=== PATIENT | female | born 1985 | race Caucasian/White ===

== ENCOUNTER 2019-11-04 01:10 | Emergency (ER) | payer SELFPAY ==
--- NOTE | 2019-11-04 01:23 | ER Document Report ---
ED General - General Chief Complaint: Possible Overdose Stated Complaint: POSS OVERDOSE Time Seen by Provider: 11/04/19 01:22 Mode of Arrival: Medic Information source: Patient, Emergency Med Personnel TRAVEL OUTSIDE OF THE [place] IN LAST 30 DAYS: No - HPI Onset: Just prior to arrival Onset/Duration: Sudden Quality of pain: No pain Severity: Severe Pain Level: Denies Associated symptoms: Other - patient apparently turned blue and stopped breathing Exacerbated by: Other - drug use Relieved by: Denies Similar symptoms previously: No Recently seen / treated by doctor: No Notes: 34 year old female with a history of Substance Abuse brought to the ER due to concern of an accidental drug overdose. The patient says she had a Klonpin yesterday afternoon and a drink and then she shot up crushed Percocet. The patient does not remember much after that but she started to come to and EMS and police were over her. The patient was apparently not given Narcan but brought to the ER. The patient was awake and alert for EMS and she was awake and alert in the ER but tearful/emotional. The patient denies any complaints at this time other then being shook up and wanting to go home. The patient denies Suicidal Ideation. - Related Data Allergies/Adverse Reactions: Penicillins Allergy (Severe, Verified 11/23/13 17:25) tounge swelling Past Medical History - General Information source: Patient, Emergency Med Personnel - Social History Smoking Status: Current Every Day Smoker Frequency of alcohol use: Occasional Drug Abuse: Cocaine, Heroin, Marijuana, Prescription drugs Lives with: Friend Family History: Reviewed & Not Pertinent Patient has suicidal ideation: No Patient has homicidal ideation: No Neurological Medical History: Reports: Hx Migraine - Immunizations Hx Diphtheria, Pertussis, Tetanus Vaccination: No Review of Systems - Review of Systems Constitutional: Other - apparent accidental overdose at home after injecting crushed up percocet EENT: No symptoms reported Cardiovascular: No symptoms reported Respiratory: No symptoms reported Gastrointestinal: No symptoms reported Genitourinary: No symptoms reported Female Genitourinary: No symptoms reported Musculoskeletal: No symptoms reported Skin: No symptoms reported Hematologic/Lymphatic: No symptoms reported Neurological/Psychological: No symptoms reported -: Yes All other systems reviewed and negative Physical Exam - Vital signs Vitals: Resp Pulse Ox 18 99 11/04/19 01:16 11/04/19 01:16 - Notes Notes: GENERAL: Poorly groomed, tearful and somewhat anxious, well-nourished HEAD: Atraumatic, normocephalic. EYES: Pupils equal round and reactive to light, extraocular movements intact, sclera anicteric, conjunctiva are normal. ENT: External ears normal in appearance, nares patent, oropharynx clear without exudates. Moist mucous membranes. NECK: Normal range of motion, supple without lymphadenopathy or JVD. LUNGS: Breath sounds clear to auscultation bilaterally and equal. No wheezes rales or rhonchi. HEART: Regular rate and rhythm without murmurs, rubs or gallops. ABDOMEN: Soft, nontender, normoactive bowel sounds. No guarding, no rebound. No masses appreciated. EXTREMITIES: Normal range of motion, no pitting or edema. No clubbing or cyanosis. NEUROLOGICAL: Cranial nerves II through XII grossly intact. Normal speech, normal gait. PSYCH: Patient denies SI, Patient endorses accidentally overdose, Anxious SKIN: Warm, Dry, normal turgor, no rashes or lesions noted. Course - Re-evaluation Re-evalutation: 11/04/19 02:37 The patient was using drugs at home and it sounds like she accidentally overdosed. The patient was not given Narcan by EMS and she was awake and alert for EMS and awake and alert in the ER. The patient was apparently found unresponsive at home with poor respirations and a blue color. The patient refused to stay in the ER for a work up. She was alert and oriented and had capacity to sign out against medical advice which she did. The patient denies SI. - Vital Signs Vital signs: Temp Pulse Resp BP Pulse Ox 98.4 F 14 139/82 H 99 11/04/19 01:20 11/04/19 01:18 11/04/19 01:18 11/04/19 01:18 Discharge - Discharge Clinical Impression: Drug use Accidental overdose Qualifiers: Encounter type: initial encounter Qualified Code(s): T50.901A - Poisoning by unspecified drugs, medicaments and biological substances, accidental (unintentional), initial encounter Condition: Stable Disposition: AGAINST MEDICAL ADVICE Instructions: Instructions for Home Care Following a Drug Overdose ([facility]) Additional Instructions: Stop using drugs. You had an event today where you apparently stopped breathing. Follow up with outpatient [facility] for your help with your drug problem.
[2019-11-04 01:40] VITALS: BP 139/82
== END 2019-11-04 01:52 | disposition left against medical advice (07) ==
LOC: ER 01:10
DX: T50.901A Poisoning by unspecified drugs, medicaments and biological substances, accidental (unintentional), initial encounter (principal); X58.XXXA Exposure to other specified factors, initial encounter; Y92.009 Unspecified place in unspecified non-institutional (private) residence as the place of occurrence of the external cause; F17.200 Nicotine dependence, unspecified, uncomplicated; Z88.0 Allergy status to penicillin
CPT/HCPCS: 99284

== ENCOUNTER 2020-03-20 23:21 | Emergency (ER) | payer SELFPAY ==
[2020-03-20] MEDS ORDERED: IBUPROFEN 600 MG TABLET PO ONE (23:44)
[2020-03-20] MEDS ORDERED: DOPAMINE HCL/DEXTROSE 5%-WATER 800 MG/250 ML RTUINJ IV PRN (23:48)
[2020-03-20] MEDS ORDERED: CLINDAMYCIN 300 MG/D5W RTU 300 MG/50 ML RTUPB IV ONE (23:49)
[2020-03-21] MEDS ORDERED: RINGERS SOLUTION,LACTATED 2,000 ML IV ONE
--- NOTE | 2020-03-21 | ER Document Report ---
ED Medical Screen (RME) - General Chief Complaint: Fever Stated Complaint: FEVER,SHAKY,ABSCESS ON LEFT ARM Time Seen by Provider: 03/20/20 23:43 Notes: Patient is a 34-year-old female who presents the emergency department with a chief complaint of fever, chills, body aches, and an abscess to her left wrist. Patient states that she "sliced open the abscess." Patient states that since then, she has had a fever. Denies any contact with anybody who tested positive for COVID-19. Patient is a current heroin user. Exam: Temperature 103. Old abscess site and noted to left wrist with surrounding erythema noted. I have greeted and performed a rapid initial assessment of this patient. A comprehensive ED assessment and evaluation of the patient, analysis of test results and completion of medical decision making process will be conducted by an additional ED providers. TRAVEL OUTSIDE OF THE [place] IN LAST 30 DAYS: No - Related Data Allergies/Adverse Reactions: Penicillins Allergy (Severe, Verified 11/23/13 17:25) tounge swelling Past Medical History - Social History Drug Abuse: Heroin Neurological Medical History: Reports: Hx Migraine - Immunizations Hx Diphtheria, Pertussis, Tetanus Vaccination: No Physical Exam - Vital signs Vitals: Temp Pulse Resp BP Pulse Ox 103.0 F H 128 H 20 170/82 H 96 03/20/20 23:26 03/20/20 23:26 03/20/20 23:26 03/20/20 23:26 03/20/20 23:26 Course - Vital Signs Vital signs: Temp Pulse Resp BP Pulse Ox 103.0 F H 128 H 20 170/82 H 96 03/20/20 23:26 03/20/20 23:26 03/20/20 23:26 03/20/20 23:26 03/20/20 23:26
[2020-03-21 00:42] LABS: ABSOLUTE LYMPHOCYTES (AUTO) 0.3 10^3/uL (0.5-4.7); ABSOLUTE MONOCYTES (AUTO) 0.3 10^3/uL (0.1-1.4); ABSOLUTE NEUT (AUTO) 4.9 10^3/uL (1.7-8.2); BASOPHILS % (AUTO) 0.4 % (0-2); EOSINOPHILS % (AUTO) 0.3 % (0-6); HEMATOCRIT 31.8 % (36.0-47.0); LYMPHOCYTES % (AUTO) 5.6 % (13-45); MEAN CORPUSCULAR HEMOGLOBIN 31.4 pg (27.0-33.4); MEAN CORPUSCULAR HGB CONC 34.7 g/dL (32.0-36.0); MEAN CORPUSCULAR VOLUME 90 fl (80-97); MONOCYTES % (AUTO) 5.4 % (3-13); RED BLOOD COUNT 3.52 10^6/uL (3.72-5.28); RED CELL DISTRIBUTION WIDTH 12.6 % (11.5-14.0); SEGMENTED NEUTROPHILS % (AUTO) 88.3 % (42-78); TOTAL CELLS COUNTED % (AUTO) 100 %; WHITE BLOOD COUNT 5.6 10^3/uL (4.0-10.5)
[2020-03-21 00:54] LABS: ALKALINE PHOSPHATASE 69 U/L (38-126); ANION GAP 8 (5-19); ASPARTATE AMINO TRANSFERASE 62 U/L (14-36); BILIRUBIN,DIRECT 0.2 mg/dL (0.0-0.4); BILIRUBIN,TOTAL 0.4 mg/dL (0.2-1.3); BLOOD UREA NITROGEN 11 mg/dL (7-20); CARBON DIOXIDE 21 mmol/L (22-30); CHLORIDE 104 mmol/L (98-107); GLUCOSE 136 mg/dL (75-110); POTASSIUM 3.5 mmol/L (3.6-5.0); TOTAL PROTEIN 6.6 g/dL (6.3-8.2)
[2020-03-21 01:22] LABS: PLATELET COUNT 97 10^3/uL (150-450)
[2020-03-21] MEDS ORDERED: CLINDAMYCIN HCL 150 MG CAPSULE PO ONE (01:29)
--- NOTE | 2020-03-21 01:33 | ER Document Report ---
ED General - General Chief Complaint: Fever Stated Complaint: FEVER,SHAKY,ABSCESS ON LEFT ARM Time Seen by Provider: 03/20/20 23:43 Primary Care Provider: ALBINO DANIELS MD [HONORARY] - Follow up as needed TRAVEL OUTSIDE OF THE [place] IN LAST 30 DAYS: No - HPI Context: This is a 34-year-old female with a history of IV drug abuse who presents to the emergency department complaint of fever, body aches, chills. Patient states she had a temperature of 103.4 at home. Patient states she has also been having some lightheadedness and dizziness and has been seeing spots when she stands up. Patient does have a abscess present on her left wrist. Patient has refused placement of a peripheral IV and IV antibiotics. Patient denies alleviating factors and exacerbating factors. Patient states she has had the symptoms for around 24 hours. Associated symptoms: Other - See HPI Exacerbated by: Other Relieved by: Other - See HPI see HPI - Related Data Allergies/Adverse Reactions: Penicillins Allergy (Severe, Verified 11/23/13 17:25) tounge swelling Past Medical History - General Information source: Patient - Social History Smoking Status: Current Every Day Smoker Drug Abuse: Heroin Family History: Reviewed & Not Pertinent Neurological Medical History: Reports: Hx Migraine - Immunizations Hx Diphtheria, Pertussis, Tetanus Vaccination: No Review of Systems - Review of Systems Constitutional: Chills, Fever, Weakness EENT: No symptoms reported Cardiovascular: No symptoms reported Respiratory: No symptoms reported Gastrointestinal: No symptoms reported Genitourinary: No symptoms reported Female Genitourinary: No symptoms reported Musculoskeletal: No symptoms reported Skin: Other - Abscess Hematologic/Lymphatic: No symptoms reported Neurological/Psychological: No symptoms reported -: Yes All other systems reviewed and negative Physical Exam - Vital signs Vitals: Temp Pulse Resp BP Pulse Ox 103.0 F H 128 H 20 170/82 H 96 03/20/20 23:26 03/20/20 23:26 03/20/20 23:26 03/20/20 23:26 03/20/20 23:26 - Notes Notes: CONSTITUTIONAL Patient wants to leave AMA. She is agreeable to a basic physical exam. [Vital signs reviewed, Patient appears comfortable, Alert and oriented X 3, Normal stature.] HEAD [Atraumatic, Normocephalic.] EYES [Eyes are normal to inspection, No discharge from eyes, Extraocular muscles intact, Sclera are normal, Conjunctiva are normal.] NECK [Normal ROM, No jugular venous distention, No meningeal signs, no carotid bruit.] RESPIRATORY CHEST [Chest is nontender, Breath sounds normal, No respiratory distress.] CARDIOVASCULAR [RRR, No murmurs, Normal S1 S2, No rub, No gallop.] ABDOMEN [Abdomen is nontender, No pulsatile masses, No other masses, Bowel sounds normal, No distension, No peritoneal signs, No hernias.] BACK [There is no CVA Tenderness, There is no tenderness to palpation, Normal inspection.] UPPER EXTREMITY [Inspection normal, No cyanosis, No clubbing, No edema, 2+ radial pulses.] LOWER EXTREMITY [Inspection normal, No cyanosis, No clubbing, No edema, No calf tenderness, 2+ femoral pulses.] NEURO [No focal motor deficits, No focal sensory deficits, Speech normal.] LYMPHATIC [No adenopathy in neck.] PSYCHIATRIC [Normal affect. ] Course - Re-evaluation Re-evalutation: 03/21/20 01:39 Results of ED MSE discussed with patient. Patient advised that she should at least get some IV antibiotics. Patient is refusing this. Patient states she wants to leave. Patient has been informed that if she is leaving she will be doing so AGAINST MEDICAL ADVICE. Risk of leaving AMA including but not limited to permanent disability and/or discussed with patient. Patient expressed understanding of risks. Patient was amenable to receiving a oral dose of clindamycin and a prescription for more the same. Patient was encouraged to return to the emergency department anytime if she decides to seek further care or treatment. - Vital Signs Vital signs: Temp Pulse Resp BP Pulse Ox 103.0 F H 128 H 20 170/82 H 96 03/20/20 23:26 03/20/20 23:26 03/20/20 23:26 03/20/20 23:26 03/20/20 23:26 - Laboratory Result Diagrams: 03/21/20 00:26 03/21/20 00:26 Laboratory results interpreted by me: 03/21/20 03/21/20 00:26 00:26 RBC 3.52 L Hgb 11.0 L Hct 31.8 L Plt Count 97 L Lymph % (Auto) 5.6 L Absolute Lymphs (auto) 0.3 L Seg Neutrophils % 88.3 H Sodium 133.2 L Potassium 3.5 L Carbon Dioxide 21 L Glucose 136 H Calcium 8.0 L AST 62 H ALT 40 H Albumin 3.0 L Discharge - Discharge Clinical Impression: Abscess Fever Qualifiers: Fever type: unspecified Qualified Code(s): R50.9 - Fever, unspecified Disposition: AGAINST MEDICAL ADVICE Instructions: Abscess ([facility]) Additional Instructions: Return to the Emergency Department without delay if any worse. Return to the emergency department at any time if you decide to seek further treatment. HOME CARE INSTRUCTIONS & INFORMATION: Thank you for choosing us for your medical needs. We hope you're satisfied with the care you received. After you leave, you must properly care for your problem and, at the same time, observe its progress. Any condition can change. Some illnesses can change rapidly over hours or days. If your condition worsens, return to the Emergency Department or see your physician promptly. ABOUT YOUR X-RAYS AND EKG'S: If you had an EKG or X-rays taken, they have been read by the Emergency Physician. The X-rays and EKG's will also be read by a Radiologist or Dice Table Operator within 24 hours. If discrepancies are noted, you will be notified by telephone. Please be certain the ED has a correct telephone number & address where you can be reached. Also, realize that some fractures or abnormalities do not show up on initial X-rays. If your symptoms continue, see your physician. ABOUT YOUR LABORATORY TEST: If you had laboratory tests, the results have been reviewed by the Emergency Physician. Some test results (for example cultures) may not be available for several days. You will be contacted if any test result shows you need additional treatment. Please be certain the ED has a correct telephone number and address where you can be reached. ABOUT YOUR MEDICATIONS: You will receive instructions on how to take your medic ine on the prescription label you receive. Additional information may be provided by the Pharmacy. If you have questions afterwards, call the ED for clarification or further instructions. Some prescribed medications may cause drowsiness. Do not perform tasks such as driving a car or operating machinery without consulting your Pharmacist. If you feel you need a refill of pain medication, your condition will need re-evaluation. Please do not call for a refill of any medication. ABOUT YOUR SIGNATURE: Signature of this document acknowledges to followin. Understanding that you received emergency treatment and that you may be released before al medical problems are known or treated. Please be certain the ED has a correct phone number & address where you can be reached. 2. Acknowledgement that you will arrange for follow-up care as recommended. 3. Authorization for the Emergency Physician to provide information to your follow-up Physician in order to maximize your care. AT ANY TIME, IF YOUR SYMPTOMS CHANGE SIGNIFICANTLY OR WORSEN OR YOU DEVELOP NEW SYMPTOMS, RETURN TO THE EMERGENCY DEPARTMENT IMMEDIATELY FOR RE-EVALUATION. OUR GOAL IS TO PROVIDE EXCELLENT MEDICAL CARE! WE HOPE THAT WE HAVE MET YOUR EXPECTATIONS DURING YOUR EMERGENCY DEPARTMENT VISIT AND THAT YOU FEEL YOU HAVE RECEIVED EXCELLENT CARE! Prescriptions: Clindamycin HCl [Cleocin 150 mg Capsule] 450 mg PO TID 10 Days #90 capsule Referrals: ALBINO DANIELS MD [HONORARY] - Follow up as needed
[2020-03-21 01:42] VITALS: BP 129/67
== END 2020-03-21 01:46 | disposition left against medical advice (07) ==
LOC: ER 23:21
DX: L02.414 Cutaneous abscess of left upper limb (principal); R50.9 Fever, unspecified; M79.10 Myalgia, unspecified site; R42 Dizziness and giddiness; F19.10 Other psychoactive substance abuse, uncomplicated; Z88.0 Allergy status to penicillin; F17.200 Nicotine dependence, unspecified, uncomplicated
CPT/HCPCS: 36415; 80053; 83605; 85025; 87040; 87077; 87150; 87186; 99283

== ENCOUNTER 2020-04-12 03:51 | Inpatient (IN) | payer SELFPAY ==
[2020-04-12 05:38] LABS: INTERNATIONAL RATION (INR) 1.11; PROTHROMBIN TIME 14.5 SEC (11.4-15.4)
--- NOTE | 2020-04-12 05:39 | ER Document Report ---
ED Medical Screen (RME) - General Mode of Arrival: Medic Information source: Patient TRAVEL OUTSIDE OF THE [place] IN LAST 30 DAYS: No <MENG GOMES - Last Filed: 04/12/20 05:40> <SETHSTEVE Lon CHAU - Last Filed: 04/12/20 11:01> - General Chief Complaint: Breathing Difficulty Stated Complaint: DIFFICULTY BREATHING Time Seen by Provider: 04/12/20 05:03 Notes: Patient is a 34-year-old female presenting to the emergency department with breathing difficulty and shortness of breath. Patient is a IV heroin user and also has a history of hep C. EMS was called to patient's house for a "sick call". When EMS arrived they found the patient to be hypoxic with a pulse ox of 96%. Patient reports last time she did heroin was approximately 4:00 yesterday afternoon. She has pitting edema to her bilateral lower extremities that she says has been ongoing for the last few days. She denies ever having this happen in the past. She reports she has not felt well for the last 3 to 4 days. She denies any fevers, chills or any known exposure to COVID-19. At the time of my initial evaluation patient is on BiPAP, heart rate 105, pulse ox 99%, respiratory rate 21, blood pressure 97/64. She was initially tachycardic in tachypneic on arrival. I have greeted and performed a rapid initial assessment of this patient. A comprehensive ED assessment and evaluation of the patient, analysis of test results and completion of the medical decision making process will be conducted by additional ED providers. I have specifically instructed the patient or family members with the patient to immediately return to any nursing staff s hould anything change in the patient's condition or with their chief complaint. (MENG GOEMS) - Related Data Allergies/Adverse Reactions: Penicillins Allergy (Severe, Verified 11/23/13 17:25) tounge swelling Past Medical History Neurological Medical History: Reports: Hx Migraine - Immunizations Hx Diphtheria, Pertussis, Tetanus Vaccination: No <MENG GOMES - Last Filed: 04/12/20 05:40> Physical Exam - Vital signs Vitals: Resp 26 H 04/12/20 03:55 Course - Laboratory Result Diagrams: 04/12/20 04:15 04/12/20 04:15 <MENG GOMES - Last Filed: 04/12/20 05:40> - Laboratory Result Diagrams: 04/12/20 04:15 04/12/20 04:15 <STEVE ANN JR - Last Filed: 04/12/20 11:01> - Vital Signs Vital signs: Temp Pulse Resp BP Pulse Ox 97.8 F 27 H 114/62 96 04/12/20 04:00 04/12/20 10:00 04/12/20 10:01 04/12/20 10:00 - Laboratory Laboratory results interpreted by me: 04/12/20 04/12/20 04/12/20 04:15 04:15 04:15 WBC 10.7 H RBC 3.17 L Hgb 9.5 L Hct 27.7 L RDW 15.6 H Plt Count 41 L Lymph % (Auto) 5.9 L Absolute Neuts (auto) 8.5 H Seg Neutrophils % 79.9 H VBG pH VBG HCO3 Sodium 134.2 L Chloride 97 L Carbon Dioxide 19 L BUN 105 H Creatinine 9.19 H Est GFR ( Amer) 6 L Est GFR (MDRD) Non-Af 5 L Calcium 7.1 L Phosphorus Total Bilirubin 1.5 H Direct Bilirubin 1.3 H AST 190 H ALT 61 H Alkaline Phosphatase 178 H NT-Pro-B Natriuret Pep 8880 H Total Protein 5.8 L Albumin 2.3 L Urine Protein Urine Glucose (UA) Urine Ketones Urine Blood Urine Urobilinogen Leukocyte Esterase Rfl Urine Sodium 04/12/20 04/12/20 04/12/20 05:15 07:14 07:14 WBC RBC Hgb Hct RDW Plt Count Lymph % (Auto) Absolute Neuts (auto) Seg Neutrophils % VBG pH VBG HCO3 Sodium Chloride Carbon Dioxide BUN Creatinine Est GFR ( Amer) Est GFR (MDRD) Non-Af Calcium Phosphorus 6.3 H Total Bilirubin Direct Bilirubin AST ALT Alkaline Phosphatase NT-Pro-B Natriuret Pep Total Protein Albumin Urine Protein >=500 H Urine Glucose (UA) 50 H Urine Ketones TRACE H Urine Blood MODERATE H Urine Urobilinogen 2.0 H Leukocyte Esterase Rfl MODERATE H Urine Sodium 130 H 04/12/20 07:22 WBC RBC Hgb Hct RDW Plt Count Lymph % (Auto) Absolute Neuts (auto) Seg Neutrophils % VBG pH 7.23 L VBG HCO3 19.3 L Sodium Chloride Carbon Dioxide BUN Creatinine Est GFR ( Amer) Est GFR (MDRD) Non-Af Calcium Phosphorus Total Bilirubin Direct Bilirubin AST ALT Alkaline Phosphatase NT-Pro-B Natriuret Pep Total Protein Albumin Urine Protein Urine Glucose (UA) Urine Ketones Urine Blood Urine Urobilinogen Leukocyte Esterase Rfl Urine Sodium Critical Care Note <STEVE ANN JR - Last Filed: 04/12/20 11:01> - Critical Care Note Comments: I discussed this case with Dr. Burnette and she advises Dr. Carey to admit the patient and Dr. Parekh returned call at 1030 and advises [facility]. (STEVE ANN JR) Doctor's Discharge <MENG GOMES - Last Filed: 04/12/20 05:40> <STEVE ANN JR - Last Filed: 04/12/20 11:01> - Discharge Clinical Impression: Liver disease, IV drug abuse Pulmonary edema Qualifiers: Chronicity: acute Qualified Code(s): J81.0 - Acute pulmonary edema Edema Qualifiers: Edema type: generalized Qualified Code(s): R60.1 - Generalized edema Acute renal failure (ARF) Qualifiers: Acute renal failure type: unspecified Qualified Code(s): N17.9 - Acute kidney failure, unspecified Disposition: ADMITTED INPATIENT Additional Instructions: Transfer this patient to [facility]
[2020-04-12 05:44] LABS: ALBUMIN 2.3 g/dL (3.5-5.0); ALKALINE PHOSPHATASE 178 U/L (38-126); ANION GAP 18 (5-19); ASPARTATE AMINO TRANSFERASE 190 U/L (14-36); BILIRUBIN,DIRECT 1.3 mg/dL (0.0-0.4); BILIRUBIN,TOTAL 1.5 mg/dL (0.2-1.3); BLOOD UREA NITROGEN 105 mg/dL (7-20); CALCIUM 7.1 mg/dL (8.4-10.2); CARBON DIOXIDE 19 mmol/L (22-30); CHLORIDE 97 mmol/L (98-107); GLUCOSE 80 mg/dL (75-110); POTASSIUM 4.2 mmol/L (3.6-5.0); TOTAL PROTEIN 5.8 g/dL (6.3-8.2)
[2020-04-12] MEDS: LEVOFLOXACIN 750 MG/D5W RTU 750 MG/150 ML RTUPB IV SCH ×2 (05:46→10:16)
[2020-04-12 06:06] LABS: ABSOLUTE BASOPHILS # (AUTO) 0.1 10^3/uL (0.0-0.2); ABSOLUTE EOSINOPHILS # (AUTO) 0.6 10^3/uL (0.0-0.6); ABSOLUTE LYMPHOCYTES (AUTO) 0.6 10^3/uL (0.5-4.7); ABSOLUTE MONOCYTES (AUTO) 0.9 10^3/uL (0.1-1.4); ABSOLUTE NEUT (AUTO) 8.5 10^3/uL (1.7-8.2); BASOPHILS % (AUTO) 0.5 % (0-2); EOSINOPHILS % (AUTO) 5.2 % (0-6); HEMATOCRIT 27.7 % (36.0-47.0); HEMOGLOBIN 9.5 g/dL (12.0-15.5); LYMPHOCYTES % (AUTO) 5.9 % (13-45); MEAN CORPUSCULAR HEMOGLOBIN 30.1 pg (27.0-33.4); MEAN CORPUSCULAR HGB CONC 34.5 g/dL (32.0-36.0); MEAN CORPUSCULAR VOLUME 87 fl (80-97); MONOCYTES % (AUTO) 8.5 % (3-13); RED BLOOD COUNT 3.17 10^6/uL (3.72-5.28); RED CELL DISTRIBUTION WIDTH 15.6 % (11.5-14.0); SEGMENTED NEUTROPHILS % (AUTO) 79.9 % (42-78); TOTAL CELLS COUNTED % (AUTO) 100 %; WHITE BLOOD COUNT 10.7 10^3/uL (4.0-10.5)
[2020-04-12 06:22] LABS: PLATELET COUNT 41 10^3/uL (150-450)
[2020-04-12] MEDS ORDERED: BUMETANIDE INJ/PF 1 MG/4 ML SDV IV STA (06:23)
[2020-04-12] MEDS ORDERED: FAMOTIDINE INJ/PF 20 MG/2 ML SDV IV ONE (06:23)
[2020-04-12] MEDS ORDERED: DEXAMETHASONE SOD PHOS INJ 10 MG/1 ML VIAL IV ONE (06:24)
--- NOTE | 2020-04-12 06:55 | RADIOLOGY REPORT (SQ) ---
EXAM DESCRIPTION: XR CHEST 1 VIEW COMPLETED DATE/TME: 04/12/2020 05:17 CLINICAL HISTORY: 34 years Female, SHORTNESS OF BREATH COMPARISON: 12/21/11 NUMBER OF VIEWS/TECHNIQUE: 1/AP FINDINGS: Moderate, extensive mixed patchy airspace and interstitial opacities bilaterally. Adequate lung volume, prominent cardiac silhouette, and intact bony thorax. IMPRESSION: Moderate, extensive mixed patchy airspace and interstitial opacities bilaterally. Differential diagnosis includes pulmonary edema, multifocal pneumonia, and chronic interstitial lung disease. Imaging features can be seen with (COVID-19 or viral) pneumonia, though are nonspecific and can occur with a variety of infectious and noninfectious processes. [PneInd]
[2020-04-12 07:39] LABS: APPEARANCE,URINE TURBID; BILIRUBIN,URINE NEGATIVE (NEGATIVE); COLOR,URINE AMBER; GLUCOSE, URINE 50 mg/dL (NEGATIVE); KETONES,URINE TRACE mg/dL (NEGATIVE); PROTEIN,URINE >=500 mg/dL (NEGATIVE)
[2020-04-12 07:40] LABS: VENOUS BLOOD HCO3 19.3 mmol/L (20-32); VENOUS BLOOD PCO2 46.7 mmHg (35-63); VENOUS BLOOD PH 7.23 (7.30-7.42)
[2020-04-12 07:50] LABS: URINE BARBITURATES SCREEN NEGATIVE; URINE BENZODIAZEPINES SCREEN NEGATIVE; URINE COCAINE SCREEN NEGATIVE; URINE MARIJUANA (THC) SCREEN NEGATIVE; URINE METHADONE SCREEN NEGATIVE; URINE PHENCYCLIDINE SCREEN NEGATIVE
[2020-04-12] MEDS ORDERED: NORMAL SALINE 500 ML IV ONE (08:01)
[2020-04-12 08:43] LABS: PHOSPHORUS 6.3 mg/dL (2.5-4.5)
[2020-04-12 08:58] LABS: URINE CREATININE 130.5 mg/dL (16-327)
[2020-04-12] MEDS ORDERED: ONDANSETRON HCL INJ/PF 4 MG/2 ML SDV IV PRN (12:04)
[2020-04-12] MEDS ORDERED: NORMAL SALINE 1000 ML 1,000 ML IV PRN (12:04)
[2020-04-12] MEDS ORDERED: RINGERS SOLUTION,LACTATED 1,000 ML IV PRN ×2 (12:13→19:03)
[2020-04-12] MEDS ORDERED: FUROSEMIDE INJ/PF 20 MG/2 ML SDV IV ONE (12:17)
[2020-04-12] MEDS ORDERED: RINGERS SOLUTION,LACTATED 1,000 ML IV ONE (12:22)
[2020-04-12] MEDS ORDERED: ACETAMINOPHEN 325 MG TABLET PO PRN ×2 (12:25→12:36)
--- NOTE | 2020-04-12 13:01 | PDOC H&P ---
History of Present Illness Admission Date/PCP: 04/12/20 11:21 Patient complains of: Shortness of breath History of Present Illness: HANNY MADISON is a 34 year old female with history of IV heroin/methamphetamine use, hepatitis C, who presents to the hospital with complaints of shortness of breath and increased work of breathing over the past 5 days. Patient has also noted increased swelling in both lower extremities since that time. She denies fever or chills. She does have occasional cough nonproductive of more sputum. Also experiencing aches and pains in her lower extremities. She denies any diarrhea. She denies any history of kidney disease or heart failure. She also admits to very diminished water intake over the last few days. She has been using heroin very frequently over the past 2 to 3 days as well. On arrival of EMS, patient was noted to be significantly hypoxic with SPO2 69% and subsequently placed on a CPAP. She was switched to a BiPAP machine in the ER due to work of breathing. Past Medical History Neurological Medical History: Reports: Migraine Infectious Medical History: Reports: Hepatitis C Past Surgical History Past Surgical History: Reports: None Social History Smoking Status: Current Every Day Smoker Frequency of Alcohol Use: None Hx Recreational Drug Use: Yes Drugs: Heroin - Advance Directive Resuscitation Status: Full Code Family History Family History: Other - Denies family history of kidney failure. Does have immediate family history of blood clots. Parental Family History Reviewed: Yes Children Family History Reviewed: NA Sibling(s) Family History Reviewed.: Yes Medication/Allergy Home Medications: No Home Medications 04/12/20 Allergies/Adverse Reactions: Penicillins Allergy (Severe, Verified 11/23/13 17:25) tounge swelling Review of Systems Constitutional: PRESENT: fatigue. ABSENT: fever(s) Eyes: ABSENT: visual disturbances Nose, Mouth, and Throat: PRESENT: headache(s) Cardiovascular: PRESENT: dyspnea on exertion, edema. ABSENT: chest pain Respiratory: PRESENT: dyspnea Gastrointestinal: PRESENT: abdominal pain. ABSENT: diarrhea, nausea, vomiting Genitourinary: PRESENT: other - Decreased urinary production. ABSENT: dysuria Integumentary: ABSENT: diaphoresis Neurological: ABSENT: confusion Endocrine: ABSENT: polyuria Allergic/Immunologic: ABSENT: seasonal rhinorrhea Physical Exam Vital Signs: Temp Pulse Resp BP Pulse Ox 97.8 F 26 H 133/66 H 94 04/12/20 04:00 04/12/20 11:01 04/12/20 11:01 04/12/20 11:01 Intake & Output 04/11/20 04/12/20 04/13/20 06:59 06:59 06:59 Intake Total 800 Balance 800 Weight 99.79 kg General appearance: PRESENT: no acute distress, cooperative Respiratory exam: PRESENT: crackles, rhonchi, symmetrical, tachypnea, unlabored. ABSENT: accessory muscle use, stridor Cardiovascular exam: PRESENT: +S1, +S2, tachycardia. ABSENT: irregular rhythm GI/Abdominal exam: PRESENT: soft, tenderness. ABSENT: distended, firm, guarding, rebound, rigid Extremities exam: PRESENT: calf tenderness, pedal edema - nonpitting, tenderness Neurological exam: PRESENT: alert, awake, oriented to person, oriented to place, oriented to time, oriented to situation Psychiatric exam: PRESENT: agitated, anxious Focused psych exam: PRESENT: restlessness Results Laboratory Results: 04/12/20 04:15 04/12/20 04:15 04/12/20 04/12/20 04/12/20 04:15 04:15 04:15 WBC 10.7 H RBC 3.17 L Hgb 9.5 L Hct 27.7 L MCV 87 MCH 30.1 MCHC 34.5 RDW 15.6 H Plt Count 41 L Seg Neutrophils % 79.9 H VBG pH VBG pCO2 VBG HCO3 VBG Base Excess Sodium Potassium Chloride Carbon Dioxide Anion Gap BUN Creatinine Est GFR ( Amer) Glucose Lactic Acid 1.6 Calcium Phosphorus Magnesium Total Bilirubin AST Alkaline Phosphatase Total Protein Albumin Serum HCG, Qual NEGATIVE Urine Color Urine Appearance Urine pH Ur Specific [place] Urine Protein Urine Glucose (UA) Urine Ketones Urine Blood Urine RBC (Auto) 04/12/20 04/12/20 04/12/20 04:15 05:15 07:14 WBC RBC Hgb Hct MCV MCH MCHC RDW Plt Count Seg Neutrophils % VBG pH VBG pCO2 VBG HCO3 VBG Base Excess Sodium 134.2 L Potassium 4.2 Chloride 97 L Carbon Dioxide 19 L Anion Gap 18 BUN 105 H Creatinine 9.19 H Est GFR ( Amer) 6 L Glucose 80 Lactic Acid Calcium 7.1 L Phosphorus 6.3 H Magnesium 2.0 Total Bilirubin 1.5 H AST 190 H Alkaline Phosphatase 178 H Total Protein 5.8 L Albumin 2.3 L Serum HCG, Qual Urine Color MARY Urine Appearance TURBID Urine pH 6.0 Ur Specific [place] 1.020 Urine Protein >=500 H Urine Glucose (UA) 50 H Urine Ketones TRACE H Urine Blood MODERATE H Urine RBC (Auto) >182 04/12/20 04/12/20 07:22 07:22 WBC RBC Hgb Hct MCV MCH MCHC RDW Plt Count Seg Neutrophils % VBG pH 7.23 L VBG pCO2 46.7 VBG HCO3 19.3 L VBG Base Excess -8.0 Sodium Potassium Chloride Carbon Dioxide Anion Gap BUN Creatinine Est GFR ( Amer) Glucose Lactic Acid 1.7 Calcium Phosphorus Magnesium Total Bilirubin AST Alkaline Phosphatase Total Protein Albumin Serum HCG, Qual Urine Color Urine Appearance Urine pH Ur Specific [place] Urine Protein Urine Glucose (UA) Urine Ketones Urine Blood Urine RBC (Auto) 04/12/20 04:15 NT-Pro-B Natriuret Pep 8880 H Impressions: Chest X-Ray 04/12/20 05:17 IMPRESSION: Moderate, extensive mixed patchy airspace and interstitial opacities bilaterally. Differential diagnosis includes pulmonary edema, multifocal pneumonia, and chronic interstitial lung disease. Imaging features can be seen with (COVID-19 or viral) pneumonia, though are nonspecific and can occur with a variety of infectious and noninfectious processes. [PneInd] Assessment and Plan - Diagnosis (1) Acute renal failure (ARF) Qualifiers: Acute renal failure type: unspecified Qualified Code(s): N17.9 - Acute kidney failure, unspecified Is this a current diagnosis for this admission?: Yes Plan: Creatinine over 9. Was normal about a month ago. Nephrology was consulted. Discussed case with nephrology and is recommending some IV fluids and albumin to help with third spacing and mild gentle diuresis but thinks patient is intravascularly depleted. Patient already received a tiny dose of Bumex in the ER. I will give IV fluids and albumin for now and monitor urine output strictly Renal ultrasound ordered to rule out postrenal causes of ALISA. If urine output is not substantial in the next several hours, we will have to plan towards dialysis. Etiology at this time is uncertain. 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 Continue Levaquin. COVID-19 screen Treat renal failure. If oxygenation starts to drop further, will diurese more aggressively. Currently requiring BiPAP FiO2 40%. I will try to see if patient can be weaned to nasal cannula. (3) History of hepatitis C virus infection Is this a current diagnosis for this admission?: Yes Plan: Mild transaminitis noted to be secondary to chronic hep C infection. Will monitor. Will d/w patient to see if ever tested for RNA to see if chronic vs resolved (4) IV drug abuse Is this a current diagnosis for this admission?: Yes Plan: Uses methamphetamines and heroin. High chance of withdrawing. Ativan as needed for anxiety - Time Time Spent with patient: 35 or more minutes Anticipated Discharge Disposition: Home, Self Care Anticipated Discharge Timeframe: undetermined
[2020-04-12] MEDS ORDERED: ALBUMIN HUMAN 500 ML IV ONE (13:30)
[2020-04-12] MEDS: FAMOTIDINE 20 MG TABLET PO SCH (15:21)
[2020-04-12] MEDS: HEPARIN SOD (PORCINE) 5,000 UNIT/ML 1 ML VIAL SUBCUT SCH ×2 (15:22→22:00)
[2020-04-12] MEDS: LORAZEPAM INJ 2 MG/1 ML VIAL IV PRN (15:43)
[2020-04-12] MEDS ORDERED: SODIUM BICARBONATE 650 MG TABLET PO SCH (16:00)
[2020-04-12] MEDS ORDERED: VANCOMYCIN HCL INJ 1000 MG VIAL IV SCH (16:00)
--- NOTE | 2020-04-12 16:49 | RADIOLOGY REPORT (SQ) ---
EXAM DESCRIPTION: VENOUS BILATERAL LOWER IMAGES COMPLETED DATE/TIME: 04/12/2020 4:42 pm REASON FOR STUDY: LEG SWELLING AND PAIN COMPARISON: None. TECHNIQUE: Dynamic and static erazo scale and color images acquired of both lower extremity venous sy stems. Selected spectral images acquired with additional compression and augmentation maneuvers. Imag es stored on PACS. LIMITATIONS: None. FINDINGS: RIGHT LEG COMMON FEMORAL AND FEMORAL: Normal phasicity, compression and augmentation. No visualized echogenic m aterial on erazo scale. No defects on color images. POPLITEAL: Normal compression and augmentation. No visualized echogenic material on erazo scale. No de fects on color images. CALF VESSELS: Normal compression and augmentation. No visualized echogenic material on erazo scale. No defects on color image. GSV AND SSV: Normal compression. No visualized echogenic material on erazo scale. No defects on color images. ANY DEEP VENOUS INSUFFICIENCY: Not evaluated. ANY EVIDENCE OF POPLITEAL CYST: No. OTHER: No other significant finding. LEFT LEG COMMON FEMORAL AND FEMORAL: Normal phasicity, compression and augmentation. No visualized echogenic m aterial on erazo scale. No defects on color images. POPLITEAL: Normal compression and augmentation. No visualized echogenic material on erazo scale. No de fects on color images. CALF VESSELS: Normal compression and augmentation. No visualized echogenic material on erazo scale. No defects on color images. GSV AND SSV: Normal compression. No visualized echogenic material on erazo scale. No defects on color images. ANY DEEP VENOUS INSUFFICIENCY: Not evaluated. ANY EVIDENCE POPLITEAL CYST: No. OTHER: No other significant finding. IMPRESSION: NO EVIDENCE DVT OR SVT IN EITHER LEG. TECHNICAL DOCUMENTATION: JOB ID: [id number] [id number] 2010 [employer]- All Rights Reserved Reading location - IP/workstation name: [employer]
--- NOTE | 2020-04-12 16:57 | PDOC CONSULTATION ---
Consultation Consult Date: 04/12/20 Attending physician:: brianna Provider Consulted: Marlon FUENTES Consult reason:: renal failure History of Present Illness History of Present Illness: HANNY MADISON is a 34 year old female with a significant history of heroin drug use. She denies any other significant history. She present to the ER this morning for not feeling well and increased SOB for the past 3 to 4 days. She claims that she started to not feel well a few days ago. The SOB started to get worse and required her to call 911. On arrival she was found to be hypoxic. She was taken to the ER due to the hypoxia. According to her she has been using heroin almost everyday. She denies being around any positive for COVID. She denies chest pain, heart palpitations, fevers. She denies sharing needles for her heroin. In the ER she was labs and a chest x-ray were done. The chest x-ray should patchy infiltrates through out her lungs. Creatinine was severely elevated from baseline at 9.19, bun was 105, bicarb of 19, sodium of 134.2, calcium of 7.1 with an 8.4 corrected calcium, hemoglobin of 9.5, white count of 10.7, bnp of 4,550 and a significant amount of protein in the urine. She was given IV fluids, bumex and started on levofloxacin. She was also placed on bipap. At this time is she being admitted. Currently on contact precautions for PUI of COVID. Past Medical History Neurological Medical History: Reports: Migraine Social History Smoking Status: Current Every Day Smoker Family History Parental Family History Reviewed: Yes Children Family History Reviewed: Unknown Sibling(s) Family History Reviewed.: Unknown Medication/Allergy Home Medications: RX: No Home Medications 04/12/20 Allergies/Adverse Reactions: Penicillins Allergy (Severe, Verified 11/23/13 17:25) tounge swelling Review of Systems Constitutional: PRESENT: anorexia, chills, fatigue, weakness. ABSENT: fever(s), night sweats Eyes: ABSENT: visual disturbances Cardiovascular: PRESENT: dyspnea on exertion, edema, orthropnea. ABSENT: chest pain, palpitations Respiratory: PRESENT: cough, dyspnea Gastrointestinal: ABSENT: abdominal pain, constipation, diarrhea, nausea, vomiting Genitourinary: ABSENT: difficulty urinating, dysuria Musculoskeletal: ABSENT: back pain, deformity Neurological: PRESENT: weakness. ABSENT: confusion, tremor(s) Psychiatric: PRESENT: anxiety, depression Physical Exam Vital Signs: Temp Pulse Resp BP Pulse Ox 97.8 F 27 H 114/62 96 04/12/20 04:00 04/12/20 10:00 04/12/20 10:01 04/12/20 10:00 Intake & Output 04/11/20 04/12/20 04/13/20 06:59 06:59 06:59 Intake Total 650 Balance 650 Weight 99.79 kg General appearance: PRESENT: disheveled, mild distress - on bipap, obese Mouth exam: PRESENT: moist, neck supple Neck exam: ABSENT: JVD, tracheal deviation Respiratory exam: PRESENT: crackles, rales, rhonchi. ABSENT: accessory muscle use, clear to auscultation cristiane, wheezes Cardiovascular exam: PRESENT: +S1, +S2, tachycardia. ABSENT: systolic murmur GI/Abdominal exam: PRESENT: soft. ABSENT: ascites, distended, firm, tenderness Extremities exam: ABSENT: pedal edema, +1 edema, +2 edema Musculoskeletal exam: PRESENT: normal inspection Neurological exam: PRESENT: alert, awake, oriented to person, oriented to place, oriented to time, oriented to situation Psychiatric exam: PRESENT: anxious. ABSENT: appropriate affect, normal mood Skin exam: PRESENT: dry, intact, warm. ABSENT: cyanosis Results Laboratory Results: 04/12/20 04:15 04/12/20 04:15 04/12/20 04/12/20 04/12/20 04:15 04:15 04:15 WBC 10.7 H RBC 3.17 L Hgb 9.5 L Hct 27.7 L MCV 87 MCH 30.1 MCHC 34.5 RDW 15.6 H Plt Count 41 L Seg Neutrophils % 79.9 H VBG pH VBG pCO2 VBG HCO3 VBG Base Excess Sodium Potassium Chloride Carbon Dioxide Anion Gap BUN Creatinine Est GFR ( Amer) Glucose Lactic Acid 1.6 Calcium Phosphorus Magnesium Total Bilirubin AST Alkaline Phosphatase Total Protein Albumin Serum HCG, Qual NEGATIVE Urine Color Urine Appearance Urine pH Ur Specific [place] Urine Protein Urine Glucose (UA) Urine Ketones Urine Blood Urine RBC (Auto) 04/12/20 04/12/20 04/12/20 04:15 05:15 07:14 WBC RBC Hgb Hct MCV MCH MCHC RDW Plt Count Seg Neutrophils % VBG pH VBG pCO2 VBG HCO3 VBG Base Excess Sodium 134.2 L Potassium 4.2 Chloride 97 L Carbon Dioxide 19 L Anion Gap 18 BUN 105 H Creatinine 9.19 H Est GFR ( Amer) 6 L Glucose 80 Lactic Acid Calcium 7.1 L Phosphorus 6.3 H Magnesium 2.0 Total Bilirubin 1.5 H AST 190 H Alkaline Phosphatase 178 H Total Protein 5.8 L Albumin 2.3 L Serum HCG, Qual Urine Color MARY Urine Appearance TURBID Urine pH 6.0 Ur Specific [place] 1.020 Urine Protein >=500 H Urine Glucose (UA) 50 H Urine Ketones TRACE H Urine Blood MODERATE H Urine RBC (Auto) >182 04/12/20 04/12/20 07:22 07:22 WBC RBC Hgb Hct MCV MCH MCHC RDW Plt Count Seg Neutrophils % VBG pH 7.23 L VBG pCO2 46.7 VBG HCO3 19.3 L VBG Base Excess -8.0 Sodium Potassium Chloride Carbon Dioxide Anion Gap BUN Creatinine Est GFR ( Amer) Glucose Lactic Acid 1.7 Calcium Phosphorus Magnesium Total Bilirubin AST Alkaline Phosphatase Total Protein Albumin Serum HCG, Qual Urine Color Urine Appearance Urine pH Ur Specific [place] Urine Protein Urine Glucose (UA) Urine Ketones Urine Blood Urine RBC (Auto) 04/12/20 04:15 NT-Pro-B Natriuret Pep 8880 H Impressions: Chest X-Ray 04/12/20 05:17 IMPRESSION: Moderate, extensive mixed patchy airspace and interstitial opacities bilaterally. Differential diagnosis includes pulmonary edema, multifocal pneumonia, and chronic interstitial lung disease. Imaging features can be seen with (COVID-19 or viral) pneumonia, though are nonspecific and can occur with a variety of infectious and noninfectious processes. [PneInd] Assessment & Plan - Diagnosis (1) Acute renal failure (ARF) Qualifiers: Acute renal failure type: unspecified Qualified Code(s): N17.9 - Acute kidney failure, unspecified Plan: Nonoliguric, possible causes include dehydration despite the fluid on the lungs, possible COVID infection leading to worsening kidney function, ATN from her current infection, renal toxicity from an unknown substance laced in her heroin, or unexpected Nephrotic related condition. With lung involvement need to rule out vascular nephritis. Last know check for protein in her urine was 2013. Will look to start normal saline at 75 an hour. Will also look to get a renal ultrasound. Continue with best catheter. Will also look to follow up with more labs and may possibly need a kidney biopsy. (2) Pulmonary edema Qualifiers: Chronicity: acute Qualified Code(s): J81.0 - Acute pulmonary edema Plan: differential includes pulmonary edema, covid pneumonia, possible vascular related disease or CAP. Continue on levofloxacin. Will look to fluids, less likely pulmonary edema. Can try challenging with a bolus of furosemide and albumin (3) Liver disease Plan: Possibly from IV drug use, COVID, or not getting enough perfusion to the liver. Needs further work up, will order hep b, c and HIV (6) IV drug abuse Plan: Possible other drugs being laced in her heroin causing for further complications. (7) Anemia Plan: follow up with labs tomorrow morning (8) Sepsis Plan: Patient most likely needs to be evaluated for endocarditis with her current infection and history of IV drug use.
[2020-04-12] MEDS: ALBUTEROL SULFATE 0.083% NEB 2.5 MG/3 ML AMPUL NEB PRN (17:00)
--- NOTE | 2020-04-12 17:38 | EKG REPORT ---
SEVERITY:- BORDERLINE ECG - SINUS TACHYCARDIA BORDERLINE PROLONGED QT INTERVAL : Confirmed by: Melina Blackwell MD 12-Apr-2020 17:37:18
[2020-04-12] MEDS: SODIUM BICARBONATE 650 MG TABLET PO SCH (18:59)
[2020-04-12] MEDS ORDERED: CEFTRIAXONE 2 GM/D5W RTU 2 GM/50 ML RTUPB IV SCH (19:30)
--- NOTE | 2020-04-12 20:19 | RADIOLOGY REPORT (SQ) ---
EXAM DESCRIPTION: US PROCEDURE NOT MAPPED WAITING ON RADLEX COMPLETED DATE/TME: 04/12/2020 00:00 CLINICAL HISTORY: 34 years, Female, kidney/bladder US, r/o clot obstruction COMPARISON: None. TECHNIQUE: Axial 2-D grayscale images of the kidneys were acquired. Duplex/Doppler was utilized. LIMITATIONS: None. FINDINGS: Aortic velocity is 198.5 cm/s. Right kidney measures 14.1 x 6.5 x 7.1 cm in size. It appears diffusely echogenic. In addition, there is mild hydronephrosis. Peak systolic velocities are as follows: Renal artery origin: 129.3 cm/s; resistive index of 0.8 Mid renal artery: 168 cm/s; resistive index of 0.8 Renal artery at the hilum: 117.1 cm/s; resistive index of 0.5 Polar resistive indices: Upper pole: 0.77 Interpolar region: 0.52 Lower pole: 0.71 Normal directional flow is noted within the right renal vein. Right renal aortic ratio: 0.8 Left kidney measures 15.7 x 6.9 x 8.2 cm in size. It appears diffusely echogenic. No significant hydronephrosis. Peak systolic velocities are as follows: Renal artery origin: 176.1 cm/s; resistive index of 0.86 Mid renal artery: 105.0 cm/s; resistive index of 0.88 Renal artery at the hilum: 92.3 cm/s; resistive index of 0.84 Polar resistive indices: Upper pole: 0.77 Interpolar region: 0.78 Lower pole: 0.80 Normal directional flow is noted within the left renal vein. Left renal aortic ratio: 0.9 IMPRESSION: No definitive evidence of renal artery stenosis. Echogenic kidneys, suggestive of medical renal disease. Additionally, the elevated resistive indices can also be seen in association with medical renal disease. Mild right hydronephrosis. copyright 2010 [employer]- All Rights Reserved
[2020-04-12] MEDS ORDERED: VANCOMYCIN HCL 1,000 MG in DEXTROSE 5%-WATER 250 ML IV SCH (21:00)
[2020-04-12] MEDS ORDERED: FUROSEMIDE INJ/PF 40 MG/4 ML SDV IV ONE (21:14)
[2020-04-12] MEDS ORDERED: FAMOTIDINE 20 MG TABLET PO SCH (22:00)
[2020-04-12] MEDS: CEFTRIAXONE 2 GM/D5W RTU 2 GM/50 ML RTUPB IV SCH (22:10)
[2020-04-12] MEDS: MORPHINE SULFATE 10 MG/ML INJ IV PRN (23:33)
[2020-04-13] MEDS: MORPHINE SULFATE 10 MG/ML INJ IV PRN (03:45)
[2020-04-13] MEDS: HEPARIN SOD (PORCINE) 5,000 UNIT/ML 1 ML VIAL SUBCUT SCH ×3 (06:24→22:55)
[2020-04-13] MEDS: ALBUTEROL SULFATE 0.083% NEB 2.5 MG/3 ML AMPUL NEB PRN ×2 (09:08→22:19)
[2020-04-13 09:58] LABS: URINE CREATININE 79.1 mg/dL (16-327); URINE PROTEIN 149.2 mg/dL (<12)
[2020-04-13] MEDS ORDERED: CEFTRIAXONE 2 GM/D5W RTU 2 GM/50 ML RTUPB IV SCH (10:00)
[2020-04-13 10:18] LABS: ABSOLUTE RETICS # 0.011 10^6/uL (0.028-0.122); HEMATOCRIT 24.6 % (36.0-47.0); HEMOGLOBIN 8.3 g/dL (12.0-15.5); MEAN CORPUSCULAR HEMOGLOBIN 29.5 pg (27.0-33.4); MEAN CORPUSCULAR HGB CONC 33.9 g/dL (32.0-36.0); MEAN CORPUSCULAR VOLUME 87 fl (80-97); RED BLOOD COUNT 2.82 10^6/uL (3.72-5.28); RED CELL DISTRIBUTION WIDTH 15.9 % (11.5-14.0); WHITE BLOOD COUNT 16.5 10^3/uL (4.0-10.5)
[2020-04-13 10:23] LABS: INTERNATIONAL RATION (INR) 1.19; PROTHROMBIN TIME 15.3 SEC (11.4-15.4)
[2020-04-13 10:24] LABS: PARTIAL THROMBOPLASTIN TIME 30.1 SEC (23.5-35.8)
[2020-04-13 10:29] LABS: ALBUMIN 2.4 g/dL (3.5-5.0); ALKALINE PHOSPHATASE 140 U/L (38-126); ASPARTATE AMINO TRANSFERASE 167 U/L (14-36); BILIRUBIN,DIRECT 1.1 mg/dL (0.0-0.4); BILIRUBIN,TOTAL 1.1 mg/dL (0.2-1.3); GLUCOSE 121 mg/dL (75-110); IRON(TIBC) 87.1 ug/dL (37-170); PHOSPHORUS 7.4 mg/dL (2.5-4.5); POTASSIUM 4.7 mmol/L (3.6-5.0); TOTAL PROTEIN 5.8 g/dL (6.3-8.2)
[2020-04-13 10:34] LABS: CARBON DIOXIDE 17 mmol/L (22-30); CHLORIDE 97 mmol/L (98-107)
[2020-04-13 10:37] LABS: BLOOD UREA NITROGEN 127 mg/dL (7-20)
[2020-04-13 10:44] LABS: RETICULOCYTE COUNT (AUTO) 0.38 % (0.66-2.85)
[2020-04-13 10:48] LABS: PLATELET COUNT 52 10^3/uL (150-450)
[2020-04-13 11:28] LABS: CALCIUM 6.7 mg/dL (8.4-10.2)
[2020-04-13 11:53] LABS: ANION GAP 20 (5-19)
[2020-04-13] MEDS ORDERED: CALCIUM GLUCONATE 1000 MG/10 ML INJ IV ONE (12:15)
--- NOTE | 2020-04-13 12:35 | XCELERA REPORT ---
[address] [address] Transthoracic Echocardiogram Report Name: HANNY MADISON Age: 34 yrs Gender: Female : 1985 Patient Status: Inpatient Patient Location: [address] [place] [address] Study Date: 04/13/2020 10:51 AM Height: 66 in Weight: 236 lb BSA: 2.1 m2 Procedure: A complete two-dimensional transthoracic echocardiogram was performed (2D, M-mode, spectral and color flow Doppler). The study was technically difficult with many images being suboptimal in quality. Reason For Study: MSSA Bacteremia. check for vegetations Ordering Physician: BAYLEE BERNABE Performed By: Chase Baker Interpretation Summary The left ventricle is normal in size. The left ventricle is hyperdynamic. The Ejection Fraction estimate is >70%. Doppler measurements suggest normal left ventricular diastolic function. The left ventricular wall motion is normal. No gross evidence for vegetations on the mitral, pulmonic or aortic valves. The tricuspid valve was not well visualized however, in at least 2 views, a vegetaion appears to be present however technical issues with the study does not allow us to be conclusive therefore a IESHA is recommended if clinically indicated. Moderate TR, trace PI. Moderately elevated pulmonary pressures. No prior studies for comparison. MMode/2D Measurements & Calculations RVDd: 3.7 cm LVIDd: 4.7 cm FS: 46.4 % % IVS thick: 1.9 % IVSd: 0.77 cm LVIDs: 2.5 cm EDV(Teich): 103.2 ml IVSs: 0.78 cm LVPWd: 0.81 cm ESV(Teich): 22.9 ml EF(Teich): 77.8 % Ao root diam: 1.6 cm LVOT diam: 1.9 cm Ao root area: 2.0 [id number] area: 2.9 cm2 LA dimension: 3.9 cm Doppler Measurements & Calculations MV E max cassy: MV P1/2t max cassy: Ao V2 max: LV V1 max P.8 cm/sec 126.0 cm/sec 238.9 cm/sec 14.3 mmHg MV A max cassy: MV P1/2t: 48.6 msec Ao max PG: LV V1 max: 96.0 cm/sec MVA(P1/2t): 4.5 cm2 22.8 mmHg 189.2 cm/sec MV E/A: 1.3 MV dec slope: CORRIE(V,D): 2.3 cm2 759.4 cm/sec2 MV dec time: 0.13 sec PA V2 max: TR max cassy: MV P1/2t-pr_phl: 156.3 cm/sec 344.8 cm/sec 48.6 msec PA max P.8 mmHgTR max P.5 mmHg Left Ventricle The left ventricle is normal in size. The left ventricle is hyperdynamic. The Ejection Fraction estimate is >70%. Doppler measurements suggest normal left ventricular diastolic function. The left ventricular wall motion is normal. Right Ventricle The right ventricle is normal in size, thickness and function. The right ventricular systolic function is normal. Atria The right atrium is normal. The left atrial size is normal. The interatrial septum is difficult to see, but appears to be grossly normal. Mitral Valve The mitral valve is grossly normal. There is no evidence of mitral valve prolapse. There is no vegetation seen on the mitral valve. There is no mitral valve stenosis. There is no mitral regurgitation noted. Aortic Valve The aortic valve is trileaflet. The aortic valve is grossly normal. There is no aortic valvular vegetation. There is no aortic valve stenosis. No aortic regurgitation is present. Tricuspid Valve There is no tricuspid valve prolapse. A tricuspid valve vegetation cannot be excluded. There is no tricuspid stenosis. There is a moderate amount of tricuspid regurgitation. There is moderate pulmonary hypertension by echo. Best estimated right ventricular systolic pressure is elevated at 50-60mmHg. Pulmonic Valve The pulmonic valve is not well seen, but is grossly normal. There is no vegetation on the pulmonic valve. There is no pulmonic valvular stenosis. There is a trace or physiologic amount of pulmonic regurgitation. Great Vessels The aortic root is normal size. The inferior vena cava appeared normal and decreased > 50% with respiration (RAP 5-10 mmHg). Effusions There is no pericardial effusion. There is no pleural effusion. : BAYLEE BERNABE Antonio
[2020-04-13 13:00] LABS: ARTERIAL BLOOD BASE EXCESS -8.3 mmol/L; ARTERIAL BLOOD H2CO3 1.19 mmol/L (1.05-1.35); ARTERIAL BLOOD HCO3 17.9 mmol/L (20-24); ARTERIAL BLOOD PCO2 39.7 mmHg (35-45); ARTERIAL BLOOD PH 7.27 (7.35-7.45); ARTERIAL BLOOD PO2 173.3 mmHg (80-100); ARTERIAL BLOOD TOTAL CO2 19.2 mmol/L (21-25)
[2020-04-13] MEDS ORDERED: CALCIUM GLUCONATE 1 GM/NS 50 ML RTU IV ONE ×3 (13:00→20:30)
[2020-04-13 13:01] LABS: ARTERIAL BLOOD FIO2 ROOM AIR
[2020-04-13] MEDS ORDERED: LIDOCAINE 1% INJ-PF (10 MG/ML) 30 ML SDV ONE (13:33)
--- NOTE | 2020-04-13 13:58 | PDOC CONSULTATION ---
Consultation Consult Date: 04/13/20 Provider Consulted: QUINN NICOLAS History of Present Illness Admission Date/PCP: 04/12/20 11:21 History of Present Illness: HANNY MADISON is a 34 year old female, IVDA, admitted for endocardidid, sepsis, now on ARF, in need of emergent placement of HD catheter. Patient with severe t hombocytosis. Past Medical History Neurological Medical History: Reports: Migraine Psychiatric Medical History: Reports: Depression Infectious Medical History: Reports: Hepatitis C Past Surgical History Past Surgical History: Reports: None Social History Smoking Status: Current Every Day Smoker Frequency of Alcohol Use: None Hx Recreational Drug Use: Yes Drugs: Heroin - Advance Directive Resuscitation Status: Full Code Family History Family History: Reviewed & Not Pertinent, Other - Denies family history of kidney failure. Does have immediate family history of blood clots. Parental Family History Reviewed: No Children Family History Reviewed: No Sibling(s) Family History Reviewed.: No Medication/Allergy Home Medications: No Home Medications 04/12/20 Allergies/Adverse Reactions: Penicillins Allergy (Severe, Verified 11/23/13 17:25) tounge swelling Physical Exam Vital Signs: Temp Pulse Resp BP Pulse Ox 99.0 F 112 H 26 H 136/54 H 99 04/13/20 13:15 04/13/20 12:25 04/13/20 13:15 04/13/20 13:15 04/13/20 12:25 Intake & Output 04/12/20 04/13/20 04/14/20 06:59 06:59 06:59 Intake Total 2060 0 Output Total 125 50 Balance 1935 -50 Weight 99.79 kg 108.2 kg General appearance: PRESENT: mild distress, obese Head exam: PRESENT: atraumatic, normocephalic Eye exam: PRESENT: EOMI Mouth exam: PRESENT: neck supple Neck exam: PRESENT: full ROM Respiratory exam: PRESENT: clear to auscultation cristiane Cardiovascular exam: PRESENT: RRR GI/Abdominal exam: PRESENT: soft Extremities exam: PRESENT: full ROM Musculoskeletal exam: PRESENT: full ROM Neurological exam: PRESENT: other - Altered, disoriented to time, place and situation Skin exam: PRESENT: warm Results Laboratory Results: 04/13/20 09:49 04/13/20 09:49 04/13/20 04/13/20 04/13/20 09:49 09:49 09:49 WBC 16.5 H RBC 2.82 L Hgb 8.3 L Hct 24.6 L MCV 87 MCH 29.5 MCHC 33.9 RDW 15.9 H Plt Count 52 L Retic Count (auto) 0.38 L Carbonic Acid HCO3/H2CO3 Ratio ABG pH ABG pCO2 ABG pO2 ABG HCO3 ABG O2 Saturation ABG Base Excess FiO2 Sodium 134.0 L Potassium 4.7 Chloride 97 L Carbon Dioxide 17 L Anion Gap 20 H BUN 127 H Creatinine 8.70 H Est GFR ( Amer) 6 L Glucose 121 H Calcium 6.7 L* Phosphorus 7.4 H Magnesium 2.3 Iron 87.1 TIBC 189 L % Saturation 46 Ferritin 939.00 H Total Bilirubin 1.1 AST 167 H Alkaline Phosphatase 140 H Total Protein 5.8 L Albumin 2.4 L Vitamin B12 > 1000.0 H Folate 11.30 Blood Type A POSITIVE Antibody Screen NEGATIVE 04/13/20 12:03 WBC RBC Hgb Hct MCV MCH MCHC RDW Plt Count Retic Count (auto) Carbonic Acid 1.19 HCO3/H2CO3 Ratio 15:1 ABG pH 7.27 L ABG pCO2 39.7 ABG pO2 173.3 H ABG HCO3 17.9 L ABG O2 Saturation 99.0 H ABG Base Excess -8.3 FiO2 ROOM AIR Sodium Potassium Chloride Carbon Dioxide Anion Gap BUN Creatinine Est GFR ( Amer) Glucose Calcium Phosphorus Magnesium Iron TIBC % Saturation Ferritin Total Bilirubin AST Alkaline Phosphatase Total Protein Albumin Vitamin B12 Folate Blood Type Antibody Screen 04/12/20 04:15 Blood Blood Culture (PCR) - Final Staphylococcus Aureus 04/12/20 04:15 NT-Pro-B Natriuret Pep 8880 H Impressions: Renal Artery Duplex 04/12/20 00:00 IMPRESSION: No definitive evidence of renal artery stenosis. Echogenic kidneys, suggestive of medical renal disease. Additionally, the elevated resistive indices can also be seen in association with medical renal disease. Mild right hydronephrosis. copyright 2011 [employer]- All Rights Reserved Venous Doppler Study 04/12/20 00:00 IMPRESSION: NO EVIDENCE DVT OR SVT IN EITHER LEG. Chest X-Ray 04/12/20 05:17 IMPRESSION: Moderate, extensive mixed patchy airspace and interstitial opacities bilaterally. Differential diagnosis includes pulmonary edema, multifocal pneumonia, and chronic interstitial lung disease. Imaging features can be seen with (COVID-19 or viral) pneumonia, though are nonspecific and can occur with a variety of infectious and noninfectious processes. [PneInd] Assessment & Plan - Diagnosis (2) Acute renal failure (ARF) Qualifiers: Acute renal failure type: unspecified Qualified Code(s): N17.9 - Acute kidney failure, unspecified Is this a current diagnosis for this admission?: Yes - Plan Summary Plan Summary: Assessment: History of IV drug abuse Endocarditis with vegetations Septic status Acute renal failure with oliguria Need of IV access for hemodialysis Plan: Emergent placement of left groin femoral vein hemodialysis catheter. Procedure, risks, benefits, explained to the patient's father, he understands, he decides to have the daughter undergo the procedure.
[2020-04-13] MEDS ORDERED: EPOETIN ALFA-EPBX 10,000 UNIT in SYRINGE, DISPOSABLE, 1 EACH IV PRN (14:00)
--- NOTE | 2020-04-13 14:04 | Operative Report ---
Operative Report DATE OF SURGERY: 04/13/20 PREOPERATIVE DIAGNOSIS: Acute renal failure, need of hemodialysis catheter POSTOPERATIVE DIAGNOSIS: Same OPERATION: Meant of left common femoral vein hemodialysis catheter SURGEON: QUINN NICOLAS ANESTHESIA: Local - 10 mL 1% lidocaine without epinephrine TISSUE REMOVED OR ALTERED: Negative COMPLICATIONS: Negative ESTIMATED BLOOD LOSS: 5 mL's INTRAOPERATIVE FINDINGS: Single left femoral vein needlestick PROCEDURE: The procedure was done at bedside: The patient was placed in a supine position, the patient left groin and upper thigh were prepped and draped in the usual fashion. The left femoral vein was appreciated just medial to the femoral artery. The area was infiltrated with lidocaine, a 16-gauge needle was then used to cannulate the left external femoral vein without difficulty with good blood return; a guidewire was inserted through the needle into the vein without difficulty the needle was removed. The insertion point of the guidewire was enlarged with a #11 blade and a tissue dilator which was then removed. A triple-lumen hemodialysis catheter was inserted without difficulty over the guidewire into the left common femoral vein without difficulty up to 30 cm, the guidewire was removed. Each port was aspirated and flushed with normal saline without difficulty. The catheter was secured to the skin with 3-0 nylon sutures and sterile dressing applied. The patient tolerated the procedure and the catheter can be used for hemodialysis immediately.
--- NOTE | 2020-04-13 15:00 | PDOC PROGRESS REPORT ---
Subjective Progress Note for:: 04/13/20 Subjective:: Last night, despite receiving over 2.5 L of fluid, patient put out only about 100 cc of urine. I rechallenged her with 80 mg of IV Lasix but she put out only about 40 cc following that. She continues to remain anuric and significantly encephalopathic. Reason For Visit: ACUTE RENAL FAILURE Physical Exam Vital Signs: Temp Pulse Resp BP Pulse Ox 99.0 F 114 H 28 H 129/77 H 99 04/13/20 13:30 04/13/20 13:30 04/13/20 13:30 04/13/20 13:30 04/13/20 12:25 Intake & Output 04/12/20 04/13/20 04/14/20 06:59 06:59 06:59 Intake Total 0 263 Output Total 125 50 Balance 1934 213 Weight 99.79 kg 108.2 kg General appearance: PRESENT: no acute distress, cooperative Eye exam: PRESENT: periorbital swelling Neck exam: ABSENT: JVD Respiratory exam: PRESENT: rhonchi, symmetrical, tachypnea, unlabored. ABSENT: wheezes Cardiovascular exam: PRESENT: +S1, +S2, tachycardia. ABSENT: irregular rhythm GI/Abdominal exam: PRESENT: soft. ABSENT: firm, guarding, hernia, rebound, rigid, tenderness Extremities exam: PRESENT: pedal edema, other - mild mottling of fingers Neurological exam: PRESENT: altered, awake, ataxia - Patient is able to wake up to verbal stimulus and able to entertain conversation for short period of time and drifts right back into sleep. Very somnolent and borderline lethargic most times. Notable jerking/asterixis in her hands. Results Laboratory Results: 04/13/20 09:49 04/13/20 09:49 04/13/20 04/13/20 04/13/20 09:49 09:49 09:49 WBC 16.5 H RBC 2.82 L Hgb 8.3 L Hct 24.6 L MCV 87 MCH 29.5 MCHC 33.9 RDW 15.9 H Plt Count 52 L Retic Count (auto) 0.38 L Carbonic Acid HCO3/H2CO3 Ratio ABG pH ABG pCO2 ABG pO2 ABG HCO3 ABG O2 Saturation ABG Base Excess FiO2 Sodium 134.0 L Potassium 4.7 Chloride 97 L Carbon Dioxide 17 L Anion Gap 20 H BUN 127 H Creatinine 8.70 H Est GFR ( Amer) 6 L Glucose 121 H Calcium 6.7 L* Phosphorus 7.4 H Magnesium 2.3 Iron 87.1 TIBC 189 L % Saturation 46 Ferritin 939.00 H Total Bilirubin 1.1 AST 167 H Alkaline Phosphatase 140 H Total Protein 5.8 L Albumin 2.4 L Vitamin B12 > 1000.0 H Folate 11.30 Blood Type A POSITIVE Antibody Screen NEGATIVE 04/13/20 12:03 WBC RBC Hgb Hct MCV MCH MCHC RDW Plt Count Retic Count (auto) Carbonic Acid 1.19 HCO3/H2CO3 Ratio 15:1 ABG pH 7.27 L ABG pCO2 39.7 ABG pO2 173.3 H ABG HCO3 17.9 L ABG O2 Saturation 99.0 H ABG Base Excess -8.3 FiO2 ROOM AIR Sodium Potassium Chloride Carbon Dioxide Anion Gap BUN Creatinine Est GFR ( Amer) Glucose Calcium Phosphorus Magnesium Iron TIBC % Saturation Ferritin Total Bilirubin AST Alkaline Phosphatase Total Protein Albumin Vitamin B12 Folate Blood Type Antibody Screen 04/12/20 04:15 Blood Blood Culture (PCR) - Final Staphylococcus Aureus 04/12/20 04:15 NT-Pro-B Natriuret Pep 8880 H Impressions: Renal Artery Duplex 04/12/20 00:00 IMPRESSION: No definitive evidence of renal artery stenosis. Echogenic kidneys, suggestive of medical renal disease. Additionally, the elevated resistive indices can also be seen in association with medical renal disease. Mild right hydronephrosis. copyright 2010 [employer]- All Rights Reserved Venous Doppler Study 04/12/20 00:00 IMPRESSION: NO EVIDENCE DVT OR SVT IN EITHER LEG. Chest X-Ray 04/12/20 05:17 IMPRESSION: Moderate, extensive mixed patchy airspace and interstitial opacities bilaterally. Differential diagnosis includes pulmonary edema, multifocal pneumonia, and chronic interstitial lung disease. Imaging features can be seen with (COVID-19 or viral) pneumonia, though are nonspecific and can occur with a variety of infectious and noninfectious processes. [PneInd] Assessment and Plan - Diagnosis (1) Acute renal failure (ARF) Qualifiers: Acute renal failure type: with acute tubular necrosis Qualified Code(s): N17.0 - Acute kidney failure with tubular necrosis Is this a current diagnosis for this admission?: Yes Plan: Patient remains with anuric ALISA which did not respond to 2.5 L of fluid yesterday and did not respond to IV Lasix 80 mg challenge. Has only put out about 150 cc in past 24 hours. Renal ultrasound with duplex shows echogenic kidneys, mild hydronephrosis but without any renal arterial occlusion Dialysis catheter placed today and patient will be dialyzed in the ICU Setting the uremic and having uremic encephalopathy as well as fluid overloaded Replete calcium Noted to have hyperphosphatemia will likely require phosphate binders Nephrology is following and is helping guide management (2) Infective endocarditis Qualifiers: Infective endocarditis organism: bacterial Chronicity: acute Qualified Code(s): I33.0 - Acute and subacute infective endocarditis Is this a current diagnosis for this admission?: Yes Plan: Staph aureus bacteremia. TTE had technical difficulties but does show something that seems to be a vegetation on her tricuspid with moderate tricuspid regurgitation and moderate pulmonary hypertension noted with a RVSP 50 to 60 mmHg and hyperdynamic LV. Patient has a very complicated endocarditis right-sided secondary to IVDU Continue vancomycin until staph aureus susceptibility results and can switch to cefazolin Infectious disease consulted Patient will need IESHA once more hemodynamically stable Currently patient is very sick and her situation is very dynamic. I discussed c ase with her family. (3) Acute respiratory failure with hypoxia Is this a current diagnosis for this admission?: Yes Plan: Chest x-ray showing multifocal interstitial infiltrates which could be motor vehicle representative of pulmonary edema secondary to ESRD and/or septic emboli/microabscess multifocal/atypical pneumonia. COVID-19 screen is pending Continue CPAP at 8 FiO2 of 40%. SPO2 remains adequate on this. (4) Pulmonary infiltrate Is this a current diagnosis for this admission?: Yes Plan: I suspect she likely has some seeding of bacteria in her lungs may be contr ibuting to the pneumonia may also have septic embolism. Also strep pneumonia and blood cultures likely indicated for pneumonia. Does have some pulmonary edema with elevated BNP and pulmonary hypertension noted on echo. We will get a CT scan of the chest to elucidate findings better once patient is more stable. (5) Bacteremia due to Streptococcus pneumoniae Is this a current diagnosis for this admission?: Yes Plan: Covered with ceftriaxone (6) Severe sepsis Is this a current diagnosis for this admission?: Yes Plan: Secondary to infective endocarditis. At this point cannot aggressively hydrate due to renal failure and fluid overload state. She remains tachycardic but the good thing is blood pressure is stable and lactic acid is normal currently. (7) High anion gap metabolic acidosis Is this a current diagnosis for this admission?: Yes Plan: Highly likely that this is from renal failure. Hopefully her dialysis today will help. She is also on sodium bicarbonate. (8) History of hepatitis C virus infection Is this a current diagnosis for this admission?: Yes Plan: Check HCV panel and RNA (9) IV drug abuse Is this a current diagnosis for this admission?: Yes Plan: Uses methamphetamines and heroin. High chance of withdrawing. Ativan as needed for anxiety. We will try some clonidine as well. (10) Thrombocytopenia Is this a current diagnosis for this admission?: Yes Plan: This is chronic but likely worsened by her sepsis. Chronic cause of this is likely hepatitis C but will also check HIV given IV drug use history. - Time Time Spent with patient: 35 or more minutes Anticipated Discharge Disposition: Home, Self Care Anticipated Discharge Timeframe: undetermined
--- NOTE | 2020-04-13 15:16 | EKG REPORT ---
SEVERITY:- ABNORMAL ECG - SINUS TACHYCARDIA PROLONGED QT INTERVAL : Confirmed by: Melina Blackwell MD 13-Apr-2020 15:15:54
[2020-04-13] MEDS: HEPARIN SOD (PORCINE) 1,000 UNIT/ML 10 ML VIAL IV PRN (17:07)
[2020-04-13] MEDS ORDERED: VANCOMYCIN HCL 1,000 MG in DEXTROSE 5%-WATER 250 ML IV SCH (18:00)
[2020-04-13] MEDS: FAMOTIDINE 20 MG TABLET PO SCH (18:12)
[2020-04-13] MEDS: SODIUM BICARBONATE 650 MG TABLET PO SCH ×3 (18:19→18:26)
[2020-04-13] MEDS: CLONIDINE HCL 0.1 MG TABLET PO SCH (19:09)
[2020-04-13] MEDS: SEVELAMER HCL 800 MG TABLET PO SCH (19:19)
--- NOTE | 2020-04-13 21:43 | PDOC PROGRESS REPORT ---
Subjective Progress Note for:: 04/13/20 Subjective:: Patient was seen this morning with Leigh her nurse caring for her. The patient had just received ativan due to starting to go through opiate withdraw. Despite fluids and furosemide she did not have great urine output. She only produced 125mL of urine. She also has being slowly worsening with her breathing, at this time she can not get off the bipap machine without desaturating. She was seen later this afternoon on dialysis with her dialysis nurses at her side. Vitals were stable. She was on bipap and did not look to be in any distress. Labs and orders were reviewed with treating nurses. Reason For Visit: ACUTE RENAL FAILURE Physical Exam Vital Signs: Temp Pulse Resp BP Pulse Ox 99.0 F 114 H 32 H 129/77 H 93 04/13/20 13:30 04/13/20 13:30 04/13/20 18:02 04/13/20 13:30 04/13/20 18:02 Intake & Output 04/12/20 04/13/20 04/14/20 06:59 06:59 06:59 Intake Total 2060 263 Output Total 125 2650 Balance 1935 -2387 Weight 99.79 kg 108.2 kg General appearance: PRESENT: mild distress, obese, well-developed, well- nourished Mouth exam: PRESENT: moist, neck supple Neck exam: ABSENT: JVD, tracheal deviation Respiratory exam: PRESENT: accessory muscle use, crackles, decreased breath sounds, rales, rhonchi, tachypnea. ABSENT: chest wall tenderness, clear to auscultation cristiane, unlabored, wheezes Cardiovascular exam: PRESENT: +S1, +S2, tachycardia. ABSENT: systolic murmur GI/Abdominal exam: PRESENT: soft. ABSENT: ascites, distended, firm, tenderness Extremities exam: PRESENT: pedal edema, +1 edema, other - fingers were dusky Musculoskeletal exam: ABSENT: deformity, tenderness Neurological exam: PRESENT: awake, oriented to person, oriented to place, oriented to time, oriented to situation Psychiatric exam: PRESENT: anxious Skin exam: PRESENT: cyanosis, intact, warm Results Laboratory Results: 04/13/20 09:49 04/13/20 09:49 04/13/20 04/13/20 04/13/20 09:49 09:49 09:49 WBC 16.5 H RBC 2.82 L Hgb 8.3 L Hct 24.6 L MCV 87 MCH 29.5 MCHC 33.9 RDW 15.9 H Plt Count 52 L Retic Count (auto) 0.38 L Carbonic Acid HCO3/H2CO3 Ratio ABG pH ABG pCO2 ABG pO2 ABG HCO3 ABG O2 Saturation ABG Base Excess FiO2 Sodium 134.0 L Potassium 4.7 Chloride 97 L Carbon Dioxide 17 L Anion Gap 20 H BUN 127 H Creatinine 8.70 H Est GFR ( Amer) 6 L Glucose 121 H Calcium 6.7 L* Phosphorus 7.4 H Magnesium 2.3 Iron 87.1 TIBC 189 L % Saturation 46 Ferritin 939.00 H Total Bilirubin 1.1 AST 167 H Alkaline Phosphatase 140 H Total Protein 5.8 L Albumin 2.4 L Vitamin B12 > 1000.0 H Folate 11.30 Blood Type A POSITIVE Antibody Screen NEGATIVE 04/13/20 12:03 WBC RBC Hgb Hct MCV MCH MCHC RDW Plt Count Retic Count (auto) Carbonic Acid 1.19 HCO3/H2CO3 Ratio 15:1 ABG pH 7.27 L ABG pCO2 39.7 ABG pO2 173.3 H ABG HCO3 17.9 L ABG O2 Saturation 99.0 H ABG Base Excess -8.3 FiO2 ROOM AIR Sodium Potassium Chloride Carbon Dioxide Anion Gap BUN Creatinine Est GFR ( Amer) Glucose Calcium Phosphorus Magnesium Iron TIBC % Saturation Ferritin Total Bilirubin AST Alkaline Phosphatase Total Protein Albumin Vitamin B12 Folate Blood Type Antibody Screen 04/12/20 04:15 Blood Blood Culture (PCR) - Final Staphylococcus Aureus 04/12/20 04:15 NT-Pro-B Natriuret Pep 8880 H Impressions: Renal Artery Duplex 04/12/20 00:00 IMPRESSION: No definitive evidence of renal artery stenosis. Echogenic kidneys, suggestive of medical renal disease. Additionally, the elevated resistive indices can also be seen in association with medical renal disease. Mild right hydronephrosis. copyright 2011 [employer] All Rights Reserved Venous Doppler Study 04/12/20 00:00 IMPRESSION: NO EVIDENCE DVT OR SVT IN EITHER LEG. Chest X-Ray 04/12/20 05:17 IMPRESSION: Moderate, extensive mixed patchy airspace and interstitial opacities bilaterally. Differential diagnosis includes pulmonary edema, multifocal pneumonia, and chronic interstitial lung disease. Imaging features can be seen with (COVID-19 or viral) pneumonia, though are nonspecific and can occur with a variety of infectious and noninfectious processes. [PneInd] Assessment & Plan - Diagnosis (1) Acute renal failure (ARF) Qualifiers: Acute renal failure type: with acute tubular necrosis Qualified Code(s): N17.0 - Acute kidney failure with tubular necrosis Is this a current diagnosis for this admission?: Yes Plan: Olguric at this time. Labs are pending for the underlining cause. With poor urine output and increased sob with 3rd spacing, will look to start her on dialysis. Due to her mental status she was no able to consent to dialysis. Spoke with her father valorie gomez who gave consent over the phone to me and Leigh, her treating nurse. Due to the low platelets she was given fresh frozen plasma so that a temporary dialysis access could be placed. She was seen later this afternoon on dialysis with her dialysis nurses at her side. Vitals were stable. She was on bipap and did not look to be in any distress. Labs and orders were reviewed with treating nurses. (2) Pulmonary edema Qualifiers: Chronicity: acute Qualified Code(s): J81.0 - Acute pulmonary edema Plan: will look to remove fluid with dialysis and will reassess tomorrow morning if more dialysis is needed tomorrow. If she starts to decompensate then she may need to be intubated. (3) Liver disease Plan: following up with labs to figure out the underling cause (4) Hepatitis Plan: following up with labs (5) Nephrotic range proteinuria Plan: serology and immuologies are pending. unfortunately due to the poor condition of the patient and her low platelets, a kidney biopsy is not an option at this time. (6) IV drug abuse Is this a current diagnosis for this admission?: Yes (7) Anemia Plan: anemia labs are with in normal limits. Will look to give retacrit with dialysis (8) Sepsis Plan: Imagining is ordered and an echo was ordered but due to her condition that was placed on hold until she was more stable today.
[2020-04-13] MEDS: CEFTRIAXONE 2 GM/D5W RTU 2 GM/50 ML RTUPB IV SCH (22:56)
[2020-04-14] MEDS: CLONIDINE HCL 0.1 MG TABLET PO SCH ×2 (05:18→18:36)
[2020-04-14] MEDS: HEPARIN SOD (PORCINE) 5,000 UNIT/ML 1 ML VIAL SUBCUT SCH ×3 (05:18→22:25)
[2020-04-14] MEDS: LORAZEPAM INJ 2 MG/1 ML VIAL IV PRN ×4 (05:24→20:40)
[2020-04-14] MEDS: SEVELAMER HCL 800 MG TABLET PO SCH ×3 (07:56→18:36)
[2020-04-14 08:01] LABS: COMPLEMENT C3 67 mg/dL (82-167); COMPLEMENT C4 13 mg/dL (14-44)
[2020-04-14 08:35] LABS: HEMATOCRIT 22.7 % (36.0-47.0); MEAN CORPUSCULAR HEMOGLOBIN 28.9 pg (27.0-33.4); MEAN CORPUSCULAR HGB CONC 33.6 g/dL (32.0-36.0); MEAN CORPUSCULAR VOLUME 86 fl (80-97); RED BLOOD COUNT 2.64 10^6/uL (3.72-5.28); RED CELL DISTRIBUTION WIDTH 15.8 % (11.5-14.0); WHITE BLOOD COUNT 17.2 10^3/uL (4.0-10.5)
[2020-04-14 08:51] LABS: ALBUMIN 2.4 g/dL (3.5-5.0); ALKALINE PHOSPHATASE 137 U/L (38-126); ANION GAP 17 (5-19); ASPARTATE AMINO TRANSFERASE 124 U/L (14-36); BILIRUBIN,DIRECT 0.7 mg/dL (0.0-0.4); BILIRUBIN,TOTAL 0.7 mg/dL (0.2-1.3); BLOOD UREA NITROGEN 112 mg/dL (7-20); CALCIUM 7.1 mg/dL (8.4-10.2); CARBON DIOXIDE 20 mmol/L (22-30); CHLORIDE 99 mmol/L (98-107); GLUCOSE 93 mg/dL (75-110); POTASSIUM 4.5 mmol/L (3.6-5.0); TOTAL PROTEIN 6.1 g/dL (6.3-8.2)
[2020-04-14 09:25] LABS: HEMOGLOBIN 7.6 g/dL (12.0-15.5)
[2020-04-14 09:31] LABS: ABSOLUTE LYMPHOCYTES# (MANUAL) 0.3 10^3/uL (0.5-4.7); BASOPHILS % (MANUAL) 0 % (0-2); EOSINOPHILS % (MANUAL) 0 % (0-6); LYMPHOCYTES % (MANUAL) 2 % (13-45); MONOCYTES % (MANUAL) 0 % (3-13); SEGMENTED NEUTROPHILS % (MAN) 98 % (42-78); TOTAL CELLS COUNTED 100
[2020-04-14 09:37] LABS: ANISOCYTOSIS SLIGHT; PLATELET COMMENT DECREASED
[2020-04-14] MEDS: FAMOTIDINE 20 MG TABLET PO SCH (09:42)
[2020-04-14] MEDS: SODIUM BICARBONATE 650 MG TABLET PO SCH ×3 (09:43→18:36)
[2020-04-14 09:44] LABS: PLATELET COUNT 73 10^3/uL (150-450)
[2020-04-14 09:55] LABS: PHOSPHORUS 7.5 mg/dL (2.5-4.5)
[2020-04-14] MEDS ORDERED: LEVOFLOXACIN 750 MG/D5W RTU 750 MG/150 ML RTUPB IV SCH (10:00)
[2020-04-14] MEDS: MORPHINE SULFATE 10 MG/ML INJ IV PRN ×2 (10:27→20:40)
[2020-04-14 11:38] LABS: HEPATITS B SURFACE ANTIGEN Negative (Negative)
[2020-04-14 11:44] LABS: ARTERIAL BLOOD BASE EXCESS -3.9 mmol/L; ARTERIAL BLOOD H2CO3 1.33 mmol/L (1.05-1.35); ARTERIAL BLOOD O2 SATURATION 83.4 % (94-98); ARTERIAL BLOOD PCO2 44.2 mmHg (35-45); ARTERIAL BLOOD PH 7.32 (7.35-7.45); ARTERIAL BLOOD PO2 51.6 mmHg (80-100); ARTERIAL BLOOD TOTAL CO2 23.4 mmol/L (21-25)
[2020-04-14] MEDS ORDERED: HEPARIN SOD (PORCINE) 1,000 UNIT/ML 10 ML VIAL IV PRN (11:45)
[2020-04-14 11:47] LABS: ARTERIAL BLOOD FIO2 35%
--- NOTE | 2020-04-14 12:27 | RADIOLOGY REPORT (SQ) ---
EXAM DESCRIPTION: CHEST SINGLE VIEW IMAGES COMPLETED DATE/TIME: 04/14/2020 11:58 am REASON FOR STUDY: SOB/pulmonary edema COMPARISON: None. EXAM PARAMETERS: NUMBER OF VIEWS: One view. TECHNIQUE: Single frontal radiographic view of the chest acquired. RADIATION DOSE: NA LIMITATIONS: None. FINDINGS: LUNGS AND PLEURA: Patchy bilateral airspace disease. There is a cavitary area in the righ t upper lobe. Except for the appearance of the cavitary area, the overall changes minimal. MEDIASTINUM AND HILAR STRUCTURES: No masses. Contour normal. HEART AND VASCULAR STRUCTURES: Heart normal in size. Normal vasculature. BONES: No acute findings. HARDWARE: None in the chest. OTHER: No other significant finding. IMPRESSION: Bilateral airspace disease suggestive of an atypical infectious/ inflammatory process. There is now a cavitary area in the right upper lobe. Is there any clinical concern for fungal infec tion? TECHNICAL DOCUMENTATION: JOB ID: [id number] 2010 [facility]- All Rights Reserved Reading location - IP/workstation name: [email or web address]
[2020-04-14 13:10] LABS: HEPATITIS B CORE AB TOT Negative (Negative)
[2020-04-14] MEDS ORDERED: ALBUMIN HUMAN 12.5 GM/50 ML RTUINJ IV ONE (13:30)
[2020-04-14 14:09] LABS: GLOMERULAR BASMENT MEMBRANE AB 6 units (0-20)
[2020-04-14] MEDS: HEPARIN SOD (PORCINE) 1,000 UNIT/ML 10 ML VIAL IV PRN (14:21)
--- NOTE | 2020-04-14 14:57 | PDOC PROGRESS REPORT ---
Subjective Progress Note for:: 04/14/20 Subjective:: Patient had about this morning when she became tachypneic and short of breath. She also felt very anxious and stated that she felt like she was withdrawing. She did receive some Ativan. Patient will plan for dialysis today. Reason For Visit: ACUTE RENAL FAILURE Physical Exam Vital Signs: Temp Pulse Resp BP Pulse Ox 98.3 F 115 H 36 H 146/87 H 93 04/14/20 10:34 04/14/20 10:34 04/14/20 12:29 04/14/20 10:34 04/14/20 12:29 Intake & Output 04/13/20 04/14/20 04/15/20 06:59 06:59 06:59 Intake Total 2110 523 Output Total 125 3200 Balance 1984 Weight 108.2 kg 102.7 kg General appearance: PRESENT: no acute distress, cooperative Neck exam: ABSENT: JVD Respiratory exam: PRESENT: crackles, rales, symmetrical, tachypnea. ABSENT: unlabored, wheezes Cardiovascular exam: PRESENT: +S1, +S2, tachycardia. ABSENT: irregular rhythm GI/Abdominal exam: PRESENT: soft. ABSENT: rebound, rigid, tenderness Extremities exam: PRESENT: pedal edema. ABSENT: calf tenderness Neurological exam: PRESENT: alert, awake, oriented to person, oriented to place, oriented to time, oriented to situation Psychiatric exam: PRESENT: anxious Results Laboratory Results: 04/14/20 06:40 04/14/20 06:40 04/14/20 04/14/20 04/14/20 06:40 06:40 06:40 WBC 17.2 H RBC 2.64 L Hgb 7.6 L Hct 22.7 L MCV 86 MCH 28.9 MCHC 33.6 RDW 15.8 H Plt Count 73 L Seg Neutrophils % Not Reportable Carbonic Acid HCO3/H2CO3 Ratio ABG pH ABG pCO2 ABG pO2 ABG HCO3 ABG O2 Saturation ABG Base Excess FiO2 Sodium 136.0 L Potassium 4.5 Chloride 99 Carbon Dioxide 20 L Anion Gap 17 BUN 112 H Creatinine 7.72 H Est GFR ( Amer) 7 L Glucose 93 Calcium 7.1 L Phosphorus 7.5 H Magnesium 2.5 H Total Bilirubin 0.7 AST 124 H Alkaline Phosphatase 137 H Total Protein 6.1 L Albumin 2.4 L 04/14/20 11:15 WBC RBC Hgb Hct MCV MCH MCHC RDW Plt Count Seg Neutrophils % Carbonic Acid 1.33 HCO3/H2CO3 Ratio 16:1 ABG pH 7.32 L ABG pCO2 44.2 ABG pO2 51.6 L ABG HCO3 22.0 ABG O2 Saturation 83.4 L ABG Base Excess -3.9 FiO2 35% Sodium Potassium Chloride Carbon Dioxide Anion Gap BUN Creatinine Est GFR ( Amer) Glucose Calcium Phosphorus Magnesium Total Bilirubin AST Alkaline Phosphatase Total Protein Albumin 04/12/20 04:43 Blood Blood Culture (PCR) - Final Staphylococcus Aureus Streptococcus Pneumoniae 04/12/20 04:15 Blood Blood Culture (PCR) - Final Staphylococcus Aureus 04/12/20 04:15 NT-Pro-B Natriuret Pep 8880 H Impressions: Renal Artery Duplex 04/12/20 00:00 IMPRESSION: No definitive evidence of renal artery stenosis. Echogenic kidneys, suggestive of medical renal disease. Additionally, the elevated resistive indices can also be seen in association with medical renal disease. Mild right hydronephrosis. copyright 2011 [employer]- All Rights Reserved Venous Doppler Study 04/12/20 00:00 IMPRESSION: NO EVIDENCE DVT OR SVT IN EITHER LEG. Chest X-Ray 04/14/20 09:59 IMPRESSION: Bilateral airspace disease suggestive of an atypical infectious/ inflammatory process. There is now a cavitary area in the right upper lobe. Is there any clinical concern for fungal infection? Assessment and Plan - Diagnosis (1) Infective endocarditis Qualifiers: Infective endocarditis organism: bacterial Chronicity: acute Qualified Code(s): I33.0 - Acute and subacute infective endocarditis Is this a current diagnosis for this admission?: Yes Plan: MSSA Bacteremia + multiple bilateral Pulmonary abscesses on chest xray indicative of septic emboli TTE had technical difficulties but does show something that seems to be a vegetation on her tricuspid with moderate tricuspid regurgitation and moderate pulmonary hypertension noted with a RVSP 50 to 60 mmHg and hyperdynamic LV. 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 will obtain dry chest CT when more stable Currently patient is very sick and her situation is very dynamic. (2) Acute respiratory failure with hypoxia Is this a current diagnosis for this admission?: Yes Plan: multifactorial 2/2 pulmonary edema+pulmonary abscess/septic emboli+pneumonia + ARDS COVID-19 screen is negative spo2 notably 99% on 50% fio2 on cpap 8 --transitioned to HFNC 60% 40L to allow patient eat with spo2 at 99% Had dialysis today to help with pulmonary edema. Rest of treatment as above. Still tachypneic but awake and protecting airway. Monitor closely at risk of decompensation. If patient does not turn the corner soon or worsens, may need upgrade to ICU and possible intubation. monitor blood gas (3) Acute renal failure (ARF) Qualifiers: Acute renal failure type: with acute tubular necrosis Qualified Code(s): N17.0 - Acute kidney failure with tubular necrosis Is this a current diagnosis for this admission?: Yes Plan: Oliguric still but mild improvement in urine output Renal ultrasound with duplex shows echogenic kidneys, mild hydronephrosis but without any renal arterial occlusion Still quite uremic Noted to have hyperphosphatemia - [facility] Nephrology is following - 2nd dialysis session today via [facility] Monitor labs and urine output closely. (4) Bacteremia due to Streptococcus pneumoniae Is this a current diagnosis for this admission?: Yes Plan: Likely causing additional pneumonia on top of patient's septic emboli/abscess. Continue IV vancomycin and ceftriaxone for invasive bacteremia while awaiting Strep pneumo susceptibility. Blood cultures repeated. (5) High anion gap metabolic acidosis Is this a current diagnosis for this admission?: Yes Plan: Highly likely that this is from renal failure. improved. ph is 7.32 today and bicarb is up to 22. Expect continued improvement with dialysis. (6) Opiate withdrawal Is this a current diagnosis for this admission?: Yes Plan: Heavy heroin abuse. Certainly in withdrawal. Prn ativan. clonidine. Monitor COWS score Given patient's comorbid active issues, I will try to control her withdrawal with small doses of po methadone while paying close attention to avoid respiratory depression. (7) History of hepatitis C virus infection Is this a current diagnosis for this admission?: Yes Plan: f/u HCV RNA (8) Thrombocytopenia Is this a current diagnosis for this admission?: Yes Plan: This is chronic but likely worsened by her sepsis. Chronic cause of this is likely hepatitis C. HIV is negative. (9) Severe sepsis Is this a current diagnosis for this admission?: Yes - Time Time Spent with patient: 35 or more minutes Total Critical Time (Minutes): 35 Anticipated Discharge Disposition: Home, Self Care Anticipated Discharge Timeframe: 6 weeks
--- NOTE | 2020-04-14 16:09 | PDOC PROGRESS REPORT ---
<MERCEDES LIRA M - Last Filed: 04/14/20 16:02> Subjective Progress Note for:: 04/14/20 Subjective:: Patient was first seen this morning laying in her bed with her bipap on. She claim to be feeling a little better when I asked her. Her mental status had also improved a little. Urine output had also improved to 800mL overnight. Patient was then seen on dialysis later this afternoon. Patient was stable at the time with normal vital signs. Orders were discussed with her treating dialysis nurse. Reason For Visit: ACUTE RENAL FAILURE Physical Exam Vital Signs: Temp Pulse Resp BP Pulse Ox 98.3 F 115 H 36 H 146/87 H 93 04/14/20 10:34 04/14/20 10:34 04/14/20 12:29 04/14/20 10:34 04/14/20 12:29 Intake & Output 04/13/20 04/14/20 04/15/20 06:59 06:59 06:59 Intake Total 2110 523 Output Total 125 3200 Balance 1984 -2676 Weight 108.2 kg 102.7 kg General appearance: PRESENT: no acute distress, obese, well-developed, well- nourished Mouth exam: PRESENT: moist, neck supple. ABSENT: dry mucosa Neck exam: ABSENT: JVD, tracheal deviation Respiratory exam: PRESENT: crackles, rales, rhonchi. ABSENT: accessory muscle use, clear to auscultation cristiane, wheezes Cardiovascular exam: PRESENT: +S1, +S2, tachycardia. ABSENT: systolic murmur GI/Abdominal exam: PRESENT: soft. ABSENT: ascites, distended, firm, tenderness Extremities exam: ABSENT: pedal edema, +1 edema, +2 edema Musculoskeletal exam: PRESENT: normal inspection. ABSENT: tenderness Neurological exam: PRESENT: awake, oriented to person, oriented to place, oriented to time, oriented to situation Psychiatric exam: PRESENT: anxious Skin exam: PRESENT: dry, intact, warm. ABSENT: cyanosis Results Laboratory Results: 04/14/20 06:40 04/14/20 06:40 04/14/20 04/14/20 04/14/20 06:40 06:40 06:40 WBC 17.2 H RBC 2.64 L Hgb 7.6 L Hct 22.7 L MCV 86 MCH 28.9 MCHC 33.6 RDW 15.8 H Plt Count 73 L Seg Neutrophils % Not Reportable Carbonic Acid HCO3/H2CO3 Ratio ABG pH ABG pCO2 ABG pO2 ABG HCO3 ABG O2 Saturation ABG Base Excess FiO2 Sodium 136.0 L Potassium 4.5 Chloride 99 Carbon Dioxide 20 L Anion Gap 17 BUN 112 H Creatinine 7.72 H Est GFR ( Amer) 7 L Glucose 93 Calcium 7.1 L Phosphorus 7.5 H Magnesium 2.5 H Total Bilirubin 0.7 AST 124 H Alkaline Phosphatase 137 H Total Protein 6.1 L Albumin 2.4 L 04/14/20 11:15 WBC RBC Hgb Hct MCV MCH MCHC RDW Plt Count Seg Neutrophils % Carbonic Acid 1.33 HCO3/H2CO3 Ratio 16:1 ABG pH 7.32 L ABG pCO2 44.2 ABG pO2 51.6 L ABG HCO3 22.0 ABG O2 Saturation 83.4 L ABG Base Excess -3.9 FiO2 35% Sodium Potassium Chloride Carbon Dioxide Anion Gap BUN Creatinine Est GFR ( Amer) Glucose Calcium Phosphorus Magnesium Total Bilirubin AST Alkaline Phosphatase Total Protein Albumin 04/12/20 04:43 Blood Blood Culture (PCR) - Final Staphylococcus Aureus Streptococcus Pneumoniae 04/12/20 04:15 Blood Blood Culture (PCR) - Final Staphylococcus Aureus 04/12/20 04:15 NT-Pro-B Natriuret Pep 8880 H Impressions: Renal Artery Duplex 04/12/20 00:00 IMPRESSION: No definitive evidence of renal artery stenosis. Echogenic kidneys, suggestive of medical renal disease. Additionally, the elevated resistive indices can also be seen in association with medical renal disease. Mild right hydronephrosis. copyright 2011 [employer]- All Rights Reserved Venous Doppler Study 04/12/20 00:00 IMPRESSION: NO EVIDENCE DVT OR SVT IN EITHER LEG. Chest X-Ray 04/14/20 09:59 IMPRESSION: Bilateral airspace disease suggestive of an atypical infectious/ inflammatory process. There is now a cavitary area in the right upper lobe. Is there any clinical concern for fungal infection? Assessment & Plan - Diagnosis (1) Acute renal failure (ARF) Qualifiers: Acute renal failure type: with acute tubular necrosis Qualified Code(s): N17.0 - Acute kidney failure with tubular necrosis Is this a current diagnosis for this admission?: Yes Plan: She is now nonolguric, which is a good sign. Labs are pending for the underlining cause of kidney disease. Will continue today with another dialysis session. She is being given albumin prior to the treatment to prevent disequilibrium syndrome. She was seen later this afternoon on dialysis with her dialysis nurses at her side. Vitals were stable. She was on bipap and did not look to be in any distre ss. Labs and orders were reviewed with treating nurses. Currently removing 1 to 2L as tolerated. (2) Pulmonary edema Qualifiers: Chronicity: acute Qualified Code(s): J81.0 - Acute pulmonary edema Plan: Multifactoral, the edema is improving with removal from dialysis. Will look to have her on dialysis again today. (3) Liver disease Plan: following up with labs to figure out the underling cause (4) Nephrotic range proteinuria Plan: serology and immuologies are pending. unfortunately due to the poor condition of the patient and her low platelets, a kidney biopsy is not an option at this time. (5) Hepatitis Plan: following up with labs (6) IV drug abuse Is this a current diagnosis for this admission?: Yes Plan: Possible other drugs being laced in her heroin causing for further complications. (7) Anemia Plan: anemia labs are with in normal limits. (8) Sepsis Plan: Looks to have a vegetation. Possible other areas of infection from vegetation embolization. Awaiting CT (9) Hyperphosphatemia Plan: currently on binders to reduce down the phosphorus (10) Hypercalcemia Plan: on calcium supplements and improving - Notes Notes: case was discussed with Dr. Witt <Marlon WITT - Last Filed: 04/15/20 07:19> Subjective Reason For Visit: ACUTE RENAL FAILURE Physical Exam Vital Signs: Temp Pulse Resp BP Pulse Ox 98.7 F 105 H 40 H 150/81 H 97 04/15/20 03:20 04/15/20 03:20 04/15/20 03:20 04/15/20 03:20 04/15/20 04:15 Intake & Output 04/14/20 04/15/20 04/16/20 06:59 06:59 06:59 Intake Total 573 350 Output Total 3200 3700 Balance -8704 -5816 Weight 102.7 kg 101.1 kg Results Laboratory Results: 04/14/20 04/14/20 04/14/20 06:40 06:40 06:40 WBC 17.2 H RBC 2.64 L Hgb 7.6 L Hct 22.7 L MCV 86 MCH 28.9 MCHC 33.6 RDW 15.8 H Plt Count 73 L Seg Neutrophils % Not Reportable Carbonic Acid HCO3/H2CO3 Ratio ABG pH ABG pCO2 ABG pO2 ABG HCO3 ABG O2 Saturation ABG Base Excess VBG pH VBG pCO2 VBG HCO3 VBG Base Excess FiO2 Sodium 136.0 L Potassium 4.5 Chloride 99 Carbon Dioxide 20 L Anion Gap 17 BUN 112 H Creatinine 7.72 H Est GFR ( Amer) 7 L Glucose 93 Calcium 7.1 L Phosphorus 7.5 H Magnesium 2.5 H Total Bilirubin 0.7 AST 124 H Alkaline Phosphatase 137 H Total Protein 6.1 L Albumin 2.4 L 04/14/20 04/14/20 11:15 22:47 WBC RBC Hgb Hct MCV MCH MCHC RDW Plt Count Seg Neutrophils % Carbonic Acid 1.33 HCO3/H2CO3 Ratio 16:1 ABG pH 7.32 L ABG pCO2 44.2 ABG pO2 51.6 L ABG HCO3 22.0 ABG O2 Saturation 83.4 L ABG Base Excess -3.9 VBG pH 7.36 VBG pCO2 45.3 VBG HCO3 25.2 VBG Base Excess -0.2 FiO2 35% Sodium Potassium Chloride Carbon Dioxide Anion Gap BUN Creatinine Est GFR ( Amer) Glucose Calcium Phosphorus Magnesium Total Bilirubin AST Alkaline Phosphatase Total Protein Albumin 04/14/20 06:58 Blood Blood Culture (PCR) - Final Staphylococcus Aureus 04/12/20 04:43 Blood Blood Culture (PCR) - Final Staphylococcus Aureus Streptococcus Pneumoniae 04/12/20 04:15 Blood Blood Culture (PCR) - Final Staphylococcus Aureus 04/12/20 04:15 NT-Pro-B Natriuret Pep 8880 H Impressions: Renal Artery Duplex 04/12/20 00:00 IMPRESSION: No definitive evidence of renal artery stenosis. Echogenic kidneys, suggestive of medical renal disease. Additionally, the elevated resistive indices can also be seen in association with medical renal disease. Mild right hydronephrosis. copyright 2011 [employer]- All Rights Reserved Venous Doppler Study 04/12/20 00:00 IMPRESSION: NO EVIDENCE DVT OR SVT IN EITHER LEG. Chest X-Ray 04/14/20 09:59
[2020-04-14] MEDS ORDERED: LORAZEPAM INJ 2 MG/1 ML VIAL IV ONE (16:50)
[2020-04-14] MEDS: METHADONE HCL 10 MG TABLET PO SCH ×2 (18:36→23:51)
--- NOTE | 2020-04-14 20:04 | Progress Note ---
Provider Note Provider Note: [facility] ID Telephone / Remote consultation note Asked by Pharmacy to review case. Patient is not seen or examined. Reviewed provider notes, vitals, imaging reports, recent labs. Ms. Felder is a 34 year old patient who was admitted to [facility] on 04/12/20 with complaint of shortness of breath. She has a past medical history notable for IV heroin/meth abuse and hepatitis C. Allergies include "tongue swelling" with penicillins. She complainted of associated increase in swelling in her legs, and she was noted to be hypoxic per EMS. She was tachycardic and tachypneic but afebrile. On exam, she was noted to have pedal edema, crackles on auscultation, no systolic murmur, and some disorientation that appears to have improved with BiPAP and initiation of dialysis after placement of femoral vein hemodialysis catheter on 04/13/20. Her initial labs included creatinine of 9, BUN 105, platelet count of 41. HIV antibody test was negative. C3 and C4 levels were low. Preliminary results of blood cultures on 04/12 have grown MSSA in all bottles of 2 sets obtained 30 min apart. In addition by PCR, Streptococcus pneumoniae was identified as being present in one of the blood culture sets, but not from culture growth to date. Imaging studies - Single view CXR was read as showing patchy airspace and interstitial opacities bilaterally with subsequent cavitary area seen in the RUL when repeated on 04/14/20. US showed increased echogenicity of the kidneys. TTE was performed on 04/13/20 with no gross evidence for vegetations were seen on left sided valves, but the study was technically difficult with many suboptimal images; tricuspid valve was not well visualized also, although the possibility of a TV vegetation was raised. 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 - Follow up blood cultures have been ordered and are pending presently - The identification of Streptococcus pneumoniae by PCR in one of the blood cultures is curious and raises a question of whether or not there might be a superimposed pneumonic process that might be better delineated with CT scan of chest, in addition to the typical bilateral cavitary lesions seen with septic emboli. - When it is possible, IESHA may be helpful for ruling out involvement of other valves and for better evaluation of the tricuspid, considering the limited TTE. - Remain vigilant for metastatic foci of infection with and investigate further if appropriate, based on history/exam (e.g. if pain and swelling develops acutely about a joint, consider ultrasound and arthrocentesis, etc.) - Based on susceptibility results of the Staph aureus (MSSA) and while awaiting finalization of the blood cultures, it is reasonable to continue Rocephin 2 grams IV daily, which should be effective also against Streptococcus pneumoniae. Vancomycin should be able to be discontinued. Tong Vanegas MD [facility] Infectious Diseases pager [phone]
[2020-04-14] MEDS: CEFTRIAXONE 2 GM/D5W RTU 2 GM/50 ML RTUPB IV SCH (22:24)
[2020-04-14 22:54] LABS: VENOUS BLOOD BASE EXCESS -0.2 mmol/L; VENOUS BLOOD HCO3 25.2 mmol/L (20-32); VENOUS BLOOD PCO2 45.3 mmHg (35-63); VENOUS BLOOD PH 7.36 (7.30-7.42)
[2020-04-15] MEDS: MORPHINE SULFATE 10 MG/ML INJ IV PRN ×3 (00:48→21:58)
[2020-04-15] MEDS: LORAZEPAM INJ 2 MG/1 ML VIAL IV PRN ×5 (00:51→21:59)
[2020-04-15] MEDS: METHADONE HCL 10 MG TABLET PO SCH ×4 (05:14→22:01)
[2020-04-15] MEDS: CLONIDINE HCL 0.1 MG TABLET PO SCH ×2 (05:14→17:40)
[2020-04-15] MEDS: HEPARIN SOD (PORCINE) 5,000 UNIT/ML 1 ML VIAL SUBCUT SCH ×3 (05:15→22:07)
[2020-04-15 06:37] LABS: HEPATITIS C QUANTITATION 863000 IU/mL (.)
[2020-04-15 06:56] LABS: HEMATOCRIT 21.3 % (36.0-47.0); MEAN CORPUSCULAR HEMOGLOBIN 29.7 pg (27.0-33.4); MEAN CORPUSCULAR HGB CONC 34.7 g/dL (32.0-36.0); MEAN CORPUSCULAR VOLUME 86 fl (80-97); RED BLOOD COUNT 2.49 10^6/uL (3.72-5.28); RED CELL DISTRIBUTION WIDTH 15.9 % (11.5-14.0); WHITE BLOOD COUNT 16.6 10^3/uL (4.0-10.5)
[2020-04-15] MEDS ORDERED: HEPARIN SOD (PORCINE) 1,000 UNIT/ML 10 ML VIAL IV PRN (07:08)
[2020-04-15 07:15] LABS: ALBUMIN 2.4 g/dL (3.5-5.0); ALKALINE PHOSPHATASE 127 U/L (38-126); ANION GAP 13 (5-19); ASPARTATE AMINO TRANSFERASE 105 U/L (14-36); BILIRUBIN,DIRECT 0.7 mg/dL (0.0-0.4); BILIRUBIN,TOTAL 0.9 mg/dL (0.2-1.3); BLOOD UREA NITROGEN 104 mg/dL (7-20); CALCIUM 7.8 mg/dL (8.4-10.2); CARBON DIOXIDE 25 mmol/L (22-30); CHLORIDE 98 mmol/L (98-107); GLUCOSE 88 mg/dL (75-110); PHOSPHORUS 8.6 mg/dL (2.5-4.5); POTASSIUM 4.4 mmol/L (3.6-5.0); TOTAL PROTEIN 6.1 g/dL (6.3-8.2)
[2020-04-15 07:43] LABS: PLATELET COUNT 58 10^3/uL (150-450)
[2020-04-15 07:53] LABS: ABSOLUTE LYMPHOCYTES# (MANUAL) 1.3 10^3/uL (0.5-4.7); ABSOLUTE MONOCYTES # (MANUAL) 0.5 10^3/uL (0.1-1.4); ANISOCYTOSIS 1+; BAND NEUTROPHILS % (MANUAL) 1 % (3-5); BASOPHILS % (MANUAL) 0 % (0-2); EOSINOPHILS % (MANUAL) 0 % (0-6); LYMPHOCYTES % (MANUAL) 7 % (13-45); MONOCYTES % (MANUAL) 3 % (3-13); PLATELET COMMENT DECREASED; SEGMENTED NEUTROPHILS % (MAN) 87 % (42-78); TOTAL CELLS COUNTED 100
[2020-04-15 07:55] LABS: OVALOCYTES SLIGHT; POIKILOCYTOSIS SLIGHT; POLYCHROMASIA SLIGHT; TARGET CELLS SLIGHT; TEAR DROP CELLS SLIGHT
[2020-04-15 07:58] LABS: HEMOGLOBIN 7.4 g/dL (12.0-15.5)
[2020-04-15 07:59] LABS: PROMYELOCYTES % (MANUAL) 1 % (0)
[2020-04-15] MEDS ORDERED: ALBUMIN HUMAN 12.5 GM/50 ML RTUINJ IV ONE (08:30)
[2020-04-15] MEDS ORDERED: LORAZEPAM INJ 2 MG/1 ML VIAL IV PRN (09:00)
--- NOTE | 2020-04-15 09:20 | PDOC PROGRESS REPORT ---
Subjective Progress Note for:: 04/15/20 Subjective:: 34 year old female with history of IV heroin/methamphetamine use, hepatitis C, who presents to the hospital with complaints of shortness of breath and increased work of breathing over the past 5 days. Patient has also noted increased swelling in both lower extremities since that time. She denies fever or chills. She does have occasional cough nonproductive of more sputum. Also experiencing aches and pains in her lower extremities. She denies any diarrhea. She denies any history of kidney disease or heart failure. She also admits to very diminished water intake over the last few days. She has been using heroin very frequently over the past 2 to 3 days as well. On arrival of EMS, patient was noted to be significantly hypoxic with SPO2 69% and subsequently placed on a CPAP. She was switched to a BiPAP machine in the ER due to work of breathing. 04/13-Last night, despite receiving over 2.5 L of fluid, patient put out only about 100 cc of urine. I rechallenged her with 80 mg of IV Lasix but she put out only about 40 cc following that. She continues to remain anuric and significantly encephalopathic. 04/14-Patient had about this morning when she became tachypneic and short of breath. She also felt very anxious and stated that she felt like she was withdrawing. She did receive some Ativan. Patient will plan for dialysis today. 04/15/[id number]-obov-old female with history of IV heroin, methamphetamine use, history of hep C admitted with increasing shortness of breath of 5 days duration. Patient has a dialysis access placed yesterday she is in the ICU for dialysis today. Essentially she is on BiPAP with 60% oxygen. Repeated blood cultures coming back positive for staph aureus. ID consult was done. Per ID recommendations to continue IV ceftriaxone 2 g daily and discontinue IV vancomycin. Consultation with Dr. Gm ibarra is requested for IESHA on Saturday. On examination patient is tachycardic and tachypneic. CT chest without contrast was requested. Patient may be withdrawing. Patient is on methadone and to add IV Ativan 1 mg every 2 hours as needed for withdrawal symptoms. Overall prognosis poor. Reason For Visit: ACUTE RENAL FAILURE Physical Exam Vital Signs: Temp Pulse Resp BP Pulse Ox 97.7 F 106 H 12 140/91 H 100 04/15/20 07:36 04/15/20 07:36 04/15/20 09:00 04/15/20 08:59 04/15/20 09:00 Intake & Output 04/14/20 04/15/20 04/16/20 06:59 06:59 06:59 Intake Total 573 350 Output Total 3200 3700 Balance -2627 -3350 Weight 102.7 kg 101.1 kg General appearance: PRESENT: well-developed, other - Moderate distress, on BiPAP. Head exam: PRESENT: atraumatic Eye exam: PRESENT: PERRLA Mouth exam: PRESENT: moist, tongue midline Neck exam: ABSENT: carotid bruit, JVD, lymphadenopathy, thyromegaly Respiratory exam: PRESENT: rales, rhonchi, tachypnea Cardiovascular exam: PRESENT: systolic murmur, tachycardia GI/Abdominal exam: PRESENT: normal bowel sounds, soft. ABSENT: distended, guarding, mass, organolmegaly, rebound, tenderness Rectal exam: PRESENT: deferred Gentrourinary exam: PRESENT: indwelling catheter Extremities exam: PRESENT: +1 edema Neurological exam: PRESENT: CN II-XII grossly intact, other - Patient looks drowsy on calling waking up and responding appropriately. Psychiatric exam: PRESENT: appropriate affect, normal mood. ABSENT: homicidal ideation, suicidal ideation Results Laboratory Results: 04/15/20 05:42 04/15/20 05:42 04/14/20 04/14/20 04/14/20 06:40 06:40 06:40 WBC 17.2 H RBC 2.64 L Hgb 7.6 L Hct 22.7 L MCV 86 MCH 28.9 MCHC 33.6 RDW 15.8 H Plt Count 73 L Seg Neutrophils % Not Reportable Carbonic Acid HCO3/H2CO3 Ratio ABG pH ABG pCO2 ABG pO2 ABG HCO3 ABG O2 Saturation ABG Base Excess VBG pH VBG pCO2 VBG HCO3 VBG Base Excess FiO2 Sodium 136.0 L Potassium 4.5 Chloride 99 Carbon Dioxide 20 L Anion Gap 17 BUN 112 H Creatinine 7.72 H Est GFR ( Amer) 7 L Glucose 93 Calcium 7.1 L Phosphorus 7.5 H Magnesium 2.5 H Total Bilirubin 0.7 AST 124 H Alkaline Phosphatase 137 H Total Protein 6.1 L Albumin 2.4 L 04/14/20 04/14/20 04/15/20 11:15 22:47 05:42 WBC 16.6 H RBC 2.49 L Hgb 7.4 L Hct 21.3 L MCV 86 MCH 29.7 MCHC 34.7 RDW 15.9 H Plt Count 58 L Seg Neutrophils % Not Reportable Carbonic Acid 1.33 HCO3/H2CO3 Ratio 16:1 ABG pH 7.32 L ABG pCO2 44.2 ABG pO2 51.6 L ABG HCO3 22.0 ABG O2 Saturation 83.4 L ABG Base Excess -3.9 VBG pH 7.36 VBG pCO2 45.3 VBG HCO3 25.2 VBG Base Excess -0.2 FiO2 35% Sodium Potassium Chloride Carbon Dioxide Anion Gap BUN Creatinine Est GFR ( Amer) Glucose Calcium Phosphorus Magnesium Total Bilirubin AST Alkaline Phosphatase Total Protein Albumin 04/15/20 05:42 WBC RBC Hgb Hct MCV MCH MCHC RDW Plt Count Seg Neutrophils % Carbonic Acid HCO3/H2CO3 Ratio ABG pH ABG pCO2 ABG pO2 ABG HCO3 ABG O2 Saturation ABG Base Excess VBG pH VBG pCO2 VBG HCO3 VBG Base Excess FiO2 Sodium 136.4 L Potassium 4.4 Chloride 98 Carbon Dioxide 25 Anion Gap 13 BUN 104 H Creatinine 6.11 H Est GFR ( Amer) 10 L Glucose 88 Calcium 7.8 L Phosphorus 8.6 H Magnesium 2.6 H Total Bilirubin 0.9 AST 105 H Alkaline Phosphatase 127 H Total Protein 6.1 L Albumin 2.4 L 04/14/20 06:40 Blood Blood Culture (PCR) - Final Staphylococcus Aureus 04/12/20 04:15 Blood Blood Culture (PCR) - Final Staphylococcus Aureus 04/12/20 04:15 Blood Blood Culture - Final Staphylococcus Aureus 04/12/20 04:43 Blood Blood Culture (PCR) - Final Staphylococcus Aureus Streptococcus Pneumoniae 04/12/20 04:43 Blood Blood Culture - Final Staphylococcus Aureus 04/14/20 06:58 Blood Blood Culture (PCR) - Final Staphylococcus Aureus 04/12/20 04:15 NT-Pro-B Natriuret Pep 8880 H Impressions: Renal Artery Duplex 04/12/20 00:00 IMPRESSION: No definitive evidence of renal artery stenosis. Echogenic kidneys, suggestive of medical renal disease. Additionally, the elevated resistive indices can also be seen in association with medical renal disease. Mild right hydronephrosis. copyright 2011 [employer]- All Rights Reserved Venous Doppler Study 04/12/20 00:00 IMPRESSION: NO EVIDENCE DVT OR SVT IN EITHER LEG. Chest X-Ray 04/14/20 09:59 IMPRESSION: Bilateral airspace disease suggestive of an atypical infectious/ inflammatory process. There is now a cavitary area in the right upper lobe. Is there any clinical concern for fungal infection? Assessment and Plan - Diagnosis (1) Infective endocarditis Qualifiers: Infective endocarditis organism: bacterial Chronicity: acute Qualified Code(s): I33.0 - Acute and subacute infective endocarditis Is this a current diagnosis for this admission?: Yes Plan: MSSA Bacteremia + multiple bilateral Pulmonary abscesses on chest xray indicative of septic emboli TTE had technical difficulties but does show something that seems to be a vegetation on her tricuspid with moderate tricuspid regurgitation and moderate pulmonary hypertension noted with a RVSP 50 to 60 mmHg and hyperdynamic LV. 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 will obtain dry chest CT when more stable Currently patient is very sick and her situation is very dynamic. 04/15/2020-blood cultures growing MSSA. ID consult was requested. Chest x-ray indicated of bilateral pulmonary abscesses most likely septic emboli. CT chest without contrast was requested. Consultation with cardiology is requested for IESHA. Patient is presently on IV Rocephin as per ID recommendations. Vancomycin is discontinued. Patient is tachycardic tachypneic on BiPAP 60%. Overall prognosis poor. If the condition continue to deteriorate plan may be to transfer her to tertiary care facility. Patient is presently getting dialysis plan is to remove 2 L of fluid. Transthoracic echocardiogram indicates tricuspid valve vegetation. (2) Acute respiratory failure with hypoxia Is this a current diagnosis for this admission?: Yes Plan: multifactorial 2/2 pulmonary edema+pulmonary abscess/septic emboli+pneumonia + ARDS COVID-19 screen is negative spo2 notably 99% on 50% fio2 on cpap 8 --transitioned to HFNC 60% 40L to allow patient eat with spo2 at 99% Had dialysis today to help with pulmonary edema. Rest of treatment as above. Still tachypneic but awake and protecting airway. Monitor closely at risk of decompensation. If patient does not turn the corner soon or worsens, may need upgrade to ICU and possible intubation. monitor blood gas 04/15/2020-patient admitted with acute respiratory failure with hypoxia multifactorial. Most likely infective endocarditis in association with septic emboli plus pulmonary abscess. COVID-19 is negative. Present on BiPAP 60% oxygen. CT chest without contrast is pending. Patient is receiving dialysis plan is to remove 2 L of fluid. If the condition deteriorates plan is to transfer to tertiary care facility. ABGs requested. (3) Acute renal failure (ARF) Qualifiers: Acute renal failure type: with acute tubular necrosis Qualified Code(s): N1 7.0 - Acute kidney failure with tubular necrosis Is this a current diagnosis for this admission?: Yes Plan: Oliguric still but mild improvement in urine output Renal ultrasound with duplex shows echogenic kidneys, mild hydronephrosis but without any renal arterial occlusion Still quite uremic Noted to have hyperphosphatemia - sevelamer Nephrology is following - 2nd dialysis session [facility] Monitor labs and urine output closely. 04/15/2020 urinary output is improving. Receiving dialysis plan is to remove 2 L of fluid today. Nephrology on board. (4) Liver disease Is this a current diagnosis for this admission?: No Plan: following up with labs to figure out the underling cause 04/15/2020-patient has history of hep C LFTs are improving. Total bilirubin is 0.9, direct bilirubin is 0.7. (5) Nephrotic range proteinuria Is this a current diagnosis for this admission?: Yes Plan: Possible other drugs being laced in her heroin causing for further complications. (6) Anemia Is this a current diagnosis for this admission?: No Plan: anemia labs are with in normal limits. (7) Hyperphosphatemia Is this a current diagnosis for this admission?: No Plan: currently on binders to reduce down the phosphorus (8) Hypercalcemia Is this a current diagnosis for this admission?: No Plan: on calcium supplements and improving (9) Sepsis Is this a current diagnosis for this admission?: Yes Plan: 04/15/2020-patient admitted with shortness of breath transthoracic echo indicated vegetation on the mitral valve, blood cultures are consistently positive for MSSA, elevated WBC count patient is in acute on chronic respiratory failure, elevated WBC count with acute renal failure meeting the criteria for sepsis. - Time Anticipated Discharge Disposition: Tertiary Anticipated Discharge Timeframe: within 72 hours
--- NOTE | 2020-04-15 11:06 | PDOC PROGRESS REPORT ---
Subjective Progress Note for:: 04/15/20 Reason For Visit: This is a 34-year-old female with history of IV heroin, methamphetamine use, history of hep C admitted with increasing shortness of breath of 5 days duration and altered mental status. Evaluations revealed that the patient was having ALISA with possibility of uremia /drug effects/ sepsis and therefore dialysis access was placed and patient has been initiated on hemodialysis. She is undergone 2 dialysis sessions over the last couple of days and this is her third session. Patient is more is moribund and quite sick and currently on BiPAP and struggling. Further evaluations have revealed that she has staph aureus bacteremia and a transthoracic echocardiogram shows possibility of trans- tricuspid valve endocarditis. Chest x-ray shows bilateral pneumonia with cavitary lesions suggestive of septic emboli . Per ID recommendations to continue IV ceftriaxone 2 g daily and discontinue IV vancomycin. She is currently being seen while undergoing dialysis. Vital signs are currently stable. Plan to remove 1-2 L of fluid as tolerated as she is rather adamant this. Fortunately she is still making urine which is encouraging.Dialysis orders were reviewed with treating dialysis nurse. Physical Exam Vital Signs: Temp Pulse Resp BP Pulse Ox 97.7 F 106 H 14 147/93 H 100 04/15/20 07:36 04/15/20 07:36 04/15/20 10:14 04/15/20 10:14 04/15/20 10:14 Intake & Output 04/14/20 04/15/20 04/16/20 06:59 06:59 06:59 Intake Total 573 350 Output Total 3200 3700 Balance -2627 -3350 Weight 102.7 kg 101.1 kg General appearance: PRESENT: mild distress Respiratory exam: PRESENT: clear to auscultation cristiane, crackles, decreased breath sounds Cardiovascular exam: PRESENT: +S1, +S2, tachycardia. ABSENT: systolic murmur GI/Abdominal exam: PRESENT: normal bowel sounds, soft. ABSENT: ascites, distended, firm, organomegaly, tenderness Extremities exam: PRESENT: pedal edema Neurological exam: PRESENT: altered Results Laboratory Results: 04/15/20 05:42 04/15/20 05:42 04/14/20 04/14/20 04/15/20 11:15 22:47 05:42 WBC 16.6 H RBC 2.49 L Hgb 7.4 L Hct 21.3 L MCV 86 MCH 29.7 MCHC 34.7 RDW 15.9 H Plt Count 58 L Seg Neutrophils % Not Reportable Carbonic Acid 1.33 HCO3/H2CO3 Ratio 16:1 ABG pH 7.32 L ABG pCO2 44.2 ABG pO2 51.6 L ABG HCO3 22.0 ABG O2 Saturation 83.4 L ABG Base Excess -3.9 VBG pH 7.36 VBG pCO2 45.3 VBG HCO3 25.2 VBG Base Excess -0.2 FiO2 35% Sodium Potassium Chloride Carbon Dioxide Anion Gap BUN Creatinine Est GFR ( Amer) Glucose Calcium Phosphorus Magnesium Total Bilirubin AST Alkaline Phosphatase Total Protein Albumin 04/15/20 05:42 WBC RBC Hgb Hct MCV MCH MCHC RDW Plt Count Seg Neutrophils % Carbonic Acid HCO3/H2CO3 Ratio ABG pH ABG pCO2 ABG pO2 ABG HCO3 ABG O2 Saturation ABG Base Excess VBG pH VBG pCO2 VBG HCO3 VBG Base Excess FiO2 Sodium 136.4 L Potassium 4.4 Chloride 98 Carbon Dioxide 25 Anion Gap 13 BUN 104 H Creatinine 6.11 H Est GFR ( Amer) 10 L Glucose 88 Calcium 7.8 L Phosphorus 8.6 H Magnesium 2.6 H Total Bilirubin 0.9 AST 105 H Alkaline Phosphatase 127 H Total Protein 6.1 L Albumin 2.4 L 04/14/20 06:58 Blood Blood Culture (PCR) - Final Staphylococcus Aureus 04/14/20 06:40 Blood Blood Culture (PCR) - Final Staphylococcus Aureus 04/12/20 04:15 Blood Blood Culture (PCR) - Final Staphylococcus Aureus 04/12/20 04:15 Blood Blood Culture - Final Staphylococcus Aureus 04/12/20 04:43 Blood Blood Culture (PCR) - Final Staphylococcus Aureus Streptococcus Pneumoniae 04/12/20 04:43 Blood Blood Culture - Final Staphylococcus Aureus 04/12/20 04:15 NT-Pro-B Natriuret Pep 8880 H Impressions: Renal Artery Duplex 04/12/20 00:00 IMPRESSION: No definitive evidence of renal artery stenosis. Echogenic kidneys, suggestive of medical renal disease. Additionally, the elevated resistive indices can also be seen in association with medical renal disease. Mild right hydronephrosis. copyright 2011 [employer]- All Rights Reserved Venous Doppler Study 04/12/20 00:00 IMPRESSION: NO EVIDENCE DVT OR SVT IN EITHER LEG. Chest X-Ray 04/14/20 09:59 IMPRESSION: Bilateral airspace disease suggestive of an atypical infectious/ inflammatory process. There is now a cavitary area in the right upper lobe. Is there any clinical concern for fungal infection? Assessment & Plan - Diagnosis (1) Acute renal failure (ARF) Qualifiers: Acute renal failure type: with acute tubular necrosis Qualified Code(s): N17.0 - Acute kidney failure with tubular necrosis Is this a current diagnosis for this admission?: Yes Plan: Currently nonoliguric. However, given her altered mental status suggestive of possible uremia patient initiated on hemodialysis. Today is going to be her third day of hemodialysis. We will see how she responds to correction of her uremic factors. However patient is quite critical given the fact now she has been diagnosed to have infective endocarditis with MSSA with septic embolization. Patient is being seen while on undergoing dialysis which is being monitored and supervised. Plan to remove 1-2 L of fluid as tolerated. Dialysis orders were reviewed with the treating dialysis nurse. (2) Acute respiratory failure with hypoxia Is this a current diagnosis for this admission?: Yes Plan: Currently on BiPAP. As per hospitalist. (3) Anemia Is this a current diagnosis for this admission?: No Plan: Chronic disease. Monitor. Transfuse as needed. (4) History of hepatitis C virus infection Is this a current diagnosis for this admission?: Yes Plan: Her hep C antibody test is come back as positive but her hepatitis B viral RNA is pending.Appropriate precautions to be taken. (5) IV drug abuse Is this a current diagnosis for this admission?: Yes Plan: History of multiple drug use unfortunately. Please see initial history. (6) Infective endocarditis Qualifiers: Infective endocarditis organism: bacterial Chronicity: acute Qualified Code(s): I33.0 - Acute and subacute infective endocarditis Is this a current diagnosis for this admission?: Yes Plan: With septic embolization.. Patient extremely critical. Being managed by hospitalist. (7) Staphylococcus aureus bacteremia Is this a current diagnosis for this admission?: Yes Plan: On appropriate antibiotics. Please dose medications to GFR of less than 25 cc/min.
[2020-04-15] MEDS: HEPARIN SOD (PORCINE) 1,000 UNIT/ML 10 ML VIAL IV PRN (11:32)
[2020-04-15 12:37] LABS: ARTERIAL BLOOD BASE EXCESS 3.6 mmol/L; ARTERIAL BLOOD FIO2 60%; ARTERIAL BLOOD H2CO3 1.72 mmol/L (1.05-1.35); ARTERIAL BLOOD O2 SATURATION 98.8 % (94-98); ARTERIAL BLOOD PH 7.34 (7.35-7.45); ARTERIAL BLOOD PO2 151.8 mmHg (80-100); ARTERIAL BLOOD TOTAL CO2 31.7 mmol/L (21-25)
[2020-04-15 12:49] LABS: HEMATOCRIT 21.5 % (36.0-47.0); MEAN CORPUSCULAR HEMOGLOBIN 29.7 pg (27.0-33.4); MEAN CORPUSCULAR HGB CONC 34.7 g/dL (32.0-36.0); MEAN CORPUSCULAR VOLUME 86 fl (80-97); RED BLOOD COUNT 2.51 10^6/uL (3.72-5.28); RED CELL DISTRIBUTION WIDTH 15.8 % (11.5-14.0); WHITE BLOOD COUNT 20.3 10^3/uL (4.0-10.5)
[2020-04-15 13:02] LABS: PLATELET COUNT 57 10^3/uL (150-450)
[2020-04-15 13:04] LABS: HEMOGLOBIN 7.4 g/dL (12.0-15.5)
[2020-04-15 13:11] LABS: ABSOLUTE MONOCYTES # (MANUAL) 0.4 10^3/uL (0.1-1.4); BAND NEUTROPHILS % (MANUAL) 2 % (3-5); BASOPHILS % (MANUAL) 0 % (0-2); EOSINOPHILS % (MANUAL) 0 % (0-6); LYMPHOCYTES % (MANUAL) 5 % (13-45); METAMYELOCYTES % (MANUAL) 1 % (0-1); MONOCYTES % (MANUAL) 2 % (3-13); SEGMENTED NEUTROPHILS % (MAN) 90 % (42-78); TOTAL CELLS COUNTED 100
[2020-04-15 13:13] LABS: ALBUMIN 2.6 g/dL (3.5-5.0); ALKALINE PHOSPHATASE 146 U/L (38-126); ANION GAP 11 (5-19); ASPARTATE AMINO TRANSFERASE 103 U/L (14-36); BILIRUBIN,DIRECT 0.8 mg/dL (0.0-0.4); CALCIUM 7.8 mg/dL (8.4-10.2); CARBON DIOXIDE 28 mmol/L (22-30); CHLORIDE 99 mmol/L (98-107); GLUCOSE 90 mg/dL (75-110); TOTAL PROTEIN 6.5 g/dL (6.3-8.2)
--- NOTE | 2020-04-15 13:18 | RADIOLOGY REPORT (SQ) ---
EXAM DESCRIPTION: CHEST SINGLE VIEW IMAGES COMPLETED DATE/TIME: 04/15/2020 1:02 pm REASON FOR STUDY: rapid response COMPARISON: Chest films 12/21/2011, 04/12/2020, 04/14/2020 EXAM PARAMETERS: NUMBER OF VIEWS: One view. TECHNIQUE: Single frontal radiographic view of the chest acquired. RADIATION DOSE: NA LIMITATIONS: None. FINDINGS: LUNGS AND PLEURA: Multiple cavitary lesions are present throughout both lungs, more appare nt than on chest film 04/12/2020. This is worrisome for septic emboli or diffuse necrotizing pneumoni a. There is diffuse bilateral airspace disease, similar in severity compared to both prior studies. No gross pleural effusion. No pneumothorax. MEDIASTINUM AND HILAR STRUCTURES: No masses. Contour normal. HEART AND VASCULAR STRUCTURES: Borderline cardiomegaly BONES: No acute findings. HARDWARE: None in the chest. OTHER: No other significant finding. IMPRESSION: Diffuse bilateral airspace disease with progression of cavitation since 04/12/2020. TECHNICAL DOCUMENTATION: JOB ID: [id number] 2010 [employer]- All Rights Reserved Reading location - IP/workstation name: [email or web address]
[2020-04-15] MEDS: ALBUTEROL SULFATE 0.083% NEB 2.5 MG/3 ML AMPUL NEB PRN (13:22)
[2020-04-15 13:30] LABS: ANISOCYTOSIS 1+; HYPOCHROMASIA SLIGHT; POIKILOCYTOSIS SLIGHT; POLYCHROMASIA SLIGHT; STOMATOCYTES SLIGHT; TARGET CELLS SLIGHT; TOXIC GRANULATION SLIGHT
[2020-04-15 13:31] LABS: PLATELET COMMENT DECREASED
[2020-04-15 13:36] LABS: BLOOD UREA NITROGEN 67 mg/dL (7-20)
[2020-04-15] MEDS: SEVELAMER HCL 800 MG TABLET PO SCH ×2 (13:40→17:40)
[2020-04-15] MEDS: FAMOTIDINE 20 MG TABLET PO SCH (13:44)
[2020-04-15 15:11] LABS: ARTERIAL BLOOD BASE EXCESS 1.4 mmol/L; ARTERIAL BLOOD H2CO3 1.37 mmol/L (1.05-1.35); ARTERIAL BLOOD HCO3 26.6 mmol/L (20-24); ARTERIAL BLOOD O2 SATURATION 98.9 % (94-98); ARTERIAL BLOOD PCO2 45.4 mmHg (35-45); ARTERIAL BLOOD PH 7.39 (7.35-7.45); ARTERIAL BLOOD PO2 151.1 mmHg (80-100)
[2020-04-15 15:17] LABS: ARTERIAL BLOOD FIO2 60%
[2020-04-15] MEDS ORDERED: FLUMAZENIL INJ 0.5 MG/5 ML VIAL ONE (17:38)
[2020-04-15] MEDS ORDERED: VANCOMYCIN HCL 750 MG in DEXTROSE 5%-WATER 250 ML IV SCH (18:00)
[2020-04-15] MEDS: CEFTRIAXONE 2 GM/D5W RTU 2 GM/50 ML RTUPB IV SCH (21:43)
--- NOTE | 2020-04-15 22:12 | PDOC PROGRESS REPORT ---
Subjective Progress Note for:: 04/15/20 Subjective:: Is called to the patient's bed. She is now extremely tachypneic as well as tachycardic. Respiratory rates were in the 40s. She was breathing at 50 breaths/min earlier today. Reason For Visit: ACUTE RENAL FAILURE Physical Exam Vital Signs: Temp Pulse Resp BP Pulse Ox 98.1 F 109 H 35 H 133/73 H 100 04/15/20 19:40 04/15/20 19:40 04/15/20 19:40 04/15/20 19:40 04/15/20 19:40 Intake & Output 04/14/20 04/15/20 04/16/20 06:59 06:59 06:59 Intake Total 573 350 0 Output Total 3200 3700 2550 Balance -2627 -3350 -2550 Weight 102.7 kg 101.1 kg General appearance: PRESENT: severe distress Head exam: PRESENT: atraumatic, normocephalic Respiratory exam: PRESENT: rales - Bilaterally, symmetrical, tachypnea. ABSENT: rhonchi, wheezes Cardiovascular exam: PRESENT: +S1, +S2, tachycardia. ABSENT: bradycardia, diastolic murmur, irregular rhythm, systolic murmur Neurological exam: PRESENT: alert, awake, oriented to person, oriented to place, oriented to situation Psychiatric exam: PRESENT: agitated, anxious Results Laboratory Results: 04/15/20 12:32 04/15/20 12:32 04/14/20 04/15/20 04/15/20 22:47 05:42 05:42 WBC 16.6 H RBC 2.49 L Hgb 7.4 L Hct 21.3 L MCV 86 MCH 29.7 MCHC 34.7 RDW 15.9 H Plt Count 58 L Seg Neutrophils % Not Reportable Carbonic Acid HCO3/H2CO3 Ratio ABG pH ABG pCO2 ABG pO2 ABG HCO3 ABG O2 Saturation ABG Base Excess VBG pH 7.36 VBG pCO2 45.3 VBG HCO3 25.2 VBG Base Excess -0.2 FiO2 Sodium 136.4 L Potassium 4.4 Chloride 98 Carbon Dioxide 25 Anion Gap 13 BUN 104 H Creatinine 6.11 H Est GFR ( Amer) 10 L Glucose 88 Lactic Acid Calcium 7.8 L Phosphorus 8.6 H Magnesium 2.6 H Total Bilirubin 0.9 AST 105 H Alkaline Phosphatase 127 H Total Protein 6.1 L Albumin 2.4 L 04/15/20 04/15/20 04/15/20 12:00 12:32 12:32 WBC 20.3 H RBC 2.51 L Hgb 7.4 L Hct 21.5 L MCV 86 MCH 29.7 MCHC 34.7 RDW 15.8 H Plt Count 57 L Seg Neutrophils % Not Reportable Carbonic Acid 1.72 H HCO3/H2CO3 Ratio 17:1 ABG pH 7.34 L ABG pCO2 57.0 H ABG pO2 151.8 H ABG HCO3 30.0 H ABG O2 Saturation 98.8 H ABG Base Excess 3.6 VBG pH VBG pCO2 VBG HCO3 VBG Base Excess FiO2 60% Sodium 137.8 Potassium 4.0 Chloride 99 Carbon Dioxide 28 Anion Gap 11 BUN 67 H D Creatinine 4.03 H Est GFR ( Amer) 15 L Glucose 90 Lactic Acid Calcium 7.8 L Phosphorus Magnesium Total Bilirubin 1.0 AST 103 H Alkaline Phosphatase 146 H Total Protein 6.5 Albumin 2.6 L 04/15/20 04/15/20 12:32 14:55 WBC RBC Hgb Hct MCV MCH MCHC RDW Plt Count Seg Neutrophils % Carbonic Acid 1.37 H HCO3/H2CO3 Ratio 19:1 ABG pH 7.39 ABG pCO2 45.4 H ABG pO2 151.1 H ABG HCO3 26.6 H ABG O2 Saturation 98.9 H ABG Base Excess 1.4 VBG pH VBG pCO2 VBG HCO3 VBG Base Excess FiO2 60% Sodium Potassium Chloride Carbon Dioxide Anion Gap BUN Creatinine Est GFR ( Amer) Glucose Lactic Acid 1.1 Calcium Phosphorus Magnesium Total Bilirubin AST Alkaline Phosphatase Total Protein Albumin 04/14/20 06:40 Blood Blood Culture (PCR) - Final Staphylococcus Aureus 04/14/20 06:58 Blood Blood Culture (PCR) - Final Staphylococcus Aureus 04/12/20 04:15 Blood Blood Culture (PCR) - Final Staphylococcus Aureus 04/12/20 04:15 Blood Blood Culture - Final Staphylococcus Aureus 04/12/20 04:43 Blood Blood Culture (PCR) - Final Staphylococcus Aureus Streptococcus Pneumoniae 04/12/20 04:43 Blood Blood Culture - Final Staphylococcus Aureus 04/12/20 04:15 NT-Pro-B Natriuret Pep 8880 H Impressions: Renal Artery Duplex 04/12/20 00:00 IMPRESSION: No definitive evidence of renal artery stenosis. Echogenic kidneys, suggestive of medical renal disease. Additionally, the elevated resistive indices can also be seen in association with medical renal disease. Mild right hydronephrosis. copyright 2010 [email or web address]- All Rights Reserved Venous Doppler Study 04/12/20 00:00 IMPRESSION: NO EVIDENCE DVT OR SVT IN EITHER LEG. Chest X-Ray 04/15/20 00:00 IMPRESSION: Diffuse bilateral airspace disease with progression of cavitation since 04/12/2020. Assessment and Plan - Diagnosis (1) Acute respiratory failure with hypoxia Is this a current diagnosis for this admission?: Yes Plan: multifactorial 2/2 pulmonary edema+pulmonary abscess/septic emboli+pneumonia + ARDS COVID-19 screen is negative spo2 notably 99% on 50% fio2 on cpap 8 --transitioned to HFNC 60% 40L to allow patient eat with spo2 at 99% Had dialysis today to help with pulmonary edema. Rest of treatment as above. Still tachypneic but awake and protecting airway. Monitor closely at risk of decompensation. If patient does not turn the corner soon or worsens, may need upgrade to ICU and possible intubation. monitor blood gas 04/15/2020-patient admitted with acute respiratory failure with hypoxia multifactorial. Most likely infective endocarditis in association with septic emboli plus pulmonary abscess. COVID-19 is negative. Present on BiPAP 60% oxygen. CT chest without contrast is pending. Patient is receiving dialysis plan is to remove 2 L of fluid. If the condition deteriorates plan is to transfer to tertiary care facility. ABGs requested. (2) Septic pulmonary embolism Qualifiers: Chronicity: acute Acute cor pulmonale presence: unspecified Qualified Code(s): I26.90 - Septic pulmonary embolism without acute cor pulmonale Is this a current diagnosis for this admission?: Yes - Plan Summary Summary: 04/15/2020 Critical care visit Called to see the patient for tachycardia and tachypnea. Patient was agitated. She was maintaining good saturation on BiPAP. Reviewed today's chest x-ray. She has worsening cavitary lesions from septic emboli. I did review the transthoracic echocardiogram and they could not rule out vegetation. She has not had a IESHA as of yet. All of her blood cultures reveal a very sensitive staph aureus and she is currently on ceftriaxone. At this point I am going to give her a dose of lorazepam and a small dose of morphine. She did just get her methadone orally but this will take a little while to kick in. We will monitor her closely and the nurses will give me an update shortly. - Time Total Critical Time (Minutes): 40 Medications reviewed and adjusted accordingly: Yes Anticipated Discharge Disposition: Unknown Anticipated Discharge Timeframe: At completion of antibiotic therapy
[2020-04-16] MEDS: MORPHINE SULFATE 10 MG/ML INJ IV PRN ×2 (03:12→21:10)
[2020-04-16] MEDS: LORAZEPAM INJ 2 MG/1 ML VIAL IV PRN ×3 (03:12→21:09)
[2020-04-16] MEDS: CLONIDINE HCL 0.1 MG TABLET PO SCH ×2 (06:01→18:29)
[2020-04-16] MEDS: HEPARIN SOD (PORCINE) 5,000 UNIT/ML 1 ML VIAL SUBCUT SCH ×3 (06:02→21:10)
[2020-04-16] MEDS: METHADONE HCL 10 MG TABLET PO SCH ×3 (06:02→21:09)
[2020-04-16 07:08] LABS: HEMATOCRIT 19.6 % (36.0-47.0); MEAN CORPUSCULAR HEMOGLOBIN 29.2 pg (27.0-33.4); MEAN CORPUSCULAR VOLUME 86 fl (80-97); RED BLOOD COUNT 2.28 10^6/uL (3.72-5.28); RED CELL DISTRIBUTION WIDTH 15.8 % (11.5-14.0); WHITE BLOOD COUNT 18.4 10^3/uL (4.0-10.5)
[2020-04-16 07:19] LABS: ALBUMIN 2.4 g/dL (3.5-5.0); ALKALINE PHOSPHATASE 115 U/L (38-126); ANION GAP 14 (5-19); ASPARTATE AMINO TRANSFERASE 89 U/L (14-36); BILIRUBIN,DIRECT 0.7 mg/dL (0.0-0.4); BILIRUBIN,TOTAL 0.7 mg/dL (0.2-1.3); CALCIUM 8.1 mg/dL (8.4-10.2); CARBON DIOXIDE 24 mmol/L (22-30); CHLORIDE 101 mmol/L (98-107); GLUCOSE 94 mg/dL (75-110); POTASSIUM 4.4 mmol/L (3.6-5.0); TOTAL PROTEIN 6.5 g/dL (6.3-8.2)
[2020-04-16 07:28] LABS: BLOOD UREA NITROGEN 89 mg/dL (7-20)
[2020-04-16 07:43] LABS: ABSOLUTE LYMPHOCYTES# (MANUAL) 1.1 10^3/uL (0.5-4.7); BAND NEUTROPHILS % (MANUAL) 1 % (3-5); BASOPHILS % (MANUAL) 0 % (0-2); EOSINOPHILS % (MANUAL) 1 % (0-6); LYMPHOCYTES % (MANUAL) 6 % (13-45); MONOCYTES % (MANUAL) 0 % (3-13); SEGMENTED NEUTROPHILS % (MAN) 92 % (42-78); TOTAL CELLS COUNTED 100
[2020-04-16 07:48] LABS: ANISOCYTOSIS SLIGHT; PLATELET COMMENT DECREASED; POLYCHROMASIA SLIGHT
[2020-04-16 07:51] LABS: HEMOGLOBIN 6.6 g/dL (12.0-15.5); PLATELET COUNT 57 10^3/uL (150-450)
[2020-04-16 07:56] LABS: ARTERIAL BLOOD BASE EXCESS 0.9 mmol/L; ARTERIAL BLOOD H2CO3 1.41 mmol/L (1.05-1.35); ARTERIAL BLOOD HCO3 26.3 mmol/L (20-24); ARTERIAL BLOOD O2 SATURATION 99.2 % (94-98); ARTERIAL BLOOD PCO2 46.9 mmHg (35-45); ARTERIAL BLOOD PH 7.37 (7.35-7.45); ARTERIAL BLOOD PO2 182.9 mmHg (80-100); ARTERIAL BLOOD TOTAL CO2 27.8 mmol/L (21-25)
[2020-04-16 07:57] LABS: ARTERIAL BLOOD FIO2 60%
[2020-04-16] MEDS ORDERED: NORMAL SALINE 250 ML IV PRN ×2 (09:23)
--- NOTE | 2020-04-16 09:33 | PDOC PROGRESS REPORT ---
Subjective Progress Note for:: 04/16/20 Subjective:: 34 year old female with history of IV heroin/methamphetamine use, hepatitis C, who presents to the hospital with complaints of shortness of breath and increased work of breathing over the past 5 days. Patient has also noted increased swelling in both lower extremities since that time. She denies fever or chills. She does have occasional cough nonproductive of more sputum. Also experiencing aches and pains in her lower extremities. She denies any diarrhea. She denies any history of kidney disease or heart failure. She also admits to very diminished water intake over the last few days. She has been using heroin very frequently over the past 2 to 3 days as well. On arrival of EMS, patient was noted to be significantly hypoxic with SPO2 69% and subsequently placed on a CPAP. She was switched to a BiPAP machine in the ER due to work of breathing. 04/13-Last night, despite receiving over 2.5 L of fluid, patient put out only about 100 cc of urine. I rechallenged her with 80 mg of IV Lasix but she put out only about 40 cc following that. She continues to remain anuric and significantly encephalopathic. 04/14-Patient had about this morning when she became tachypneic and short of breath. She also felt very anxious and stated that she felt like she was withdrawing. She did receive some Ativan. Patient will plan for dialysis today. 04/[id number]-brna-old female with history of IV heroin, methamphetamine use, history of hep C admitted with increasing shortness of breath of 5 days duration. Patient has a dialysis access placed yesterday she is in the ICU for dialysis today. Essentially she is on BiPAP with 60% oxygen. Repeated blood cultures coming back positive for staph aureus. ID consult was done. Per ID recommendations to continue IV ceftriaxone 2 g daily and discontinue IV vancomycin. Consultation with Dr. Gm ibarra is requested for IESHA on Saturday. On examination patient is tachycardic and tachypneic. CT chest without contrast was requested. Patient may be withdrawing. Patient is on methadone and to add IV Ativan 1 mg every 2 hours as needed for withdrawal symptoms. Overall prognosis poor. 04/16/20-rapid response was called this night because patient became tachycardic tachypneic agitated most likely secondary to withdrawal symptoms. Patient was started on morphine 2 mg IV every 4 hours, lorazepam 1 mg every 4 hours. Patient is comfortably sleeping in the bed at this time. On BiPAP. ABG this morning on 60% oxygen shows pH of 7.37/PO2 of 182. Plan is to decrease the oxygen requirements to 40%. To continue IV ceftriaxone. Blood cultures are repeated. Discussed the case with Dr. Gm ibarra he is planning to do IESHA if possible on Saturday.. Reason For Visit: ACUTE RENAL FAILURE Physical Exam Vital Signs: Temp Pulse Resp BP Pulse Ox 97.3 F 102 H 25 H 142/82 H 100 04/16/20 07:47 04/16/20 07:47 04/16/20 07:58 04/16/20 07:47 04/16/20 07:58 Intake & Output 04/15/20 04/16/20 04/17/20 06:59 06:59 06:59 Intake Total 350 250 Output Total 3700 3050 Balance -3350 -2800 Weight 101.1 kg 98.5 kg General appearance: PRESENT: no acute distress, well-developed, other - Mild distress Head exam: PRESENT: atraumatic Eye exam: PRESENT: PERRLA Mouth exam: PRESENT: moist, tongue midline Teeth exam: PRESENT: poor dentation Neck exam: ABSENT: carotid bruit, JVD, lymphadenopathy, thyromegaly Respiratory exam: PRESENT: decreased breath sounds, tachypnea, other - BiPAP. Cardiovascular exam: PRESENT: systolic murmur, tachycardia GI/Abdominal exam: PRESENT: normal bowel sounds, soft. ABSENT: distended, guarding, mass, organolmegaly, rebound, tenderness Rectal exam: PRESENT: deferred Gentrourinary exam: PRESENT: indwelling catheter Neurological exam: PRESENT: alert, awake, oriented to person, oriented to place, oriented to time, oriented to situation, CN II-XII grossly intact. ABSENT: motor sensory deficit Skin exam: PRESENT: dry, intact, warm. ABSENT: cyanosis, rash Results Laboratory Results: 04/16/20 05:43 04/16/20 05:43 04/13/20 04/15/20 04/15/20 09:49 12:00 12:32 WBC 20.3 H RBC 2.51 L Hgb 7.4 L Hct 21.5 L MCV 86 MCH 29.7 MCHC 34.7 RDW 15.8 H Plt Count 57 L Seg Neutrophils % Not Reportable Carbonic Acid 1.72 H HCO3/H2CO3 Ratio 17:1 ABG pH 7.34 L ABG pCO2 57.0 H ABG pO2 151.8 H ABG HCO3 30.0 H ABG O2 Saturation 98.8 H ABG Base Excess 3.6 FiO2 60% Sodium Potassium Chloride Carbon Dioxide Anion Gap BUN Creatinine Est GFR ( Amer) Glucose Lactic Acid Calcium Phosphorus Magnesium Total Bilirubin AST Alkaline Phosphatase Total Protein Albumin Blood Type A POSITIVE Antibody Screen NEGATIVE 04/15/20 04/15/20 04/15/20 12:32 12:32 14:55 WBC RBC Hgb Hct MCV MCH MCHC RDW Plt Count Seg Neutrophils % Carbonic Acid 1.37 H HCO3/H2CO3 Ratio 19:1 ABG pH 7.39 ABG pCO2 45.4 H ABG pO2 151.1 H ABG HCO3 26.6 H ABG O2 Saturation 98.9 H ABG Base Excess 1.4 FiO2 60% Sodium 137.8 Potassium 4.0 Chloride 99 Carbon Dioxide 28 Anion Gap 11 BUN 67 H D Creatinine 4.03 H Est GFR ( Amer) 15 L Glucose 90 Lactic Acid 1.1 Calcium 7.8 L Phosphorus Magnesium Total Bilirubin 1.0 AST 103 H Alkaline Phosphatase 146 H Total Protein 6.5 Albumin 2.6 L Blood Type Antibody Screen 04/16/20 04/16/20 04/16/20 05:43 05:43 07:40 WBC 18.4 H RBC 2.28 L Hgb 6.6 L Hct 19.6 L MCV 86 MCH 29.2 MCHC 34.0 RDW 15.8 H Plt Count 57 L Seg Neutrophils % Not Reportable Carbonic Acid 1.41 H HCO3/H2CO3 Ratio 18:1 ABG pH 7.37 ABG pCO2 46.9 H ABG pO2 182.9 H ABG HCO3 26.3 H ABG O2 Saturation 99.2 H ABG Base Excess 0.9 FiO2 60% Sodium 139.3 Potassium 4.4 Chloride 101 Carbon Dioxide 24 Anion Gap 14 BUN 89 H D Creatinine 4.95 H Est GFR ( Amer) 12 L Glucose 94 Lactic Acid Calcium 8.1 L Phosphorus 8.0 H Magnesium 2.6 H Total Bilirubin 0.7 AST 89 H Alkaline Phosphatase 115 Total Protein 6.5 Albumin 2.4 L Blood Type Antibody Screen 04/14/20 06:40 Blood Blood Culture (PCR) - Final Staphylococcus Aureus 04/14/20 06:58 Blood Blood Culture (PCR) - Final Staphylococcus Aureus 04/12/20 04:15 Blood Blood Culture (PCR) - Final Staphylococcus Aureus 04/12/20 04:15 Blood Blood Culture - Final Staphylococcus Aureus 04/12/20 04:43 Blood Blood Culture (PCR) - Final Staphylococcus Aureus Streptococcus Pneumoniae 04/12/20 04:43 Blood Blood Culture - Final Staphylococcus Aureus 04/12/20 04:15 NT-Pro-B Natriuret Pep 8880 H Impressions: Renal Artery Duplex 04/12/20 00:00 IMPRESSION: No definitive evidence of renal artery stenosis. Echogenic kidneys, suggestive of medical renal disease. Additionally, the elevated resistive indices can also be seen in association with medical renal disease. Mild right hydronephrosis. copyright 2010 [employer]- All Rights Reserved Venous Doppler Study 04/12/20 00:00 IMPRESSION: NO EVIDENCE DVT OR SVT IN EITHER LEG. Chest X-Ray 04/15/20 00:00 IMPRESSION: Diffuse bilateral airspace disease with progression of cavitation since 04/12/2020. Assessment and Plan - Diagnosis (1) Infective endocarditis Qualifiers: Infective endocarditis organism: bacterial Chronicity: acute Qualified Code(s): I33.0 - Acute and subacute infective endocarditis Is this a current diagnosis for this admission?: Yes Plan: MSSA Bacteremia + multiple bilateral Pulmonary abscesses on chest xray indicative of septic emboli TTE had technical difficulties but does show something that seems to be a vegetation on her tricuspid with moderate tricuspid regurgitation and moderate pulmonary hypertension noted with a RVSP 50 to 60 mmHg and hyperdynamic LV. 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 will obtain dry chest CT when more stable Currently patient is very sick and her situation is very dynamic. 04/15/2020-blood cultures growing MSSA. ID consult was requested. Chest x-ray indicated of bilateral pulmonary abscesses most likely septic emboli. CT chest without contrast was requested. Consultation with cardiology is requested for IESHA. Patient is presently on IV Rocephin as per ID recommendations. Vancomycin is discontinued. Patient is tachycardic tachypneic on BiPAP 60%. Overall prognosis poor. If the condition continue to deteriorate plan may be to transfer her to tertiary care facility. Patient is presently getting dialysis plan is to remove 2 L of fluid. Transthoracic echocardiogram indicates tricuspid valve vegetation. 04/16/20-transthoracic echo is unable to rule out a vegetation on the tricuspid valve. Case was discussed with the cardiology team plan is to do IESHA on Saturday if the patient respiratory status is stable. Blood cultures growing MSSA. On ceftriaxone 2 g daily. She is allergic to penicillins. ID is on board. Patient has a dialysis in yesterday. Overall prognosis poor condition is critical. Chest x-ray suggestive of progression of the cavitation. Pulmonary consult will be requested on Saturday. (2) Acute respiratory failure with hypoxia Is this a current diagnosis for this admission?: Yes Plan: multifactorial 2/2 pulmonary edema+pulmonary abscess/septic emboli+pneumonia + ARDS COVID-19 screen is negative spo2 notably 99% on 50% fio2 on cpap 8 --transitioned to HFNC 60% 40L to allow patient eat with spo2 at 99% Had dialysis today to help with pulmonary edema. Rest of treatment as above. Still tachypneic but awake and protecting airway. Monitor closely at risk of decompensation. If patient does not turn the corner soon or worsens, may need upgrade to ICU and possible intubation. monitor blood gas 04/15/2020-patient admitted with acute respiratory failure with hypoxia multifactorial. Most likely infective endocarditis in association with septic emboli plus pulmonary abscess. COVID-19 is negative. Present on BiPAP 60% oxygen. CT chest without contrast is pending. Patient is receiving dialysis plan is to remove 2 L of fluid. If the condition deteriorates plan is to transfer to tertiary care facility. ABGs requested. 04/16/2020-patient admitted with acute respiratory failure requiring BiPAP. It is a IV drug abuser most likely has infective endocarditis. Chest x-ray suggestive of progression of the cavitary lesions. Patient might have septic emboli. Presently on 2 g of IV Rocephin. ID is on board. To consult pulmonary on Saturday. Overall prognosis poor. Condition is critical. I called [facility] for possible transfer and I discussed the case with the ICU attending,patient is not accepted at this time. (3) Acute renal failure (ARF) Qualifiers: Acute renal failure type: with acute tubular necrosis Qualified Code(s): N17.0 - Acute kidney failure with tubular necrosis Is this a current diagnosis for this admission?: Yes Plan: Oliguric still but mild improvement in urine output Renal ultrasound with duplex shows echogenic kidneys, mild hydronephrosis but without any renal arterial occlusion Still quite uremic Noted to have hyperphosphatemia - [facility] Nephrology is following - 2nd dialysis session today via [facility] Monitor labs and urine output closely. 04/15/2020 urinary output is improving. Receiving dialysis plan is to remove 2 L of fluid today. Nephrology on board. 04/16/2020-patient received full session of dialysis yesterday. Latest creatinine is 4.95. Urinary output is minimal. Nephrology on board. Patient may need another session of dialysis on Saturday. (4) Liver disease Is this a current diagnosis for this admission?: No Plan: following up with labs to figure out the underling cause 04/15/2020-patient has history of hep C LFTs are improving. Total bilirubin is 0.9, direct bilirubin is 0.7. (5) Nephrotic range proteinuria Is this a current diagnosis for this admission?: Yes Plan: Possible other drugs being laced in her heroin causing for further complications. (6) Anemia Is this a current diagnosis for this admission?: No Plan: anemia labs are with in normal limits. 04/16/2020-patient hemoglobin is 6.6 today. Plan is to repeat the CBC. If the hemoglobin is less than 7 to transfuse 2 units of PRBC. (7) Hyperphosphatemia Is this a current diagnosis for this admission?: No (8) Hypercalcemia Is this a current diagnosis for this admission?: No (9) Sepsis Is this a current diagnosis for this admission?: Yes Plan: 04/15/2020-patient admitted with shortness of breath transthoracic echo indicated vegetation on the mitral valve, blood cultures are consistently positive for MSSA, elevated WBC count patient is in acute on chronic respiratory failure, elevated WBC count with acute renal failure meeting the criteria for sepsis. 03/17/2020-patient is septic. Patient is IV drug abuser most likely has infective endocarditis and septic emboli with cavitary lesions in both lungs. Blood cultures are positive for MSSA bacteremia. On IV ceftriaxone. Has acute respiratory failure on BiPAP. - Plan Summary Summary: 04/15/2020 Critical care visit Called to see the patient for tachycardia and tachypnea. Patient was agitated. She was maintaining good saturation on BiPAP. Reviewed today's chest x-ray. She has worsening cavitary lesions from septic emboli. I did review the transthoracic echocardiogram and they could not rule out vegetation. She has not had a IESHA as of yet. All of her blood cultures reveal a very sensitive staph aureus and she is currently on ceftriaxone. At this point I am going to give her a dose of lorazepam and a small dose of morphine. She did just get her methadone orally but this will take a little while to kick in. We will monitor her closely and the nurses will give me an update shortly. - Time Anticipated Discharge Disposition: Home, Self Care Anticipated Discharge Timeframe: 4-6 weeks
[2020-04-16] MEDS: SEVELAMER HCL 800 MG TABLET PO SCH ×4 (09:48→18:29)
[2020-04-16] MEDS ORDERED: VANCOMYCIN HCL INJ 1000 MG VIAL IV SCH (10:00)
[2020-04-16] MEDS ORDERED: CEFTRIAXONE INJ 1000 MG VIAL IV SCH (10:00)
[2020-04-16 10:31] LABS: PATH REVIEW PATHOLOGIST REVIEWED
[2020-04-16] MEDS: FAMOTIDINE 20 MG TABLET PO SCH (10:34)
[2020-04-16 11:17] LABS: HEMATOCRIT 18.8 % (36.0-47.0); MEAN CORPUSCULAR HEMOGLOBIN 29.4 pg (27.0-33.4); MEAN CORPUSCULAR VOLUME 86 fl (80-97); RED BLOOD COUNT 2.18 10^6/uL (3.72-5.28); WHITE BLOOD COUNT 16.5 10^3/uL (4.0-10.5)
[2020-04-16 11:46] LABS: HEMOGLOBIN 6.4 g/dL (12.0-15.5); PLATELET COUNT 54 10^3/uL (150-450)
[2020-04-16] MEDS ORDERED: VANCOMYCIN HCL 750 MG in DEXTROSE 5%-WATER 250 ML IV SCH (18:00)
[2020-04-16] MEDS: CEFTRIAXONE 2 GM/D5W RTU 2 GM/50 ML RTUPB IV SCH (21:10)
[2020-04-17] MEDS: LORAZEPAM INJ 2 MG/1 ML VIAL IV PRN ×6 (01:40→21:40)
[2020-04-17] MEDS: MORPHINE SULFATE 10 MG/ML INJ IV PRN ×5 (01:40→22:25)
[2020-04-17] MEDS: METHADONE HCL 10 MG TABLET PO SCH ×3 (06:03→21:09)
[2020-04-17] MEDS: HEPARIN SOD (PORCINE) 5,000 UNIT/ML 1 ML VIAL SUBCUT SCH ×3 (06:05→21:08)
[2020-04-17] MEDS: CLONIDINE HCL 0.1 MG TABLET PO SCH ×2 (06:09→18:15)
[2020-04-17 07:55] LABS: ARTERIAL BLOOD BASE EXCESS -1.3 mmol/L; ARTERIAL BLOOD H2CO3 1.38 mmol/L (1.05-1.35); ARTERIAL BLOOD HCO3 24.4 mmol/L (20-24); ARTERIAL BLOOD O2 SATURATION 97.7 % (94-98); ARTERIAL BLOOD PCO2 45.9 mmHg (35-45); ARTERIAL BLOOD PH 7.34 (7.35-7.45); ARTERIAL BLOOD PO2 109.3 mmHg (80-100); ARTERIAL BLOOD TOTAL CO2 25.8 mmol/L (21-25)
[2020-04-17 07:56] LABS: ARTERIAL BLOOD FIO2 40%
--- NOTE | 2020-04-17 08:45 | PDOC PROGRESS REPORT ---
Subjective Progress Note for:: 04/17/20 Subjective:: 34 year old female with history of IV heroin/methamphetamine use, hepatitis C, who presents to the hospital with complaints of shortness of breath and increased work of breathing over the past 5 days. Patient has also noted increased swelling in both lower extremities since that time. She denies fever or chills. She does have occasional cough nonproductive of more sputum. Also experiencing aches and pains in her lower extremities. She denies any diarrhea. She denies any history of kidney disease or heart failure. She also admits to very diminished water intake over the last few days. She has been using heroin very frequently over the past 2 to 3 days as well. On arrival of EMS, patient was noted to be significantly hypoxic with SPO2 69% and subsequently placed on a CPAP. She was switched to a BiPAP machine in the ER due to work of breathing. 04/13-Last night, despite receiving over 2.5 L of fluid, patient put out only about 100 cc of urine. I rechallenged her with 80 mg of IV Lasix but she put out only about 40 cc following that. She continues to remain anuric and significantly encephalopathic. 04/14-Patient had about this morning when she became tachypneic and short of breath. She also felt very anxious and stated that she felt like she was withdrawing. She did receive some Ativan. Patient will plan for dialysis today. 04/15/[id number]-old female with history of IV heroin, methamphetamine use, history of hep C admitted with increasing shortness of breath of 5 days duration. Patient has a dialysis access placed yesterday she is in the ICU for dialysis today. Essentially she is on BiPAP with 60% oxygen. Repeated blood cultures coming back positive for staph aureus. ID consult was done. Per ID recommendations to continue IV ceftriaxone 2 g daily and discontinue IV vancomycin. Consultation with Dr. Gm ibarra is requested for IESHA on Saturday. On examination patient is tachycardic and tachypneic. CT chest without contrast was requested. Patient may be withdrawing. Patient is on methadone and to add IV Ativan 1 mg every 2 hours as needed for withdrawal symptoms. Overall prognosis poor. 04/16/20-rapid response was called this night because patient became tachycardic tachypneic agitated most likely secondary to withdrawal symptoms. Patient was started on morphine 2 mg IV every 4 hours, lorazepam 1 mg every 4 hours. Patient is comfortably sleeping in the bed at this time. On BiPAP. ABG this morning on 60% oxygen shows pH of 7.37/PO2 of 182. Plan is to decrease the oxygen requirements to 40%. To continue IV ceftriaxone. Blood cultures are repeated. Discussed the case with Dr. Gm ibarra he is planning to do IESHA if possible on Saturday.. 04/17/20-no acute events in the last 24 hours. Patient is afebrile. Receiving IV Rocephin for MSSA bacteremia. ABG on 40% oxygen on BiPAP indicates pH of 7.34/PCO2 46/PO2 109/oxygen saturation is 97%. Plan is to decrease the oxygen supplementation to 35%. pt Received 2 units of PRBC yesterday today's labs are pending. Reason For Visit: ACUTE RENAL FAILURE Physical Exam Vital Signs: Temp Pulse Resp BP Pulse Ox 98.4 F 108 H 35 H 134/80 H 99 04/17/20 07:59 04/17/20 07:59 04/17/20 07:59 04/17/20 07:59 04/17/20 07:59 Intake & Output 04/16/20 04/17/20 04/18/20 06:59 06:59 06:59 Intake Total 300 3080 Output Total 3050 1250 Balance -2750 1830 Weight 98.5 kg 98.3 kg General appearance: PRESENT: well-developed, other - Patient is in moderate distress Head exam: PRESENT: atraumatic Eye exam: PRESENT: PERRLA Mouth exam: PRESENT: moist, tongue midline Teeth exam: PRESENT: poor dentation Neck exam: ABSENT: carotid bruit, JVD, lymphadenopathy, thyromegaly Respiratory exam: PRESENT: crackles, tachypnea Cardiovascular exam: PRESENT: systolic murmur, tachycardia GI/Abdominal exam: PRESENT: normal bowel sounds, soft. ABSENT: distended, guarding, mass, organolmegaly, rebound, tenderness Rectal exam: PRESENT: deferred Extremities exam: PRESENT: full ROM. ABSENT: calf tenderness, clubbing, pedal edema Neurological exam: PRESENT: alert, awake, oriented to person, oriented to place, oriented to time, oriented to situation, CN II-XII grossly intact. ABSENT: motor sensory deficit Psychiatric exam: PRESENT: appropriate affect, normal mood. ABSENT: homicidal ideation, suicidal ideation Results Laboratory Results: 04/16/20 10:15 04/16/20 05:43 04/13/20 04/16/20 04/16/20 09:49 10:15 10:15 WBC 16.5 H RBC 2.18 L Hgb 6.4 L Hct 18.8 L MCV 86 MCH 29.4 MCHC 34.0 RDW 16.0 H Plt Count 54 L Carbonic Acid HCO3/H2CO3 Ratio ABG pH ABG pCO2 ABG pO2 ABG HCO3 ABG O2 Saturation ABG Base Excess FiO2 Blood Type A POSITIVE A POSITIVE Antibody Screen NEGATIVE NEGATIVE 04/17/20 07:43 WBC RBC Hgb Hct MCV MCH MCHC RDW Plt Count Carbonic Acid 1.38 H HCO3/H2CO3 Ratio 17:1 ABG pH 7.34 L ABG pCO2 45.9 H ABG pO2 109.3 H ABG HCO3 24.4 H ABG O2 Saturation 97.7 ABG Base Excess -1.3 FiO2 40% Blood Type Antibody Screen 04/14/20 06:58 Blood Blood Culture (PCR) - Final Staphylococcus Aureus 04/14/20 06:58 Blood Blood Culture - Final Staphylococcus Aureus 04/14/20 06:40 Blood Blood Culture (PCR) - Final Staphylococcus Aureus 04/14/20 06:40 Blood Blood Culture - Final Staphylococcus Aureus 04/12/20 04:15 NT-Pro-B Natriuret Pep 8880 H Impressions: Renal Artery Duplex 04/12/20 00:00 IMPRESSION: No definitive evidence of renal artery stenosis. Echogenic kidneys, suggestive of medical renal disease. Additionally, the elevated resistive indices can also be seen in association with medical renal disease. Mild right hydronephrosis. copyright 2011 [employer]- All Rights Reserved Venous Doppler Study 04/12/20 00:00 IMPRESSION: NO EVIDENCE DVT OR SVT IN EITHER LEG. Chest X-Ray 04/15/20 00:00 IMPRESSION: Diffuse bilateral airspace disease with progression of cavitation since 04/12/2020. Assessment and Plan - Diagnosis (1) Infective endocarditis Qualifiers: Infective endocarditis organism: bacterial Chronicity: acute Qualified Code(s): I33.0 - Acute and subacute infective endocarditis Is this a current diagnosis for this admission?: Yes Plan: MSSA Bacteremia + multiple bilateral Pulmonary abscesses on chest xray indicative of septic emboli TTE had technical difficulties but does show something that seems to be a vegetation on her tricuspid with moderate tricuspid regurgitation and moderate pulmonary hypertension noted with a RVSP 50 to 60 mmHg and hyperdynamic LV. 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 will obtain dry chest CT when more stable Currently patient is very sick and her situation is very dynamic. 04/15/2020-blood cultures growing MSSA. ID consult was requested. Chest x-ray indicated of bilateral pulmonary abscesses most likely septic emboli. CT chest without contrast was requested. Consultation with cardiology is requested for IESHA. Patient is presently on IV Rocephin as per ID recommendations. Vancomycin is discontinued. Patient is tachycardic tachypneic on BiPAP 60%. Overall prognosis poor. If the condition continue to deteriorate plan may be to transfer her to tertiary care facility. Patient is presently getting dialysis plan is to remove 2 L of fluid. Transthoracic echocardiogram indicates tricuspid valve vegetation. 04/16/20-transthoracic echo is unable to rule out a vegetation on the tricuspid valve. Case was discussed with the cardiology team plan is to do IESHA on Saturday if the patient respiratory status is stable. Blood cultures growing MSSA. On ceftriaxone 2 g daily. She is allergic to penicillins. ID is on board. Patient has a dialysis in yesterday. Overall prognosis poor condition is c ritical. Chest x-ray suggestive of progression of the cavitation. Pulmonary consult will be requested on Saturday. 04/17/2020-blood cultures are positive for MSSA bacteremia. Most likely she has endocarditis. Patient is still on BiPAP to do the IESHA. Presently on IV Rocephin 2 g daily as per ID recommendations. Patient received dialysis last week most likely she will go for dialysis tomorrow. Presently on BiPAP. (2) Acute respiratory failure with hypoxia Is this a current diagnosis for this admission?: Yes Plan: multifactorial 2/2 pulmonary edema+pulmonary abscess/septic emboli+pneumonia + ARDS COVID-19 screen is negative spo2 notably 99% on 50% fio2 on cpap 8 --transitioned to HFNC 60% 40L to allow patient eat with spo2 at 99% Had dialysis today to help with pulmonary edema. Rest of treatment as above. Still tachypneic but awake and protecting airway. Monitor closely at risk of decompensation. If patient does not turn the corner soon or worsens, may need upgrade to ICU and possible intubation. monitor blood gas 04/15/2020-patient admitted with acute respiratory failure with hypoxia multifactorial. Most likely infective endocarditis in association with septic emboli plus pulmonary abscess. COVID-19 is negative. Present on BiPAP 60% oxygen. CT chest without contrast is pending. Patient is receiving dialysis plan is to remove 2 L of fluid. If the condition deteriorates plan is to transfer to tertiary care facility. ABGs requested. 04/16/2020-patient admitted with acute respiratory failure requiring BiPAP. It is a IV drug abuser most likely has infective endocarditis. Chest x-ray suggestive of progression of the cavitary lesions. Patient might have septic emboli. Presently on 2 g of IV Rocephin. ID is on board. To consult pulmonary on Saturday. Overall prognosis poor. Condition is critical. I called [facility] for possible transfer and I discussed the case with the ICU attending,patient is not accepted at this time. 04/17/2020-patient admitted with acute respiratory failure with hypoxia chest x- ray suggestive of progression of the cavitations, most likely she has infective endocarditis. Blood cultures are positive for MSSA bacteremia. On IV Rocephin 2 g daily as per ID recommendations. Temp this morning is 99.1. On BiPAP at 40% ABG with pH of 7.3/PCO2 46/PO2 109/oxygen saturation is 97%. Plan is to decrease the oxygen to supplementation to 35%. Repeat the chest x-ray today. (3) Acute renal failure (ARF) Qualifiers: Acute renal failure type: with acute tubular necrosis Qualified Code(s): N17.0 - Acute kidney failure with tubular necrosis Is this a current diagnosis for this admission?: Yes Plan: Oliguric still but mild improvement in urine output Renal ultrasound with duplex shows echogenic kidneys, mild hydronephrosis but without any renal arterial occlusion Still quite uremic Noted to have hyperphosphatemia - [facility] Ne[facility]rology is following [facility] Monitor labs and urine output closely. 04/15/2020 urinary output is improving. Receiving dialysis plan is to remove 2 L of fluid today. Nephrology on board. 04/16/2020-patient received full session of dialysis yesterday. Latest creatinine is 4.95. Urinary output is minimal. Nephrology on board. Patient may need another session of dialysis on Saturday. 04/17/20-patient received dialysis on Saturday. Today's labs are pending. Depending on the labs she may need another dialysis session tomorrow. (4) Liver disease Is this a current diagnosis for this admission?: No Plan: following up with labs to figure out the underling cause 04/15/2020-patient has history of hep C LFTs are improving. Total bilirubin is 0.9, direct bilirubin is 0.7. (5) Nephrotic range proteinuria Is this a current diagnosis for this admission?: Yes Plan: Possible other drugs being laced in her heroin causing for further complications. (6) Anemia Is this a current diagnosis for this admission?: No Plan: anemia labs are with in normal limits. 04/16/2020-patient hemoglobin is 6.6 today. Plan is to repeat the CBC. If the hemoglobin is less than 7 to transfuse 2 units of PRBC. (7) Hyperphosphatemia Is this a current diagnosis for this admission?: No Plan: currently on binders to reduce down the phosphorus (8) Hypercalcemia Is this a current diagnosis for this admission?: No Plan: on calcium supplements and improving (9) Sepsis Is this a current diagnosis for this admission?: Yes Plan: 04/15/2020-patient admitted with shortness of breath transthoracic echo indicated vegetation on the mitral valve, blood cultures are consistently positive for MSSA, elevated WBC count patient is in acute on chronic respiratory failure, elevated WBC count with acute renal failure meeting the criteria for sepsis. 04/16/2020-patient is septic. Patient is IV drug abuser most likely has infective endocarditis and septic emboli with cavitary lesions in both lungs. Blood cultures are positive for MSSA bacteremia. On IV ceftriaxone. Has acute respiratory failure on BiPAP. 04/17/2020-patient is receiving IV Rocephin 2 g daily for MSSA bacteremia. Repeat blood cultures from yesterday pending. - Plan Summary Summary: 04/15/2020 Critical care visit Called to see the patient for tachycardia and tachypnea. Patient was agitated. She was maintaining good saturation on BiPAP. Reviewed today's chest x-ray. She has worsening cavitary lesions from septic emboli. I did review the tra nsthoracic echocardiogram and they could not rule out vegetation. She has not had a IESHA as of yet. All of her blood cultures reveal a very sensitive staph aureus and she is currently on ceftriaxone. At this point I am going to give her a dose of lorazepam and a small dose of morphine. She did just get her methadone orally but this will take a little while to kick in. We will monitor her closely and the nurses will give me an update shortly. - Time Anticipated Discharge Disposition: Home, Self Care Anticipated Discharge Timeframe: 4-6 weeks
[2020-04-17 08:54] LABS: HEMATOCRIT 23.8 % (36.0-47.0); HEMOGLOBIN 8.3 g/dL (12.0-15.5); MEAN CORPUSCULAR HEMOGLOBIN 29.8 pg (27.0-33.4); MEAN CORPUSCULAR HGB CONC 34.9 g/dL (32.0-36.0); MEAN CORPUSCULAR VOLUME 85 fl (80-97); RED BLOOD COUNT 2.79 10^6/uL (3.72-5.28); RED CELL DISTRIBUTION WIDTH 15.3 % (11.5-14.0); WHITE BLOOD COUNT 21.2 10^3/uL (4.0-10.5)
[2020-04-17 09:11] LABS: ALBUMIN 2.5 g/dL (3.5-5.0); ALKALINE PHOSPHATASE 100 U/L (38-126); ANION GAP 17 (5-19); ASPARTATE AMINO TRANSFERASE 79 U/L (14-36); BILIRUBIN,DIRECT 0.6 mg/dL (0.0-0.4); BILIRUBIN,TOTAL 0.6 mg/dL (0.2-1.3); BLOOD UREA NITROGEN 100 mg/dL (7-20); CARBON DIOXIDE 21 mmol/L (22-30); CHLORIDE 100 mmol/L (98-107); GLUCOSE 89 mg/dL (75-110); POTASSIUM 4.1 mmol/L (3.6-5.0); TOTAL PROTEIN 6.8 g/dL (6.3-8.2)
[2020-04-17 09:21] LABS: PLATELET COUNT 56 10^3/uL (150-450)
[2020-04-17 09:22] LABS: ABSOLUTE LYMPHOCYTES# (MANUAL) 0.4 10^3/uL (0.5-4.7); ABSOLUTE MONOCYTES # (MANUAL) 0.2 10^3/uL (0.1-1.4); BASOPHILS % (MANUAL) 0 % (0-2); EOSINOPHILS % (MANUAL) 0 % (0-6); LYMPHOCYTES % (MANUAL) 2 % (13-45); MONOCYTES % (MANUAL) 1 % (3-13); SEGMENTED NEUTROPHILS % (MAN) 97 % (42-78); TOTAL CELLS COUNTED 100
[2020-04-17 09:25] LABS: PLATELET COMMENT DECREASED; RBC MORPHOLOGY COMMENT NORMO-CYTIC/CHROMIC
[2020-04-17] MEDS: SEVELAMER HCL 800 MG TABLET PO SCH ×3 (10:58→18:15)
[2020-04-17] MEDS: FAMOTIDINE 20 MG TABLET PO SCH (10:59)
--- NOTE | 2020-04-17 11:59 | RADIOLOGY REPORT (SQ) ---
EXAM DESCRIPTION: CHEST SINGLE VIEW IMAGES COMPLETED DATE/TIME: 04/17/2020 9:37 am REASON FOR STUDY: acute resp failure COMPARISON: 04/15/2020. NUMBER OF VIEWS: One view. TECHNIQUE: Single frontal radiographic image of the chest acquired. LIMITATIONS: None. FINDINGS: LUNGS AND PLEURA: Diffuse bilateral airspace disease with cavitations not significantly ch anged. MEDIASTINUM AND HEART: Stable heart size and mediastinal structures. BONY STRUCTURES: No acute findings. HARDWARE: None. OTHER: No other significant finding. IMPRESSION: No significant change. TECHNICAL DOCUMENTATION: JOB ID: [id number] Reading location - IP/workstation name: [email or web address]
[2020-04-17 19:36] LABS: ANTIMYELOPEROXIDASE (MPO) AB <9.0 U/mL (0.0-9.0); CYTOPLASMIC (C-ANCA) <1:20 titer (Neg:<1:20)
[2020-04-17] MEDS: CEFTRIAXONE 2 GM/D5W RTU 2 GM/50 ML RTUPB IV SCH (21:10)
[2020-04-18] MEDS: LORAZEPAM INJ 2 MG/1 ML VIAL IV PRN ×8 (00:04→22:51)
[2020-04-18] MEDS ORDERED: HEPARIN SOD (PORCINE) 1,000 UNIT/ML 10 ML VIAL IV PRN (05:00)
[2020-04-18] MEDS ORDERED: NORMAL SALINE 1000 ML 1,000 ML IV PRN (05:00)
[2020-04-18 05:27] LABS: HEMATOCRIT 25.6 % (36.0-47.0); HEMOGLOBIN 8.8 g/dL (12.0-15.5); MEAN CORPUSCULAR HEMOGLOBIN 29.6 pg (27.0-33.4); MEAN CORPUSCULAR HGB CONC 34.2 g/dL (32.0-36.0); MEAN CORPUSCULAR VOLUME 87 fl (80-97); RED BLOOD COUNT 2.96 10^6/uL (3.72-5.28); RED CELL DISTRIBUTION WIDTH 15.8 % (11.5-14.0); WHITE BLOOD COUNT 17.4 10^3/uL (4.0-10.5)
[2020-04-18] MEDS: METHADONE HCL 10 MG TABLET PO SCH ×3 (05:44→22:49)
[2020-04-18] MEDS: CLONIDINE HCL 0.1 MG TABLET PO SCH ×2 (05:46→17:12)
[2020-04-18] MEDS: HEPARIN SOD (PORCINE) 5,000 UNIT/ML 1 ML VIAL SUBCUT SCH ×3 (05:47→22:03)
[2020-04-18 05:54] LABS: ALBUMIN 2.5 g/dL (3.5-5.0); ALKALINE PHOSPHATASE 95 U/L (38-126); ANION GAP 15 (5-19); ASPARTATE AMINO TRANSFERASE 73 U/L (14-36); BILIRUBIN,DIRECT 0.5 mg/dL (0.0-0.4); BILIRUBIN,TOTAL 0.5 mg/dL (0.2-1.3); BLOOD UREA NITROGEN 112 mg/dL (7-20); CALCIUM 8.3 mg/dL (8.4-10.2); CARBON DIOXIDE 23 mmol/L (22-30); CHLORIDE 100 mmol/L (98-107); GLUCOSE 94 mg/dL (75-110); POTASSIUM 4.5 mmol/L (3.6-5.0); TOTAL PROTEIN 6.9 g/dL (6.3-8.2)
[2020-04-18 06:31] LABS: PLATELET COUNT 63 10^3/uL (150-450)
[2020-04-18 06:36] LABS: ABSOLUTE LYMPHOCYTES# (MANUAL) 0.9 10^3/uL (0.5-4.7); BAND NEUTROPHILS % (MANUAL) 1 % (3-5); BASOPHILS % (MANUAL) 0 % (0-2); EOSINOPHILS % (MANUAL) 0 % (0-6); LYMPHOCYTES % (MANUAL) 5 % (13-45); MONOCYTES % (MANUAL) 6 % (3-13); SEGMENTED NEUTROPHILS % (MAN) 88 % (42-78); TOTAL CELLS COUNTED 100
[2020-04-18 06:37] LABS: ANISOCYTOSIS SLIGHT; PLATELET COMMENT DECREASED; POLYCHROMASIA SLIGHT; TOXIC GRANULATION 1+
[2020-04-18 07:09] LABS: ATYPICAL PANCA <1:20 titer (Neg:<1:20)
[2020-04-18] MEDS ORDERED: VANCOMYCIN HCL INJ 1000 MG VIAL IV SCH (07:45)
[2020-04-18] MEDS: FAMOTIDINE 20 MG TABLET PO SCH (09:20)
[2020-04-18] MEDS: SEVELAMER HCL 800 MG TABLET PO SCH ×3 (09:20→17:12)
--- NOTE | 2020-04-18 09:48 | PDOC PROGRESS REPORT ---
Subjective Progress Note for:: 04/18/20 Subjective:: 34 year old female with history of IV heroin/methamphetamine use, hepatitis C, who presents to the hospital with complaints of shortness of breath and increased work of breathing over the past 5 days. Patient has also noted increased swelling in both lower extremities since that time. She denies fever or chills. She does have occasional cough nonproductive of more sputum. Also experiencing aches and pains in her lower extremities. She denies any diarrhea. She denies any history of kidney disease or heart failure. She also admits to very diminished water intake over the last few days. She has been using heroin very frequently over the past 2 to 3 days as well. On arrival of EMS, patient was noted to be significantly hypoxic with SPO2 69% and subsequently placed on a CPAP. She was switched to a BiPAP machine in the ER due to work of breathing. 04/13-Last night, despite receiving over 2.5 L of fluid, patient put out only about 100 cc of urine. I rechallenged her with 80 mg of IV Lasix but she put out only about 40 cc following that. She continues to remain anuric and significantly encephalopathic. 04/14-Patient had about this morning when she became tachypneic and short of breath. She also felt very anxious and stated that she felt like she was withdrawing. She did receive some Ativan. Patient will plan for dialysis today. 04/15/[id number]-gamg-old female with history of IV heroin, methamphetamine use, history of hep C admitted with increasing shortness of breath of 5 days duration. Patient has a dialysis access placed yesterday she is in the ICU for dialysis today. Essentially she is on BiPAP with 60% oxygen. Repeated blood cultures coming back positive for staph aureus. ID consult was done. Per ID recommendations to continue IV ceftriaxone 2 g daily and discontinue IV vancomycin. Consultation with Dr. Gm ibarra is requested for IESHA on Saturday. On examination patient is tachycardic and tachypneic. CT chest without contrast was requested. Patient may be withdrawing. Patient is on methadone and to add IV Ativan 1 mg every 2 hours as needed for withdrawal symptoms. Overall prognosis poor. 04/16/20-rapid response was called this night because patient became tachycardic tachypneic agitated most likely secondary to withdrawal symptoms. Patient was started on morphine 2 mg IV every 4 hours, lorazepam 1 mg every 4 hours. Patient is comfortably sleeping in the bed at this time. On BiPAP. ABG this morning on 60% oxygen shows pH of 7.37/PO2 of 182. Plan is to decrease the oxygen requirements to 40%. To continue IV ceftriaxone. Blood cultures are repeated. Discussed the case with Dr. Gm ibarra he is planning to do IESHA if possible on Saturday.. 04/17/20-no acute events in the last 24 hours. Patient is afebrile. Receiving IV Rocephin for MSSA bacteremia. ABG on 40% oxygen on BiPAP indicates pH of 7.34/PCO2 46/PO2 109/oxygen saturation is 97%. Plan is to decrease the oxygen supplementation to 35%. pt Received 2 units of PRBC yesterday today's labs are pending. 04/18/2020-patient is in the ICU receiving dialysis. Presently on BiPAP with 35% oxygen. WBC is improving. Blood pressure stable. No acute events in the last 24 hours. Plan is to consult pulmonology today. Reason For Visit: ACUTE RENAL FAILURE Physical Exam Vital Signs: Temp Pulse Resp BP Pulse Ox 97.7 F 102 H 28 H 133/71 H 100 04/18/20 03:16 04/18/20 03:16 04/18/20 03:16 04/18/20 03:16 04/18/20 04:15 Intake & Output 04/17/20 04/18/20 04/19/20 06:59 06:59 06:59 Intake Total 3130 1390 Output Total 1250 1175 Balance 1880 215 Weight 98.3 kg 96.9 kg General appearance: PRESENT: well-developed - in moderate distress, other Head exam: PRESENT: atraumatic Eye exam: PRESENT: PERRLA Mouth exam: PRESENT: moist, neck supple, tongue midline Neck exam: PRESENT: lymphadenopathy Respiratory exam: PRESENT: decreased breath sounds Cardiovascular exam: PRESENT: RRR, systolic murmur, tachycardia. ABSENT: diastolic murmur, rubs GI/Abdominal exam: PRESENT: normal bowel sounds, soft. ABSENT: distended, guarding, mass, organolmegaly, rebound, tenderness Rectal exam: PRESENT: deferred Gentrourinary exam: PRESENT: indwelling catheter Extremities exam: PRESENT: full ROM. ABSENT: calf tenderness, clubbing, pedal edema Neurological exam: PRESENT: alert, awake, CN II-XII grossly intact. ABSENT: motor sensory deficit Psychiatric exam: PRESENT: appropriate affect, normal mood. ABSENT: homicidal ideation, suicidal ideation Results Laboratory Results: 04/18/20 04:45 04/18/20 04:45 04/18/20 04/18/20 04:45 04:45 WBC 17.4 H RBC 2.96 L Hgb 8.8 L Hct 25.6 L MCV 87 MCH 29.6 MCHC 34.2 RDW 15.8 H Plt Count 63 L Seg Neutrophils % Not Reportable Sodium 137.8 Potassium 4.5 Chloride 100 Carbon Dioxide 23 Anion Gap 15 BUN 112 H Creatinine 4.98 H Est GFR ( Amer) 12 L Glucose 94 Calcium 8.3 L Magnesium 2.7 H Total Bilirubin 0.5 AST 73 H Alkaline Phosphatase 95 Total Protein 6.9 Albumin 2.5 L 04/16/20 10:33 Blood Blood Culture (PCR) - Final Staphylococcus Species 04/12/20 04:15 NT-Pro-B Natriuret Pep 8880 H Impressions: Renal Artery Duplex 04/12/20 00:00 IMPRESSION: No definitive evidence of renal artery stenosis. Echogenic kidneys, suggestive of medical renal disease. Additionally, the elevated resistive indices can also be seen in association with medical renal disease. Mild right hydronephrosis. copyright 2010 [employer]- All Rights Reserved Venous Doppler Study 04/12/20 00:00 IMPRESSION: NO EVIDENCE DVT OR SVT IN EITHER LEG. Chest X-Ray 04/17/20 00:00 IMPRESSION: No significant change. Assessment and Plan - Diagnosis (1) Infective endocarditis Qualifiers: Infective endocarditis organism: bacterial Chronicity: acute Qualified Code(s): I33.0 - Acute and subacute infective endocarditis Is this a current diagnosis for this admission?: Yes Plan: MSSA Bacteremia + multiple bilateral Pulmonary abscesses on chest xray indicative of septic emboli TTE had technical difficulties but does show something that seems to be a vegetation on her tricuspid with moderate tricuspid regurgitation and moderate pulmonary hypertension noted with a RVSP 50 to 60 mmHg and hyperdynamic LV. 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 will obtain dry chest CT when more stable Currently patient is very sick and her situation is very dynamic. 04/15/2020-blood cultures growing MSSA. ID consult was requested. Chest x-ray indicated of bilateral pulmonary abscesses most likely septic emboli. CT chest without contrast was requested. Consultation with cardiology is requested for IESHA. Patient is presently on IV Rocephin as per ID recommendations. Vancomycin is discontinued. Patient is tachycardic tachypneic on BiPAP 60%. Overall prognosis poor. If the condition continue to deteriorate plan may be to transfer her to tertiary care facility. Patient is presently getting dialysis plan is to remove 2 L of fluid. Transthoracic echocardiogram indicates tricuspid valve vegetation. 04/16/20-transthoracic echo is unable to rule out a vegetation on the tricuspid valve. Case was discussed with the cardiology team plan is to do IESHA on Saturday if the patient respiratory status is stable. Blood cultures growing MSSA. On ceftriaxone 2 g daily. She is allergic to penicillins. ID is on board. Patient has a dialysis in yesterday. Overall prognosis poor condition is critical. Chest x-ray suggestive of progression of the cavitation. Pulmonary consult will be requested on Saturday. 04/17/2020-blood cultures are positive for MSSA bacteremia. Most likely she has endocarditis. Patient is still on BiPAP to do the IESHA. Presently on IV Rocephin 2 g daily as per ID recommendations. Patient received dialysis last week most likely she will go for dialysis tomorrow. Presently on BiPAP. 04/18/20-latest blood culture is positive for MRSA. Started on vancomycin. To continue IV ceftriaxone at this time. To keep the patient n.p.o. from midnight for possible IESHA tomorrow. Pulmonary consult will be requested. Follow-up chest x-ray was requested. (2) Acute respiratory failure with hypoxia Is this a current diagnosis for this admission?: Yes Plan: multifactorial 2/2 pulmonary edema+pulmonary abscess/septic emboli+pneumonia + ARDS COVID-19 screen is negative spo2 notably 99% on 50% fio2 on cpap 8 --transitioned to HFNC 60% 40L to allow patient eat with spo2 at 99% Had dialysis today to help with pulmonary edema. Rest of treatment as above. Still tachypneic but awake and protecting airway. Monitor closely at risk of decompensation. If patient does not turn the corner soon or worsens, may need upgrade to ICU and possible intubation. monitor blood gas 04/15/2020-patient admitted with acute respiratory failure with hypoxia multifactorial. Most likely infective endocarditis in association with septic emboli plus pulmonary abscess. COVID-19 is negative. Present on BiPAP 60% oxygen. CT chest without contrast is pending. Patient is receiving dialysis plan is to remove 2 L of fluid. If the condition deteriorates plan is to transfer to tertiary care facility. ABGs requested. 04/16/2020-patient admitted with acute respiratory failure requiring BiPAP. It is a IV drug abuser most likely has infective endocarditis. Chest x-ray suggestive of progression of the cavitary lesions. Patient might have septic emboli. Presently on 2 g of IV Rocephin. ID is on board. To consult pulmonary on Saturday. Overall prognosis poor. Condition is critical. I called [facility] for possible transfer and I discussed the case with the ICU attending,patient is not accepted at this time. 04/17/2020-patient admitted with acute respiratory failure with hypoxia chest x- ray suggestive of progression of the cavitations, most likely she has infective endocarditis. Blood cultures are positive for MSSA bacteremia. On IV Rocephin 2 g daily as per ID recommendations. Temp this morning is 99.1. On BiPAP at 40% ABG with pH of 7.3/PCO2 46/PO2 109/oxygen saturation is 97%. Plan is to decrease the oxygen to supplementation to 35%. Repeat the chest x-ray today. 04/18/2025-75-jaxy-old female IV drug abuser admitted with acute respiratory failure with hypoxia. At the time of my examination patient is receiving dialysis and on BiPAP with 35% oxygen. Oxygen saturation is around 98%. Chest x-ray suggestive of progressive cavitation and septic emboli. Receiving IV vancomycin and IV ceftriaxone. ID is on board. To request for pulmonary consult today. (3) Acute renal failure (ARF) Qualifiers: Acute renal failure type: with acute tubular necrosis Qualified Code(s): N17.0 - Acute kidney failure with tubular necrosis Is this a current diagnosis for this admission?: Yes Plan: Oliguric still but mild improvement in urine output Renal ultrasound with duplex shows echogenic kidneys, mild hydronephrosis but without any renal arterial occlusion Still quite uremic Noted to have hyperphosphatemia - [facility] Nephrology is following - 2nd dialysis session today via [facility] Monitor labs and urine output closely. 04/15/2020 urinary output is improving. Receiving dialysis plan is to remove 2 L of fluid today. Nephrology on board. 04/16/2020-patient received full session of dialysis yesterday. Latest creatinine is 4.95. Urinary output is minimal. Nephrology on board. Patient may need another session of dialysis on Saturday. 04/17/20-patient received dialysis on Saturday. Today's labs are pending. Depending on the labs she may need another dialysis session tomorrow. 04/18/2020-patient is receiving hemodialysis today. Latest serum creatinine is 4.9. To check the labs on daily basis. Urine output is gradually is improving. (4) Liver disease Is this a current diagnosis for this admission?: No Plan: 04/18/2020-patient has history of hep C secondary to IV drug abuse. (5) Nephrotic range proteinuria Is this a current diagnosis for this admission?: Yes Plan: Possible other drugs being laced in her heroin causing for further complications. (6) Anemia Is this a current diagnosis for this admission?: No Plan: anemia labs are with in normal limits. 04/16/2020-patient hemoglobin is 6.6 today. Plan is to repeat the CBC. If the hemoglobin is less than 7 to transfuse 2 units of PRBC. 04/18/2020-latest hemoglobin is 8.8. Stable. Received 2 units of PRBC 48 hours ago. (7) Hyperphosphatemia Is this a current diagnosis for this admission?: No Plan: currently on binders to reduce down the phosphorus (8) Hypercalcemia Is this a current diagnosis for this admission?: No Plan: on calcium supplements and improving (9) Sepsis Is this a current diagnosis for this admission?: Yes Plan: 04/15/2020-patient admitted with shortness of breath transthoracic echo indicated vegetation on the mitral valve, blood cultures are consistently positive for MSSA, elevated WBC count patient is in acute on chronic respiratory failure, elevated WBC count with acute renal failure meeting the criteria for sepsis. 04/16/2020-patient is septic. Patient is IV drug abuser most likely has infective endocarditis and septic emboli with cavitary lesions in both lungs. Blood cultures are positive for MSSA bacteremia. On IV ceftriaxone. Has acute respiratory failure on BiPAP. 04/17/2020-patient is receiving IV Rocephin 2 g daily for MSSA bacteremia. Repeat blood cultures from yesterday pending. repeat blood culture that is listed blood culture indicated for MRSA in 1 bottle. 04/18/2020-initial blood cultures were positive for MSSA bacteremia. Latest blood cultures indicate of MRSA in 1 bottle. Vancomycin is restarted. Patient is already on ceftriaxone. ID is on board. - Plan Summary Summary: 04/15/2020 Critical care visit Called to see the patient for tachycardia and tachypnea. Patient was agitated. She was maintaining good saturation on BiPAP. Reviewed today's chest x-ray. She has worsening cavitary lesions from septic emboli. I did review the transthoracic echocardiogram and they could not rule out vegetation. She has not had a IESHA as of yet. All of her blood cultures reveal a very sensitive staph aureus and she is currently on ceftriaxone. At this point I am going to give her a dose of lorazepam and a small dose of morphine. She did just get her methadone orally but this will take a little while to kick in. We will monitor her closely and the nurses will give me an update shortly. - Time Anticipated Discharge Disposition: Home, Self Care Anticipated Discharge Timeframe: 4 weeks
[2020-04-18] MEDS: HEPARIN SOD (PORCINE) 1,000 UNIT/ML 10 ML VIAL IV PRN (10:30)
[2020-04-18] MEDS: MORPHINE SULFATE 10 MG/ML INJ IV PRN (10:39)
--- NOTE | 2020-04-18 11:11 | RADIOLOGY REPORT (SQ) ---
EXAM DESCRIPTION: CT CHEST WITHOUT IMAGES COMPLETED DATE/TIME: 04/18/2020 10:59 am REASON FOR STUDY: resp failure COMPARISON: None. TECHNIQUE: CT scan performed of the chest without intravenous contrast. Images reviewed with lung, soft tissue and bone windows. Reconstructed coronal and sagittal MPR images reviewed. All images st ored on PACS. All CT scanners at this facility use dose modulation, iterative reconstruction, and/or weight based d osing when appropriate to reduce radiation dose to as low as reasonably achievable (ALARA). [facility]: Dose Right [facility]: CareDose [facility]: Dose Right [facility]: Teradose 4D [facility]: Atooma RADIATION DOSE: mGy. LIMITATIONS: No technical limitations. FINDINGS: LUNGS AND PLEURA: Diffuse bilateral cavitary airspace disease. Small subpulmonic left ple ural effusion. Patent central airways. HILAR AND MEDIASTINAL STRUCTURES: No identified masses or abnormal nodes. No obvious aneurysm. HEART AND VASCULAR STRUCTURES: No aneurysm. No pericardial effusion. UPPER ABDOMEN: No significant findings. Limited exam. THYROID AND OTHER SOFT TISSUES: No masses. No adenopathy. BONES: No significant finding. HARDWARE: None in the chest. OTHER: No other significant findings. IMPRESSION: Bilateral cavitary pneumonia. TECHNICAL DOCUMENTATION: JOB ID: [id number] Quality ID # [id number]: Final reports with documentation of one or more dose reduction techniques (e.g., Au tomated exposure control, adjustment of the mA and/or kV according to patient size, use of iterative reconstruction technique) 2010 [employer]- All Rights Reserved Reading location - IP/workstation name: [email or web address]
--- NOTE | 2020-04-18 11:12 | RADIOLOGY REPORT (SQ) ---
EXAM DESCRIPTION: CHEST SINGLE VIEW IMAGES COMPLETED DATE/TIME: 04/18/2020 11:04 am REASON FOR STUDY: resp failure COMPARISON: Previous day. NUMBER OF VIEWS: One view. TECHNIQUE: Single frontal radiographic image of the chest acquired. LIMITATIONS: None. FINDINGS: LUNGS AND PLEURA: Bilateral cavitary airspace disease not significantly changed. Small le ft pleural effusion. MEDIASTINUM AND HEART: Stable heart size and mediastinal structures. BONY STRUCTURES: No acute findings. HARDWARE: None. OTHER: No other significant finding. IMPRESSION: No significant change. TECHNICAL DOCUMENTATION: JOB ID: [id number] Reading location - IP/workstation name: [email or web address]-
[2020-04-18] MEDS ORDERED: LORAZEPAM INJ 2 MG/1 ML VIAL IV ONE (15:00)
[2020-04-18] MEDS ORDERED: MORPHINE SULFATE 10 MG/ML INJ IV PRN (17:26)
--- NOTE | 2020-04-18 18:21 | RADIOLOGY REPORT (SQ) ---
EXAM DESCRIPTION: CHEST SINGLE VIEW IMAGES COMPLETED DATE/TIME: 04/18/2020 6:00 pm REASON FOR STUDY: PULM CAVITATIONS COMPARISON: 04/18/2020 EXAM PARAMETERS: NUMBER OF VIEWS: One view. TECHNIQUE: Single frontal radiographic view of the chest acquired. RADIATION DOSE: NA LIMITATIONS: None. FINDINGS: LUNGS AND PLEURA: Cavitary airspace changes bilaterally. No significant interval change. MEDIASTINUM AND HILAR STRUCTURES: No masses. Contour normal. HEART AND VASCULAR STRUCTURES: Borderline enlargement of the heart. No leander pulmonary edema. BONES: No acute findings. HARDWARE: None in the chest. OTHER: No other significant finding. IMPRESSION: Stable cavitary changes in the lungs. Borderline heart size without pulmonary edema. TECHNICAL DOCUMENTATION: JOB ID: [id number] 2010 [employer]- All Rights Reserved Reading location - IP/workstation name: [email or web address]
--- NOTE | 2020-04-18 21:36 | PDOC PROGRESS REPORT ---
Subjective Progress Note for:: 04/18/20 Subjective:: Patient is a 34-year-old lady with history of IV heroin/methamphetamine use and hepatitis C who presented last week with shortness of breath 5 days. She has acute hypoxic respiratory failure requiring BiPAP. Chest x-ray showed bilateral cavitary lesions which could be suggestive of septic emboli. She tested negative for Covid. Blood cultures showed MSSA on April 12 and April 14 with 1 culture positive for MRSA on April 16. ID on board who recommended cont inued treatment with IV ceftriaxone and discontinuation of vancomycin. TTE on April 14 showed findings suggestive of vegetation on tricuspid valve consistent with infective endocarditis and IV drug user. IESHA is being planned on Saturday by Dr. Worrell for confirmation. She also presented with acute kidney injury with uremic symptoms and anuria requiring initiation of renal replacement therapy last week. She was dialyzed on 3 consecutive days from April 13 April 15. Over the weekend the patient started making some urine amounting to 1250 mL and 1715 mL for the last 48 hours. Patient's initial urinalysis showed proteinuria and microhematuria. This morning I am seeing the patient during dialysis treatment being done here in the ICU due to patient still being on BiPAP. She came in initially on nonrebreather mask and transferred to the ICU but later on required BiPAP. She is currently more comfortable on BiPAP. She is quite lethargic and does not really verbalize much. She is currently tolerating dialysis. She is hemodynamically stable. Reason For Visit: ACUTE RENAL FAILURE Physical Exam Vital Signs: Temp Pulse Resp BP Pulse Ox 97.7 F 102 H 28 H 133/71 H 100 04/18/20 03:16 04/18/20 03:16 04/18/20 03:16 04/18/20 03:16 04/18/20 04:15 Intake & Output 04/17/20 04/18/20 04/19/20 06:59 06:59 06:59 Intake Total 3130 1390 Output Total 1250 1175 Balance 1880 215 Weight 98.3 kg 96.9 kg Vitals during dialysis: Blood pressure 135/86, heart rate of 95, oxygen saturation 99% on BiPAP at 35% with respiration of 28, blood flow rate of 250 mL/min and dialysate flow rate of 600 mL/min. Exam: General appearance: PRESENT: Currently on BiPAP and lethargic Head exam: PRESENT: atraumatic, normocephalic Eye exam: PRESENT: conjunctiva pale, PERRLA. ABSENT: scleral icterus Neck exam: ABSENT: JVD Respiratory exam: PRESENT: Diminished breath sounds. Positive left base crackles ABSENT: Rhonchi, unlabored, wheezes Cardiovascular exam: PRESENT: Regular rate rhythm -+S1, +S2. ABSENT: diastolic murmur, systolic murmur GI/Abdominal exam: PRESENT: normal bowel sounds, soft. ABSENT: guarding, mass, tenderness Extremities exam: Trace bilateral upper extremity and lower extremity edema Neurological exam: PRESENT: Lethargic, opens her eyes when prompted but not answering much questions. Skin exam: PRESENT: dry, warm, Cardiovascular exam: PRESENT: +S1, +S2, tachycardia. ABSENT: systolic murmur GI/Abdominal exam: PRESENT: normal bowel sounds, soft. ABSENT: ascites, distended, firm, organomegaly, tenderness Results Laboratory Results: 04/18/20 04:45 04/18/20 04:45 04/17/20 04/17/20 04/18/20 07:49 07:49 04:45 WBC 21.2 H 17.4 H RBC 2.79 L 2.96 L Hgb 8.3 L 8.8 L Hct 23.8 L 25.6 L MCV 85 87 MCH 29.8 29.6 MCHC 34.9 34.2 RDW 15.3 H 15.8 H Plt Count 56 L 63 L Seg Neutrophils % Not Reportable Not Reportable Sodium 137.7 Potassium 4.1 Chloride 100 Carbon Dioxide 21 L Anion Gap 17 BUN 100 H Creatinine 5.13 H Est GFR ( Amer) 12 L Glucose 89 Calcium 8.0 L Magnesium 2.5 H Total Bilirubin 0.6 AST 79 H Alkaline Phosphatase 100 Total Protein 6.8 Albumin 2.5 L 04/18/20 04:45 WBC RBC Hgb Hct MCV MCH MCHC RDW Plt Count Seg Neutrophils % Sodium 137.8 Potassium 4.5 Chloride 100 Carbon Dioxide 23 Anion Gap 15 BUN 112 H Creatinine 4.98 H Est GFR ( Amer) 12 L Glucose 94 Calcium 8.3 L Magnesium 2.7 H Total Bilirubin 0.5 AST 73 H Alkaline Phosphatase 95 Total Protein 6.9 Albumin 2.5 L 04/16/20 10:33 Blood Blood Culture (PCR) - Final Staphylococcus Species 04/12/20 04:15 NT-Pro-B Natriuret Pep 8880 H Impressions: Renal Artery Duplex 04/12/20 00:00 IMPRESSION: No definitive evidence of renal artery stenosis. Echogenic kidneys, suggestive of medical renal disease. Additionally, the elevated resistive indices can also be seen in association with medical renal disease. Mild right hydronephrosis. copyright 2010 [employer]- All Rights Reserved Venous Doppler Study 04/12/20 00:00 IMPRESSION: NO EVIDENCE DVT OR SVT IN EITHER LEG. Chest X-Ray 04/17/20 00:00 IMPRESSION: No significant change. Assessment & Plan - Diagnosis (1) Acute kidney injury Is this a current diagnosis for this admission?: Yes Plan: Initially presented with uremia and anuria requiring initiation of renal replac ement therapy. Patient has associated nonnephrotic range proteinuria with urine protein to creatinine ratio of about 1.89 and significant microhematuria. Serologies showed negative MANUEL, negative ANCA, negative anti-GBM. She has however significantly low C3/C4 and CH 50. Hepatitis C quantification is severely elevated. Differential diagnosis include postinfectious GN versus MPGN secondary to hepatitis C. The superimposed ATN is very much a possibility. With this possibilities treatment would be to continue antibiotics. Patient has improved urine output for the last 72 hours. However she continues to have elevated BUN and creatinine requiring renal replacement therapy. We will do dialysis today for 2.5 hours, using the patient's trialysis catheter, with 2 potassium bath, blood flow rate of 250 mL per minute, dialysate flow rate of 600 mL per minute, ultrafiltration 1 to 2 L as tolerated, no heparin and no Retacrit. Patient being monitored very closely during dialysis treatment. We will continue to reevaluate the patient for further need of renal replacement therapy. (2) Acute respiratory failure with hypoxia Is this a current diagnosis for this admission?: Yes Plan: Positive bilateral cavitary lesion suggestive of septic emboli. Currently still requiring BiPAP. Hospitalist service is asking for pulmonary consult. (3) Infective endocarditis Qualifiers: Infective endocarditis organism: bacterial Chronicity: acute Qualified Code(s): I33.0 - Acute and subacute infective endocarditis Is this a current diagnosis for this admission?: Yes Plan: TTE on April 14 showed findings suggestive of tricuspid valve endocarditis. Plan is to do a confirmatory IESHA by Dr. Worrell planned on Saturday. (4) Staphylococcus aureus bacteremia Is this a current diagnosis for this admission?: Yes Plan: Patient being maintained on IV ceftriaxone for infectious disease. (5) Hepatitis C Is this a current diagnosis for this admission?: Yes Plan: Hepatitis C virus quantity 863,000 international units/mL. PCR still pending. Patient is to be followed by liver specialist. (6) Anemia Is this a current diagnosis for this admission?: Yes Plan: Multifactorial causes due to acute illness. Patient had blood transfusion over the weekend. (7) Hyperphosphatemia Is this a current diagnosis for this admission?: Yes Plan: Due to ALISA. (8) IV drug abuse Is this a current diagnosis for this admission?: Yes Plan: History of IV heroin/methamphetamine use. (9) Opiate withdrawal Is this a current diagnosis for this admission?: Yes Plan: On morphine and lorazepam. (10) Thrombocytopenia Is this a current diagnosis for this admission?: Yes
[2020-04-18] MEDS: CEFTRIAXONE 2 GM/D5W RTU 2 GM/50 ML RTUPB IV SCH (22:51)
[2020-04-19] MEDS: LORAZEPAM INJ 2 MG/1 ML VIAL IV PRN ×6 (01:08→22:32)
[2020-04-19] MEDS: METHADONE HCL 10 MG TABLET PO SCH ×3 (05:33→22:30)
[2020-04-19] MEDS: CLONIDINE HCL 0.1 MG TABLET PO SCH (05:33)
[2020-04-19] MEDS: HEPARIN SOD (PORCINE) 5,000 UNIT/ML 1 ML VIAL SUBCUT SCH ×3 (05:48→21:30)
[2020-04-19 07:01] LABS: ALBUMIN 2.3 g/dL (3.5-5.0); ALKALINE PHOSPHATASE 81 U/L (38-126); ANION GAP 13 (5-19); ASPARTATE AMINO TRANSFERASE 62 U/L (14-36); BILIRUBIN,DIRECT 0.5 mg/dL (0.0-0.4); BILIRUBIN,TOTAL 0.5 mg/dL (0.2-1.3); BLOOD UREA NITROGEN 87 mg/dL (7-20); CARBON DIOXIDE 23 mmol/L (22-30); CHLORIDE 100 mmol/L (98-107); GLUCOSE 94 mg/dL (75-110); TOTAL PROTEIN 6.6 g/dL (6.3-8.2)
[2020-04-19 08:25] LABS: HEMATOCRIT 23.2 % (36.0-47.0); MEAN CORPUSCULAR HEMOGLOBIN 29.1 pg (27.0-33.4); MEAN CORPUSCULAR HGB CONC 34.2 g/dL (32.0-36.0); MEAN CORPUSCULAR VOLUME 85 fl (80-97); RED BLOOD COUNT 2.73 10^6/uL (3.72-5.28); RED CELL DISTRIBUTION WIDTH 15.4 % (11.5-14.0); WHITE BLOOD COUNT 13.5 10^3/uL (4.0-10.5)
[2020-04-19 08:27] LABS: HEMOGLOBIN 7.9 g/dL (12.0-15.5)
[2020-04-19 08:28] LABS: PLATELET COUNT 70 10^3/uL (150-450)
[2020-04-19 08:32] LABS: ABSOLUTE LYMPHOCYTES# (MANUAL) 0.8 10^3/uL (0.5-4.7); ABSOLUTE MONOCYTES # (MANUAL) 0.5 10^3/uL (0.1-1.4); BASOPHILS % (MANUAL) 0 % (0-2); EOSINOPHILS % (MANUAL) 3 % (0-6); LYMPHOCYTES % (MANUAL) 6 % (13-45); MONOCYTES % (MANUAL) 4 % (3-13); SEGMENTED NEUTROPHILS % (MAN) 87 % (42-78); TOTAL CELLS COUNTED 100
[2020-04-19 08:35] LABS: ANISOCYTOSIS SLIGHT; PLATELET COMMENT DECREASED; POLYCHROMASIA SLIGHT; RBC MORPHOLOGY COMMENT NORMO-CYTIC/CHROMIC
[2020-04-19] MEDS: SEVELAMER HCL 800 MG TABLET PO SCH ×3 (08:50→18:22)
[2020-04-19] MEDS: FAMOTIDINE 20 MG TABLET PO SCH (09:27)
--- NOTE | 2020-04-19 12:45 | RADIOLOGY REPORT (SQ) ---
EXAM DESCRIPTION: CHEST SINGLE VIEW IMAGES COMPLETED DATE/TIME: 04/19/2020 12:34 pm REASON FOR STUDY: change in respiratory status COMPARISON: Previous day. NUMBER OF VIEWS: One view. TECHNIQUE: Single frontal radiographic image of the chest acquired. LIMITATIONS: None. FINDINGS: LUNGS AND PLEURA: Bilateral cavitary airspace disease not significantly changed. Small le ft pleural effusion. MEDIASTINUM AND HEART: Stable heart size and mediastinal structures. BONY STRUCTURES: No acute findings. HARDWARE: None. OTHER: No other significant finding. IMPRESSION: Cavitary pneumonia. No significant change. TECHNICAL DOCUMENTATION: JOB ID: [id number] Reading location - IP/workstation name: [email or web address]
[2020-04-19] MEDS: OLANZAPINE 5 MG TABLET PO SCH (13:51)
--- NOTE | 2020-04-19 14:09 | PDOC PROGRESS REPORT ---
Subjective Subjective:: Per Previous Physician: "34 year old female with history of IV heroin/methamphetamine use, hepatitis C, who presents to the hospital with complaints of shortness of breath and increased work of breathing over the past 5 days. Patient has also noted increased swelling in both lower extremities since that time. She denies fever or chills. She does have occasional cough nonproductive of more sputum. Also experiencing aches and pains in her lower extremities. She denies any diarrhea. She denies any history of kidney disease or heart failure. She also admits to very diminished water intake over the last few days. She has been using heroin very frequently over the past 2 to 3 days as well. On arrival of EMS, patient was noted to be significantly hypoxic with SPO2 69% and subsequently placed on a CPAP. She was switched to a BiPAP machine in the ER due to work of breathing. 04/13-Last night, despite receiving over 2.5 L of fluid, patient put out only about 100 cc of urine. I rechallenged her with 80 mg of IV Lasix but she put out only about 40 cc following that. She continues to remain anuric and sign ificantly encephalopathic. 04/14-Patient had about this morning when she became tachypneic and short of breath. She also felt very anxious and stated that she felt like she was withdrawing. She did receive some Ativan. Patient will plan for dialysis today. 04/[id number]-old female with history of IV heroin, methamphetamine use, history of hep C admitted with increasing shortness of breath of 5 days duration. Patient has a dialysis access placed yesterday she is in the ICU for dialysis today. Essentially she is on BiPAP with 60% oxygen. Repeated blood cultures coming back positive for staph aureus. ID consult was done. Per ID recommendations to continue IV ceftriaxone 2 g daily and discontinue IV vancomycin. Consultation with Dr. Gm ibarra is requested for IESHA on Saturday. On examination patient is tachycardic and tachypneic. CT chest without contrast was requested. Patient may be withdrawing. Patient is on methadone and to add IV Ativan 1 mg every 2 hours as needed for withdrawal symptoms. Overall prognosis poor. 04/16/20-rapid response was called this night because patient became tachycardic tachypneic agitated most likely secondary to withdrawal symptoms. Patient was started on morphine 2 mg IV every 4 hours, lorazepam 1 mg every 4 hours. Patient is comfortably sleeping in the bed at this time. On BiPAP. ABG this morning on 60% oxygen shows pH of 7.37/PO2 of 182. Plan is to decrease the oxygen requirements to 40%. To continue IV ceftriaxone. Blood cultures are repeated. Discussed the case with Dr. Gm ibarra he is planning to do IESHA if possible on Saturday.. 04/17/20-no acute events in the last 24 hours. Patient is afebrile. Receiving IV Rocephin for MSSA bacteremia. ABG on 40% oxygen on BiPAP indicates pH of 7.34/PCO2 46/PO2 109/oxygen saturation is 97%. Plan is to decrease the oxygen supplementation to 35%. pt Received 2 units of PRBC yesterday today's labs are pending. 04/18/2020-patient is in the ICU receiving dialysis. Presently on BiPAP with 35% oxygen. WBC is improving. Blood pressure stable. No acute events in the last 24 hours. Plan is to consult pulmonology today." 04/19/2020 Patient very agitated today, combative, fighting with nursing staff to keep her oxygen in place, occasionally pulling at her Gomez. Ativan ineffective. Possible patient has anoxic brain injury from drug overdose. We will need to get a brain MRI when she is more stable and calm. Start scheduled Zyprexa. Start as needed Haldol. Switch clonidine to patch as she is not taking oral meds currently. Chest x-ray reviewed which showed the cavitary pneumonia previously seen. Speech therapy eval. Reason For Visit: ACUTE RENAL FAILURE Physical Exam Vital Signs: Temp Pulse Resp BP Pulse Ox 98.1 F 102 H 27 H 151/76 H 98 04/19/20 07:58 04/19/20 07:00 04/19/20 09:37 04/19/20 03:25 04/19/20 03:25 Intake & Output 04/18/20 04/19/20 04/20/20 06:59 06:59 06:59 Intake Total 1390 460 Output Total 1175 2650 Balance 215 -2190 Weight 96.9 kg 96.9 kg General appearance: PRESENT: disheveled, mild distress, obese Head exam: PRESENT: atraumatic, normocephalic Eye exam: PRESENT: conjunctiva pink. ABSENT: scleral icterus Mouth exam: PRESENT: moist Respiratory exam: PRESENT: rhonchi - Bilateral. ABSENT: rales, wheezes Cardiovascular exam: PRESENT: RRR. ABSENT: diastolic murmur, rubs, systolic murmur GI/Abdominal exam: PRESENT: normal bowel sounds, soft. ABSENT: distended, guarding, mass, organolmegaly, rebound, tenderness Extremities exam: ABSENT: pedal edema Neurological exam: PRESENT: altered, awake. ABSENT: alert, oriented to person, oriented to place, oriented to time, oriented to situation Psychiatric exam: PRESENT: appropriate affect, normal mood Skin exam: PRESENT: dry, intact, warm Results Laboratory Results: 04/19/20 06:32 04/19/20 06:32 04/19/20 04/19/20 06:32 06:32 WBC 13.5 H RBC 2.73 L Hgb 7.9 L Hct 23.2 L MCV 85 MCH 29.1 MCHC 34.2 RDW 15.4 H Plt Count 70 L Seg Neutrophils % Not Reportable Sodium 136.2 L Potassium 4.0 Chloride 100 Carbon Dioxide 23 Anion Gap 13 BUN 87 H Creatinine 3.82 H Est GFR ( Amer) 16 L Glucose 94 Calcium 8.0 L Magnesium 2.3 Total Bilirubin 0.5 AST 62 H Alkaline Phosphatase 81 Total Protein 6.6 Albumin 2.3 L 04/16/20 10:33 Blood Blood Culture (PCR) - Final Staphylococcus Species 04/16/20 10:33 Blood Blood Culture - Final Staphylococcus Hominis 04/12/20 04:15 NT-Pro-B Natriuret Pep 8880 H Impressions: Renal Artery Duplex 04/12/20 00:00 IMPRESSION: No definitive evidence of renal artery stenosis. Echogenic kidneys, suggestive of medical renal disease. Additionally, the elevated resistive indices can also be seen in association with medical renal disease. Mild right hydronephrosis. copyright 2011 [employer]- All Rights Reserved Venous Doppler Study 04/12/20 00:00 IMPRESSION: NO EVIDENCE DVT OR SVT IN EITHER LEG. Chest CT 04/16/20 00:00 IMPRESSION: Bilateral cavitary pneumonia. Chest X-Ray 04/19/20 00:00 IMPRESSION: Cavitary pneumonia. No significant change. Assessment and Plan - Diagnosis (1) Infective endocarditis Qualifiers: Infective endocarditis organism: bacterial Chronicity: acute Qualified Code(s): I33.0 - Acute and subacute infective endocarditis Is this a current diagnosis for this admission?: Yes Plan: Per Previous Physician: "MSSA Bacteremia + multiple bilateral Pulmonary abscesses on chest xray indicative of septic emboli TTE had technical difficulties but does show something that seems to be a vegetation on her tricuspid with moderate tricuspid regurgitation and moderate pulmonary hypertension noted with a RVSP 50 to 60 mmHg and hyperdynamic LV. 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 will obtain dry chest CT when more stable Currently patient is very sick and her situation is very dynamic. 04/15/2020-blood cultures growing MSSA. ID consult was requested. Chest x-ray indicated of bilateral pulmonary abscesses most likely septic emboli. CT chest without contrast was requested. Consultation with cardiology is requested for IESHA. Patient is presently on IV Rocephin as per ID recommendations. Vancomycin is discontinued. Patient is tachycardic tachypneic on BiPAP 60%. Overall prognosis poor. If the condition continue to deteriorate plan may be to transfer her to tertiary care facility. Patient is presently getting dialysis plan is to remove 2 L of fluid. Transthoracic echocardiogram indicates tricuspid valve vegetation. 04/16/20-transthoracic echo is unable to rule out a vegetation on the tricuspid valve. Case was discussed with the cardiology team plan is to do IESHA on Saturday if the patient respiratory status is stable. Blood cultures growing MSSA. On ceftriaxone 2 g daily. She is allergic to penicillins. ID is on board. Patient has a dialysis in yesterday. Overall prognosis poor condition is critical. Chest x-ray suggestive of progression of the cavitation. Pulmonary consult will be requested on Saturday. 04/17/2020-blood cultures are positive for MSSA bacteremia. Most likely she has endocarditis. Patient is still on BiPAP to do the IESHA. Presently on IV Rocephin 2 g daily as per ID recommendations. Patient received dialysis last week most likely she will go for dialysis tomorrow. Presently on BiPAP. 04/18/20-latest blood culture is positive for MRSA. Started on vancomycin. To continue IV ceftriaxone at this time. To keep the patient n.p.o. from midnight for possible IESHA tomorrow. Pulmonary consult will be requested. Follow-up chest x-ray was requested." 04/19/2020 Continued on ceftriaxone, there is no indication for vancomycin and this is been stopped Discussed finalized blood culture results with microbiology lab, contaminant of staph hominis with methicillin resistance in 1/4 bottles noted (2) Acute respiratory failure with hypoxia Is this a current diagnosis for this admission?: Yes Plan: Per Previous Physician: "multifactorial 2/2 pulmonary edema+pulmonary abscess/septic emboli+pneumonia + ARDS COVID-19 screen is negative spo2 notably 99% on 50% fio2 on cpap 8 --transitioned to HFNC 60% 40L to allow patient eat with spo2 at 99% Had dialysis today to help with pulmonary edema. Rest of treatment as above. Still tachypneic but awake and protecting airway. Monitor closely at risk of decompensation. If patient does not turn the corner soon or worsens, may need upgrade to ICU and possible intubation. monitor blood gas 04/15/2020-patient admitted with acute respiratory failure with hypoxia multifactorial. Most likely infective endocarditis in association with septic emboli plus pulmonary abscess. COVID-19 is negative. Present on BiPAP 60% oxygen. CT chest without contrast is pending. Patient is receiving dialysis plan is to remove 2 L of fluid. If the condition deteriorates plan is to transfer to tertiary care facility. ABGs requested. 04/16/2020-patient admitted with acute respiratory failure requiring BiPAP. It is a IV drug abuser most likely has infective endocarditis. Chest x-ray suggestive of progression of the cavitary lesions. Patient might have septic emboli. Presently on 2 g of IV Rocephin. ID is on board. To consult pulmonary on Saturday. Overall prognosis poor. Condition is critical. I called [facility] for possible transfer and I discussed the case with the ICU attending,patient is not accepted at this time. 04/17/2020-patient admitted with acute respiratory failure with hypoxia chest x- ray suggestive of progression of the cavitations, most likely she has infective endocarditis. Blood cultures are positive for MSSA bacteremia. On IV Rocephin 2 g daily as per ID recommendations. Temp this morning is 99.1. On BiPAP at 40% ABG with pH of 7.3/PCO2 46/PO2 109/oxygen saturation is 97%. Plan is to decrease the oxygen to supplementation to 35%. Repeat the chest x-ray today. 04/18/[id number]-kdag-old female IV drug abuser admitted with acute respiratory failure with hypoxia. At the time of my examination patient is receiving dialysis and on BiPAP with 35% oxygen. Oxygen saturation is around 98%. Chest x-ray suggestive of progressive cavitation and septic emboli. Receiving IV vancomycin and IV ceftriaxone. ID is on board. To request for pulmonary cons ult today." 04/19/2020 -Slow to improve, still requiring supplemental oxygen Pulmonology has not seen the patient yet (3) Acute renal failure (ARF) Qualifiers: Acute renal failure type: with acute tubular necrosis Qualified Code(s): N17.0 - Acute kidney failure with tubular necrosis Is this a current diagnosis for this admission?: Yes Plan: Per Previous Physician: "Oliguric still but mild improvement in urine output Renal ultrasound with duplex shows echogenic kidneys, mild hydronephrosis but without any renal arterial occlusion Still quite uremic Noted to have hyperphosphatemia - [facility] Nephrology is following - 2nd dialysis session today via [facility] Monitor labs and urine output closely. 04/15/2020 urinary output is improving. Receiving dialysis plan is to remove 2 L of fluid today. Nephrology on board. 04/16/2020-patient received full session of dialysis yesterday. Latest creatinine is 4.95. Urinary output is minimal. Nephrology on board. Patient may need another session of dialysis on Saturday. 04/17/20-patient received dialysis on Saturday. Today's labs are pending. Depending on the labs she may need another dialysis session tomorrow. 04/18/2020-patient is receiving hemodialysis today. Latest serum creatinine is 4.9. To check the labs on daily basis. Urine output is gradually is improving." 04/19/2020 Dialysis ongoing per nephrology who is following (4) Anemia Qualifiers: Anemia type: due to chronic kidney disease Is this a current diagnosis for this admission?: Yes Plan: Per Previous Physician: "anemia labs are with in normal limits. 04/16/2020-patient hemoglobin is 6.6 today. Plan is to repeat the CBC. If the hemoglobin is less than 7 to transfuse 2 units of PRBC. 04/18/2020-latest hemoglobin is 8.8. Stable. Received 2 units of PRBC 48 hours ago." 04/19/2020 Anemia of renal failure and likely bone marrow suppression from drug abuse Trend CBC (5) Hypercalcemia Is this a current diagnosis for this admission?: No (6) Hyperphosphatemia Is this a current diagnosis for this admission?: Yes (7) Liver disease Is this a current diagnosis for this admission?: No (8) Nephrotic range proteinuria Is this a current diagnosis for this admission?: Yes (9) Sepsis Qualifiers: Sepsis type: sepsis due to unspecified organism Sepsis acute organ dysfunction status: with acute organ dysfunction Severe sepsis acute organ dysfunction type: acute respiratory failure Acute respiratory failure type: with hypoxia Severe sepsis shock status: without septic shock Qualified Code(s): A41.9 - Sepsis, unspecified organism; R65.20 - Severe sepsis without septic shock; J96.01 - Acute respiratory failure with hypoxia Is this a current diagnosis for this admission?: Yes Plan: Per Previous Physician: "04/15/2020-patient admitted with shortness of breath transthoracic echo indicated vegetation on the mitral valve, blood cultures are consistently positive for MSSA, elevated WBC count patient is in acute on chronic respiratory failure, elevated WBC count with acute renal failure meeting the criteria for sepsis. 04/16/2020-patient is septic. Patient is IV drug abuser most likely has infective endocarditis and septic emboli with cavitary lesions in both lungs. Blood cultures are positive for MSSA bacteremia. On IV ceftriaxone. Has acute respiratory failure on BiPAP. 04/17/2020-patient is receiving IV Rocephin 2 g daily for MSSA bacteremia. Repeat blood cultures from yesterday pending. repeat blood culture that is listed blood culture indicated for MRSA in 1 bottle. 04/18/2020-initial blood cultures were positive for MSSA bacteremia. Latest blood cultures indicate of MRSA in 1 bottle. Vancomycin is restarted. Patient is already on ceftriaxone. ID is on board." 04/19/2020 There is no MRSA in cultures, this was staph hominis with methicillin resistance in 1/4 bottles Continue ceftriaxone, vancomycin stopped - Plan Summary Summary: 04/15/2020 Critical care visit Called to see the patient for tachycardia and tachypnea. Patient was agitated. She was maintaining good saturation on BiPAP. Reviewed today's chest x-ray. She has worsening cavitary lesions from septic emboli. I did review the transthoracic echocardiogram and they could not rule out vegetation. She has not had a IESHA as of yet. All of her blood cultures reveal a very sensitive staph aureus and she is currently on ceftriaxone. At this point I am going to give her a dose of lorazepam and a small dose of morphine. She did just get her methadone orally but this will take a little while to kick in. We will monitor her closely and the nurses will give me an update shortly. - Time Time Spent with patient: 15-24 minutes Medications reviewed and adjusted accordingly: Yes Anticipated Discharge Disposition: Long Term Facility Anticipated Discharge Timeframe: within 72 hours - Inpatient Certification Based on my medical assessment, after consideration of the patient's comorbidities, presenting symptoms, or acuity I expect that the services needed warrant INPATIENT care.: Yes I certify that my determination is in accordance with my understanding of Medicare's requirements for reasonable and necessary INPATIENT services [42 CFR 412.3e].: Yes Medical Necessity: Significant Comorbidiites Make Outpatient Treatment Too Risky, Need Close Monitoring Due to Risk of Patient Decompensation, Need for IV Antibiotics, Risk of Complication if Not Cared For in Hospital, Risk of Di agnosis Which Will Require Inpatient Eval/Care/Monitoring
[2020-04-19] MEDS ORDERED: CLONIDINE 0.1 MG/24 HR PATCH.TDWK TD SCH (15:00)
[2020-04-19] MEDS: HALOPERIDOL LACTATE INJ 5 MG/1 ML VIAL IV PRN (19:59)
[2020-04-20] MEDS: HALOPERIDOL LACTATE INJ 5 MG/1 ML VIAL IV PRN ×3 (00:31→19:10)
[2020-04-20] MEDS: LORAZEPAM INJ 2 MG/1 ML VIAL IV PRN ×2 (04:20→22:53)
[2020-04-20] MEDS ORDERED: NORMAL SALINE 1000 ML 1,000 ML IV PRN (05:00)
[2020-04-20] MEDS ORDERED: EPOETIN ALFA-EPBX 10,000 UNIT in SYRINGE, DISPOSABLE, 1 EACH IV PRN (05:00)
[2020-04-20] MEDS ORDERED: HEPARIN SOD (PORCINE) 1,000 UNIT/ML 10 ML VIAL IV PRN (05:00)
[2020-04-20] MEDS: HEPARIN SOD (PORCINE) 5,000 UNIT/ML 1 ML VIAL SUBCUT SCH ×3 (05:10→21:19)
[2020-04-20 05:36] LABS: HEMATOCRIT 24.2 % (36.0-47.0); HEMOGLOBIN 8.2 g/dL (12.0-15.5); MEAN CORPUSCULAR HEMOGLOBIN 29.6 pg (27.0-33.4); MEAN CORPUSCULAR HGB CONC 33.8 g/dL (32.0-36.0); MEAN CORPUSCULAR VOLUME 87 fl (80-97); RED BLOOD COUNT 2.77 10^6/uL (3.72-5.28); RED CELL DISTRIBUTION WIDTH 15.5 % (11.5-14.0); WHITE BLOOD COUNT 14.9 10^3/uL (4.0-10.5)
[2020-04-20] MEDS: METHADONE HCL 10 MG TABLET PO SCH ×3 (05:40→21:20)
[2020-04-20 05:44] LABS: ANION GAP 19 (5-19); BLOOD UREA NITROGEN 96 mg/dL (7-20); CALCIUM 8.1 mg/dL (8.4-10.2); CARBON DIOXIDE 20 mmol/L (22-30); CHLORIDE 101 mmol/L (98-107); GLUCOSE 78 mg/dL (75-110); POTASSIUM 4.1 mmol/L (3.6-5.0)
[2020-04-20 06:39] LABS: ABSOLUTE LYMPHOCYTES# (MANUAL) 0.3 10^3/uL (0.5-4.7); ABSOLUTE MONOCYTES # (MANUAL) 0.6 10^3/uL (0.1-1.4); BASOPHILS % (MANUAL) 0 % (0-2); EOSINOPHILS % (MANUAL) 1 % (0-6); LYMPHOCYTES % (MANUAL) 2 % (13-45); MONOCYTES % (MANUAL) 4 % (3-13); SEGMENTED NEUTROPHILS % (MAN) 93 % (42-78); TOTAL CELLS COUNTED 100
[2020-04-20 06:42] LABS: ANISOCYTOSIS SLIGHT; HYPOCHROMASIA SLIGHT; OVALOCYTES SLIGHT; PLATELET COMMENT DECREASED; POIKILOCYTOSIS SLIGHT; POLYCHROMASIA SLIGHT; TOXIC GRANULATION 1+
[2020-04-20 06:43] LABS: PLATELET COUNT 94 10^3/uL (150-450)
[2020-04-20 07:01] LABS: ARTERIAL BLOOD BASE EXCESS -2.9 mmol/L; ARTERIAL BLOOD H2CO3 1.37 mmol/L (1.05-1.35); ARTERIAL BLOOD O2 SATURATION 96.7 % (94-98); ARTERIAL BLOOD PCO2 45.5 mmHg (35-45); ARTERIAL BLOOD PH 7.32 (7.35-7.45); ARTERIAL BLOOD PO2 94.8 mmHg (80-100); ARTERIAL BLOOD TOTAL CO2 24.4 mmol/L (21-25)
[2020-04-20 07:02] LABS: ARTERIAL BLOOD FIO2 50%
[2020-04-20] MEDS: SEVELAMER HCL 800 MG TABLET PO SCH ×3 (08:52→17:16)
[2020-04-20] MEDS: OLANZAPINE 5 MG TABLET PO SCH (09:56)
[2020-04-20] MEDS: FAMOTIDINE 20 MG TABLET PO SCH (09:56)
[2020-04-20] MEDS: HEPARIN SOD (PORCINE) 1,000 UNIT/ML 10 ML VIAL IV PRN (09:57)
[2020-04-20 15:36] LABS: COMPLEMENT C2 3.1 mg/dL (1.4-3.3)
--- NOTE | 2020-04-20 16:25 | PDOC PROGRESS REPORT ---
Subjective Progress Note for:: 04/20/20 Subjective:: I am seeing the patient during dialysis this morning. She is a still BiPAP dependent unfortunately. I was told to the patient came down with a little bit of agitation and was not on BiPAP when she went down to the ICU. So BiPAP needs to be reinitiated. Currently she is a sleeping and is really not responding much. She is so far tolerating dialysis. She made about 850 mL of urine output for the past 24 hours. Reason For Visit: ACUTE RENAL FAILURE Physical Exam Vital Signs: Temp Pulse Resp BP Pulse Ox 98.6 F 113 H 26 H 142/89 H 99 04/19/20 23:17 04/20/20 02:00 04/19/20 23:17 04/19/20 23:17 04/20/20 01:35 Intake & Output 04/19/20 04/20/20 04/21/20 06:59 06:59 06:59 Intake Total 460 Output Total 2650 850 Balance -2190 -850 Weight 94.9 kg Vitals during dialysis: Blood pressure 133/72, heart rate of 112, oxygen satur ation 97% and respiration of 21% with BiPAP but the FiO2 of 35%. Her blood flow rate on dialysis is 301/min and dialysate flow rate of 600 mL/min. Exam: General appearance: PRESENT: On BiPAP without much response. Head exam: PRESENT: atraumatic, normocephalic Eye exam: PRESENT: Eyes closed Neck exam: ABSENT: JVD Respiratory exam: PRESENT: Coarse breath sounds. Diffuse rhonchi ABSENT: crackles, rales, rhonchi, unlabored, wheezes Cardiovascular exam: PRESENT: Regular rate rhythm -+S1, +S2. ABSENT: diastolic murmur, systolic murmur GI/Abdominal exam: PRESENT: normal bowel sounds, soft. ABSENT: guarding, mass, tenderness Extremities exam: ABSENT: No edema Neurological exam: PRESENT: Asleep. Skin exam: PRESENT: dry, warm, Cardiovascular exam: PRESENT: +S1, +S2, tachycardia. ABSENT: systolic murmur GI/Abdominal exam: PRESENT: normal bowel sounds, soft. ABSENT: ascites, distended, firm, organomegaly, tenderness Results Laboratory Results: 04/20/20 05:08 04/20/20 05:08 04/19/20 04/19/20 04/20/20 06:32 15:32 05:08 WBC 13.5 H 14.9 H RBC 2.73 L 2.77 L Hgb 7.9 L 8.2 L Hct 23.2 L 24.2 L MCV 85 87 MCH 29.1 29.6 MCHC 34.2 33.8 RDW 15.4 H 15.5 H Plt Count 70 L 94 L Seg Neutrophils % Not Reportable Not Reportable Carbonic Acid HCO3/H2CO3 Ratio ABG pH ABG pCO2 ABG pO2 ABG HCO3 ABG O2 Saturation ABG Base Excess FiO2 Sodium Potassium Chloride Carbon Dioxide Anion Gap BUN Creatinine Est GFR ( Amer) Glucose Calcium Phosphorus Ammonia 12.8 04/20/20 04/20/20 05:08 06:19 WBC RBC Hgb Hct MCV MCH MCHC RDW Plt Count Seg Neutrophils % Carbonic Acid 1.37 H HCO3/H2CO3 Ratio 16:1 ABG pH 7.32 L ABG pCO2 45.5 H ABG pO2 94.8 ABG HCO3 23.0 ABG O2 Saturation 96.7 ABG Base Excess -2.9 FiO2 50% Sodium 139.5 Potassium 4.1 Chloride 101 Carbon Dioxide 20 L Anion Gap 19 BUN 96 H Creatinine 4.35 H Est GFR ( Amer) 14 L Glucose 78 Calcium 8.1 L Phosphorus 11.0 H Ammonia 04/16/20 10:33 Blood Blood Culture (PCR) - Final Staphylococcus Species 04/16/20 10:33 Blood Blood Culture - Final Staphylococcus Hominis 04/12/20 04:15 NT-Pro-B Natriuret Pep 8880 H Impressions: Renal Artery Duplex 04/12/20 00:00 IMPRESSION: No definitive evidence of renal artery stenosis. Echogenic kidneys, suggestive of medical renal disease. Additionally, the elevated resistive indices can also be seen in association with medical renal disease. Mild right hydronephrosis. copyright 2010 [employer]- All Rights Reserved Venous Doppler Study 04/12/20 00:00 IMPRESSION: NO EVIDENCE DVT OR SVT IN EITHER LEG. Chest CT 04/16/20 00:00 IMPRESSION: Bilateral cavitary pneumonia. Chest X-Ray 04/19/20 00:00 IMPRESSION: Cavitary pneumonia. No significant change. Assessment & Plan - Diagnosis (1) Acute kidney injury Is this a current diagnosis for this admission?: Yes Plan: Initially presented with uremia and anuria requiring initiation of renal replacement therapy. Patient has associated nonnephrotic range proteinuria with urine protein to creatinine ratio of about 1.89 and significant microhematuria. Serologies showed negative MANUEL, negative ANCA, negative anti-GBM. She has however significantly low C3/C4 and CH 50. Hepatitis C quantification is severely elevated. Differential diagnosis include postinfectious GN versus MPGN secondary to hepatitis C. The superimposed ATN is very much a possibility. With this possibilities treatment would be to continue antibiotics. Due to patient's ongoing respiratory failure, it will be difficult to do a kidney biopsy plus management is probably not been a change much. Currently she is nonoliguric and is passing a decent amount of urine output, however she continues to have elevated BUN and creatinine requiring renal replacement therapy. We will do dialysis today for 2.5 hours, using the patient's trialysis catheter, with 3 potassium bath, blood flow rate of 300 mL per minute, dialysate flow rate of 600 mL per minute, ultrafiltration 1 to 2 L as tolerated, no heparin and R etacrit of 10,000 units during dialysis intravenously. Patient being monitored very closely during dialysis treatment. We will continue to reevaluate the patient for further need of renal replacement therapy. (2) Acute respiratory failure with hypoxia Is this a current diagnosis for this admission?: Yes Plan: Positive bilateral cavitary lesion suggestive of septic emboli. Currently still requiring BiPAP. Hospitalist service requested for pulmonary consult. (3) Infective endocarditis Qualifiers: Infective endocarditis organism: bacterial Chronicity: acute Qualified Code(s): I33.0 - Acute and subacute infective endocarditis Is this a current diagnosis for this admission?: Yes Plan: TTE on April 14 showed findings suggestive of tricuspid valve endocarditis. Plan is to do a confirmatory IESHA . (4) Staphylococcus aureus bacteremia Is this a current diagnosis for this admission?: Yes Plan: Patient being maintained on IV ceftriaxone per infectious disease. (5) Hepatitis C Is this a current diagnosis for this admission?: Yes Plan: Hepatitis C virus quantity 863,000 IU/mL. PCR still pending. Patient is to be followed by liver specialist. (6) Anemia Qualifiers: Anemia type: due to chronic kidney disease Is this a current diagnosis for this admission?: Yes Plan: Multifactorial causes due to acute illness. Patient had blood transfusion over the weekend. I will give the patient Retacrit on dialysis. (7) Hyperphosphatemia Is this a current diagnosis for this admission?: Yes Plan: Due to ALISA. Since patient does not have much food intake phosphorus binder is going to be held for now (8) IV drug abuse Is this a current diagnosis for this admission?: Yes Plan: History of IV heroin/methamphetamine use. (9) Opiate withdrawal Is this a current diagnosis for this admission?: Yes Plan: On lorazepam. (10) Thrombocytopenia Is this a current diagnosis for this admission?: Yes - Time Time with patient: 15-25 minutes
--- NOTE | 2020-04-20 18:20 | PDOC PROGRESS REPORT ---
Subjective Subjective:: Per Previous Physician: "34 year old female with history of IV heroin/methamphetamine use, hepatitis C, who presents to the hospital with complaints of shortness of breath and increased work of breathing over the past 5 days. Patient has also noted increased swelling in both lower extremities since that time. She denies fever or chills. She does have occasional cough nonproductive of more sputum. Also experiencing aches and pains in her lower extremities. She denies any diarrhea. She denies any history of kidney disease or heart failure. She also admits to very diminished water intake over the last few days. She has been using heroin very frequently over the past 2 to 3 days as well. On arrival of EMS, patient was noted to be significantly hypoxic with SPO2 69% and subsequently placed on a CPAP. She was switched to a BiPAP machine in the ER due to work of breathing. 04/13-Last night, despite receiving over 2.5 L of fluid, patient put out only about 100 cc of urine. I rechallenged her with 80 mg of IV Lasix but she put out only about 40 cc following that. She continues to remain anuric and sign ificantly encephalopathic. 04/14-Patient had about this morning when she became tachypneic and short of breath. She also felt very anxious and stated that she felt like she was withdrawing. She did receive some Ativan. Patient will plan for dialysis today. 04/15/[id number]-qsgu-old female with history of IV heroin, methamphetamine use, history of hep C admitted with increasing shortness of breath of 5 days duration. Patient has a dialysis access placed yesterday she is in the ICU for dialysis today. Essentially she is on BiPAP with 60% oxygen. Repeated blood cultures coming back positive for staph aureus. ID consult was done. Per ID recommendations to continue IV ceftriaxone 2 g daily and discontinue IV vancomycin. Consultation with Dr. Gm ibarra is requested for IESHA on Saturday. On examination patient is tachycardic and tachypneic. CT chest without contrast was requested. Patient may be withdrawing. Patient is on methadone and to add IV Ativan 1 mg every 2 hours as needed for withdrawal symptoms. Overall prognosis poor. 04/16/20-rapid response was called this night because patient became tachycardic tachypneic agitated most likely secondary to withdrawal symptoms. Patient was started on morphine 2 mg IV every 4 hours, lorazepam 1 mg every 4 hours. Patient is comfortably sleeping in the bed at this time. On BiPAP. ABG this morning on 60% oxygen shows pH of 7.37/PO2 of 182. Plan is to decrease the oxygen requirements to 40%. To continue IV ceftriaxone. Blood cultures are repeated. Discussed the case with Dr. Gm ibarra he is planning to do IESHA if possible on Saturday.. 04/17/20-no acute events in the last 24 hours. Patient is afebrile. Receiving IV Rocephin for MSSA bacteremia. ABG on 40% oxygen on BiPAP indicates pH of 7.34/PCO2 46/PO2 109/oxygen saturation is 97%. Plan is to decrease the oxygen supplementation to 35%. pt Received 2 units of PRBC yesterday today's labs are pending. 04/18/2020-patient is in the ICU receiving dialysis. Presently on BiPAP with 35% oxygen. WBC is improving. Blood pressure stable. No acute events in the last 24 hours. Plan is to consult pulmonology today." 04/19/2020 Patient very agitated today, combative, fighting with nursing staff to keep her oxygen in place, occasionally pulling at her Gomez. Ativan ineffective. Possible patient has anoxic brain injury from drug overdose. We will need to get a brain MRI when she is more stable and calm. Start scheduled Zyprexa. Start as needed Haldol. Switch clonidine to patch as she is not taking oral meds currently. Chest x-ray reviewed which showed the cavitary pneumonia previously seen. Speech therapy eval. 04/20/2020 Patient much more calm today after taking Zyprexa yesterday. She was given Haldol overnight which also had a calming effect. Discussed the case with Dr. Worrell who will schedule the patient for IESHA tomorrow, n.p.o. at midnight tonight. Ordered MRI brain to look for signs of anoxic brain injury or septic embolic strokes given she has severely altered mentation which is not resolving despite no longer being in opiate withdrawal. Stopped methadone as she has not had this in the past few days and it will only serve to muddy the picture going forward with regards to her mentation. Creatinine higher again, will likely need dialysis long-term. Discussed the case with the patient's father in great detail and gave him a full update and answered all his questions. Reason For Visit: ACUTE RENAL FAILURE Physical Exam Vital Signs: Temp Pulse Resp BP Pulse Ox 97.8 F 122 H 18 148/83 H 99 04/20/20 16:11 04/20/20 16:11 04/20/20 16:11 04/20/20 16:11 04/20/20 11:20 Intake & Output 04/19/20 04/20/20 04/21/20 06:59 06:59 06:59 Intake Total 460 Output Total 2650 850 1100 Balance -2190 -850 -1100 Weight 94.9 kg Exam: General appearance: PRESENT: disheveled, calm, obese Head exam: PRESENT: atraumatic, normocephalic Eye exam: PRESENT: conjunctiva pink. ABSENT: scleral icterus Mouth exam: PRESENT: moist Respiratory exam: PRESENT: rhonchi - Bilateral. ABSENT: rales, wheezes Cardiovascular exam: PRESENT: RRR. ABSENT: diastolic murmur, rubs, systolic murmur GI/Abdominal exam: PRESENT: normal bowel sounds, soft. ABSENT: distended, guarding, mass, organolmegaly, rebound, tenderness Extremities exam: ABSENT: pedal edema Neurological exam: PRESENT: altered, awake. ABSENT: alert, oriented to person, oriented to place, oriented to time, oriented to situation Psychiatric exam: PRESENT: appropriate affect, normal mood Skin exam: PRESENT: dry, intact, warm Results Laboratory Results: 04/20/20 05:08 04/20/20 05:08 04/20/20 04/20/20 04/20/20 05:08 05:08 06:19 WBC 14.9 H RBC 2.77 L Hgb 8.2 L Hct 24.2 L MCV 87 MCH 29.6 MCHC 33.8 RDW 15.5 H Plt Count 94 L Seg Neutrophils % Not Reportable Carbonic Acid 1.37 H HCO3/H2CO3 Ratio 16:1 ABG pH 7.32 L ABG pCO2 45.5 H ABG pO2 94.8 ABG HCO3 23.0 ABG O2 Saturation 96.7 ABG Base Excess -2.9 FiO2 50% Sodium 139.5 Potassium 4.1 Chloride 101 Carbon Dioxide 20 L Anion Gap 19 BUN 96 H Creatinine 4.35 H Est GFR ( Amer) 14 L Glucose 78 Calcium 8.1 L Phosphorus 11.0 H 04/12/20 04:15 NT-Pro-B Natriuret Pep 8880 H Impressions: Renal Artery Duplex 04/12/20 00:00 IMPRESSION: No definitive evidence of renal artery stenosis. Echogenic kidneys, suggestive of medical renal disease. Additionally, the elevated resistive indices can also be seen in association with medical renal disease. Mild right hydronephrosis. copyright 2010 [employer]- All Rights Reserved Venous Doppler Study 04/12/20 00:00 IMPRESSION: NO EVIDENCE DVT OR SVT IN EITHER LEG. Chest CT 04/16/20 00:00 IMPRESSION: Bilateral cavitary pneumonia. Chest X-Ray 04/19/20 00:00 IMPRESSION: Cavitary pneumonia. No significant change. Assessment and Plan - Diagnosis (1) Infective endocarditis Qualifiers: Infective endocarditis organism: bacterial Chronicity: acute Qualified Code(s): I33.0 - Acute and subacute infective endocarditis Is this a current diagnosis for this admission?: Yes Plan: Per Previous Physician: "MSSA Bacteremia + multiple bilateral Pulmonary abscesses on chest xray indicative of septic emboli TTE had technical difficulties but does show something that seems to be a vegetation on her tricuspid with moderate tricuspid regurgitation and moderate pulmonary hypertension noted with a RVSP 50 to 60 mmHg and hyperdynamic LV. 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 will obtain dry chest CT when more stable Currently patient is very sick and her situation is very dynamic. 04/15/2020-blood cultures growing MSSA. ID consult was requested. Chest x-ray indicated of bilateral pulmonary abscesses most likely septic emboli. CT chest without contrast was requested. Consultation with cardiology is requested for IESHA. Patient is presently on IV Rocephin as per ID recommendations. Vancomycin is discontinued. Patient is tachycardic tachypneic on BiPAP 60%. Overall prognosis poor. If the condition continue to deteriorate plan may be to transfer her to tertiary care facility. Patient is presently getting dialysis plan is to remove 2 L of fluid. Transthoracic echocardiogram indicates tricuspid valve vegetation. 04/16/20-transthoracic echo is unable to rule out a vegetation on the tricuspid valve. Case was discussed with the cardiology team plan is to do IESHA on Saturday if the patient respiratory status is stable. Blood cultures growing MSSA. On ceftriaxone 2 g daily. She is allergic to penicillins. ID is on board. Patient has a dialysis in yesterday. Overall prognosis poor condition is critical. Chest x-ray suggestive of progression of the cavitation. Pulmonary consult will be requested on Saturday. 04/17/2020-blood cultures are positive for MSSA bacteremia. Most likely she has endocarditis. Patient is still on BiPAP to do the IESHA. Presently on IV Rocephin 2 g daily as per ID recommendations. Patient received dialysis last week most likely she will go for dialysis tomorrow. Presently on BiPAP. 04/18/20-latest blood culture is positive for MRSA. Started on vancomycin. To continue IV ceftriaxone at this time. To keep the patient n.p.o. from midnight for possible IESHA tomorrow. Pulmonary consult will be requested. Follow-up chest x-ray was requested." 04/19/2020 Continued on ceftriaxone, there is no indication for vancomycin and this is been stopped Discussed finalized blood culture results with microbiology lab, contaminant of staph hominis with methicillin resistance in 1/4 bottles noted Antibiotics continue IESHA scheduled for 04/[address] Worrell (2) Acute respiratory failure with hypoxia Is this a current diagnosis for this admission?: Yes Plan: Per Previous Physician: "multifactorial 2/2 pulmonary edema+pulmonary abscess/septic emboli+pneumonia + ARDS COVID-19 screen is negative spo2 notably 99% on 50% fio2 on cpap 8 --transitioned to HFNC 60% 40L to allow patient eat with spo2 at 99% Had dialysis today to help with pulmonary edema. Rest of treatment as above. Still tachypneic but awake and protecting airway. Monitor closely at risk of decompensation. If patient does not turn the corner soon or worsens, may need upgrade to ICU and possible intubation. monitor blood gas 04/15/2020-patient admitted with acute respiratory failure with hypoxia multifactorial. Most likely infective endocarditis in association with septic emboli plus pulmonary abscess. COVID-19 is negative. Present on BiPAP 60% oxygen. CT chest without contrast is pending. Patient is receiving dialysis plan is to remove 2 L of fluid. If the condition deteriorates plan is to transfer to tertiary care facility. ABGs requested. 04/16/2020-patient admitted with acute respiratory failure requiring BiPAP. It is a IV drug abuser most likely has infective endocarditis. Chest x-ray suggestive of progression of the cavitary lesions. Patient might have septic emboli. Presently on 2 g of IV Rocephin. ID is on board. To consult pulmonary on Saturday. Overall prognosis poor. Condition is critical. I called [facility] for possible transfer and I discussed the case with the ICU attending,patient is not accepted at this time. 04/17/2020-patient admitted with acute respiratory failure with hypoxia chest x- ray suggestive of progression of the cavitations, most likely she has infective endocarditis. Blood cultures are positive for MSSA bacteremia. On IV Rocephin 2 g daily as per ID recommendations. Temp this morning is 99.1. On BiPAP at 40% ABG with pH of 7.3/PCO2 46/PO2 109/oxygen saturation is 97%. Plan is to decrease the oxygen to supplementation to 35%. Repeat the chest x-ray today. 04/18/2025-26-nxlb-old female IV drug abuser admitted with acute respiratory failure with hypoxia. At the time of my examination patient is receiving dialysis and on BiPAP with 35% oxygen. Oxygen saturation is around 98%. Chest x-ray suggestive of progressive cavitation and septic emboli. Receiving IV vancomycin and IV ceftriaxone. ID is on board. To request for pulmonary consult today." 04/19/2020 -Slow to improve, still requiring supplemental oxygen Pulmonology has not seen the patient yet Wean supplemental oxygen (3) Acute renal failure (ARF) Qualifiers: Acute renal failure type: with acute tubular necrosis Qualified Code(s): N17.0 - Acute kidney failure with tubular necrosis Is this a current diagnosis for this admission?: Yes Plan: Per Previous Physician: "Oliguric still but mild improvement in urine output Renal ultrasound with duplex shows echogenic kidneys, mild hydronephrosis but without any renal arterial occlusion Still quite uremic Noted to have hyperphosphatemia - sevelamer Nephrology is following - 2nd dialysis session today via [facility] Monitor labs and urine output closely. 04/15/2020 urinary output is improving. Receiving dialysis plan is to remove 2 L of fluid today. Nephrology on board. 04/16/2020-patient received full session of dialysis yesterday. Latest creatinine is 4.95. Urinary output is minimal. Nephrology on board. Patient may need another session of dialysis on Saturday. 10/11/20-patient received dialysis on Saturday. Today's labs are pending. Depending on the labs she may need another dialysis session tomorrow. 04/18/2020-patient is receiving hemodialysis today. Latest serum creatinine is 4.9. To check the labs on daily basis. Urine output is gradually is improving." 04/19/2020 Dialysis ongoing per nephrology who is following Trend BMP, creatinine not improving (4) Anemia Qualifiers: Anemia type: due to chronic kidney disease Is this a current diagnosis for this admission?: Yes (5) Hypercalcemia Is this a current diagnosis for this admission?: No (6) Hyperphosphatemia Is this a current diagnosis for this admission?: Yes (7) Liver disease Is this a current diagnosis for this admission?: No (8) Nephrotic range proteinuria Is this a current diagnosis for this admission?: Yes (9) Sepsis Qualifiers: Sepsis type: sepsis due to unspecified organism Sepsis acute organ dysfunction status: with acute organ dysfunction Severe sepsis acute organ dysfunction type: acute respiratory failure Acute respiratory failure type: with hypoxia Severe sepsis shock status: without septic shock Qualified Code(s): A41.9 - Sepsis, unspecified organism; R65.20 - Severe sepsis without septic shock; J96.01 - Acute respiratory failure with hypoxia Is this a current diagnosis for this admission?: Yes - Plan Summary Summary: 04/15/2020 Critical care visit Called to see the patient for tachycardia and tachypnea. Patient was agitated. She was maintaining good saturation on BiPAP. Reviewed today's chest x-ray. She has worsening cavitary lesions from septic emboli. I did review the transthoracic echocardiogram and they could not rule out vegetation. She has not had a IESHA as of yet. All of her blood cultures reveal a very sensitive staph aureus and she is currently on ceftriaxone. At this point I am going to give her a dose of lorazepam and a small dose of morphine. She did just get her methadone orally but this will take a little while to kick in. We will monitor her closely and the nurses will give me an update shortly. - Time Time Spent with patient: 35 or more minutes Medications reviewed and adjusted accordingly: Yes Anticipated Discharge Disposition: [facility] Facility Anticipated Discharge Timeframe: within 72 hours - Inpatient Certification Based on my medical assessment, after consideration of the patient's comorbidities, presenting symptoms, or acuity I expect that the services needed warrant INPATIENT care.: Yes I certify that my determination is in accordance with my understanding of Medicare's requirements for reasonable and necessary INPATIENT services [42 CFR 412.3e].: Yes Medical Necessity: Significant Comorbidiites Make Outpatient Treatment Too Risky, Need Close Monitoring Due to Risk of Patient Decompensation, Need for IV Antibiotics, Risk of Complication if Not Cared For in Hospital, Risk of Diagnosis Which Will Require Inpatient Eval/Care/Monitoring
[2020-04-20] MEDS ORDERED: LORAZEPAM INJ 2 MG/1 ML VIAL ONE (19:43)
[2020-04-20] MEDS ORDERED: LORAZEPAM INJ 2 MG/1 ML VIAL IV ONE (20:30)
[2020-04-21] MEDS: HALOPERIDOL LACTATE INJ 5 MG/1 ML VIAL IV PRN ×3 (02:10→16:00)
[2020-04-21] MEDS: LORAZEPAM INJ 2 MG/1 ML VIAL IV PRN ×2 (05:28→21:38)
[2020-04-21] MEDS: METHADONE HCL 10 MG TABLET PO SCH (05:32)
[2020-04-21] MEDS: HEPARIN SOD (PORCINE) 5,000 UNIT/ML 1 ML VIAL SUBCUT SCH ×3 (05:33→22:08)
[2020-04-21 06:02] LABS: ARTERIAL BLOOD BASE EXCESS 0.9 mmol/L; ARTERIAL BLOOD H2CO3 1.42 mmol/L (1.05-1.35); ARTERIAL BLOOD HCO3 26.5 mmol/L (20-24); ARTERIAL BLOOD O2 SATURATION 97.7 % (94-98); ARTERIAL BLOOD PCO2 47.2 mmHg (35-45); ARTERIAL BLOOD PH 7.37 (7.35-7.45); ARTERIAL BLOOD PO2 106.3 mmHg (80-100); ARTERIAL BLOOD TOTAL CO2 27.9 mmol/L (21-25)
[2020-04-21 06:03] LABS: ARTERIAL BLOOD FIO2 35%
[2020-04-21] MEDS: SEVELAMER HCL 800 MG TABLET PO SCH ×3 (07:47→18:48)
[2020-04-21] MEDS: FAMOTIDINE 20 MG TABLET PO SCH (10:52)
[2020-04-21] MEDS: OLANZAPINE 5 MG TABLET PO SCH (10:53)
[2020-04-21] MEDS ORDERED: DEXTROSE 5%-LACTATED RINGERS 1,000 ML IV PRN (13:03)
[2020-04-21] MEDS ORDERED: PHARMACY COMMUNICATION ORDER MC NR (13:45)
--- NOTE | 2020-04-21 14:06 | PDOC CONSULTATION ---
Consultation Consult Date: 04/21/20 Attending physician:: BAYLEE BERNABE Provider Consulted: HECTOR CORDOVA Consult reason:: hypoxia History of Present Illness Admission Date/PCP: 04/12/20 11:21 History of Present Illness: HANNY MADISON is a 34 year old female presents with shortness of breath and found to be hypoxic breathing improved slightly with oxygen but subsequently she needed BiPAP to improve her respiratory rate. Per family she has a long history of drug abuse splinter hemorrhages acute renal failure multiple cavitary lung lesions and altered mental status. Past Medical History Neurological Medical History: Reports: Migraine Psychiatric Medical History: Reports: Depression Traumatic Medical History: Denies: Gunshot Wound Hematology: Denies: Sickle Cell Disease Infectious Medical History: Reports: Hepatitis C Past Surgical History Past Surgical History: Reports: None Social History Information Source: [facility] / [facility] Records Smoking Status: Current Every Day Smoker Cigarettes Packs Per Day: 2 Number of Years Smokin Passive smoke exposure as: Both Frequency of Alcohol Use: None Hx Recreational Drug Use: Yes Drugs: Heroin Hx Prescription Drug Abuse: No Do you have pets?: No Have you had any respiratory illnesses as a child?: No Have you been exposed to any sick contacts recently?: No Have you had any recent respiratory illnesses?: No Have you travelled outside of [place] in the past 12 months?: No - Advance Directive Resuscitation Status: Full Code Family History Family History: Other - Denies family history of kidney failure. Does have immediate family history of blood clots. Parental Family History Reviewed: Yes Children Family History Reviewed: Yes Sibling(s) Family History Reviewed.: Yes Medication/Allergy Home Medications: No Home Medications 04/12/20 Allergies/Adverse Reactions: Penicillins Allergy (Severe, Verified 11/23/13 17:25) tounge swelling Review of Systems ROS unobtainable: Due to mental status Physical Exam Vital Signs: Temp Pulse Resp BP Pulse Ox 98.1 F 104 H 28 H 143/83 H 92 04/21/20 07:19 04/21/20 07:19 04/21/20 07:19 04/21/20 07:19 04/21/20 07:19 Intake & Output 04/20/20 04/21/20 04/22/20 06:59 06:59 06:59 Intake Total 50 Output Total 850 1300 Balance -850 -1250 Weight 94.9 kg 92.8 kg General appearance: PRESENT: no acute distress, disheveled, obese, well- developed, well-nourished Head exam: PRESENT: atraumatic, normocephalic Eye exam: PRESENT: conjunctiva pale, EOMI. ABSENT: nystagmus, periorbital s welling Mouth exam: PRESENT: dry mucosa, neck supple, tongue midline Neck exam: ABSENT: carotid bruit, JVD, lymphadenopathy, thyromegaly Respiratory exam: PRESENT: decreased breath sounds, rales, rhonchi, symmetrical, unlabored. ABSENT: retraction, stridor, tachypnea Cardiovascular exam: PRESENT: RRR, +S1, +S2, systolic murmur, tachycardia Pulses: PRESENT: normal radial pulses GI/Abdominal exam: PRESENT: soft. ABSENT: distended, guarding, mass, rebound, tenderness Extremities exam: ABSENT: calf tenderness, clubbing, pedal edema Musculoskeletal exam: ABSENT: deformity, dislocation Neurological exam: PRESENT: altered Psychiatric exam: PRESENT: agitated Focused psych exam: PRESENT: delusional Skin exam: PRESENT: dry, warm, other - Small petechiae hands nailbeds bilaterally Results Laboratory Results: 04/20/20 05:08 04/20/20 05:08 04/21/20 05:12 Carbonic Acid 1.42 H HCO3/H2CO3 Ratio 18:1 ABG pH 7.37 ABG pCO2 47.2 H ABG pO2 106.3 H ABG HCO3 26.5 H ABG O2 Saturation 97.7 ABG Base Excess 0.9 FiO2 35% 04/12/20 04:15 NT-Pro-B Natriuret Pep 8880 H Impressions: Renal Artery Duplex 04/12/20 00:00 IMPRESSION: No definitive evidence of renal artery stenosis. Echogenic kidneys, suggestive of medical renal disease. Additionally, the elevated resistive indices can also be seen in association with medical renal disease. Mild right hydronephrosis. copyright 2011 [employer]- All Rights Reserved Venous Doppler Study 04/12/20 00:00 IMPRESSION: NO EVIDENCE DVT OR SVT IN EITHER LEG. Chest CT 04/16/20 00:00 IMPRESSION: Bilateral cavitary pneumonia. Chest X-Ray 04/19/20 00:00 IMPRESSION: Cavitary pneumonia. No significant change. Assessment & Plan - Diagnosis (1) Abnormal mental state Is this a current diagnosis for this admission?: Yes Plan: For sepsis and endocarditis an MRI and a lumbar puncture are essential if is necessary to intubate the papers patient to this and will proceed with intubation (2) Acute renal failure (ARF) Qualifiers: Acute renal failure type: with acute tubular necrosis Qualified Code(s): N17.0 - Acute kidney failure with tubular necrosis Is this a current diagnosis for this admission?: Yes Plan: As per nephrology (3) Acute respiratory failure with hypoxia Is this a current diagnosis for this admission?: Yes Plan: High flow oxygen versus BiPAP versus intubation (4) Hepatitis C Is this a current diagnosis for this admission?: Yes Plan: Chronic (5) IV drug abuse Is this a current diagnosis for this admission?: Yes (6) Septic pulmonary embolism Qualifiers: Chronicity: acute Acute cor pulmonale presence: unspecified Qualified Code(s): I26.90 - Septic pulmonary embolism without acute cor pulmonale Is this a current diagnosis for this admission?: Yes Plan: Staph non-MRSA blood cultures sensitive to oxacillin but initiate treatment with oxacillin - Time Time Spent with patient: 50 min Time Spent: 50 to 70 Minutes - Plan Summary Plan Summary: Discussed with primary care feels imperative to get MRI and LP HÉCTOR for endocarditis with septic emboli to the lungs and probably the kidneys. We discussed intubation if these studies could not be obtained otherwise.
--- NOTE | 2020-04-21 14:06 | PDOC PROGRESS REPORT ---
Subjective Subjective:: Per Previous Physician: "34 year old female with history of IV heroin/methamphetamine use, hepatitis C, who presents to the hospital with complaints of shortness of breath and increased work of breathing over the past 5 days. Patient has also noted increased swelling in both lower extremities since that time. She denies fever or chills. She does have occasional cough nonproductive of more sputum. Also experiencing aches and pains in her lower extremities. She denies any diarrhea. She denies any history of kidney disease or heart failure. She also admits to very diminished water intake over the last few days. She has been using heroin very frequently over the past 2 to 3 days as well. On arrival of EMS, patient was noted to be significantly hypoxic with SPO2 69% and subsequently placed on a CPAP. She was switched to a BiPAP machine in the ER due to work of breathing. 04/13-Last night, despite receiving over 2.5 L of fluid, patient put out only about 100 cc of urine. I rechallenged her with 80 mg of IV Lasix but she put out only about 40 cc following that. She continues to remain anuric and sign ificantly encephalopathic. 04/14-Patient had about this morning when she became tachypneic and short of breath. She also felt very anxious and stated that she felt like she was withdrawing. She did receive some Ativan. Patient will plan for dialysis today. 04/15/[id number]-brve-old female with history of IV heroin, methamphetamine use, history of hep C admitted with increasing shortness of breath of 5 days duration. Patient has a dialysis access placed yesterday she is in the ICU for dialysis today. Essentially she is on BiPAP with 60% oxygen. Repeated blood cultures coming back positive for staph aureus. ID consult was done. Per ID recommendations to continue IV ceftriaxone 2 g daily and discontinue IV vancomycin. Consultation with Dr. Gm ibarra is requested for IESHA on Saturday. On examination patient is tachycardic and tachypneic. CT chest without contrast was requested. Patient may be withdrawing. Patient is on methadone and to add IV Ativan 1 mg every 2 hours as needed for withdrawal symptoms. Overall prognosis poor. 04/16/20-rapid response was called this night because patient became tachycardic tachypneic agitated most likely secondary to withdrawal symptoms. Patient was started on morphine 2 mg IV every 4 hours, lorazepam 1 mg every 4 hours. Patient is comfortably sleeping in the bed at this time. On BiPAP. ABG this morning on 60% oxygen shows pH of 7.37/PO2 of 182. Plan is to decrease the oxygen requirements to 40%. To continue IV ceftriaxone. Blood cultures are repeated. Discussed the case with Dr. Gm ibarra he is planning to do IESHA if possible on Saturday.. 04/17/20-no acute events in the last 24 hours. Patient is afebrile. Receiving IV Rocephin for MSSA bacteremia. ABG on 40% oxygen on BiPAP indicates pH of 7.34/PCO2 46/PO2 109/oxygen saturation is 97%. Plan is to decrease the oxygen supplementation to 35%. pt Received 2 units of PRBC yesterday today's labs are pending. 04/18/2020-patient is in the ICU receiving dialysis. Presently on BiPAP with 35% oxygen. WBC is improving. Blood pressure stable. No acute events in the last 24 hours. Plan is to consult pulmonology today." 04/19/2020 Patient very agitated today, combative, fighting with nursing staff to keep her oxygen in place, occasionally pulling at her Gomez. Ativan ineffective. Possible patient has anoxic brain injury from drug overdose. We will need to get a brain MRI when she is more stable and calm. Start scheduled Zyprexa. Start as needed Haldol. Switch clonidine to patch as she is not taking oral meds currently. Chest x-ray reviewed which showed the cavitary pneumonia previously seen. Speech therapy eval. 04/20/2020 Patient much more calm today after taking Zyprexa yesterday. She was given Haldol overnight which also had a calming effect. Discussed the case with Dr. Worrell who will schedule the patient for IESHA tomorrow, n.p.o. at midnight tonight. Ordered MRI brain to look for signs of anoxic brain injury or septic embolic strokes given she has severely altered mentation which is not resolving despite no longer being in opiate withdrawal. Stopped methadone as she has not had this in the past few days and it will only serve to muddy the picture going forward with regards to her mentation. Creatinine higher again, will likely need dialysis long-term. Discussed the case with the patient's father in great detail and gave him a full update and answered all his questions. 04/21/2020 Patient seems to be doing better today from a respiratory standpoint and is more alert. Per nursing, when her mother came to see her patient recognized her and had a partial conversation with her. Patient is scheduled for IESHA today and she is n.p.o. She is making a scant amount of brownish tinged urine. Holding off on IV fluids as she is currently dialysis dependent and at risk for volume overload. Discussed with nursing to place an NG tube and get a nutrition consult to get for tube feeds until we can clear her to eat with speech therapy. She has not had adequate nutrition in several days due to procedures and being intermittently combative and somnolent. Reason For Visit: ACUTE RENAL FAILURE Physical Exam Vital Signs: Temp Pulse Resp BP Pulse Ox 98.1 F 104 H 28 H 143/83 H 100 04/21/20 10:00 04/21/20 07:19 04/21/20 07:19 04/21/20 07:19 04/21/20 12:49 Intake & Output 04/20/20 04/21/20 04/22/20 06:59 06:59 06:59 Intake Total 50 Output Total 850 1300 Balance -850 -1250 Weight 94.9 kg 92.8 kg Exam: General appearance: PRESENT: disheveled, calm, obese, more alert today speaking a bit Head exam: PRESENT: atraumatic, normocephalic Eye exam: PRESENT: conjunctiva pink. ABSENT: scleral icterus Mouth exam: PRESENT: moist Respiratory exam: PRESENT: Mild rhonchi - Bilateral improved notably. ABSENT: rales, wheezes Cardiovascular exam: PRESENT: RRR. ABSENT: diastolic murmur, rubs, systolic murmur GI/Abdominal exam: PRESENT: normal bowel sounds, soft. ABSENT: distended, guarding, mass, organolmegaly, rebound, tenderness Extremities exam: ABSENT: pedal edema Neurological exam: PRESENT: altered, awake. ABSENT: alert, oriented to person, oriented to place, oriented to time, oriented to situation Psychiatric exam: PRESENT: appropriate affect, normal mood Skin exam: PRESENT: dry, intact, warm Results Laboratory Results: 04/20/20 05:08 04/20/20 05:08 04/21/20 05:12 Carbonic Acid 1.42 H HCO3/H2CO3 Ratio 18:1 ABG pH 7.37 ABG pCO2 47.2 H ABG pO2 106.3 H ABG HCO3 26.5 H ABG O2 Saturation 97.7 ABG Base Excess 0.9 FiO2 35% 04/16/20 10:15 Blood Blood Culture - Final NO GROWTH IN 5 DAYS 04/12/20 04:15 NT-Pro-B Natriuret Pep 8880 H Impressions: Renal Artery Duplex 04/12/20 00:00 IMPRESSION: No definitive evidence of renal artery stenosis. Echogenic kidneys, suggestive of medical renal disease. Additionally, the elevated resistive indices can also be seen in association with medical renal disease. Mild right hydronephrosis. copyright 2010 [employer]- All Rights Reserved Venous Doppler Study 04/12/20 00:00 IMPRESSION: NO EVIDENCE DVT OR SVT IN EITHER LEG. Chest CT 04/16/20 00:00 IMPRESSION: Bilateral cavitary pneumonia. Chest X-Ray 04/19/20 00:00 IMPRESSION: Cavitary pneumonia. No significant change. Assessment and Plan - Diagnosis (1) Infective endocarditis Qualifiers: Infective endocarditis organism: bacterial Chronicity: acute Qualified Code(s): I33.0 - Acute and subacute infective endocarditis Is this a current diagnosis for this admission?: Yes Plan: Per Previous Physician: "MSSA Bacteremia + multiple bilateral Pulmonary abscesses on chest xray indicative of septic emboli TTE had technical difficulties but does show something that seems to be a vegetation on her tricuspid with moderate tricuspid regurgitation and moderate pulmonary hypertension noted with a RVSP 50 to 60 mmHg and hyperdynamic LV. 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 will obtain dry chest CT when more stable Currently patient is very sick and her situation is very dynamic. 04/15/2020-blood cultures growing MSSA. ID consult was requested. Chest x-ray indicated of bilateral pulmonary abscesses most likely septic emboli. CT chest without contrast was requested. Consultation with cardiology is requested for IESHA. Patient is presently on IV Rocephin as per ID recommendations. Vancomycin is discontinued. Patient is tachycardic tachypneic on BiPAP 60%. Overall prognosis poor. If the condition continue to deteriorate plan may be to transfer her to tertiary care facility. Patient is presently getting dialysis plan is to remove 2 L of fluid. Transthoracic echocardiogram indicates tricuspid valve vegetation. 04/16/20-transthoracic echo is unable to rule out a vegetation on the tricuspid valve. Case was discussed with the cardiology team plan is to do IESHA on Saturday if the patient respiratory status is stable. Blood cultures growing MSSA. On ceftriaxone 2 g daily. She is allergic to penicillins. ID is on board. Yoshi platt has a dialysis in yesterday. Overall prognosis poor condition is critical. Chest x-ray suggestive of progression of the cavitation. Pulmonary consult will be requested on Saturday. 04/17/2020-blood cultures are positive for MSSA bacteremia. Most likely she has endocarditis. Patient is still on BiPAP to do the IESHA. Presently on IV Rocephin 2 g daily as per ID recommendations. Patient received dialysis last week most likely she will go for dialysis tomorrow. Presently on BiPAP. 04/18/20-latest blood culture is positive for MRSA. Started on vancomycin. To continue IV ceftriaxone at this time. To keep the patient n.p.o. from midnight for possible IESHA tomorrow. Pulmonary consult will be requested. Follow-up chest x-ray was requested." 04/19/2020 Continued on ceftriaxone, there is no indication for vancomycin and this is been stopped Discussed finalized blood culture results with microbiology lab, contaminant of staph hominis with methicillin resistance in 1/4 bottles noted Antibiotics continue IESHA 04/[address] Worrell; may need to transfer patient to tertiary facility for CT surgery evaluation if IESHA results are significantly worse than TTE results MRI brain to take place after IESHA while patient is still calm from procedure (2) Acute respiratory failure with hypoxia Is this a current diagnosis for this admission?: Yes Plan: Per Previous Physician: "multifactorial 2/2 pulmonary edema+pulmonary abscess/septic emboli+pneumonia + ARDS COVID-19 screen is negative spo2 notably 99% on 50% fio2 on cpap 8 --transitioned to HFNC 60% 40L to allow patient eat with spo2 at 99% Had dialysis today to help with pulmonary edema. Rest of treatment as above. Still tachypneic but awake and protecting airway. Monitor closely at risk of decompensation. If patient does not turn the corner soon or worsens, may need upgrade to ICU and possible intubation. monitor blood gas 04/15/2020-patient admitted with acute respiratory failure with hypoxia multifactorial. Most likely infective endocarditis in association with septic emboli plus pulmonary abscess. COVID-19 is negative. Present on BiPAP 60% oxygen. CT chest without contrast is pending. Patient is receiving dialysis plan is to remove 2 L of fluid. If the condition deteriorates plan is to transfer to tertiary care facility. ABGs requested. 04/16/2020-patient admitted with acute respiratory failure requiring BiPAP. It is a IV drug abuser most likely has infective endocarditis. Chest x-ray suggestive of progression of the cavitary lesions. Patient might have septic emboli. Presently on 2 g of IV Rocephin. ID is on board. To consult pulmonary on Saturday. Overall prognosis poor. Condition is critical. I called [facility] for possible transfer and I discussed the case with the ICU attending,patient is not accepted at this time. 04/17/2020-patient admitted with acute respiratory failure with hypoxia chest x-ray suggestive of progression of the cavitations, most likely she has infective endocarditis. Blood cultures are positive for MSSA bacteremia. On IV Rocephin 2 g daily as per ID recommendations. Temp this morning is 99.1. On BiPAP at 40% ABG with pH of 7.3/PCO2 46/PO2 109/oxygen saturation is 97%. Plan is to decrease the oxygen to supplementation to 35%. Repeat the chest x-ray today. 04/18[birth year]2006-75-navj-old female IV drug abuser admitted with acute respiratory failure with hypoxia. At the time of my examination patient is receiving dialysis and on BiPAP with 35% oxygen. Oxygen saturation is around 98%. Chest x-ray suggestive of progressive cavitation and septic emboli. Receiving IV va ncomycin and IV ceftriaxone. ID is on board. To request for pulmonary consult today." 04/19/2020 -Slow to improve, still requiring supplemental oxygen Pulmonology has not seen the patient yet Wean supplemental oxygen Pulmonology consulted: Discussed the case with Dr. Rizo in detail (3) Acute renal failure (ARF) Qualifiers: Acute renal failure type: with acute tubular necrosis Qualified Code(s): N17.0 - Acute kidney failure with tubular necrosis Is this a current diagnosis for this admission?: Yes Plan: Per Previous Physician: "Oliguric still but mild improvement in urine output Renal ultrasound with duplex shows echogenic kidneys, mild hydronephrosis but without any renal arterial occlusion Still quite uremic Noted to have hyperphosphatemia - sevelamer Nephrology is following - 2nd dialysis session today via [facility] Monitor labs and urine output closely. 04/15/2020 urinary output is improving. Receiving dialysis plan is to remove 2 L of fluid today. Nephrology on board. 04/16/2020-patient received full session of dialysis yesterday. Latest creatinine is 4.95. Urinary output is minimal. Nephrology on board. Patient may need another session of dialysis on Saturday. 04/17/20-patient received dialysis on Saturday. Today's labs are pending. Depending on the labs she may need another dialysis session tomorrow. 04/18/2020-patient is receiving hemodialysis today. Latest serum creatinine is 4.9. To check the labs on daily basis. Urine output is gradually is improving." 04/19/2020 Dialysis ongoing per nephrology who is following Trend BMP, creatinine not improving Nephrology following (4) Anemia Qualifiers: Anemia type: due to chronic kidney disease Is this a current diagnosis for this admission?: Yes (5) Hypercalcemia Is this a current diagnosis for this admission?: No (6) Hyperphosphatemia Is this a current diagnosis for this admission?: Yes (7) Liver disease Is this a current diagnosis for this admission?: No (8) Nephrotic range proteinuria Is this a current diagnosis for this admission?: Yes (9) Sepsis Qualifiers: Sepsis type: sepsis due to unspecified organism Sepsis acute organ dysfunction status: with acute organ dysfunction Severe sepsis acute organ dysfunction type: acute respiratory failure Acute respiratory failure type: with hypoxia Severe sepsis shock status: without septic shock Qualified Cod e(s): A41.9 - Sepsis, unspecified organism; R65.20 - Severe sepsis without septic shock; J96.01 - Acute respiratory failure with hypoxia Is this a current diagnosis for this admission?: Yes Plan: Per Previous Physician: "04/15/2020-patient admitted with shortness of breath transthoracic echo indicated vegetation on the mitral valve, blood cultures are consistently positive for MSSA, elevated WBC count patient is in acute on chronic respiratory failure, elevated WBC count with acute renal failure meeting the criteria for sepsis. 04/16/2020-patient is septic. Patient is IV drug abuser most likely has infective endocarditis and septic emboli with cavitary lesions in both lungs. Blood cultures are positive for MSSA bacteremia. On IV ceftriaxone. Has acute respiratory failure on BiPAP. 04/17/2020-patient is receiving IV Rocephin 2 g daily for MSSA bacteremia. Repeat blood cultures from yesterday pending. repeat blood culture that is listed blood culture indicated for MRSA in 1 bottle. 04/18/2020-initial blood cultures were positive for MSSA bacteremia. Latest blood cultures indicate of MRSA in 1 bottle. Vancomycin is restarted. Patient is already on ceftriaxone. ID is on board." 04/19/2020 There is no MRSA in cultures, this was staph hominis with methicillin resistance in 1/4 bottles Continue ceftriaxone, vancomycin stopped Antibiotics continue May need to consider lumbar puncture if mentation does not improve (10) Mild protein-calorie malnutrition Is this a current diagnosis for this admission?: Yes Plan: NG tube and tube feeding patient is unable to eat adequately and take oral hydration - Plan Summary Summary: 04/15/2020 Critical care visit Called to see the patient for tachycardia and tachypnea. Patient was agitated. She was maintaining good saturation on BiPAP. Reviewed today's chest x-ray. She has worsening cavitary lesions from septic emboli. I did review the transthoracic echocardiogram and they could not rule out vegetation. She has not had a IESHA as of yet. All of her blood cultures reveal a very sensitive staph aureus and she is currently on ceftriaxone. At this point I am going to give her a dose of lorazepam and a small dose of morphine. She did just get her methadone orally but this will take a little while to kick in. We will monitor her closely and the nurses will give me an update shortly. - Time Time Spent with patient: 35 or more minutes Medications reviewed and adjusted accordingly: Yes Anticipated Discharge Disposition: Halfway Facility Anticipated Discharge Timeframe: within 72 hours - Inpatient Certification Based on my medical assessment, after consideration of the patient's comorbidities, presenting symptoms, or acuity I expect that the services needed warrant INPATIENT care.: Yes I certify that my determination is in accordance with my understanding of Medicare's requirements for reasonable and necessary INPATIENT services [42 CFR 412.3e].: Yes Medical Necessity: Significant Comorbidiites Make Outpatient Treatment Too Risky, Need Close Monitoring Due to Risk of Patient Decompensation, Need for IV Antibiotics, Risk of Complication if Not Cared For in Hospital, Risk of Diagnosis Which Will Require Inpatient Eval/Care/Monitoring
[2020-04-21] MEDS ORDERED: PROPOFOL INJ 200 MG/20 ML VIAL IV ONE (14:21)
[2020-04-21] MEDS ORDERED: LORAZEPAM INJ 2 MG/1 ML VIAL ONE (15:33)
--- NOTE | 2020-04-21 17:21 | RADIOLOGY REPORT (SQ) ---
EXAM DESCRIPTION: CT HEAD WITHOUT IMAGES COMPLETED DATE/TIME: 04/21/2020 5:09 pm REASON FOR STUDY: Possible CVA, INFECTION COMPARISON: 06/12/2010 TECHNIQUE: Axial images acquired through the brain without intravenous contrast. Images reviewed wit h bone, brain and subdural windows. Images stored on PACS. All CT scanners at this facility use dose modulation, iterative reconstruction, and/or weight based d osing when appropriate to reduce radiation dose to as low as reasonably achievable (ALARA). [facility]: Dose Right [facility]: CareDose [facility]: Dose Right [facility]: Teradose 4D [facility]: SpectraFluidics RADIATION DOSE: CT Rad equipment meets quality standard of care and radiation dose reduction techniq ues were employed. CTDIvol: 53.2 mGy. DLP: 1017 mGy-cm.. LIMITATIONS: None. FINDINGS: VENTRICLES: Normal size and contour. CEREBRUM: No masses. No hemorrhage. No midline shift. Age appropriate white matter. No evidence for a cute infarction. CEREBELLUM: No masses. No hemorrhage. No alteration of density. No evidence for acute infarction. EXTRA-AXIAL SPACES: No fluid collections. ORBITS AND GLOBE: No intra- or extraconal masses. Normal contour of globe without masses. CALVARIUM: No fracture. PARANASAL SINUSES: No fluid or mucosal thickening. SOFT TISSUES: No mass or hematoma. OTHER: No other significant finding. IMPRESSION: NO ACUTE INTRACRANIAL FINDINGS. EVIDENCE OF ACUTE STROKE: NO. TECHNICAL DOCUMENTATION: JOB ID: [id number] [id number] Quality ID # [id number]: Final reports with documentation of one or more dose reduction techniques (e.g., Au tomated exposure control, adjustment of the mA and/or kV according to patient size, use of iterative reconstruction technique) 2010 [employer]- All Rights Reserved Reading location - IP/workstation name: [email or web address]
--- NOTE | 2020-04-21 18:46 | XCELERA REPORT ---
Study ID: [id number] [id number] Transesophageal Echocardiogram Report Name: HANNY MADISON Age: 34 yrs Gender: Female : 1985 Patient Status: Inpatient Patient Location: [address] [place], [place] [address] Study Date: 04/21/2020 01:48 PM History: Bacteremia Height: 66 in Weight: 209 lb BSA: 2.0 m2 Reason For Study: ENDOCARDITIS Ordering Physician: SILVINO SILVERMAN Performed By: Lenore Fenton Interpretation Summary Left ventricular systolic function is normal. Ejection Fraction = >55%. The right ventricle is normal in size and function. There is trace mitral regurgitation. Vegetation seen on likely the septal leaflet of the tricuspid valve measuring approximately 0.9 cm X 1.2 cm There is mild tricuspid regurgitation. There is no pericardial effusion. Procedure A complete two-dimensional transesophageal echocardiogram was performed (2D, spectral and color flow Doppler). Informed consent for Transesophageal Echocardiogram, and use of a contrast agent as needed, was obtained prior to the procedure. The patient was brought to the OR in a fasting state. An intravenous line was placed. A topical anesthetic agent was used for oropharangeal anesthesia. A bite block was inserted. IV conscious sedation was administered using per Anesthesia. The patient's vital signs, including blood pressure, heart rate, pulse oximetry and cardiac rhythm were monitored thoughout the procedure. The transesophageal probe was passed without difficulty. The usual views were obtained; basal, mid-esophageal, transgastric and aortic views. The patient tolerated the procedure well without evidence of orophangeal or esophageal trauma. Subsequent to all the images being obtained the probe was removed with out trauma. Left Ventricle The left ventricle is normal in size. There is no thrombus. There is normal left ventricular wall thickness. Left ventricular systolic function is normal. Ejection Fraction = >55%. No regional wall motion abnormalities noted. Right Ventricle The right ventricle is normal in size and function. Atria The interatrial septum is intact with no evidence for an atrial septal defect. The left atrial size is normal. No thrombus is detected in the left atrial appendage. Right atrial size is normal. Mitral Valve The mitral valve is normal in structure and function. There is no vegetation seen on the mitral valve. There is trace mitral regurgitation. Tricuspid Valve Vegetation seen on likely the septal leaflet of the tricuspid valve measuring approximately 0.9 cm X 1.2 cm. There is no tricuspid stenosis. There is mild tricuspid regurgitation. Aortic Valve The aortic valve is trileaflet. The aortic valve is normal in structure and function. No hemodynamically significant valvular aortic stenosis. No aortic regurgitation is present. Pulmonic Valve The pulmonic valve is not well seen, but is grossly normal. There is no vegetation on the pulmonic valve. There is no pulmonic valvular regurgitation. Arteries The aortic root is normal size. Pericardium There is no pericardial effusion. : SILVINO SILVERMAN Anil
[2020-04-21] MEDS ORDERED: HALOPERIDOL LACTATE INJ 5 MG/1 ML VIAL IV ONE (20:00)
[2020-04-21] MEDS ORDERED: DEXTROSE 40% GEL 15 GM TUBE PO PRN ×2 (22:09)
[2020-04-21] MEDS ORDERED: GLUCAGON,HUMAN RECOMB 1 MG INJ SUBCUT PRN (22:09)
[2020-04-21] MEDS ORDERED: DEXTROSE 50%-WATER 25 GM/50 ML DISP.SYRIN IV PRN ×2 (22:09)
[2020-04-22] MEDS: LORAZEPAM INJ 2 MG/1 ML VIAL IV PRN ×3 (01:30→06:21)
--- NOTE | 2020-04-22 03:48 | RADIOLOGY REPORT (SQ) ---
CLINICAL HISTORY: Check Placement of NG Tube COMPARISON: None. TECHNIQUE: XR ABDOMEN 1 VIEW (KUB) 04/21/2020 1:33 PM CDT FINDINGS: Bowel gas pattern is nonspecific. There are no abnormal radiopaque foreign bodies or abnormal calcifications. Osseous structures are grossly unremarkable. NG tube tip is coiled in distal stomach. There is curvilinear airspace disease throughout both lungs. IMPRESSION: NG tube tip in the distal stomach.
[2020-04-22] MEDS ORDERED: HEPARIN SOD (PORCINE) 1,000 UNIT/ML 10 ML VIAL IV PRN (05:00)
[2020-04-22] MEDS ORDERED: NORMAL SALINE 1000 ML 1,000 ML IV PRN (05:00)
[2020-04-22] MEDS ORDERED: EPOETIN ALFA-EPBX 20,000 UNIT in SYRINGE, DISPOSABLE, 1 EACH IV PRN (05:00)
[2020-04-22 05:06] LABS: ABSOLUTE BASOPHILS # (AUTO) 0.1 10^3/uL (0.0-0.2); ABSOLUTE EOSINOPHILS # (AUTO) 0.2 10^3/uL (0.0-0.6); ABSOLUTE LYMPHOCYTES (AUTO) 0.7 10^3/uL (0.5-4.7); ABSOLUTE MONOCYTES (AUTO) 0.9 10^3/uL (0.1-1.4); ABSOLUTE NEUT (AUTO) 8.6 10^3/uL (1.7-8.2); BASOPHILS % (AUTO) 1.1 % (0-2); EOSINOPHILS % (AUTO) 1.8 % (0-6); HEMATOCRIT 21.4 % (36.0-47.0); LYMPHOCYTES % (AUTO) 6.4 % (13-45); MEAN CORPUSCULAR HEMOGLOBIN 30.1 pg (27.0-33.4); MEAN CORPUSCULAR HGB CONC 34.3 g/dL (32.0-36.0); MEAN CORPUSCULAR VOLUME 88 fl (80-97); MONOCYTES % (AUTO) 8.7 % (3-13); PLATELET COUNT 138 10^3/uL (150-450); RED BLOOD COUNT 2.44 10^6/uL (3.72-5.28); RED CELL DISTRIBUTION WIDTH 15.4 % (11.5-14.0); TOTAL CELLS COUNTED % (AUTO) 100 %; WHITE BLOOD COUNT 10.5 10^3/uL (4.0-10.5)
[2020-04-22 05:21] LABS: HEMOGLOBIN 7.3 g/dL (12.0-15.5)
[2020-04-22 05:22] LABS: PHOSPHORUS 10.5 mg/dL (2.5-4.5)
[2020-04-22] MEDS: HEPARIN SOD (PORCINE) 5,000 UNIT/ML 1 ML VIAL SUBCUT SCH ×3 (06:07→21:19)
[2020-04-22] MEDS: SEVELAMER HCL 800 MG TABLET PO SCH ×3 (08:18→17:48)
[2020-04-22] MEDS ORDERED: OLANZAPINE 5 MG TABLET NG SCH (10:00)
[2020-04-22] MEDS: FAMOTIDINE 20 MG TABLET NG SCH (10:08)
[2020-04-22] MEDS: HEPARIN SOD (PORCINE) 1,000 UNIT/ML 10 ML VIAL IV PRN (15:04)
--- NOTE | 2020-04-22 17:05 | PDOC PROGRESS REPORT ---
Subjective Progress Note for:: 04/22/20 Subjective:: I am seeing the patient during dialysis this afternoon. Patient is now currently off the BiPAP and now on nasal cannula. She is still confused and just moans and groans without any meaningful conversations. She gets agitated at times. Her blood pressure goes up especially when she is agitated. Reason For Visit: ACUTE RENAL FAILURE Physical Exam Vital Signs: Temp Pulse Resp BP Pulse Ox 99.3 F 123 H 21 H 151/94 H 97 04/22/20 10:00 04/22/20 07:25 04/22/20 07:25 04/22/20 07:25 04/22/20 08:00 Intake & Output 04/21/20 04/22/20 04/23/20 06:59 06:59 06:59 Intake Total 50 525 Output Total 1300 360 Balance -1250 165 Weight 92.8 kg 91.1 kg Blood pressure during dialysis: Initially 202/106 which came down to 167/90 when she rested. Heart rate is 129 going down to 108. Her blood flow rate is 300 mL/min and dialysate flow rate of 600 mL/min. Exam: General appearance: PRESENT: no acute distress, cooperative, well-developed, well-nourished, moans and groans and mildly agitated Head exam: PRESENT: atraumatic, normocephalic Eye exam: PRESENT: conjunctiva pale, PERRLA. ABSENT: scleral icterus Neck exam: ABSENT: JVD Respiratory exam: PRESENT: Normal breath sounds. ABSENT: crackles, rales, rhonchi, unlabored, wheezes Cardiovascular exam: PRESENT: Regular rate rhythm -+S1, +S2. ABSENT: diastolic murmur, systolic murmur GI/Abdominal exam: PRESENT: normal bowel sounds, soft. ABSENT: guarding, mass, tenderness Extremities exam: ABSENT: No edema Neurological exam: PRESENT: alert, awake, altered mental state Skin exam: PRESENT: dry, warm, Cardiovascular exam: PRESENT: +S1, +S2, tachycardia. ABSENT: systolic murmur GI/Abdominal exam: PRESENT: normal bowel sounds, soft. ABSENT: ascites, distended, firm, organomegaly, tenderness Results Laboratory Results: 04/22/20 04:40 04/20/20 05:08 04/22/20 04/22/20 04:00 04:40 WBC 10.5 RBC 2.44 L Hgb 7.3 L Hct 21.4 L MCV 88 MCH 30.1 MCHC 34.3 RDW 15.4 H Plt Count 138 L Seg Neutrophils % 82.0 H Phosphorus 10.5 H Magnesium 2.5 H 04/16/20 10:15 Blood Blood Culture - Final NO GROWTH IN 5 DAYS 04/12/20 04:15 NT-Pro-B Natriuret Pep 8880 H Impressions: Renal Artery Duplex 04/12/20 00:00 IMPRESSION: No definitive evidence of renal artery stenosis. Echogenic kidneys, suggestive of medical renal disease. Additionally, the elevated resistive indices can also be seen in association with medical renal disease. Mild right hydronephrosis. copyright 2010 [employer]- All Rights Reserved Venous Doppler Study 04/12/20 00:00 IMPRESSION: NO EVIDENCE DVT OR SVT IN EITHER LEG. Chest CT 04/16/20 00:00 IMPRESSION: Bilateral cavitary pneumonia. Chest X-Ray 04/19/20 00:00 IMPRESSION: Cavitary pneumonia. No significant change. Head CT 04/21/20 00:00 IMPRESSION: NO ACUTE INTRACRANIAL FINDINGS. EVIDENCE OF ACUTE STROKE: NO. KUB X-Ray 04/21/20 13:33 IMPRESSION: NG tube tip in the distal stomach. Assessment & Plan - Diagnosis (1) Acute kidney injury Is this a current diagnosis for this admission?: Yes Plan: Initially presented with uremia and anuria requiring initiation of renal replacement therapy. Patient has associated nonnephrotic range proteinuria with urine protein to creatinine ratio of about 1.89 and significant microhematuria. Serologies showed negative MANUEL, negative ANCA, negative anti-GBM. She has however significantly low C3/C4 and CH 50. Hepatitis C quantification is severely elevated. Differential diagnosis include postinfectious GN versus MPGN secondary to hepatitis C. The superimposed ATN is very much a possibility. With this possibilities treatment would be to continue antibiotics. Kidney biopsy deemed to be necessary as it will not change the management. Currently she is nonoliguric and is passing a decent amount of urine output, however she continues to have elevated BUN and creatinine requiring renal replacement therapy. We will do dialysis today for 3 hours, using the patient's trialysis catheter, with 3 potassium bath, blood flow rate of 300 mL per minute, dialysate flow rate of 600 mL per minute, ultrafiltration 0.5 L as tolerated, no heparin and Retacrit of 20,000 units during dialysis intravenously. Patient being monitored very closely during dialysis treatment. (2) Acute respiratory failure with hypoxia Is this a current diagnosis for this admission?: Yes Plan: Positive bilateral cavitary lesion suggestive of septic emboli. Has been off the BiPAP since yesterday and tolerating nasal cannula. (3) Infective endocarditis Qualifiers: Infective endocarditis organism: bacterial Chronicity: acute Qualified Code(s): I33.0 - Acute and subacute infective endocarditis Is this a current diagnosis for this admission?: Yes Plan: TTE on April 14 showed findings suggestive of tricuspid valve endocarditis. 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 On IV antibiotics which would require at least 6 weeks intravenously. (4) Staphylococcus aureus bacteremia Is this a current diagnosis for this admission?: Yes Plan: Patient being maintained on IV ceftriaxone per infectious disease. (5) Hepatitis C Is this a current diagnosis for this admission?: Yes Plan: Hepatitis C virus quantity 863,000 IU/mL. PCR still pending. Patient is to be followed by liver specialist. (6) Anemia Qualifiers: Anemia type: due to chronic kidney disease Is this a current diagnosis for this admission?: Yes Plan: Multifactorial causes due to acute illness. Patient had blood transfusions. I will give the patient Retacrit on dialysis. (7) Hyperphosphatemia Is this a current diagnosis for this admission?: Yes Plan: Due to ALISA. Since patient does not have much food intake phosphorus binder is going to be held for now. (8) IV drug abuse Is this a current diagnosis for this admission?: Yes Plan: History of IV heroin/methamphetamine use. (9) Opiate withdrawal Is this a current diagnosis for this admission?: Yes Plan: On lorazepam. (10) Thrombocytopenia Is this a current diagnosis for this admission?: Yes - Time Time with patient: 15-25 minutes
--- NOTE | 2020-04-22 18:21 | PDOC PROGRESS REPORT ---
Subjective Subjective:: Per Previous Physician: "34 year old female with history of IV heroin/methamphetamine use, hepatitis C, who presents to the hospital with complaints of shortness of breath and increased work of breathing over the past 5 days. Patient has also noted increased swelling in both lower extremities since that time. She denies fever or chills. She does have occasional cough nonproductive of more sputum. Also experiencing aches and pains in her lower extremities. She denies any diarrhea. She denies any history of kidney disease or heart failure. She also admits to very diminished water intake over the last few days. She has been using heroin very frequently over the past 2 to 3 days as well. On arrival of EMS, patient was noted to be significantly hypoxic with SPO2 69% and subsequently placed on a CPAP. She was switched to a BiPAP machine in the ER due to work of breathing. 04/13-Last night, despite receiving over 2.5 L of fluid, patient put out only about 100 cc of urine. I rechallenged her with 80 mg of IV Lasix but she put out only about 40 cc following that. She continues to remain anuric and sign ificantly encephalopathic. 04/14-Patient had about this morning when she became tachypneic and short of breath. She also felt very anxious and stated that she felt like she was withdrawing. She did receive some Ativan. Patient will plan for dialysis today. 04/15/[id number]-wssg-old female with history of IV heroin, methamphetamine use, history of hep C admitted with increasing shortness of breath of 5 days duration. Patient has a dialysis access placed yesterday she is in the ICU for dialysis today. Essentially she is on BiPAP with 60% oxygen. Repeated blood cultures coming back positive for staph aureus. ID consult was done. Per ID recommendations to continue IV ceftriaxone 2 g daily and discontinue IV vancomycin. Consultation with Dr. Gm ibarra is requested for IESHA on Saturday. On examination patient is tachycardic and tachypneic. CT chest without contrast was requested. Patient may be withdrawing. Patient is on methadone and to add IV Ativan 1 mg every 2 hours as needed for withdrawal symptoms. Overall prognosis poor. 04/16/20-rapid response was called this night because patient became tachycardic tachypneic agitated most likely secondary to withdrawal symptoms. Patient was started on morphine 2 mg IV every 4 hours, lorazepam 1 mg every 4 hours. Patient is comfortably sleeping in the bed at this time. On BiPAP. ABG this morning on 60% oxygen shows pH of 7.37/PO2 of 182. Plan is to decrease the oxygen requirements to 40%. To continue IV ceftriaxone. Blood cultures are repeated. Discussed the case with Dr. Gm ibarra he is planning to do IESHA if possible on Saturday.. 04/17/20-no acute events in the last 24 hours. Patient is afebrile. Receiving IV Rocephin for MSSA bacteremia. ABG on 40% oxygen on BiPAP indicates pH of 7.34/PCO2 46/PO2 109/oxygen saturation is 97%. Plan is to decrease the oxygen supplementation to 35%. pt Received 2 units of PRBC yesterday today's labs are pending. 04/18/2020-patient is in the ICU receiving dialysis. Presently on BiPAP with 35% oxygen. WBC is improving. Blood pressure stable. No acute events in the last 24 hours. Plan is to consult pulmonology today." 04/19/2020 Patient very agitated today, combative, fighting with nursing staff to keep her oxygen in place, occasionally pulling at her Gomez. Ativan ineffective. Possible patient has anoxic brain injury from drug overdose. We will need to get a brain MRI when she is more stable and calm. Start scheduled Zyprexa. Start as needed Haldol. Switch clonidine to patch as she is not taking oral meds currently. Chest x-ray reviewed which showed the cavitary pneumonia previously seen. Speech therapy eval. 04/20/2020 Patient much more calm today after taking Zyprexa yesterday. She was given Haldol overnight which also had a calming effect. Discussed the case with Dr. Worrell who will schedule the patient for IESHA tomorrow, n.p.o. at midnight tonight. Ordered MRI brain to look for signs of anoxic brain injury or septic embolic strokes given she has severely altered mentation which is not resolving despite no longer being in opiate withdrawal. Stopped methadone as she has not had this in the past few days and it will only serve to muddy the picture going forward with regards to her mentation. Creatinine higher again, will likely need dialysis long-term. Discussed the case with the patient's father in great detail and gave him a full update and answered all his questions. 04/21/2020 Patient seems to be doing better today from a respiratory standpoint and is more alert. Per nursing, when her mother came to see her patient recognized her and had a partial conversation with her. Patient is scheduled for IESHA today and she is n.p.o. She is making a scant amount of brownish tinged urine. Holding off on IV fluids as she is currently dialysis dependent and at risk for volume overload. Discussed with nursing to place an NG tube and get a nutrition consult to get for tube feeds until we can clear her to eat with speech therapy. She has not had adequate nutrition in several days due to procedures and being intermittently combative and somnolent. 04/22/2020 Patient was rather somnolent throughout the day. I have held her Zyprexa and we will avoid giving her any more sedation for now if possible. I spoke with sp eech therapy and they were not able to evaluate the patient today due to somnolence. They stated that they would be available to come see her this weekend if she wakes up. Incidentally, nursing informed me that the patient became much more alert this afternoon and was able to pass a bedside swallow exam from them, asking for a liquid diet. We can try this for now but we still need a speech therapist to evaluate the patient in the near future. I spoke with Dr. Worrell who is discussing the case with CT surgery as the patient may be appropriate for transfer to [facility] for heart valve repair/replacement. He will let us know what he finds out. Hemoglobin is lower but there are no signs of bl eeding. Reason For Visit: ACUTE RENAL FAILURE Physical Exam Vital Signs: Temp Pulse Resp BP Pulse Ox 99.2 F 128 H 21 H 155/98 H 95 04/22/20 11:12 04/22/20 11:12 04/22/20 07:25 04/22/20 11:12 04/22/20 11:12 Intake & Output 04/21/20 04/22/20 04/23/20 06:59 06:59 06:59 Intake Total 50 525 Output Total 1300 360 800 Balance -1250 165 -800 Weight 92.8 kg 91.1 kg 91.1 kg Exam: General appearance: PRESENT: disheveled, calm, obese, more alert today but not speaking to me when I asked her questions Head exam: PRESENT: atraumatic, normocephalic Eye exam: PRESENT: conjunctiva pink. ABSENT: scleral icterus Mouth exam: PRESENT: moist Respiratory exam: PRESENT: Mild rhonchi - Bilateral improved notably. ABSENT: rales, wheezes Cardiovascular exam: PRESENT: RRR. ABSENT: diastolic murmur, rubs, systolic murmur GI/Abdominal exam: PRESENT: normal bowel sounds, soft. ABSENT: distended, guarding, mass, organolmegaly, rebound, tenderness Extremities exam: ABSENT: pedal edema Neurological exam: PRESENT: altered, awake. ABSENT: alert, oriented to person, oriented to place, oriented to time, oriented to situation Psychiatric exam: PRESENT: appropriate affect, normal mood Skin exam: PRESENT: dry, intact, warm Results Laboratory Results: 04/22/20 04:40 04/20/20 05:08 04/22/20 04/22/20 04:00 04:40 WBC 10.5 RBC 2.44 L Hgb 7.3 L Hct 21.4 L MCV 88 MCH 30.1 MCHC 34.3 RDW 15.4 H Plt Count 138 L Seg Neutrophils % 82.0 H Phosphorus 10.5 H Magnesium 2.5 H 04/12/20 04:15 NT-Pro-B Natriuret Pep 8880 H Impressions: Renal Artery Duplex 04/12/20 00:00 IMPRESSION: No definitive evidence of renal artery stenosis. Echogenic kidneys, suggestive of medical renal disease. Additionally, the elevated resistive indices can also be seen in association with medical renal disease. Mild right hydronephrosis. copyright 2010 [employer]- All Rights Reserved Venous Doppler Study 04/12/20 00:00 IMPRESSION: NO EVIDENCE DVT OR SVT IN EITHER LEG. Chest CT 04/16/20 00:00 IMPRESSION: Bilateral cavitary pneumonia. Chest X-Ray 04/19/20 00:00 IMPRESSION: Cavitary pneumonia. No significant change. Head CT 04/21/20 00:00 IMPRESSION: NO ACUTE INTRACRANIAL FINDINGS. EVIDENCE OF ACUTE STROKE: NO. KUB X-Ray 04/21/20 13:33 IMPRESSION: NG tube tip in the distal stomach. Assessment and Plan - Diagnosis (1) Infective endocarditis Qualifiers: Infective endocarditis organism: bacterial Chronicity: acute Qualified Code(s): I33.0 - Acute and subacute infective endocarditis Is this a current diagnosis for this admission?: Yes Plan: Per Previous Physician: "MSSA Bacteremia + multiple bilateral Pulmonary abscesses on chest xray indicative of septic emboli TTE had technical difficulties but does show something that seems to be a vegetation on her tricuspid with moderate tricuspid regurgitation and moderate pulmonary hypertension noted with a RVSP 50 to 60 mmHg and hyperdynamic LV. 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 will obtain dry chest CT when more stable Currently patient is very sick and her situation is very dynamic. 04/15/2020-blood cultures growing MSSA. ID consult was requested. Chest x-ray indicated of bilateral pulmonary abscesses most likely septic emboli. CT chest without contrast was requested. Consultation with cardiology is requested for IESHA. Patient is presently on IV Rocephin as per ID recommendations. Vancomycin is discontinued. Patient is tachycardic tachypneic on BiPAP 60%. Overall prognosis poor. If the condition continue to deteriorate plan may be to bautista sfer her to tertiary care facility. Patient is presently getting dialysis plan is to remove 2 L of fluid. Transthoracic echocardiogram indicates tricuspid valve vegetation. 04/16/20-transthoracic echo is unable to rule out a vegetation on the tricuspid valve. Case was discussed with the cardiology team plan is to do IESHA on Saturday if the patient respiratory status is stable. Blood cultures growing MSSA. On ceftriaxone 2 g daily. She is allergic to penicillins. ID is on board. Patient has a dialysis in yesterday. Overall prognosis poor condition is critical. Chest x-ray suggestive of progression of the cavitation. Pulmonary consult will be requested on Saturday. 04/17/2020-blood cultures are positive for MSSA bacteremia. Most likely she has endocarditis. Patient is still on BiPAP to do the IESHA. Presently on IV Rocephin 2 g daily as per ID recommendations. Patient received dialysis last week most likely she will go for dialysis tomorrow. Presently on BiPAP. 04/18/20-latest blood culture is positive for MRSA. Started on vancomycin. To continue IV ceftriaxone at this time. To keep the patient n.p.o. from midnight for possible IESHA tomorrow. Pulmonary consult will be requested. Follow-up chest x-ray was requested." 04/19/2020 Continued on ceftriaxone, there is no indication for vancomycin and this is been stopped Discussed finalized blood culture results with microbiology lab, contaminant of staph hominis with methicillin resistance in 1/4 bottles noted Antibiotics continue IESHA 04/[address] Worrell showed moderate sized vegetation on tricuspid valve MRI brain to take place after IESHA while patient is still calm from procedure Dr. Worrell discussing the case with CT surgery of [facility] to see if she is appropriate for transfer (2) Acute respiratory failure with hypoxia Is this a current diagnosis for this admission?: Yes Plan: Per Previous Physician: "multifactorial 2/2 pulmonary edema+pulmonary abscess/septic emboli+pneumonia + ARDS COVID-19 screen is negative spo2 notably 99% on 50% fio2 on cpap 8 --transitioned to HFNC 60% 40L to allow patient eat with spo2 at 99% Had dialysis today to help with pulmonary edema. Rest of treatment as above. Still tachypneic but awake and protecting airway. Monitor closely at risk of decompensation. If patient does not turn the corner soon or worsens, may need upgrade to ICU and possible intubation. monitor blood gas 04/15/2020-patient admitted with acute respiratory failure with hypoxia multifactorial. Most likely infective endocarditis in association with septic emboli plus pulmonary abscess. COVID-19 is negative. Present on BiPAP 60% oxygen. CT chest without contrast is pending. Patient is receiving dialysis plan is to remove 2 L of fluid. If the condition deteriorates plan is to transfer to tertiary care facility. ABGs requested. 04/16/2020-patient admitted with acute respiratory failure requiring BiPAP. It is a IV drug abuser most likely has infective endocarditis. Chest x-ray suggestive of progression of the cavitary lesions. Patient might have septic emboli. Presently on 2 g of IV Rocephin. ID is on board. To consult pulmonary on Saturday. Overall prognosis poor. Condition is critical. I called [facility] for possible transfer and I discussed the case with the ICU attending,patient is not accepted at this time. 04/17/2020-patient admitted with acute respiratory failure with hypoxia chest x- ray suggestive of progression of the cavitations, most likely she has infective endocarditis. Blood cultures are positive for MSSA bacteremia. On IV Rocephin 2 g daily as per ID recommendations. Temp this morning is 99.1. On BiPAP at 40% ABG with pH of 7.3/PCO2 46/PO2 109/oxygen saturation is 97%. Plan is to decrease the oxygen to supplementation to 35%. Repeat the chest x-ray today. 04/18/[id number]-ydjx-old female IV drug abuser admitted with acute respiratory failure with hypoxia. At the time of my examination patient is receiving dialysis and on BiPAP with 35% oxygen. Oxygen saturation is around 98%. Chest x-ray suggestive of progressive cavitation and septic emboli. Receiving IV vancomycin and IV ceftriaxone. ID is on board. To request for pulmonary consult today." 04/19/2020 -Slow to improve, still requiring supplemental oxygen Pulmonology has not seen the patient yet Wean supplemental oxygen Pulmonology consulted: Discussed the case with Dr. Rizo in detail Gradual improvement (3) Acute renal failure (ARF) Qualifiers: Acute renal failure type: with acute tubular necrosis Qualified Code(s): N17.0 - Acute kidney failure with tubular necrosis Is this a current diagnosis for this admission?: Yes Plan: Per Previous Physician: "Oliguric still but mild improvement in urine output Renal ultrasound with duplex shows echogenic kidneys, mild hydronephrosis but without any renal arterial occlusion Still quite uremic Noted to have hyperphosphatemia - sevelamer Nephrology is following - 2nd dialysis session today via [facility] Monitor labs and urine output closely. 04/15/2020 urinary output is improving. Receiving dialysis plan is to remove 2 L of fluid today. Nephrology on board. 04/16/2020-patient received full session of dialysis yesterday. Latest creatinine is 4.95. Urinary output is minimal. Nephrology on board. Patient may need another session of dialysis on Saturday. 04/17/20-patient received dialysis on Saturday. Today's labs are pending. Depending on the labs she may need another dialysis session tomorrow. 04/18/2020-patient is receiving hemodialysis today. Latest serum creatinine is 4.9. To check the labs on daily basis. Urine output is gradually is improving." 04/19/2020 Dialysis ongoing per nephrology who is following Trend BMP, creatinine not improving Nephrology following Dialysis continues (4) Anemia Qualifiers: Anemia type: due to chronic kidney disease Is this a current diagnosis for this admission?: Yes (5) Hypercalcemia Is this a current diagnosis for this admission?: No (6) Hyperphosphatemia Is this a current diagnosis for this admission?: Yes (7) Liver disease Is this a current diagnosis for this admission?: No (8) Nephrotic range proteinuria Is this a current diagnosis for this admission?: Yes (9) Sepsis Qualifiers: Sepsis type: sepsis due to unspecified organism Sepsis acute organ dysfunction status: with acute organ dysfunction Severe sepsis acute organ dysfunction type: acute respiratory failure Acute respiratory failure type: with hypoxia Severe sepsis shock status: without septic shock Qualified Code(s): A41.9 - Sepsis, unspecified organism; R65.20 - Severe sepsis without septic shock; J96.01 - Acute respiratory failure with hypoxia Is this a current diagnosis for this admission?: Yes (10) Mild protein-calorie malnutrition Is this a current diagnosis for this admission?: Yes Plan: NG tube and tube feeding may be needed if patient is unable to take in adequate calories Start liquid diet as patient passed bedside swallow on 04/22 - Plan Summary Summary: 04/15/2020 Critical care visit Called to see the patient for tachycardia and tachypnea. Patient was agitated. She was maintaining good saturation on BiPAP. Reviewed today's chest x-ray. She has worsening cavitary lesions from septic emboli. I did review the transthoracic echocardiogram and they could not rule out vegetation. She has not had a IESHA as of yet. All of her blood cultures reveal a very sensitive staph aureus and she is currently on ceftriaxone. At this point I am going to give her a dose of lorazepam and a small dose of morphine. She did just get her methadone orally but this will take a little while to kick in. We will monitor her closely and the nurses will give me an update shortly. - Time Time Spent with patient: 25-34 minutes Medications reviewed and adjusted accordingly: Yes Anticipated Discharge Disposition: Half-Way Facility Anticipated Discharge Timeframe: within 72 hours - Inpatient Certification Based on my medical assessment, after consideration of the patient's comorbidities, presenting symptoms, or acuity I expect that the services needed warrant INPATIENT care.: Yes I certify that my determination is in accordance with my understanding of Medicare's requirements for reasonable and necessary INPATIENT services [42 CFR 412.3e].: Yes Medical Necessity: Significant Comorbidiites Make Outpatient Treatment Too Risky, Need Close Monitoring Due to Risk of Patient Decompensation, Need for IV Antibiotics
[2020-04-23] MEDS: LORAZEPAM INJ 2 MG/1 ML VIAL IV PRN ×4 (02:48→21:58)
[2020-04-23] MEDS: HEPARIN SOD (PORCINE) 5,000 UNIT/ML 1 ML VIAL SUBCUT SCH ×3 (05:06→22:17)
[2020-04-23 07:49] LABS: ABSOLUTE BASOPHILS # (AUTO) 0.1 10^3/uL (0.0-0.2); ABSOLUTE EOSINOPHILS # (AUTO) 0.1 10^3/uL (0.0-0.6); ABSOLUTE LYMPHOCYTES (AUTO) 0.8 10^3/uL (0.5-4.7); ABSOLUTE NEUT (AUTO) 7.9 10^3/uL (1.7-8.2); BASOPHILS % (AUTO) 1.5 % (0-2); EOSINOPHILS % (AUTO) 1.1 % (0-6); HEMATOCRIT 21.7 % (36.0-47.0); MEAN CORPUSCULAR HEMOGLOBIN 30.5 pg (27.0-33.4); MEAN CORPUSCULAR HGB CONC 34.8 g/dL (32.0-36.0); MEAN CORPUSCULAR VOLUME 88 fl (80-97); MONOCYTES % (AUTO) 9.7 % (3-13); PLATELET COUNT 149 10^3/uL (150-450); RED BLOOD COUNT 2.48 10^6/uL (3.72-5.28); RED CELL DISTRIBUTION WIDTH 15.3 % (11.5-14.0); SEGMENTED NEUTROPHILS % (AUTO) 79.7 % (42-78); TOTAL CELLS COUNTED % (AUTO) 100 %; WHITE BLOOD COUNT 9.9 10^3/uL (4.0-10.5)
[2020-04-23 07:52] LABS: HEMOGLOBIN 7.6 g/dL (12.0-15.5)
[2020-04-23 07:53] LABS: ANION GAP 11 (5-19); BLOOD UREA NITROGEN 55 mg/dL (7-20); CALCIUM 8.1 mg/dL (8.4-10.2); CARBON DIOXIDE 27 mmol/L (22-30); CHLORIDE 98 mmol/L (98-107); GLUCOSE 88 mg/dL (75-110); POTASSIUM 3.8 mmol/L (3.6-5.0)
[2020-04-23 08:29] LABS: COMPLEMENT C5 13 mg/dL (7-20)
[2020-04-23] MEDS: SEVELAMER HCL 800 MG TABLET PO SCH ×3 (08:32→17:15)
--- NOTE | 2020-04-23 12:28 | Progress Note ---
Provider Note Provider Note: [facility] Telephone Advice Consultation Patient not seen nor examined. Case was previously evaluated by ID on 04/12 for MSSA and Streptococcus pneumoniae bacteremia with suspected TV endocarditis and septic pulmonary emboli and possible pneumonia with pneumococcus. She was admitted due to worsening shortness of breath and fever. She was found bacteremic and with multifocal/cavitary pneumonia. IESHA on 04/21 was also positive for TV vegetation 0.[address] was negative for acute processes. Blood cultures on 04/12 and 04/14 positive for MSSA. Streptococcus pnemoniae was detected by molecular test, no growth. Blood culture on 04/16 grew Staph hominis likely contaminant. Cultures from 04/21 remain negative in [address] scan of the chest on 04/16 positive for bilateral cavitary lesions. 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 currently on HD. Allergies: Penicillins Allergy (Severe, Verified 11/23/13 17:25) tounge swelling Medications: No Home Medications 04/12/20 Vital Signs: Temp Pulse Resp BP Pulse Ox 97.9 F 94 22 H 152/90 H 99 04/23/20 03:17 04/23/20 07:00 04/23/20 03:17 04/23/20 03:17 04/23/20 04:20 Intake & Output 04/22/20 04/23/20 04/24/20 06:59 06:59 06:59 Intake Total 525 380 Output Total 360 1025 Balance 165 -645 Weight 91.1 kg 94.7 kg Weight/Height Weight 94.7 kg Height 5 ft 6 in Laboratories: 04/23/20 07:10 04/23/20 07:10 MCV 88 fl (80-97) 04/23/20 07:10 MCH 30.5 pg (27.0-33.4) 04/23/20 07:10 MCHC 34.8 g/dL (32.0-36.0) 04/23/20 07:10 RDW 15.3 % (11.5-14.0) H 04/23/20 07:10 Seg Neutrophils % 79.7 % (42-78) H 04/23/20 07:10 Retic Count (auto) 0.38 % (0.66-2.85) L 04/13/20 09:49 Carbonic Acid 1.42 mmol/L (1.05-1.35) H 04/21/20 05:12 HCO3/H2CO3 Ratio 18:1 04/21/20 05:12 ABG pH 7.37 (7.35-7.45) 04/21/20 05:12 ABG pCO2 47.2 mmHg (35-45) H 04/21/20 05:12 ABG pO2 106.3 mmHg (80-100) H 04/21/20 05:12 ABG HCO3 26.5 mmol/L (20-24) H 04/21/20 05:12 ABG O2 Saturation 97.7 % (94-98) 04/21/20 05:12 ABG Base Excess 0.9 mmol/L 04/21/20 05:12 VBG pH 7.36 (7.30-7.42) 04/14/20 22:47 VBG pCO2 45.3 mmHg (35-63) 04/14/20 22:47 VBG HCO3 25.2 mmol/L (20-32) 04/14/20 22:47 VBG Base Excess -0.2 mmol/L 04/14/20 22:47 FiO2 35% 04/21/20 05:12 Chloride 98 mmol/L (98-107) 04/23/20 07:10 Carbon Dioxide 27 mmol/L (22-30) 04/23/20 07:10 Anion Gap 11 (5-19) 04/23/20 07:10 Est GFR ( Amer) 14 (>60) L 04/23/20 07:10 Glucose 88 mg/dL (75-110) 04/23/20 07:10 Lactic Acid 1.1 mmol/L (0.7-2.1) 04/15/20 12:32 Calcium 8.1 mg/dL (8.4-10.2) L 04/23/20 07:10 Phosphorus 10.5 mg/dL (2.5-4.5) H 04/22/20 04:00 Magnesium 2.5 mg/dL (1.6-2.3) H 04/22/20 04:00 Iron 87.1 ug/dL (37-170) 04/13/20 09:49 TIBC 189 ug/dL (250-450) L 04/13/20 09:49 % Saturation 46 % 04/13/20 09:49 Ferritin 939.00 ng/mL (6.2-137.0) H 04/13/20 09:49 Total Bilirubin 0.5 mg/dL (0.2-1.3) 04/19/20 06:32 AST 62 U/L (14-36) H 04/19/20 06:32 Alkaline Phosphatase 81 U/L (38-126) 04/19/20 06:32 Ammonia 12.8 umol/L (9-33) 04/19/20 15:32 Total Protein 6.6 g/dL (6.3-8.2) 04/19/20 06:32 Albumin 2.3 g/dL (3.5-5.0) L 04/19/20 06:32 Vitamin B12 > 1000.0 pg/mL (239-931) H 04/13/20 09:49 Folate 11.30 ng/mL (>2.76) 04/13/20 09:49 Serum HCG, Qual NEGATIVE (NEGATIVE) 04/12/20 04:15 Urine Color MARY 04/12/20 07:14 Urine Appearance TURBID 04/12/20 07:14 Urine pH 6.0 (5.0-9.0) 04/12/20 07:14 Ur Specific [place] 1.020 04/12/20 07:14 Urine Protein >=500 mg/dL (NEGATIVE) H 04/12/20 07:14 Urine Glucose (UA) 50 mg/dL (NEGATIVE) H 04/12/20 07:14 Urine Ketones TRACE mg/dL (NEGATIVE) H 04/12/20 07:14 Urine Blood MODERATE (NEGATIVE) H 04/12/20 07:14 Urine RBC (Auto) >182 /HPF 04/12/20 07:14 Blood Type A POSITIVE 04/16/20 10:15 Antibody Screen NEGATIVE 04/16/20 10:15 04/12/20 04:15 NT-Pro-B Natriuret Pep 8880 H Microbiology: Blood cultures: 04/12 MSSA, Streptococcus pneumoniae 04/14 MSSA 04/16 Staph hominis 04/21 NGTD Radiology: Renal Artery Duplex 04/12/20 00:00 IMPRESSION: No definitive evidence of renal artery stenosis. Echogenic kidneys, suggestive of medical renal disease. Additionally, the elevated resistive indices can also be seen in association with medical renal disease. Mild right hydronephrosis. Venous Doppler Study 04/12/20 00:00 IMPRESSION: NO EVIDENCE DVT OR SVT IN EITHER LEG. Chest CT 04/16/20 00:00 IMPRESSION: Bilateral cavitary pneumonia. Chest X-Ray 04/19/20 00:00 IMPRESSION: Cavitary pneumonia. No significant change. Head CT 04/21/20 00:00 IMPRESSION: NO ACUTE INTRACRANIAL FINDINGS. EVIDENCE OF ACUTE STROKE: NO. KUB X-Ray 04/21/20 13:33 IMPRESSION: NG tube tip in the distal stomach. 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 She has cleared the bacteremia, last positive culture for MSSA was 04/14, results from 04/16 represent contamination as it was CoNS. IESHA consistent with moderate/large vegetation in TV, it is reasonable to get CT surgery's opinion regarding valve replacement in the setting of extensive pulmonary emboli also considering her active IVDU. In terms of antibiotic therapy, continue ceftriaxone for 14 days for pneumococcal pneumonia and then transition to cefazolin 2g/2g/3g with HD to complete 6 weeks from negative cultures foe endocarditis (EOT 05/28/2020). PLease call if questions or updates. Lisa Daniel MD [facility] [id number]
[2020-04-23] MEDS: ACETAMINOPHEN 325 MG TABLET NG PRN (14:52)
[2020-04-23] MEDS: FAMOTIDINE 20 MG TABLET NG SCH (14:54)
[2020-04-23] MEDS: CEFTRIAXONE 2 GM/D5W RTU 2 GM/50 ML RTUPB IV SCH (17:07)
--- NOTE | 2020-04-23 17:34 | PDOC PROGRESS REPORT ---
Subjective Subjective:: Per Previous Physician: "34 year old female with history of IV heroin/methamphetamine use, hepatitis C, who presents to the hospital with complaints of shortness of breath and increased work of breathing over the past 5 days. Patient has also noted increased swelling in both lower extremities since that time. She denies fever or chills. She does have occasional cough nonproductive of more sputum. Also experiencing aches and pains in her lower extremities. She denies any diarrhea. She denies any history of kidney disease or heart failure. She also admits to very diminished water intake over the last few days. She has been using heroin very frequently over the past 2 to 3 days as well. On arrival of EMS, patient was noted to be significantly hypoxic with SPO2 69% and subsequently placed on a CPAP. She was switched to a BiPAP machine in the ER due to work of breathing. 04/13-Last night, despite receiving over 2.5 L of fluid, patient put out only about 100 cc of urine. I rechallenged her with 80 mg of IV Lasix but she put out only about 40 cc following that. She continues to remain anuric and sign ificantly encephalopathic. 04/14-Patient had about this morning when she became tachypneic and short of breath. She also felt very anxious and stated that she felt like she was withdrawing. She did receive some Ativan. Patient will plan for dialysis today. 04/15/[id number]-zafy-old female with history of IV heroin, methamphetamine use, history of hep C admitted with increasing shortness of breath of 5 days duration. Patient has a dialysis access placed yesterday she is in the ICU for dialysis today. Essentially she is on BiPAP with 60% oxygen. Repeated blood cultures coming back positive for staph aureus. ID consult was done. Per ID recommendations to continue IV ceftriaxone 2 g daily and discontinue IV vancomycin. Consultation with Dr. Gm ibarra is requested for IESHA on Saturday. On examination patient is tachycardic and tachypneic. CT chest without contrast was requested. Patient may be withdrawing. Patient is on methadone and to add IV Ativan 1 mg every 2 hours as needed for withdrawal symptoms. Overall prognosis poor. 04/16/20-rapid response was called this night because patient became tachycardic tachypneic agitated most likely secondary to withdrawal symptoms. Patient was started on morphine 2 mg IV every 4 hours, lorazepam 1 mg every 4 hours. Patient is comfortably sleeping in the bed at this time. On BiPAP. ABG this morning on 60% oxygen shows pH of 7.37/PO2 of 182. Plan is to decrease the oxygen requirements to 40%. To continue IV ceftriaxone. Blood cultures are repeated. Discussed the case with Dr. Gm ibarra he is planning to do IESHA if possible on Saturday.. 04/17/20-no acute events in the last 24 hours. Patient is afebrile. Receiving IV Rocephin for MSSA bacteremia. ABG on 40% oxygen on BiPAP indicates pH of 7.34/PCO2 46/PO2 109/oxygen saturation is 97%. Plan is to decrease the oxygen supplementation to 35%. pt Received 2 units of PRBC yesterday today's labs are pending. 04/18/2020-patient is in the ICU receiving dialysis. Presently on BiPAP with 35% oxygen. WBC is improving. Blood pressure stable. No acute events in the last 24 hours. Plan is to consult pulmonology today." 04/19/2020 Patient very agitated today, combative, fighting with nursing staff to keep her oxygen in place, occasionally pulling at her Gomez. Ativan ineffective. Possible patient has anoxic brain injury from drug overdose. We will need to get a brain MRI when she is more stable and calm. Start scheduled Zyprexa. Start as needed Haldol. Switch clonidine to patch as she is not taking oral meds currently. Chest x-ray reviewed which showed the cavitary pneumonia previously seen. Speech therapy eval. 04/20/2020 Patient much more calm today after taking Zyprexa yesterday. She was given Haldol overnight which also had a calming effect. Discussed the case with Dr. Worrell who will schedule the patient for IESHA tomorrow, n.p.o. at midnight tonight. Ordered MRI brain to look for signs of anoxic brain injury or septic embolic strokes given she has severely altered mentation which is not resolving despite no longer being in opiate withdrawal. Stopped methadone as she has not had this in the past few days and it will only serve to muddy the picture going forward with regards to her mentation. Creatinine higher again, will likely need dialysis long-term. Discussed the case with the patient's father in great detail and gave him a full update and answered all his questions. 04/21/2020 Patient seems to be doing better today from a respiratory standpoint and is more alert. Per nursing, when her mother came to see her patient recognized her and had a partial conversation with her. Patient is scheduled for IESHA today and she is n.p.o. She is making a scant amount of brownish tinged urine. Holding off on IV fluids as she is currently dialysis dependent and at risk for volume overload. Discussed with nursing to place an NG tube and get a nutrition consult to get for tube feeds until we can clear her to eat with speech therapy. She has not had adequate nutrition in several days due to procedures and being intermittently combative and somnolent. 04/22/2020 Patient was rather somnolent throughout the day. I have held her Zyprexa and we will avoid giving her any more sedation for now if possible. I spoke with [facility] and they were not able to evaluate the patient today due to somnolence. They stated that they would be available to come see her this weekend if she wakes up. Incidentally, nursing informed me that the patient became much more alert this afternoon and was able to pass a bedside swallow exam from them, asking for a liquid diet. We can try this for now but we still need a speech therapist to evaluate the patient in the near future. I spoke with Dr. Worrell who is discussing the case with CT surgery as the patient may be appropriate for transfer to [facility] for heart valve repair/replacement. He will let us know what he finds out. Hemoglobin is lower but there are no signs of bl eeding. 04/23/2020 Patient is much improved today and is alert and talking in complete sentences. She is asking for narcotics but we will hold off on these. When asked if she is in pain she is unable to tell me where specifically she hurts but says she feels all over her body that she wants morphine. Antibiotics reportedly fell off of the patient's medication list due to poor functioning of the EMR and these have been restarted today. Patient's blood cultures are notably negative and Dr. Raphael lehman is considering having the patient transferred to [facility] for CT surgery to operate on her tricuspid valve. Per infectious disease: "In terms of antibiotic therapy, continue ceftriaxone for 14 days for pneumococcal pneumonia and then transition to cefazolin 2g/2g/3g with HD to complete 6 weeks from negative cultures foe endocarditis (EOT 05/28/2020)." Reason For Visit: ACUTE RENAL FAILURE Physical Exam Vital Signs: Temp Pulse Resp BP Pulse Ox 99.3 F 98 19 150/93 H 98 04/23/20 12:15 04/23/20 14:00 04/23/20 12:15 04/23/20 12:15 04/23/20 12:15 Intake & Output 04/22/20 04/23/20 04/24/20 06:59 06:59 06:59 Intake Total 525 380 Output Total 360 1025 Balance 165 -645 Weight 91.1 kg 94.7 kg Exam: General appearance: PRESENT: disheveled, calm, obese, notably more alert and speaking very clearly today Head exam: PRESENT: atraumatic, normocephalic Eye exam: PRESENT: conjunctiva pink. ABSENT: scleral icterus Mouth exam: PRESENT: moist Respiratory exam: PRESENT: Scant rhonchi - Bilateral improved notably. ABSENT: rales, wheezes Cardiovascular exam: PRESENT: RRR. ABSENT: diastolic murmur, rubs, systolic murmur GI/Abdominal exam: PRESENT: normal bowel sounds, soft. ABSENT: distended, guarding, mass, organolmegaly, rebound, tenderness Extremities exam: ABSENT: pedal edema Neurological exam: PRESENT: Alert, awake, oriented to person. ABSENT: oriented to place, oriented to time, oriented to situation Psychiatric exam: PRESENT: appropriate affect, normal mood Skin exam: PRESENT: dry, intact, warm Results Laboratory Results: 04/23/20 07:10 04/23/20 07:10 04/23/20 04/23/20 07:10 07:10 WBC 9.9 RBC 2.48 L Hgb 7.6 L Hct 21.7 L MCV 88 MCH 30.5 MCHC 34.8 RDW 15.3 H Plt Count 149 L Seg Neutrophils % 79.7 H Sodium 136.4 L Potassium 3.8 Chloride 98 Carbon Dioxide 27 Anion Gap 11 BUN 55 H Creatinine 4.34 H Est GFR ( Amer) 14 L Glucose 88 Calcium 8.1 L 04/12/20 04:15 NT-Pro-B Natriuret Pep 8880 H Impressions: Renal Artery Duplex 04/12/20 00:00 IMPRESSION: No definitive evidence of renal artery stenosis. Echogenic kidneys, suggestive of medical renal disease. Additionally, the elevated resistive indices can also be seen in association with medical renal disease. Mild right hydronephrosis. copyright 2010 [employer]- All Rights Reserved Venous Doppler Study 04/12/20 00:00 IMPRESSION: NO EVIDENCE DVT OR SVT IN EITHER LEG. Chest CT 04/16/20 00:00 IMPRESSION: Bilateral cavitary pneumonia. Chest X-Ray 04/19/20 00:00 IMPRESSION: Cavitary pneumonia. No significant change. Head CT 04/21/20 00:00 IMPRESSION: NO ACUTE INTRACRANIAL FINDINGS. EVIDENCE OF ACUTE STROKE: NO. KUB X-Ray 04/21/20 13:33 IMPRESSION: NG tube tip in the distal stomach. Assessment and Plan - Diagnosis (1) Infective endocarditis Qualifiers: Infective endocarditis organism: bacterial Chronicity: acute Qualified Code(s): I33.0 - Acute and subacute infective endocarditis Is this a current diagnosis for this admission?: Yes Plan: Per Previous Physician: "MSSA Bacteremia + multiple bilateral Pulmonary abscesses on chest xray indicative of septic emboli TTE had technical difficulties but does show something that seems to be a vegetation on her tricuspid with moderate tricuspid regurgitation and moderate pulmonary hypertension noted with a RVSP 50 to 60 mmHg and hyperdynamic LV. 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 will obtain dry chest CT when more stable Currently patient is very sick and her situation is very dynamic. 04/15/2020-blood cultures growing MSSA. ID consult was requested. Chest x-ray indicated of bilateral pulmonary abscesses most likely septic emboli. CT chest without contrast was requested. Consultation with cardiology is requested for IESHA. Patient is presently on IV Rocephin as per ID recommendations. Vancomycin is discontinued. Patient is tachycardic tachypneic on BiPAP 60%. Overall prognosis poor. If the condition continue to deteriorate plan may be to transfer her to tertiary care facility. Patient is presently getting dialysis plan is to remove 2 L of fluid. Transthoracic echocardiogram indicates tricuspid valve vegetation. 04/16/20-transthoracic echo is unable to rule out a vegetation on the tricuspid valve. Case was discussed with the cardiology team plan is to do IESHA on Saturday if the patient respiratory status is stable. Blood cultures growing MSSA. On ceftriaxone 2 g daily. She is allergic to penicillins. ID is on board. Patient has a dialysis in yesterday. Overall prognosis poor condition is critical. Chest x-ray suggestive of progression of the cavitation. Pulmonary consult will be requested on Saturday. 04/17/2020-blood cultures are positive for MSSA bacteremia. Most likely she has endocarditis. Patient is still on BiPAP to do the IESHA. Presently on IV Rocep hin 2 g daily as per ID recommendations. Patient received dialysis last week most likely she will go for dialysis tomorrow. Presently on BiPAP. 04/18/20-latest blood culture is positive for MRSA. Started on vancomycin. To continue IV ceftriaxone at this time. To keep the patient n.p.o. from midnight for possible IESHA tomorrow. Pulmonary consult will be requested. Follow-up chest x-ray was requested." 04/19/2020 Continued on ceftriaxone, there is no indication for vancomycin and this is been stopped Discussed finalized blood culture results with microbiology lab, contaminant of staph hominis with methicillin resistance in 1/ bottles noted Antibiotics fell off 04/19 due to EMR problems, restarted on 04/23 IESHA 04/[address] Worrell showed moderate sized vegetation on tricuspid valve MRI brain to take place after IESHA while patient is still calm from procedure Dr. Worrell discussing the case with CT surgery of [facility] to see if she is appropriate for transfer (2) Acute respiratory failure with hypoxia Is this a current diagnosis for this admission?: Yes Plan: Per Previous Physician: "multifactorial 2/2 pulmonary edema+pulmonary abscess/septic emboli+pneumonia + ARDS COVID-19 screen is negative spo2 notably 99% on 50% fio2 on cpap 8 --transitioned to HFNC 60% 40L to allow patient eat with spo2 at 99% Had dialysis today to help with pulmonary edema. Rest of treatment as above. Still tachypneic but awake and protecting airway. Monitor closely at risk of decompensation. If patient does not turn the corner soon or worsens, may need upgrade to ICU and possible intubation. monitor blood gas 04/15/2020-patient admitted with acute respiratory failure with hypoxia multifactorial. Most likely infective endocarditis in association with septic emboli plus pulmonary abscess. COVID-19 is negative. Present on BiPAP 60% oxygen. CT chest without contrast is pending. Patient is receiving dialysis plan is to remove 2 L of fluid. If the condition deteriorates plan is to transfer to tertiary care facility. ABGs requested. 04/16/2020-patient admitted with acute respiratory failure requiring BiPAP. It is a IV drug abuser most likely has infective endocarditis. Chest x-ray suggestive of progression of the cavitary lesions. Patient might have septic emboli. Presently on 2 g of IV Rocephin. ID is on board. To consult pulmonary on Saturday. Overall prognosis poor. Condition is critical. [facility] and I discussed the case with the ICU attending,patient is not accepted at this time. 04/17/2020-patient admitted with acute respiratory failure with hypoxia chest x- ray suggestive of progression of the cavitations, most likely she has infective endocarditis. Blood cultures are positive for MSSA bacteremia. On IV Rocephin 2 g daily as per ID recommendations. Temp this morning is 99.1. On BiPAP at 40% ABG with pH of 7.3/PCO2 46/PO2 109/oxygen saturation is 97%. Plan is to decrease the oxygen to supplementation to 35%. Repeat the chest x-ray today. 04/18/2085-02-orsl-old female IV drug abuser admitted with acute respiratory failure with hypoxia. At the time of my examination patient is receiving dialysis and on BiPAP with 35% oxygen. Oxygen saturation is around 98%. Chest x-ray suggestive of progressive cavitation and septic emboli. Receiving IV vancomycin and IV ceftriaxone. ID is on board. To request for pulmonary consult today." 04/19/2020 -Slow to improve, still requiring supplemental oxygen Pulmonology has not seen the patient yet Wean supplemental oxygen Pulmonology consulted: Discussed the case with Dr. Rizo in detail Continued gradual improvement (3) Acute renal failure (ARF) Qualifiers: Acute renal failure type: with acute tubular necrosis Qualified Code(s): N17.0 - Acute kidney failure with tubular necrosis Is this a current diagnosis for this admission?: Yes Plan: Per Previous Physician: "Oliguric still but mild improvement in urine output Renal ultrasound with duplex shows echogenic kidneys, mild hydronephrosis but without any renal arterial occlusion Still quite uremic Noted to have hyperphosphatemia - sevelamer Nephrology is following - 2nd dialysis session today via [facility] Monitor labs and urine output closely. 04/15/2020 urinary output is improving. Receiving dialysis plan is to remove 2 L of fluid today. Nephrology on board. 04/16/2020-patient received full session of dialysis yesterday. Latest creatinine is 4.95. Urinary output is minimal. Nephrology on board. Patient may need another session of dialysis on Saturday. 04/17/20-patient received dialysis on Saturday. Today's labs are pending. Depending on the labs she may need another dialysis session tomorrow. 04/18/2020-patient is receiving hemodialysis today. Latest serum creatinine is 4.9. To check the labs on daily basis. Urine output is gradually is improving." 04/19/2020 Dialysis ongoing per nephrology who is following Trend BMP, creatinine not improving Nephrology following Dialysis continues (4) Anemia Qualifiers: Anemia type: due to chronic kidney disease Is this a current diagnosis for this admission?: Yes (5) Hypercalcemia Is this a current diagnosis for this admission?: No (6) Hyperphosphatemia Is this a current diagnosis for this admission?: Yes (7) Liver disease Is this a current diagnosis for this admission?: No (8) Nephrotic range proteinuria Is this a current diagnosis for this admission?: Yes (9) Sepsis Qualifiers: Sepsis type: sepsis due to unspecified organism Sepsis acute organ dysfunction status: with acute organ dysfunction Severe sepsis acute organ dysfunction type: acute respiratory failure Acute respiratory failure type: with hypoxia Severe sepsis shock status: without septic shock Qualified Code(s): A41.9 - Sepsis, unspecified organism; R65.20 - Severe sepsis without septic shock; J96.01 - Acute respiratory failure with hypoxia Is this a current diagnosis for this admission?: Yes (10) Mild protein-calorie malnutrition Is this a current diagnosis for this admission?: Yes - Plan Summary Summary: 04/15/2020 Critical care visit Called to see the patient for tachycardia and tachypnea. Patient was agitated. She was maintaining good saturation on BiPAP. Reviewed today's chest x-ray. She has worsening cavitary lesions from septic emboli. I did review the transthoracic echocardiogram and they could not rule out vegetation. She has not had a IESHA as of yet. All of her blood cultures reveal a very sensitive staph aureus and she is currently on ceftriaxone. At this point I am going to give her a dose of lorazepam and a small dose of morphine. She did just get her methadone orally but this will take a little while to kick in. We will monitor her closely and the nurses will give me an update shortly. - Time Time Spent with patient: 25-34 minutes Medications reviewed and adjusted accordingly: Yes Anticipated Discharge Disposition: Tertiary Anticipated Discharge Timeframe: within 72 hours - Inpatient Certification Based on my medical assessment, after consideration of the patient's comorbidities, presenting symptoms, or acuity I expect that the services needed warrant INPATIENT care.: Yes I certify that my determination is in accordance with my understanding of Medicare's requirements for reasonable and necessary INPATIENT services [42 CFR 412.3e].: Yes Medical Necessity: Significant Comorbidiites Make Outpatient Treatment Too Risky, Need Close Monitoring Due to Risk of Patient Decompensation, Need for IV Antibiotics, Risk of Complication if Not Cared For in Hospital, Risk of Diagnosis Which Will Require Inpatient Eval/Care/Monitoring
[2020-04-24] MEDS: HEPARIN SOD (PORCINE) 5,000 UNIT/ML 1 ML VIAL SUBCUT SCH ×3 (06:40→21:44)
[2020-04-24] MEDS: FAMOTIDINE 20 MG TABLET NG SCH (10:00)
[2020-04-24] MEDS: CEFTRIAXONE 2 GM/D5W RTU 2 GM/50 ML RTUPB IV SCH (11:00)
[2020-04-24] MEDS: LORAZEPAM 1 MG TABLET PO PRN ×3 (12:30→23:53)
--- NOTE | 2020-04-24 13:43 | PDOC PROGRESS REPORT ---
Subjective Subjective:: Per Previous Physician: "34 year old female with history of IV heroin/methamphetamine use, hepatitis C, who presents to the hospital with complaints of shortness of breath and increased work of breathing over the past 5 days. Patient has also noted increased swelling in both lower extremities since that time. She denies fever or chills. She does have occasional cough nonproductive of more sputum. Also experiencing aches and pains in her lower extremities. She denies any diarrhea. She denies any history of kidney disease or heart failure. She also admits to very diminished water intake over the last few days. She has been using heroin very frequently over the past 2 to 3 days as well. On arrival of EMS, patient was noted to be significantly hypoxic with SPO2 69% and subsequently placed on a CPAP. She was switched to a BiPAP machine in the ER due to work of breathing. 04/13-Last night, despite receiving over 2.5 L of fluid, patient put out only about 100 cc of urine. I rechallenged her with 80 mg of IV Lasix but she put out only about 40 cc following that. She continues to remain anuric and sign ificantly encephalopathic. 04/14-Patient had about this morning when she became tachypneic and short of breath. She also felt very anxious and stated that she felt like she was withdrawing. She did receive some Ativan. Patient will plan for dialysis today. 04/15/[id number]-xcpa-old female with history of IV heroin, methamphetamine use, history of hep C admitted with increasing shortness of breath of 5 days duration. Patient has a dialysis access placed yesterday she is in the ICU for dialysis today. Essentially she is on BiPAP with 60% oxygen. Repeated blood cultures coming back positive for staph aureus. ID consult was done. Per ID recommendations to continue IV ceftriaxone 2 g daily and discontinue IV vancomycin. Consultation with Dr. Gm ibarra is requested for IESHA on Saturday. On examination patient is tachycardic and tachypneic. CT chest without contrast was requested. Patient may be withdrawing. Patient is on methadone and to add IV Ativan 1 mg every 2 hours as needed for withdrawal symptoms. Overall prognosis poor. 04/16/20-rapid response was called this night because patient became tachycardic tachypneic agitated most likely secondary to withdrawal symptoms. Patient was started on morphine 2 mg IV every 4 hours, lorazepam 1 mg every 4 hours. Patient is comfortably sleeping in the bed at this time. On BiPAP. ABG this morning on 60% oxygen shows pH of 7.37/PO2 of 182. Plan is to decrease the oxygen requirements to 40%. To continue IV ceftriaxone. Blood cultures are repeated. Discussed the case with Dr. Gm ibarra he is planning to do IESHA if possible on Saturday.. 04/17/20-no acute events in the last 24 hours. Patient is afebrile. Receiving IV Rocephin for MSSA bacteremia. ABG on 40% oxygen on BiPAP indicates pH of 7.34/PCO2 46/PO2 109/oxygen saturation is 97%. Plan is to decrease the oxygen supplementation to 35%. pt Received 2 units of PRBC yesterday today's labs are pending. 04/18/2020-patient is in the ICU receiving dialysis. Presently on BiPAP with 35% oxygen. WBC is improving. Blood pressure stable. No acute events in the last 24 hours. Plan is to consult pulmonology today." 04/19/2020 Patient very agitated today, combative, fighting with nursing staff to keep her oxygen in place, occasionally pulling at her Gomez. Ativan ineffective. Possible patient has anoxic brain injury from drug overdose. We will need to get a brain MRI when she is more stable and calm. Start scheduled Zyprexa. Start as needed Haldol. Switch clonidine to patch as she is not taking oral meds currently. Chest x-ray reviewed which showed the cavitary pneumonia previously seen. Speech therapy eval. 04/20/2020 Patient much more calm today after taking Zyprexa yesterday. She was given Haldol overnight which also had a calming effect. Discussed the case with Dr. Worrell who will schedule the patient for IESHA tomorrow, n.p.o. at midnight tonight. Ordered MRI brain to look for signs of anoxic brain injury or septic embolic strokes given she has severely altered mentation which is not resolving despite no longer being in opiate withdrawal. Stopped methadone as she has not had this in the past few days and it will only serve to muddy the picture going forward with regards to her mentation. Creatinine higher again, will likely need dialysis long-term. Discussed the case with the patient's father in great detail and gave him a full update and answered all his questions. 04/21/2020 Patient seems to be doing better today from a respiratory standpoint and is more alert. Per nursing, when her mother came to see her patient recognized her and had a partial conversation with her. Patient is scheduled for IESHA today and she is n.p.o. She is making a scant amount of brownish tinged urine. Holding off on IV fluids as she is currently dialysis dependent and at risk for volume overload. Discussed with nursing to place an NG tube and get a nutrition consult to get for tube feeds until we can clear her to eat with speech therapy. She has not had adequate nutrition in several days due to procedures and being intermittently combative and somnolent. 04/22/2020 Patient was rather somnolent throughout the day. I have held her Zyprexa and we will avoid giving her any more sedation for now if possible. I spoke with [facility] and they were not able to evaluate the patient today due to somnolence. They stated that they would be available to come see her this weekend if she wakes up. Incidentally, nursing informed me that the patient became much more alert this afternoon and was able to pass a bedside swallow exam from them, asking for a liquid diet. We can try this for now but we still need a speech therapist to evaluate the patient in the near future. I spoke with Dr. Worrell who is discussing the case with CT surgery as the patient may be appropriate for transfer to [facility] for heart valve repair/replacement. He will let us know what he finds out. Hemoglobin is lower but there are no signs of bl eeding. 04/23/2020 Patient is much improved today and is alert and talking in complete sentences. She is asking for narcotics but we will hold off on these. When asked if she is in pain she is unable to tell me where specifically she hurts but says she feels all over her body that she wants morphine. Antibiotics reportedly fell off of the patient's medication list due to poor functioning of the EMR and these have been restarted today. Patient's blood cultures are notably negative and Dr. Raphael lehman is considering having the patient transferred to [facility] for CT surgery to operate on her tricuspid valve. Per infectious disease: "In terms of antibiotic therapy, continue ceftriaxone for 14 days for pneumococcal pneumonia and then transition to cefazolin 2g/2g/3g with HD to complete 6 weeks from negative cultures foe endocarditis (EOT 05/28/2020)." 04/24/2020 Patient continues to do well. She is alert and interactive and is still frequently asking for narcotics. At times, she is pulling out her IVs and Intermittently agitated but seems to be responsive to Ativan. We will repeat blood cultures given she was off antibiotics for a few days. If blood culture is negative by tomorrow, we can proceed with a PICC line. Hopefully she will not pull this out. Reason For Visit: ACUTE RENAL FAILURE Physical Exam Vital Signs: Temp Pulse Resp BP Pulse Ox 99.2 F 109 H 30 H 154/82 H 96 04/24/20 08:50 04/24/20 08:50 04/24/20 08:50 04/24/20 08:50 04/24/20 08:50 Intake & Output 04/23/20 04/24/20 04/25/20 06:59 06:59 06:59 Intake Total 380 1198 Output Total 1025 475 Balance -645 723 Weight 94.7 kg 90.6 kg Exam: General appearance: PRESENT: disheveled, calm, obese, alert and speaking clearly Head exam: PRESENT: atraumatic, normocephalic Eye exam: PRESENT: conjunctiva pink. ABSENT: scleral icterus Mouth exam: PRESENT: moist Respiratory exam: PRESENT: Resolving scant rhonchi. ABSENT: rales, wheezes Cardiovascular exam: PRESENT: RRR. ABSENT: diastolic murmur, rubs, systolic murmur GI/Abdominal exam: PRESENT: normal bowel sounds, soft. ABSENT: distended, guarding, mass, organolmegaly, rebound, tenderness Extremities exam: ABSENT: pedal edema Neurological exam: PRESENT: Alert, awake, oriented to person. ABSENT: oriented to place, oriented to time, oriented to situation Psychiatric exam: PRESENT: appropriate affect, normal mood Skin exam: PRESENT: dry, intact, warm Results Laboratory Results: 04/23/20 07:10 04/23/20 07:10 04/12/20 04:15 NT-Pro-B Natriuret Pep 8880 H Impressions: Renal Artery Duplex 04/12/20 00:00 IMPRESSION: No definitive evidence of renal artery stenosis. Echogenic kidneys, suggestive of medical renal disease. Additionally, the elevated resistive indices can also be seen in association with medical renal disease. Mild right hydronephrosis. copyright 2010 [employer]- All Rights Reserved Venous Doppler Study 04/12/20 00:00 IMPRESSION: NO EVIDENCE DVT OR SVT IN EITHER LEG. Chest CT 04/16/20 00:00 IMPRESSION: Bilateral cavitary pneumonia. Chest X-Ray 04/19/20 00:00 IMPRESSION: Cavitary pneumonia. No significant change. Head CT 04/21/20 00:00 IMPRESSION: NO ACUTE INTRACRANIAL FINDINGS. EVIDENCE OF ACUTE STROKE: NO. KUB X-Ray 04/21/20 13:33 IMPRESSION: NG tube tip in the distal stomach. Assessment and Plan - Diagnosis (1) Infective endocarditis Qualifiers: Infective endocarditis organism: bacterial Chronicity: acute Qualified Code(s): I33.0 - Acute and subacute infective endocarditis Is this a current diagnosis for this admission?: Yes Plan: Per Previous Physician: "MSSA Bacteremia + multiple bilateral Pulmonary abscesses on chest xray indicative of septic emboli TTE had technical difficulties but does show something that seems to be a vegetation on her tricuspid with moderate tricuspid regurgitation and moderate pulmonary hypertension noted with a RVSP 50 to 60 mmHg and hyperdynamic LV. 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 will obtain dry chest CT when more stable Currently patient is very sick and her situation is very dynamic. 04/15/2020-blood cultures growing MSSA. ID consult was requested. Chest x-ray indicated of bilateral pulmonary abscesses most likely septic emboli. CT chest without contrast was requested. Consultation with cardiology is requested for IESHA. Patient is presently on IV Rocephin as per ID recommendations. Vancomycin is discontinued. Patient is tachycardic tachypneic on BiPAP 60%. Overall prognosis poor. If the condition continue to deteriorate plan may be to transfer her to tertiary care facility. Patient is presently getting dialysis plan is to remove 2 L of fluid. Transthoracic echocardiogram indicates tricuspid valve vegetation. 04/16/20-transthoracic echo is unable to rule out a vegetation on the tricuspid valve. Case was discussed with the cardiology team plan is to do IESHA on Saturday if the patient respiratory status is stable. Blood cultures growing MSSA. On ceftriaxone 2 g daily. She is allergic to penicillins. ID is on board. Patient has a dialysis in yesterday. Overall prognosis poor condition is critical. Chest x-ray suggestive of progression of the cavitation. Pulmonary consult will be requested on Saturday. 04/17/2020-blood cultures are positive for MSSA bacteremia. Most likely she has endocarditis. Patient is still on BiPAP to do the IESHA. Presently on IV Rocephin 2 g daily as per ID recommendations. Patient received dialysis last week most likely she will go for dialysis tomorrow. Presently on BiPAP. 04/18/20-latest blood culture is positive for MRSA. Started on vancomycin. To continue IV ceftriaxone at this time. To keep the patient n.p.o. from midnight for possible IESHA tomorrow. Pulmonary consult will be requested. Follow-up chest x-ray was requested." 04/19/2020 Continued on ceftriaxone, there is no indication for vancomycin and this is been stopped Discussed finalized blood culture results with microbiology lab, contaminant of staph hominis with methicillin resistance in 1/ bottles noted Antibiotics fell off 04/19 due to EMR problems, restarted on 04/23 IESHA 04/[address] Worrell showed moderate sized vegetation on tricuspid valve MRI brain to take place after IESHA while patient is still calm from procedure Dr. Worrell discussing the case with CT surgery of [facility] to see if she is appropriate for transfer Repeat blood cultures on 04/24 PICC line ordered (2) Acute respiratory failure with hypoxia Is this a current diagnosis for this admission?: Yes Plan: Per Previous Physician: "multifactorial 2/2 pulmonary edema+pulmonary abscess/septic emboli+pneumonia + ARDS COVID-19 screen is negative spo2 notably 99% on 50% fio2 on cpap 8 --transitioned to HFNC 60% 40L to allow patient eat with spo2 at 99% Had dialysis today to help with pulmonary edema. Rest of treatment as above. Still tachypneic but awake and protecting airway. Monitor closely at risk of decompensation. If patient does not turn the corner soon or worsens, may need upgrade to ICU and possible intubation. monitor blood gas 04/15/2020-patient admitted with acute respiratory failure with hypoxia multifactorial. Most likely infective endocarditis in association with septic emboli plus pulmonary abscess. COVID-19 is negative. Present on BiPAP 60% oxygen. CT chest without contrast is pending. Patient is receiving dialysis plan is to remove 2 L of fluid. If the condition deteriorates plan is to transfer to tertiary care facility. ABGs requested. 04/16/2020-patient admitted with acute respiratory failure requiring BiPAP. It is a IV drug abuser most likely has infective endocarditis. Chest x-ray suggestive of progression of the cavitary lesions. Patient might have septic emboli. Presently on 2 g of IV Rocephin. ID is on board. To consult pulmonary on Saturday. Overall prognosis poor. Condition is critical. I called [facility] for possible transfer and I discussed the case with the ICU att ending,patient is not accepted at this time. 04/17/2020-patient admitted with acute respiratory failure with hypoxia chest x- ray suggestive of progression of the cavitations, most likely she has infective endocarditis. Blood cultures are positive for MSSA bacteremia. On IV Rocephin 2 g daily as per ID recommendations. Temp this morning is 99.1. On BiPAP at 40% ABG with pH of 7.3/PCO2 46/PO2 109/oxygen saturation is 97%. Plan is to decrease the oxygen to supplementation to 35%. Repeat the chest x-ray today. 04/18/2074-98-qpoa-old female IV drug abuser admitted with acute respiratory fail ure with hypoxia. At the time of my examination patient is receiving dialysis and on BiPAP with 35% oxygen. Oxygen saturation is around 98%. Chest x-ray suggestive of progressive cavitation and septic emboli. Receiving IV vancomycin and IV ceftriaxone. ID is on board. To request for pulmonary consult today." 04/19/2020 -Slow to improve, still requiring supplemental oxygen Pulmonology has not seen the patient yet Wean supplemental oxygen Pulmonology consulted: Discussed the case with Dr. Rizo in detail Continued gradual improvement (3) Acute renal failure (ARF) Qualifiers: Acute renal failure type: with acute tubular necrosis Qualified Code(s): N17.0 - Acute kidney failure with tubular necrosis Is this a current diagnosis for this admission?: Yes (4) Anemia Qualifiers: Anemia type: due to chronic kidney disease Is this a current diagnosis for this admission?: Yes (5) Hypercalcemia Is this a current diagnosis for this admission?: No (6) Hyperphosphatemia Is this a current diagnosis for this admission?: Yes (7) Liver disease Is this a current diagnosis for this admission?: No (8) Nephrotic range proteinuria Is this a current diagnosis for this admission?: Yes (9) Sepsis Qualifiers: Sepsis type: sepsis due to unspecified organism Sepsis acute organ dysfunction status: with acute organ dysfunction Severe sepsis acute organ dysfunction type: acute respiratory failure Acute respiratory failure type: with hypoxia Severe sepsis shock status: without septic shock Qualified Code(s): A41.9 - Sepsis, unspecified organism; R65.20 - Severe sepsis without septic shock; J96.01 - Acute respiratory failure with hypoxia Is this a current diagnosis for this admission?: Yes (10) Mild protein-calorie malnutrition Is this a current diagnosis for this admission?: Yes - Plan Summary Summary: 04/15/2020 Critical care visit Called to see the patient for tachycardia and tachypnea. Patient was agitated. She was maintaining good saturation on BiPAP. Reviewed today's chest x-ray. She has worsening cavitary lesions from septic emboli. I did review the transthoracic echocardiogram and they could not rule out vegetation. She has not had a IESHA as of yet. All of her blood cultures reveal a very sensitive staph aureus and she is currently on ceftriaxone. At this point I am going to give her a dose of lorazepam and a small dose of morphine. She did just get her methadone orally but this will take a little while to kick in. We will monitor her closely and the nurses will give me an update shortly. - Time Medications reviewed and adjusted accordingly: Yes Anticipated Discharge Disposition: Tertiary Anticipated Discharge Timeframe: within 48 hours - Inpatient Certification Based on my medical assessment, after consideration of the patient's comorbidities, presenting symptoms, or acuity I expect that the services needed warrant INPATIENT care.: Yes I certify that my determination is in accordance with my understanding of Medicare's requirements for reasonable and necessary INPATIENT services [42 CFR 412.3e].: Yes Medical Necessity: Significant Comorbidiites Make Outpatient Treatment Too Risky, Need Close Monitoring Due to Risk of Patient Decompensation, Need for IV Antibiotics, Risk of Complication if Not Cared For in Hospital, Risk of Diagnos is Which Will Require Inpatient Eval/Care/Monitoring
[2020-04-24] MEDS: SEVELAMER HCL 800 MG TABLET PO SCH ×3 (14:42→17:06)
[2020-04-24] MEDS: ACETAMINOPHEN 325 MG TABLET NG PRN (18:00)
[2020-04-24] MEDS: HALOPERIDOL LACTATE INJ 5 MG/1 ML VIAL IV PRN ×2 (18:27→22:27)
[2020-04-25] MEDS: HALOPERIDOL LACTATE INJ 5 MG/1 ML VIAL IV PRN ×2 (02:01→10:46)
[2020-04-25] MEDS ORDERED: HEPARIN SOD (PORCINE) 1,000 UNIT/ML 10 ML VIAL IV PRN (05:00)
[2020-04-25] MEDS ORDERED: EPOETIN ALFA-EPBX 2,000 UNIT, EPOETIN ALFA-EPBX 3,000 UNIT, EPOETIN ALFA-EPBX 20,000 UN... IV PRN ×4 (05:00)
[2020-04-25] MEDS ORDERED: NORMAL SALINE 1000 ML 1,000 ML IV PRN (05:00)
[2020-04-25] MEDS: LORAZEPAM 1 MG TABLET PO PRN ×2 (05:47→15:20)
[2020-04-25] MEDS: HEPARIN SOD (PORCINE) 5,000 UNIT/ML 1 ML VIAL SUBCUT SCH ×2 (05:49→15:21)
[2020-04-25 06:06] LABS: ABSOLUTE BASOPHILS # (AUTO) 0.1 10^3/uL (0.0-0.2); ABSOLUTE EOSINOPHILS # (AUTO) 0.2 10^3/uL (0.0-0.6); ABSOLUTE LYMPHOCYTES (AUTO) 0.7 10^3/uL (0.5-4.7); ABSOLUTE MONOCYTES (AUTO) 0.8 10^3/uL (0.1-1.4); ABSOLUTE NEUT (AUTO) 6.1 10^3/uL (1.7-8.2); BASOPHILS % (AUTO) 1.4 % (0-2); EOSINOPHILS % (AUTO) 2.6 % (0-6); HEMATOCRIT 21.8 % (36.0-47.0); LYMPHOCYTES % (AUTO) 8.4 % (13-45); MEAN CORPUSCULAR HEMOGLOBIN 29.7 pg (27.0-33.4); MEAN CORPUSCULAR HGB CONC 34.5 g/dL (32.0-36.0); MEAN CORPUSCULAR VOLUME 86 fl (80-97); MONOCYTES % (AUTO) 9.9 % (3-13); PLATELET COUNT 154 10^3/uL (150-450); RED BLOOD COUNT 2.52 10^6/uL (3.72-5.28); SEGMENTED NEUTROPHILS % (AUTO) 77.7 % (42-78); TOTAL CELLS COUNTED % (AUTO) 100 %; WHITE BLOOD COUNT 7.8 10^3/uL (4.0-10.5)
[2020-04-25 06:11] LABS: HEMOGLOBIN 7.5 g/dL (12.0-15.5)
[2020-04-25 06:31] LABS: ANION GAP 12 (5-19); BLOOD UREA NITROGEN 68 mg/dL (7-20); CARBON DIOXIDE 23 mmol/L (22-30); CHLORIDE 97 mmol/L (98-107); GLUCOSE 102 mg/dL (75-110); POTASSIUM 3.8 mmol/L (3.6-5.0)
--- NOTE | 2020-04-25 09:03 | PDOC CONSULTATION ---
Consultation Consult Date: 04/25/20 Attending physician:: SILVINO SILVERMAN Provider Consulted: SB VEGA Consult reason:: Endocarditis History of Present Illness Admission Date/PCP: 04/12/20 11:21 History of Present Illness: HANNY MADISON is a 35 year old female 38-year-old lady with the following active problems 1. Tricuspid valve infective endocarditis 2. Intravenous heroin abuse 3. Methamphetamine use 4. Hepatitis C virus infection 5. Acute kidney injury 6. Septic emboli Patient was admitted to the hospital on . He was thought to have overdosed on drugs and was found to be hypoxic. Subsequently her respiratory status has been rather tenuous. Clinical course has been consistent with infective endocarditis. She had respiratory distress and required noninvasive ventilation. She is thought to have had acute kidney injury and is requiring dialysis. Blood cultures have been persistently positive with MSSA bacteremia. Transesophageal echocardiogram was performed on 04/21/2020 which showed at least a moderate sized vegetation on the tricuspid valve likely the septal leaflet. Overall the patient has not improved since admission. Family history cannot be obtained Review of systems cannot be obtained due to mental status which appears to be slightly confused. No familial illnesses documented Past Medical History Neurological Medical History: Reports: Migraine Psychiatric Medical History: Reports: Depression Traumatic Medical History: Denies: Gunshot Wound Hematology: Denies: Sickle Cell Disease Infectious Medical History: Reports: Hepatitis C Past Surgical History Past Surgical History: Reports: None Social History Smoking Status: Current Every Day Smoker Cigarettes Packs Per Day: 2 Number of Years Smokin Frequency of Alcohol Use: None Hx Recreational Drug Use: Yes Drugs: Heroin Hx Prescription Drug Abuse: No - Advance Directive Resuscitation Status: Full Code Family History Family History: Other - Denies family history of kidney failure. Does have immediate family history of blood clots. Parental Family History Reviewed: No - Unable to obtain Children Family History Reviewed: NA Sibling(s) Family History Reviewed.: NA Medication/Allergy Home Medications: No Home Medications 04/12/20 Allergies/Adverse Reactions: Penicillins Allergy (Severe, Verified 04/23/20 12:40) tongue swelling Review of Systems ROS unobtainable: Due to mental status Physical Exam Vital Signs: Temp Pulse Resp BP Pulse Ox 99.6 F 104 H 18 142/86 H 93 04/25/20 07:36 04/25/20 07:36 04/25/20 07:36 04/25/20 07:36 04/25/20 07:36 Intake & Output 04/24/20 04/25/20 04/26/20 06:59 06:59 06:59 Intake Total 1198 1480 Output Total 475 450 Balance 723 1030 Weight 90.6 kg 112.9 kg General appearance: PRESENT: mild distress, obese, well-developed, well-nour ished Head exam: PRESENT: normocephalic Eye exam: PRESENT: conjunctiva pale Respiratory exam: PRESENT: symmetrical, unlabored, other - Tachypnea is noted Cardiovascular exam: PRESENT: RRR, +S1, +S2, systolic murmur - Likely flow murmur. [place] of the heart and left sternal border, tachycardia Pulses: PRESENT: normal radial pulses GI/Abdominal exam: PRESENT: soft Rectal exam: PRESENT: deferred Extremities exam: PRESENT: +1 edema, other - Left femoral vein hemodialysis catheter Neurological exam: PRESENT: alert, awake Psychiatric exam: PRESENT: agitated, unusual affect Skin exam: PRESENT: dry, intact, pallor Results Laboratory Results: 04/25/20 05:26 04/25/20 05:26 04/25/20 04/25/20 05:26 05:26 WBC 7.8 RBC 2.52 L Hgb 7.5 L Hct 21.8 L MCV 86 MCH 29.7 MCHC 34.5 RDW 15.0 H Plt Count 154 Seg Neutrophils % 77.7 Sodium 132.0 L Potassium 3.8 Chloride 97 L Carbon Dioxide 23 Anion Gap 12 BUN 68 H Creatinine 5.03 H Est GFR ( Amer) 12 L Glucose 102 Calcium 8.0 L 04/12/20 04:15 NT-Pro-B Natriuret Pep 8880 H EKG Comments: MSSA positive blood cultures 04/12/2020 [id number] eight 2020 x 210 ten 2020 x 2 blood cultures 1015 2020x2 are negative for 72 hours Transesophageal echocardiogram 04/21/2020 Left ventricular ejection fraction is preserved Vegetation seen on likely the septal leaflet of the tricuspid valve measuring 0.9 cm x 1.2 cm. There is mild tricuspid regurgitation No other significant valve abnormality or vegetation noted There is no pericardial effusion Twelve-lead EKG 04/12/2020 Sinus tachycardia 123 bpm, normal AV conduction Renal artery duplex 04/12/2020 No definite evidence of renal artery stenosis echogenic kidneys. Mild right h ydronephrosis Chest x-ray 04/19/2020 Cavitary pneumonia unchanged from previous studies. Head CT 04/21/2020 No acute intracranial process Impressions: Renal Artery Duplex 04/12/20 00:00 IMPRESSION: No definitive evidence of renal artery stenosis. Echogenic kidneys, suggestive of medical renal disease. Additionally, the elevated resistive indices can also be seen in association with medical renal disease. Mild right hydronephrosis. copyright 2010 [employer]- All Rights Reserved Venous Doppler Study 04/12/20 00:00 IMPRESSION: NO EVIDENCE DVT OR SVT IN EITHER LEG. Chest CT 04/16/20 00:00 IMPRESSION: Bilateral cavitary pneumonia. Chest X-Ray 04/19/20 00:00 IMPRESSION: Cavitary pneumonia. No significant change. Head CT 04/21/20 00:00 IMPRESSION: NO ACUTE INTRACRANIAL FINDINGS. EVIDENCE OF ACUTE STROKE: NO. KUB X-Ray 04/21/20 13:33 IMPRESSION: NG tube tip in the distal stomach. Assessment & Plan - Diagnosis (1) Infective endocarditis Qualifiers: Infective endocarditis organism: bacterial Chronicity: acute Qualified Code(s): I33.0 - Acute and subacute infective endocarditis Is this a current diagnosis for this admission?: Yes Plan: Tricuspid valve infective endocarditis in the setting of intravenous drug abuse Since admission to the hospital patient has not demonstrated any significant improvement There is evidence of septic embolic phenomena with evidence of acute kidney injury and cavitary pneumonia Vegetation also appears to be at least moderate in size over difficult image Blood cultures have been persistently positive until the last set which was negative for 72 hours The only improvement has been in her respiratory status Had a discussion with CT surgery service at [place]. Given the fact that the patient has not demonstrated any significant improvement and with persistent bacteremia and sizable vegetation on the tricuspid valve she may require surgical evaluation. This may in mind I will arrange for transfer the patient to [place]. I spoken with Dr. Singh who is also in agreement with the plan. Continue antibiotics. (2) Acute renal failure (ARF) Qualifiers: Acute renal failure type: with acute tubular necrosis Qualified Code(s): N17.0 - Acute kidney failure with tubular necrosis Is this a current diagnosis for this admission?: Yes Plan: Likely secondary to infective endocarditis. Has been maintained on supportive renal replacement therapy. (3) IV drug abuse Is this a current diagnosis for this admission?: Yes Plan: Complicates care. Multiple drugs have been abused. Clinical picture is complicated by withdrawal. Respiratory status is improved. Mentation is hard to assess. Patient is at the time confused and agitated but some of this is secondary to medications used in the hospital.
--- NOTE | 2020-04-25 09:09 | PDOC TRANSFER SUMMARY ---
General Admission Date/PCP: 04/12/20 11:21 Resuscitation Status: Full Code - Transfer Diagnosis (1) Infective endocarditis Is this a current diagnosis for this admission?: Yes Diagnosis Summary: Tricuspid valve infective endocarditis detected on transesophageal echocardiogram done on 04/21/2020 Persistent bacteremia IV drug abuse. Organ damage in the form of acute kidney injury and cavitary pneumonia and likely mental status changes. Given no significant improvement planning to transfer to [place] for further care with consideration for surgery for tricuspid valve endocarditis. (2) Acute renal failure (ARF) Is this a current diagnosis for this admission?: Yes Diagnosis Summary: Renal replacement therapy with hemodialysis. (3) IV drug abuse Is this a current diagnosis for this admission?: Yes Diagnosis Summary: Watching for withdrawal. - Transfer Medications Home Medications: No Home Medications 04/12/20 Transfer Medications: Current Medications Acetaminophen (Tylenol 325 Mg Tablet) 650 mg NG Q6HP PRN PRN Reason: FOR PAIN Stop: 05/21/20 13:49 Last Admin: 04/24/20 18:00 Dose: 650 mg Documented by: Albuterol (Ventolin 0.083% Neb 2.5 Mg/3 Ml Ampul) 2.5 mg NEB RTQ8HP PRN PRN Reason: SHORTNESS OF BREATH Stop: 05/12/20 12:03 Last Admin: 04/15/20 13:22 Dose: 2.5 mg Documented by: Clonidine HCl (Catapres-Tts 1 (0.1 Mg/24 Hr) Transderm Patch) 1 each TD Tu@10 [facility] Stop: 05/19/20 14:59 Last Admin: 04/19/20 14:53 Dose: 1 each Documented by: Dextrose (Dextrose Inj 50% Syringe (25 Gm/50 Ml)) 12.5 gm IV PRN PRN; Protocol PRN Reason: FOR BG 50-69 IN ALERT PATIENT Stop: 05/21/20 22:08 Dextrose (Dextrose Inj 50% Syringe (25 Gm/50 Ml)) 25 gm IV PRN PRN; Protocol PRN Reason: See Label Comments Stop: 05/21/20 22:08 Famotidine (Pepcid 20 Mg Tablet) 20 mg NG DAILY [facility] Stop: 05/22/20 09:59 Last Admin: 04/24/20 10:00 Dose: Not Given Documented by: Glucagon (Glucagen Inj 1 Mg Vial) 1 mg SUBCUT PRN PRN; Protocol PRN Reason: Evaluate for BG < 70 Stop: 05/21/20 22:08 Glucose (Glutose 40% Gel 15 Gm Tube) 15 gm PO PRN PRN; Protocol PRN Reason: For BG 50-69 in Alert Patient Stop: 05/21/20 22:08 Glucose (Glutose 40% Gel 15 Gm Tube) 30 gm PO PRN PRN; Protocol PRN Reason: FOR BG < 50 IN ALERT PATIENT Stop: 05/21/20 22:08 Haloperidol Lactate (Haldol 5 Mg/Ml Inj 1 Ml Vial) 2 mg IV Q4HP PRN PRN Reason: RESTLESSNESS/AGITATION Stop: 05/19/20 13:18 Last Admin: 04/25/20 02:01 Dose: 2 mg Documented by: Heparin Sodium (Porcine) (Heparin Inj 5,000 Units/Ml 1 Ml Vial) 5,000 unit SUBCUT Q8 ERIK Stop: 05/12/20 13:59 Last Admin: 04/25/20 05:49 Dose: Not Given Documented by: Heparin Sodium (Porcine) (Heparin Inj 1,000 Unit/Ml 10 Ml Vial) 3,600 unit IV .SPLIT B/N CATHETERS PRN PRN Reason: THIS MED IS NOT "PRN" Stop: 05/13/20 15:59 Last Admin: 04/22/20 15:04 Dose: 3,600 units Documented by: Heparin Sodium (Porcine) (Heparin Inj 1,000 Unit/Ml 10 Ml Vial) 4,300 unit IV .SPLIT B/N CATHETERS PRN PRN Reason: THIS MED IS NOT "PRN" Stop: 04/25/20 23:59 Ceftriaxone Sodium/Dextrose (Rocephin Rtu 2 Gm/D5w 50 Ml Premix Bag) 2 gm in 50 mls @ 100 mls/hr IV DAILY [facility] Stop: 04/30/20 12:59 Last Infusion: 04/24/20 22:46 Dose: Infused Documented by: Sodium Chloride (Nacl 0.9% 1000 Ml Iv Soln) 1,000 mls @ 0 mls/hr IV .DIALYSIS PRN PRN Reason: THIS MED IS NOT "PRN" Stop: 04/25/20 23:59 Epoetin Jhonathan-epbx 2,000 unit/Epoetin Jhonathan-epbx 3,000 unit/Epoetin Jhonathan-epbx 20,000 unit/Syringe 4 mls @ 0 mls/hr IV .DIALYSIS PRN PRN Reason: THIS MED IS NOT "PRN" Stop: 04/25/20 23:59 Lorazepam (Ativan 1 Mg Tablet) 1 mg PO Q6HP PRN PRN Reason: ANXIETY Stop: 05/01/20 10:37 Last Admin: 04/25/20 05:47 Dose: 1 mg Documented by: Olanzapine (Zyprexa 5 Mg Tablet) 5 mg NG DAILY ERIK Stop: 05/22/20 09:59 Last Admin: 04/22/20 10:08 Dose: Not Given Documented by: Ondansetron HCl (Zofran Inj/Pf 4 Mg/2 Ml Sdv) 4 mg IV Q6HP PRN PRN Reason: FOR NAUSEA/VOMITING Stop: 05/12/20 12:03 Last Admin: 04/25/20 01:58 Dose: 4 mg Documented by: Pharmacy Profile Note (Medication Communication Order) 1 each MC .NOTICE NR Stop: 05/21/20 13:44 Sevelamer HCl (Renagel 800 Mg Tablet) 800 mg PO MEALS ERIK Stop: 05/13/20 18:14 Last Admin: 04/24/20 17:06 Dose: 800 mg Documented by: - Allergies Allergies/Adverse Reactions: Penicillins Allergy (Severe, Verified 04/23/20 12:40) tongue swelling Hospital Course Hospital Course: Patient was admitted on 04/12/2020 for suspected drug overdose. She was hypoxic at presentation. She was maintained on noninvasive respiratory support. Respiratory status has since then improved. She was found to be in acute kidney injury and was started on hemodialysis. She has continued to demonstrate persistent bacteremia with MSSA and blood cultures. She has been maintained on continuous antibiotic therapy with no significant clinical improvement Transesophageal echocardiogram performed on 04/21/2020 showed at least a moderate sized vegetation on the tricuspid valve. Since there has been no significant improvement despite antibiotic therapy with evidence of downstream phenomena such as acute kidney injury, cavitary pneumonia and mental status changes we are hoping that the patient can be transferred to [facility] for further care and with evaluation for possible surgery in the tricuspid valve if necessary. I have spoken with CT surgery Dr. Yepez who is very kindly accepted to see the patient once she is transferred to [place]. At the time of my visit this morning there is no family in the room to discuss this plan. Dr. Singh the attending physician is also in agreement with the plan. MSSA positive blood cultures 04/12/2020 [id number] eight 2020 x 210 ten 2020 x 2 blood cultures 1015 2020x2 are negative for 72 hours Transesophageal echocardiogram 04/21/2020 Left ventricular ejection fraction is preserved Vegetation seen on likely the septal leaflet of the tricuspid valve measuring 0.9 cm x 1.2 cm. There is mild tricuspid regurgitation No other significant valve abnormality or vegetation noted There is no pericardial effusion Twelve-lead EKG 04/12/2020 Sinus tachycardia 123 bpm, normal AV conduction Renal artery duplex 04/12/2020 No definite evidence of renal artery stenosis echogenic kidneys. Mild right hydronephrosis Chest x-ray 04/19/2020 Cavitary pneumonia unchanged from previous studies. Head CT 04/21/2020 No acute intracranial process Physical Exam Vital Signs: Temp Pulse Resp BP Pulse Ox 99.6 F 104 H 18 142/86 H 93 04/25/20 07:36 04/25/20 07:36 04/25/20 07:36 04/25/20 07:36 04/25/20 07:36 Intake & Output 04/24/20 04/25/20 04/26/20 06:59 06:59 06:59 Intake Total 1198 1480 Output Total 475 450 Balance 723 1030 Weight 90.6 kg 112.9 kg General appearance: PRESENT: mild distress, obese, well-developed, well- nourished Head exam: PRESENT: atraumatic Eye exam: PRESENT: conjunctiva pale, EOMI Mouth exam: PRESENT: dry mucosa Respiratory exam: PRESENT: decreased breath sounds, symmetrical, wheezes, other Cardiovascular exam: PRESENT: RRR, +S1, +S2, systolic murmur Pulses: PRESENT: normal radial pulses GI/Abdominal exam: PRESENT: soft Rectal exam: PRESENT: deferred Extremities exam: PRESENT: other - Left femoral vein hemodialysis catheter Psychiatric exam: PRESENT: agitated Skin exam: PRESENT: dry, intact Results Laboratory Results: 04/25/20 05:26 04/25/20 05:26 04/25/20 04/25/20 05:26 05:26 WBC 7.8 RBC 2.52 L Hgb 7.5 L Hct 21.8 L MCV 86 MCH 29.7 MCHC 34.5 RDW 15.0 H Plt Count 154 Seg Neutrophils % 77.7 Sodium 132.0 L Potassium 3.8 Chloride 97 L Carbon Dioxide 23 Anion Gap 12 BUN 68 H Creatinine 5.03 H Est GFR ( Amer) 12 L Glucose 102 Calcium 8.0 L 04/12/20 04:15 NT-Pro-B Natriuret Pep 8880 H EKG Comments: MSSA positive blood cultures 04/12/2020 [id number] eight 2020 x 210 ten 2020 x 2 blood cultures 1015 2020x2 are negative for 72 hours Transesophageal echocardiogram 04/21/2020 Left ventricular ejection fraction is preserved Vegetation seen on likely the septal leaflet of the tricuspid valve measuring 0.9 cm x 1.2 cm. There is mild tricuspid regurgitation No other significant valve abnormality or vegetation noted There is no pericardial effusion Twelve-lead EKG 04/12/2020 Sinus tachycardia 123 bpm, normal AV conduction Renal artery duplex 04/12/2020 No definite evidence of renal artery stenosis echogenic kidneys. Mild right hydronephrosis Chest x-ray 04/19/2020 Cavitary pneumonia unchanged from previous studies. Head CT 04/21/2020 No acute intracranial process Impressions: Renal Artery Duplex 04/12/20 00:00 IMPRESSION: No definitive evidence of renal artery stenosis. Echogenic kidneys, suggestive of medical renal disease. Additionally, the elevated resistive indices can also be seen in association with medical renal disease. Mild right hydronephrosis. copyright 2011 [employer]- All Rights Reserved Venous Doppler Study 04/12/20 00:00 IMPRESSION: NO EVIDENCE DVT OR SVT IN EITHER LEG. Chest CT 04/16/20 00:00 IMPRESSION: Bilateral cavitary pneumonia. Chest X-Ray 04/19/20 00:00 IMPRESSION: Cavitary pneumonia. No significant change. Head CT 04/21/20 00:00 IMPRESSION: NO ACUTE INTRACRANIAL FINDINGS. EVIDENCE OF ACUTE STROKE: NO. KUB X-Ray 04/21/20 13:33 IMPRESSION: NG tube tip in the distal stomach. Plan Discharge Plan: Anticipate transfer to [place] to be evaluated by the CT surgery service there. This is for consideration for surgery on the tricuspid valve given size of vegetation and effective downstream phenomena such as acute kidney injury and cavitary pneumonia likely secondary to showering from septic emboli. Time Spent: Greater than 30 Minutes - I discussed the case with the CT surgeon in [place]. Phone call was put out to [facility] for arranging the transfer.
[2020-04-25] MEDS: SEVELAMER HCL 800 MG TABLET PO SCH ×2 (09:26→11:51)
[2020-04-25] MEDS: FAMOTIDINE 20 MG TABLET NG SCH (09:27)
[2020-04-25] MEDS: CEFTRIAXONE 2 GM/D5W RTU 2 GM/50 ML RTUPB IV SCH (10:05)
--- NOTE | 2020-04-25 13:37 | PDOC PROGRESS REPORT ---
Subjective Subjective:: Per Previous Physician: "34 year old female with history of IV heroin/methamphetamine use, hepatitis C, who presents to the hospital with complaints of shortness of breath and increased work of breathing over the past 5 days. Patient has also noted increased swelling in both lower extremities since that time. She denies fever or chills. She does have occasional cough nonproductive of more sputum. Also experiencing aches and pains in her lower extremities. She denies any diarrhea. She denies any history of kidney disease or heart failure. She also admits to very diminished water intake over the last few days. She has been using heroin very frequently over the past 2 to 3 days as well. On arrival of EMS, patient was noted to be significantly hypoxic with SPO2 69% and subsequently placed on a CPAP. She was switched to a BiPAP machine in the ER due to work of breathing. 04/13-Last night, despite receiving over 2.5 L of fluid, patient put out only about 100 cc of urine. I rechallenged her with 80 mg of IV Lasix but she put out only about 40 cc following that. She continues to remain anuric and sign ificantly encephalopathic. 04/14-Patient had about this morning when she became tachypneic and short of breath. She also felt very anxious and stated that she felt like she was withdrawing. She did receive some Ativan. Patient will plan for dialysis today. 04/15/[id number]-oicp-old female with history of IV heroin, methamphetamine use, history of hep C admitted with increasing shortness of breath of 5 days duration. Patient has a dialysis access placed yesterday she is in the ICU for dialysis today. Essentially she is on BiPAP with 60% oxygen. Repeated blood cultures coming back positive for staph aureus. ID consult was done. Per ID recommendations to continue IV ceftriaxone 2 g daily and discontinue IV vancomycin. Consultation with Dr. Gm ibarra is requested for IESHA on Saturday. On examination patient is tachycardic and tachypneic. CT chest without contrast was requested. Patient may be withdrawing. Patient is on methadone and to add IV Ativan 1 mg every 2 hours as needed for withdrawal symptoms. Overall prognosis poor. 04/16/20-rapid response was called this night because patient became tachycardic tachypneic agitated most likely secondary to withdrawal symptoms. Patient was started on morphine 2 mg IV every 4 hours, lorazepam 1 mg every 4 hours. Patient is comfortably sleeping in the bed at this time. On BiPAP. ABG this morning on 60% oxygen shows pH of 7.37/PO2 of 182. Plan is to decrease the oxygen requirements to 40%. To continue IV ceftriaxone. Blood cultures are repeated. Discussed the case with Dr. Gm ibarra he is planning to do IESHA if possible on Saturday.. 04/17/20-no acute events in the last 24 hours. Patient is afebrile. Receiving IV Rocephin for MSSA bacteremia. ABG on 40% oxygen on BiPAP indicates pH of 7.34/PCO2 46/PO2 109/oxygen saturation is 97%. Plan is to decrease the oxygen supplementation to 35%. pt Received 2 units of PRBC yesterday today's labs are pending. 04/18/2020-patient is in the ICU receiving dialysis. Presently on BiPAP with 35% oxygen. WBC is improving. Blood pressure stable. No acute events in the last 24 hours. Plan is to consult pulmonology today." 04/19/2020 Patient very agitated today, combative, fighting with nursing staff to keep her oxygen in place, occasionally pulling at her Gomez. Ativan ineffective. Possible patient has anoxic brain injury from drug overdose. We will need to get a brain MRI when she is more stable and calm. Start scheduled Zyprexa. Start as needed Haldol. Switch clonidine to patch as she is not taking oral meds currently. Chest x-ray reviewed which showed the cavitary pneumonia previously seen. Speech therapy eval. 04/20/2020 Patient much more calm today after taking Zyprexa yesterday. She was given Haldol overnight which also had a calming effect. Discussed the case with Dr. Worrell who will schedule the patient for IESHA tomorrow, n.p.o. at midnight tonight. Ordered MRI brain to look for signs of anoxic brain injury or septic embolic strokes given she has severely altered mentation which is not resolving despite no longer being in opiate withdrawal. Stopped methadone as she has not had this in the past few days and it will only serve to muddy the picture going forward with regards to her mentation. Creatinine higher again, will likely need dialysis long-term. Discussed the case with the patient's father in great detail and gave him a full update and answered all his questions. 04/21/2020 Patient seems to be doing better today from a respiratory standpoint and is more alert. Per nursing, when her mother came to see her patient recognized her and had a partial conversation with her. Patient is scheduled for IESHA today and she is n.p.o. She is making a scant amount of brownish tinged urine. Holding off on IV fluids as she is currently dialysis dependent and at risk for volume overload. Discussed with nursing to place an NG tube and get a nutrition consult to get for tube feeds until we can clear her to eat with speech therapy. She has not had adequate nutrition in several days due to procedures and being intermittently combative and somnolent. 04/22/2020 Patient was rather somnolent throughout the day. I have held her Zyprexa and we will avoid giving her any more sedation for now if possible. I spoke with [facility] and they were not able to evaluate the patient today due to somnolence. They stated that they would be available to come see her this weekend if she wakes up. Incidentally, nursing informed me that the patient became much more alert this afternoon and was able to pass a bedside swallow exam from them, asking for a liquid diet. We can try this for now but we still need a speech therapist to evaluate the patient in the near future. I spoke with Dr. Worrell who is discussing the case with CT surgery as the patient may be appropriate for transfer to [facility] for heart valve repair/replacement. He will let us know what he finds out. Hemoglobin is lower but there are no signs of bl eeding. 04/23/2020 Patient is much improved today and is alert and talking in complete sentences. She is asking for narcotics but we will hold off on these. When asked if she is in pain she is unable to tell me where specifically she hurts but says she feels all over her body that she wants morphine. Antibiotics reportedly fell off of the patient's medication list due to poor functioning of the EMR and these have been restarted today. Patient's blood cultures are notably negative and Dr. Raphael lehman is considering having the patient transferred to [facility] for CT surgery to operate on her tricuspid valve. Per infectious disease: "In terms of antibiotic therapy, continue ceftriaxone for 14 days for pneumococcal pneumonia and then transition to cefazolin 2g/2g/3g with HD to complete 6 weeks from negative cultures foe endocarditis (EOT 05/28/2020)." 04/24/2020 Patient continues to do well. She is alert and interactive and is still frequently asking for narcotics. At times, she is pulling out her IVs and Intermittently agitated but seems to be responsive to Ativan. We will repeat blood cultures given she was off antibiotics for a few days. If blood culture is negative by tomorrow, we can proceed with a PICC line. Hopefully she will not pull this out. 04/25/2020 Patient being transferred to [facility] for cardiothoracic surgery evaluation for possible tricuspid valve replacement due to infective endocarditis with vegetation. I discussed case with Dr. Worrell today and he has been an exceptional help at arranging transfer and has done the patient's discharge summary as well. Patient and family are in agreement with transfer we are currently waiting for a bed which reportedly should open up this afternoon. Patient does not have any specific complaints when asked today. Creatinine is higher. Reason For Visit: ACUTE RENAL FAILURE Physical Exam Vital Signs: Temp Pulse Resp BP Pulse Ox 99.6 F 104 H 18 142/86 H 93 04/25/20 10:00 04/25/20 07:36 04/25/20 07:36 04/25/20 07:36 04/25/20 07:36 Intake & Output 04/24/20 04/25/20 04/26/20 06:59 06:59 06:59 Intake Total 1198 1480 50 Output Total 475 450 Balance 723 1030 50 Weight 90.6 kg 112.9 kg Exam: General appearance: PRESENT: disheveled, calm, obese, alert and speaking clearly, states he has no complaints today Head exam: PRESENT: atraumatic, normocephalic Eye exam: PRESENT: conjunctiva pink. ABSENT: scleral icterus Mouth exam: PRESENT: moist Respiratory exam: PRESENT: Resolving scant rhonchi. ABSENT: rales, wheezes Cardiovascular exam: PRESENT: RRR. ABSENT: diastolic murmur, rubs, systolic murmur GI/Abdominal exam: PRESENT: normal bowel sounds, soft. ABSENT: distended, g uarding, mass, organolmegaly, rebound, tenderness Extremities exam: ABSENT: pedal edema Neurological exam: PRESENT: Alert, awake, oriented to person. ABSENT: oriented to place, oriented to time, oriented to situation Psychiatric exam: PRESENT: appropriate affect, normal mood Skin exam: PRESENT: dry, intact, warm Results Laboratory Results: 04/25/20 05:26 04/25/20 05:26 04/25/20 04/25/20 05:26 05:26 WBC 7.8 RBC 2.52 L Hgb 7.5 L Hct 21.8 L MCV 86 MCH 29.7 MCHC 34.5 RDW 15.0 H Plt Count 154 Seg Neutrophils % 77.7 Sodium 132.0 L Potassium 3.8 Chloride 97 L Carbon Dioxide 23 Anion Gap 12 BUN 68 H Creatinine 5.03 H Est GFR ( Amer) 12 L Glucose 102 Calcium 8.0 L 04/12/20 04:15 NT-Pro-B Natriuret Pep 8880 H Impressions: Renal Artery Duplex 04/12/20 00:00 IMPRESSION: No definitive evidence of renal artery stenosis. Echogenic kidneys, suggestive of medical renal disease. Additionally, the elevated resistive indices can also be seen in association with medical renal disease. Mild right hydronephrosis. copyright 2011 [employer]- All Rights Reserved Venous Doppler Study 04/12/20 00:00 IMPRESSION: NO EVIDENCE DVT OR SVT IN EITHER LEG. Chest CT 04/16/20 00:00 IMPRESSION: Bilateral cavitary pneumonia. Chest X-Ray 04/19/20 00:00 IMPRESSION: Cavitary pneumonia. No significant change. Head CT 04/21/20 00:00 IMPRESSION: NO ACUTE INTRACRANIAL FINDINGS. EVIDENCE OF ACUTE STROKE: NO. KUB X-Ray 04/21/20 13:33 IMPRESSION: NG tube tip in the distal stomach. Assessment and Plan - Diagnosis (1) Infective endocarditis Qualifiers: Infective endocarditis organism: bacterial Chronicity: acute Qualified Code(s): I33.0 - Acute and subacute infective endocarditis Is this a current diagnosis for this admission?: Yes Plan: Per Previous Physician: "MSSA Bacteremia + multiple bilateral Pulmonary abscesses on chest xray indicative of septic emboli TTE had technical difficulties but does show something that seems to be a vegetation on her tricuspid with moderate tricuspid regurgitation and moderate pulmonary hypertension noted with a RVSP 50 to 60 mmHg and hyperdynamic LV. 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 will obtain dry chest CT when more stable Currently patient is very sick and her situation is very dynamic. 04/15/2020-blood cultures growing MSSA. ID consult was requested. Chest x-ray indicated of bilateral pulmonary abscesses most likely septic emboli. CT chest without contrast was requested. Consultation with cardiology is requested for IESHA. Patient is presently on IV Rocephin as per ID recommendations. Vancomycin is discontinued. Patient is tachycardic tachypneic on BiPAP 60%. Overall prognosis poor. If the condition continue to deteriorate plan may be to transfer her to tertiary care facility. Patient is presently getting dialysis plan is to remove 2 L of fluid. Transthoracic echocardiogram indicates tricuspid valve vegetation. 04/16/20-transthoracic echo is unable to rule out a vegetation on the tricuspid valve. Case was discussed with the cardiology team plan is to do IESHA on Saturday if the patient respiratory status is stable. Blood cultures growing MSSA. On ceftriaxone 2 g daily. She is allergic to penicillins. ID is on board. Patient has a dialysis in yesterday. Overall prognosis poor condition is critical. Chest x-ray suggestive of progression of the cavitation. Pulmonary consult will be requested on Saturday. 04/17/2020-blood cultures are positive for MSSA bacteremia. Most likely she has endocarditis. Patient is still on BiPAP to do the IESHA. Presently on IV Rocephin 2 g daily as per ID recommendations. Patient received dialysis last week most likely she will go for dialysis tomorrow. Presently on BiPAP. 04/18/20-latest blood culture is positive for MRSA. Started on vancomycin. To continue IV ceftriaxone at this time. To keep the patient n.p.o. from midnight for possible IESHA tomorrow. Pulmonary consult will be requested. Follow-up chest x-ray was requested." 04/19/2020 Continued on ceftriaxone, there is no indication for vancomycin and this is been stopped Discussed finalized blood culture results with microbiology lab, contaminant of staph hominis with methicillin resistance in 1/4 bottles noted Antibiotics fell off 04/19 due to EMR problems, restarted on 04/23 IESHA 04/[address] Worrell showed moderate sized vegetation on tricuspid valve MRI brain to take place after IESHA while patient is still calm from procedure Dr. Worrell d/w CT surgery of [facility]: accepted for transfer Repeat blood cultures on 04/24 PICC line ordered (2) Acute respiratory failure with hypoxia Is this a current diagnosis for this admission?: Yes Plan: Per Previous Physician: "multifactorial 2/2 pulmonary edema+pulmonary abscess/septic emboli+pneumonia + ARDS COVID-19 screen is negative spo2 notably 99% on 50% fio2 on cpap 8 --transitioned to HFNC 60% 40L to allow patient eat with spo2 at 99% Had dialysis today to help with pulmonary edema. Rest of treatment as above. Still tachypneic but awake and protecting airway. Monitor closely at risk of decompensation. If patient does not turn the corner soon or worsens, may need upgrade to ICU and possible intubation. monitor blood gas 04/15/2020-patient admitted with acute respiratory failure with hypoxia multifactorial. Most likely infective endocarditis in association with septic emboli plus pulmonary abscess. COVID-19 is negative. Present on BiPAP 60% oxygen. CT chest without contrast is pending. Patient is receiving dialysis plan is to remove 2 L of fluid. If the condition deteriorates plan is to transfer to tertiary care facility. ABGs requested. 04/16/2020-patient admitted with acute respiratory failure requiring BiPAP. It is a IV drug abuser most likely has infective endocarditis. Chest x-ray suggestive of progression of the cavitary lesions. Patient might have septic emboli. Presently on 2 g of IV Rocephin. ID is on board. To consult pulmonary on Saturday. Overall prognosis poor. Condition is critical. I called [facility] for possible transfer and I discussed the case with the ICU attending,patient is not accepted at this time. 04/17/2020-patient admitted with acute respiratory failure with hypoxia chest x- ray suggestive of progression of the cavitations, most likely she has infective endocarditis. Blood cultures are positive for MSSA bacteremia. On IV Rocephin 2 g daily as per ID recommendations. Temp this morning is 99.1. On BiPAP at 40% ABG with pH of 7.3/PCO2 46/PO2 109/oxygen saturation is 97%. Plan is to decrease the oxygen to supplementation to 35%. Repeat the chest x-ray today. 04/18/2062-88-vwxo-old female IV drug abuser admitted with acute respiratory failure with hypoxia. At the time of my examination patient is receiving dialysis and on BiPAP with 35% oxygen. Oxygen saturation is around 98%. Chest x-ray suggestive of progressive cavitation and septic emboli. Receiving IV vancomycin and IV ceftriaxone. ID is on board. To request for pulmonary consult today." 04/19/2020 -Slow to improve, still requiring supplemental oxygen Pulmonology has not seen the patient yet Wean supplemental oxygen Pulmonology consulted: Discussed the case with Dr. Rizo in detail Continued gradual improvement (3) Acute renal failure (ARF) Qualifiers: Acute renal failure type: with acute tubular necrosis Qualified Code(s): N17.0 - Acute kidney failure with tubular necrosis Is this a current diagnosis for this admission?: Yes Plan: Per Previous Physician: "Oliguric still but mild improvement in urine output Renal ultrasound with duplex shows echogenic kidneys, mild hydronephrosis but without any renal arterial occlusion Still quite uremic Noted to have hyperphosphatemia - [facility] Nephrology is following - 2nd dialysis session today via [facility] Monitor labs and urine output closely. 04/15/2020 urinary output is improving. Receiving dialysis plan is to remove 2 L of fluid today. Nephrology on board. 04/16/2020-patient received full session of dialysis yesterday. Latest creatinine is 4.95. Urinary output is minimal. Nephrology on board. Patient may need another session of dialysis on Saturday. 04/17/20-patient received dialysis on Saturday. Today's labs are pending. Depending on the labs she may need another dialysis session tomorrow. 04/18/2020-patient is receiving hemodialysis today. Latest serum creatinine is 4.9. To check the labs on daily basis. Urine output is gradually is improving." 04/19/2020 Dialysis ongoing per nephrology who is following Trend BMP, creatinine not improving Nephrology following Dialysis continues (4) Anemia Qualifiers: Anemia type: due to chronic kidney disease Is this a current diagnosis for this admission?: Yes (5) Hypercalcemia Is this a current diagnosis for this admission?: No (6) Hyperphosphatemia Is this a current diagnosis for this admission?: Yes (7) Liver disease Is this a current diagnosis for this admission?: No (8) Nephrotic range proteinuria Is this a current diagnosis for this admission?: Yes (9) Sepsis Qualifiers: Sepsis type: sepsis due to unspecified organism Sepsis acute organ dysfunction status: with acute organ dysfunction Severe sepsis acute organ dysfunction type: acute respiratory failure Acute respiratory failure type: with hypoxia Severe sepsis shock status: without septic shock Qualified Code(s): A41.9 - Sepsis, unspecified organism; R65.20 - Severe sepsis without septic shock; J96.01 - Acute respiratory failure with hypoxia Is this a current diagnosis for this admission?: Yes (10) Mild protein-calorie malnutrition Is this a current diagnosis for this admission?: Yes - Plan Summary Summary: 04/15/2020 Critical care visit Called to see the patient for tachycardia and tachypnea. Patient was agitated. She was maintaining good saturation on BiPAP. Reviewed today's chest x-ray. She has worsening cavitary lesions from septic emboli. I did review the transthoracic echocardiogram and they could not rule out vegetation. She has not had a IESHA as of yet. All of her blood cultures reveal a very sensitive staph aureus and she is currently on ceftriaxone. At this point I am going to give her a dose of lorazepam and a small dose of morphine. She did just get her methadone orally but this will take a little while to kick in. We will monitor her closely and the nurses will give me an update shortly. - Time Medications reviewed and adjusted accordingly: Yes Anticipated Discharge Disposition: Tertiary - [facility] Anticipated Discharge Timeframe: within 24 hours - Inpatient Certification Based on my medical assessment, after consideration of the patient's comorbidities, presenting symptoms, or acuity I expect that the services needed warrant INPATIENT care.: Yes I certify that my determination is in accordance with my understanding of Medicare's requirements for reasonable and necessary INPATIENT services [42 CFR 412.3e].: Yes Medical Necessity: Significant Comorbidiites Make Outpatient Treatment Too Risky, Need Close Monitoring Due to Risk of Patient Decompensation, Need for IV Antibiotics, Risk of Complication if Not Cared For in Hospital, Risk of Diagnosis Which Will Require Inpatient Eval/Care/Monitoring
[2020-04-25 16:11] VITALS: BP 97/76
--- NOTE | 2020-04-25 22:21 | PDOC PROGRESS REPORT ---
Subjective Progress Note for:: 04/25/20 Subjective:: I am seeing the patient during dialysis this afternoon. According to my dialysis nurses the patient was belligerent, confused and agitated when she came in to the dialysis room but she has calmed down. She is currently sleeping and so far tolerating dialysis. Reason For Visit: ACUTE RENAL FAILURE Physical Exam Vital Signs: Temp Pulse Resp BP Pulse Ox 99.6 F 104 H 18 142/86 H 93 04/25/20 10:00 04/25/20 07:36 04/25/20 07:36 04/25/20 07:36 04/25/20 07:36 Intake & Output 04/24/20 04/25/20 04/26/20 06:59 06:59 06:59 Intake Total 1198 1480 Output Total 475 450 Balance 723 1030 Weight 90.6 kg 112.9 kg Vitals during dialysis: Blood pressure 140/69, heart rate of 102, blood flow rate of 300 mL/min and dialysate flow rate of 600 mL/min. Exam: General appearance: [PRESENT: no acute distress, sleeping comfortably Head exam: PRESENT: atraumatic, normocephalic Eye exam: PRESENT: Eyes closed Neck exam: ABSENT: JVD Respiratory exam: PRESENT: Diminished breath sounds. ABSENT: crackles, rales, rhonchi, unlabored, wheezes Cardiovascular exam: PRESENT: Regular rate rhythm -+S1, +S2. ABSENT: diastolic murmur, systolic murmur GI/Abdominal exam: PRESENT: normal bowel sounds, soft. ABSENT: guarding, mass, tenderness Extremities exam: ABSENT: No edema Neurological exam: PRESENT: alert, awake, oriented to person, place and time. Skin exam: PRESENT: dry, warm, Cardiovascular exam: PRESENT: +S1, +S2, tachycardia. ABSENT: systolic murmur GI/Abdominal exam: PRESENT: normal bowel sounds, soft. ABSENT: ascites, distended, firm, organomegaly, tenderness Results Laboratory Results: 04/25/20 05:26 04/25/20 05:26 04/25/20 04/25/20 05:26 05:26 WBC 7.8 RBC 2.52 L Hgb 7.5 L Hct 21.8 L MCV 86 MCH 29.7 MCHC 34.5 RDW 15.0 H Plt Count 154 Seg Neutrophils % 77.7 Sodium 132.0 L Potassium 3.8 Chloride 97 L Carbon Dioxide 23 Anion Gap 12 BUN 68 H Creatinine 5.03 H Est GFR ( Amer) 12 L Glucose 102 Calcium 8.0 L 04/12/20 04:15 NT-Pro-B Natriuret Pep 8880 H Impressions: Renal Artery Duplex 04/12/20 00:00 IMPRESSION: No definitive evidence of renal artery stenosis. Echogenic kidneys, suggestive of medical renal disease. Additionally, the elevated resistive indices can also be seen in association with medical renal disease. Mild right hydronephrosis. copyright 2010 [employer]- All Rights Reserved Venous Doppler Study 04/12/20 00:00 IMPRESSION: NO EVIDENCE DVT OR SVT IN EITHER LEG. Chest CT 04/16/20 00:00 IMPRESSION: Bilateral cavitary pneumonia. Chest X-Ray 04/19/20 00:00 IMPRESSION: Cavitary pneumonia. No significant change. Head CT 04/21/20 00:00 IMPRESSION: NO ACUTE INTRACRANIAL FINDINGS. EVIDENCE OF ACUTE STROKE: NO. KUB X-Ray 04/21/20 13:33 IMPRESSION: NG tube tip in the distal stomach. Assessment & Plan - Diagnosis (1) Acute kidney injury Is this a current diagnosis for this admission?: Yes Plan: Initially presented with uremia and anuria requiring initiation of renal replacement therapy. Patient has associated nonnephrotic range proteinuria with urine protein to creatinine ratio of about 1.89 and significant microhematuria. Serologies showed negative MANUEL, negative ANCA, negative anti-GBM. She has however significantly low C3/C4 and CH 50. Hepatitis C quantification is severely elevated. Differential diagnosis include postinfectious GN versus MPGN secondary to hepatitis C. superimposed ATN is very much a possibility. With this possibilities, treatment would be to continue antibiotics. Kidney biopsy deemed to be not necessary as it will not change the management. Currently she is nonoliguric and is passing a decent amount of urine output, however she continues to have elevated BUN and creatinine requiring renal r eplacement therapy. We will do dialysis today for 3 hours, using the patient's trialysis catheter, with 3 potassium bath, blood flow rate of 300 mL per minute, dialysate flow rate of 600 mL per minute, ultrafiltration 1.5 L as tolerated, no heparin and Retacrit of 25,000 units during dialysis intravenously. Patient being monitored very closely during dialysis treatment. (2) Infective endocarditis Qualifiers: Infective endocarditis organism: bacterial Chronicity: acute Qualified Code(s): I33.0 - Acute and subacute infective endocarditis Is this a current diagnosis for this admission?: Yes Plan: TTE on April 14 showed findings suggestive of tricuspid valve endocarditis. 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 On IV antibiotics which would require at least 6 weeks intravenously. Blood cultures has been negative on 04/21/2020 [address] 04/24/2020. Dr. Worrell, transistor tester has arranged transfer to [facility] for possible evaluation for tricuspid valve surgery. (3) Staphylococcus aureus bacteremia Is this a current diagnosis for this admission?: Yes Plan: Patient being maintained on IV ceftriaxone per infectious disease. (4) Acute respiratory failure with hypoxia Is this a current diagnosis for this admission?: Yes Plan: Positive bilateral cavitary lesion suggestive of septic emboli. Has been off the BiPAP and tolerating nasal cannula. (5) Hepatitis C Is this a current diagnosis for this admission?: Yes Plan: Hepatitis C virus quantity 863,000 IU/mL. Patient needs to be followed by [facility] specialist. (6) Anemia Qualifiers: Anemia type: due to chronic kidney disease Is this a current diagnosis for this admission?: Yes Plan: Multifactorial causes due to acute illness. Patient had blood transfusions. I will give the patient Retacrit on dialysis. (7) Hyperphosphatemia Is this a current diagnosis for this admission?: Yes Plan: Due to ALISA. Since patient does not have much food intake phosphorus binder is going to be held for now. (8) IV drug abuse Is this a current diagnosis for this admission?: Yes Plan: History of IV heroin/methamphetamine use. (9) Opiate withdrawal Is this a current diagnosis for this admission?: Yes Plan: On lorazepam. (10) Thrombocytopenia Is this a current diagnosis for this admission?: Yes - Time Time with patient: 15-25 minutes
== END 2020-04-25 16:20 | disposition short-term general hospital (02) | DRG 871 ==
LOC: ER 03:51 → EH 11:21 → 3W 14:35 → ICU 04-13 15:42 → 3N 04-13 17:19 → 3W 04-14 21:42 → UNDODISIN 04-21 19:30
PROVIDERS: ADMIT Internal Medicine; ATTEND Internal Medicine
PROC: 5A09557 Assistance with Respiratory Ventilation, Greater than 96 Consecutive Hours, Continuous Positive Airway Pressure (ICD-10-PCS; principal; 2020-04-12)
PROC: 30233R1 Transfusion of Nonautologous Platelets into Peripheral Vein, Percutaneous Approach (ICD-10-PCS; 2020-04-13)
PROC: 06HY33Z Insertion of Infusion Device into Lower Vein, Percutaneous Approach (ICD-10-PCS; 2020-04-13)
PROC: 30233N1 Transfusion of Nonautologous Red Blood Cells into Peripheral Vein, Percutaneous Approach (ICD-10-PCS; 2020-04-16)
PROC: B24BZZ4 Ultrasonography of Heart with Aorta, Transesophageal (ICD-10-PCS; 2020-04-21)
PROC: 5A1D70Z Performance of Urinary Filtration, Intermittent, Less than 6 Hours Per Day (ICD-10-PCS; 2020-04-25)
DX: A41.01 Sepsis due to Methicillin susceptible Staphylococcus aureus (principal); N17.0 Acute kidney failure with tubular necrosis; I33.0 Acute and subacute infective endocarditis; J18.8 Other pneumonia, unspecified organism; J96.01 Acute respiratory failure with hypoxia; I26.90 Septic pulmonary embolism without acute cor pulmonale; J81.0 Acute pulmonary edema; F11.13 Opioid abuse with withdrawal; E44.1 Mild protein-calorie malnutrition; R65.20 Severe sepsis without septic shock; F32.9 Major depressive disorder, single episode, unspecified; B18.2 Chronic viral hepatitis C; F17.210 Nicotine dependence, cigarettes, uncomplicated; D64.9 Anemia, unspecified; D69.6 Thrombocytopenia, unspecified; B95.3 Streptococcus pneumoniae as the cause of diseases classified elsewhere; E83.39 Other disorders of phosphorus metabolism; E83.52 Hypercalcemia; F15.10 Other stimulant abuse, uncomplicated; Z78.1 Physical restraint status; Z79.899 Other long term (current) drug therapy; Z88.0 Allergy status to penicillin; Z03.818 Encounter for observation for suspected exposure to other biological agents ruled out
CPT/HCPCS: 01922; 36415; 36430; 36600; 70450; 71045; 71250; 74018; 80048; 80053; 80307; 81001; 82140; 82570; 82607; 82728; 82746; 82803; 82962; 83516; 83540; 83550; 83605; 83735; 83880; 84100; 84156; 84300; 84703; 85025; 85027; 85045; 85610; 85730; 86038; 86160; 86162; 86225; 86256; 86317; 86701; 86704; 86850; 86900; 86901; 86920; 87040; 87070; 87077; 87150; 87186; 87340; 87522; 87635; 92950; 93005; 93010; 93306; 93312; 93325; 93970; 93975; 94660; 96365; 96366; 96375; 99285; J0610; C9803; J0696; J1100; J1630; J1644; J1940; J1956; J2060; J2270; J2405; J2704; J3370; J3490; J7040; J7060; J7120; J7613; P9016; P9035; P9041; P9047; Q5105; S0028

== ENCOUNTER 2020-05-30 09:56 | Emergency (ER) | payer SELFPAY ==
--- NOTE | 2020-05-30 10:35 | ER Document Report ---
ED Medical Screen (RME) - General Chief Complaint: Arm Injury Stated Complaint: PAIN/SWELLING AT IV SITE Time Seen by Provider: 05/30/20 10:30 Mode of Arrival: Ambulatory Information source: Patient Notes: Patient is a 35-year-old female comes emergency room with multiple problems this morning. Her primary reason for presenting today was that her blood pressure has been triple over triple and she cannot seem to get it down. However patient has a very significant past medical history. On April 12 of this year she came to this emergency room and was diagnosed with endocarditis. She was admitted to the hospital and stayed here until April 25 when she was transferred to [facility] where she remained until May 28. During her stay there patient had acute kidney failure was on dialysis. She also states that on the last day of her stay there she was transfused a unit of blood reportedly her hemoglobin was 7.0 while she was receiving a blood transfusion the IV site on the left forearm infiltrated and patient states over the past 2 days she has noticed swelling warmth and tenderness where the infiltration site was at. Patient's endocarditis was caused by IV drug use she states that she has not done any drugs since her admissions. She does not know her last known menstrual cycle. Patient denies any shortness of breath, fever, nausea or vomiting. Physical examination: Patient is a well-nourished well-developed 35-year-old female no apparent distress on examination. Cardiac: Regular rate and rhythm noted. Heart rate is 75 blood pressure 173/105. Lungs: Bilateral breath sounds breath sounds decreased throughout no rhonchi rales or wheeze heard. Abdomen: Bowel sounds are present all 4 quads no tenderness noted to palpation. Upper extremity: Examination patient's left forearm shows a moderate size swelling at the proximal portion of the left forearm. Mild warmth felt. Mild tenderness noted. No severe discoloration noted at this time. Examination of the distal pulses are good at 2+. I have greeted and performed a rapid initial assessment of this patient. A comprehensive ED assessment and evaluation of the patient, analysis of test results and completion of the medical decision making process will be conducted by additional ED providers. Dictation of this chart was performed using voice recognition software; therefore, there may be some unintended grammatical errors. TRAVEL OUTSIDE OF THE [place] IN LAST 30 DAYS: No - Related Data Allergies/Adverse Reactions: Penicillins Allergy (Severe, Verified 04/23/20 12:40) tongue swelling Past Medical History Neurological Medical History: Reports: Hx Migraine Psychiatric Medical History: Reports: Hx Depression Traumatic Medical History: Denies: Hx Gunshot Wound - Immunizations Hx Diphtheria, Pertussis, Tetanus Vaccination: No Physical Exam - Vital signs Vitals: Temp Pulse Resp BP Pulse Ox 97.4 F 75 18 173/105 H 99 05/30/20 10:12 05/30/20 10:12 05/30/20 10:12 05/30/20 10:12 05/30/20 10:12 Course - Vital Signs Vital signs: Temp Pulse Resp BP Pulse Ox 97.4 F 75 18 173/105 H 99 05/30/20 10:12 05/30/20 10:12 05/30/20 10:12 05/30/20 10:12 05/30/20 10:12
[2020-05-30] MEDS ORDERED: ACETAMINOPHEN 325 MG TABLET PO ONE (10:38)
[2020-05-30] MEDS ORDERED: CLONIDINE HCL 0.1 MG TABLET PO ONE ×2 (11:58→15:29)
[2020-05-30] MEDS ORDERED: HYDROCODONE/ACETAMINOPHEN 5-325 MG TABLET PO ONE (11:58)
--- NOTE | 2020-05-30 13:26 | RADIOLOGY REPORT (SQ) ---
EXAM DESCRIPTION: VENOUS UNILATERAL UPPER IMAGES COMPLETED DATE/TIME: 05/30/2020 1:17 pm REASON FOR STUDY: Left forearm swelling COMPARISON: None. TECHNIQUE: Dynamic and static erazo scale and color images acquired of the left arm venous system. Se lected spectral images acquired with additional compression and augmentation maneuvers. The contralat eral subclavian vein and internal jugular vein were also imaged. Images stored on PACS. LIMITATIONS: None. FINDINGS: INTERNAL JUGULAR VEIN: Normal phasicity, compression, augmentation. No visualized echogeni c material on erazo scale. No defects on color images. Comparison opposite side normal. SUBCLAVIAN VEIN: Normal compression, augmentation. No visualized echogenic material on erazo scale. No defects on color images. AXILLARY VEIN: Normal compression, augmentation. No visualized echogenic material on erazo scale. No d efects on color images. BRACHIAL VEIN: Normal compression, augmentation. No visualized echogenic material on erazo scale. No d efects on color images. BASILIC VEIN: Normal compression, augmentation. No visualized echogenic material on erazo scale. No de fects on color images. CEPHALIC VEIN: There is acute nonocclusive SVT from the mid forearm to the antecubital fossa. OTHER: Mildly enlarged lymph node in the antecubital fossa. CONTRALATERAL SUBCLAVIAN VEIN AND INTERNAL JUGULAR VEIN: Normal phasicity, compression and augmentation. No visualized echogenic material on erazo scale. No de fects on color images. IMPRESSION: Nonocclusive SVT in the cephalic vein from the mid forearm to the antecubital fossa. TECHNICAL DOCUMENTATION: JOB ID: [id number] [employer]- All Rights Reserved Reading location - IP/workstation name: [email or web address]
[2020-05-30 14:11] LABS: ALBUMIN 3.6 g/dL (3.5-5.0); ALKALINE PHOSPHATASE 82 U/L (38-126); ANION GAP 14 (5-19); ASPARTATE AMINO TRANSFERASE 43 U/L (14-36); BILIRUBIN,DIRECT 0.4 mg/dL (0.0-0.4); BILIRUBIN,TOTAL 0.5 mg/dL (0.2-1.3); BLOOD UREA NITROGEN 46 mg/dL (7-20); CALCIUM 9.9 mg/dL (8.4-10.2); CARBON DIOXIDE 18 mmol/L (22-30); CHLORIDE 110 mmol/L (98-107); GLUCOSE 86 mg/dL (75-110); POTASSIUM 4.5 mmol/L (3.6-5.0); TOTAL PROTEIN 8.8 g/dL (6.3-8.2)
[2020-05-30 14:59] LABS: ABSOLUTE BASOPHILS # (AUTO) 0.1 10^3/uL (0.0-0.2); ABSOLUTE EOSINOPHILS # (AUTO) 0.3 10^3/uL (0.0-0.6); ABSOLUTE LYMPHOCYTES (AUTO) 1.4 10^3/uL (0.5-4.7); ABSOLUTE MONOCYTES (AUTO) 0.5 10^3/uL (0.1-1.4); ABSOLUTE NEUT (AUTO) 6.1 10^3/uL (1.7-8.2); BASOPHILS % (AUTO) 1.2 % (0-2); EOSINOPHILS % (AUTO) 3.5 % (0-6); HEMATOCRIT 25.5 % (36.0-47.0); HEMOGLOBIN 8.9 g/dL (12.0-15.5); LYMPHOCYTES % (AUTO) 16.9 % (13-45); MEAN CORPUSCULAR HEMOGLOBIN 30.5 pg (27.0-33.4); MEAN CORPUSCULAR HGB CONC 34.8 g/dL (32.0-36.0); MEAN CORPUSCULAR VOLUME 88 fl (80-97); PLATELET COUNT 246 10^3/uL (150-450); RED CELL DISTRIBUTION WIDTH 15.5 % (11.5-14.0); SEGMENTED NEUTROPHILS % (AUTO) 72.4 % (42-78); TOTAL CELLS COUNTED % (AUTO) 100 %; WHITE BLOOD COUNT 8.5 10^3/uL (4.0-10.5)
[2020-05-30 16:58] VITALS: BP 174/104
--- NOTE | 2020-05-30 17:10 | ER Document Report ---
ED Blood Pressure Problem - General Chief Complaint: High Blood Pressure Stated Complaint: PAIN/SWELLING AT IV SITE Time Seen by Provider: 05/30/20 10:30 Mode of Arrival: Ambulatory Information source: Patient TRAVEL OUTSIDE OF THE [place] IN LAST 30 DAYS: No - HPI Notes: Patient presents with several complaints. Patient has a bilateral frontal headache. It is throbbing and constant. Nothing makes it better or worse. Is been present for the last 3 days approximately. She also has left arm swelling and pain and this has been present since she had an infiltrated IV approximately 4 days ago. Patient also states that her blood pressure has been elevated since she left the hospital in [place] 3 days ago. Patient states she was an inpatient in [place] for approximately 6 weeks secondary to endocarditis. She states she just left the hospital 3 days ago. Patient's arm pain is constant. It is throbbing. It radiates up the left arm. Is worse with movement and better with rest. - Related Data Allergies/Adverse Reactions: Penicillins Allergy (Severe, Verified 04/23/20 12:40) tongue swelling Past Medical History - General Information source: Patient - Social History Smoking Status: Current Every Day Smoker Frequency of alcohol use: None Drug Abuse: None Family History: Reviewed & Not Pertinent, Other - Denies family history of kidney failure. Does have immediate family history of blood clots. Patient has homicidal ideation: No Neurological Medical History: Reports: Hx Migraine Psychiatric Medical History: Reports: Hx Depression Traumatic Medical History: Denies: Hx Gunshot Wound - Immunizations Hx Diphtheria, Pertussis, Tetanus Vaccination: No Review of Systems - Review of Systems Constitutional: denies: Chills, Fever Cardiovascular: denies: Chest pain, Palpitations Respiratory: denies: Cough, Sputum -: Yes All other systems reviewed and negative Physical Exam - Vital signs Vitals: Temp Pulse Resp BP Pulse Ox 97.4 F 75 18 173/105 H 99 05/30/20 10:12 05/30/20 10:12 05/30/20 10:12 05/30/20 10:12 05/30/20 10:12 Interpretation: Hypertensive - General General appearance: Appears well, Alert - HEENT Head: Normocephalic, Atraumatic Eyes: Normal Pupils: PERRL - Respiratory Respiratory status: No respiratory distress Chest status: Nontender Breath sounds: Normal Chest palpation: Normal - Cardiovascular Rhythm: Regular Heart sounds: Normal auscultation Murmur: No - Abdominal Inspection: Normal Distension: No distension Bowel sounds: Normal Tenderness: Nontender Organomegaly: No organomegaly - Back Back: Normal, Nontender - Extremities General upper extremity: Other - Patient's left arm has some swelling just inferior to the antecubital fossa. Slight erythema and warmth to this area. And there is tenderness to palpation to this area. There is no fluctuance. General lower extremity: Normal inspection, Nontender, Normal color, Normal ROM, Normal temperature, Normal weight bearing. No: Dewayne's sign - Neurological Neuro grossly intact: Yes Cognition: Normal Orientation: AAOx4 [place] Coma Scale Eye Opening: Spontaneous [place] Coma Scale Verbal: Oriented Karan Coma Scale Motor: Obeys Commands [place] Coma Scale Total: 15 Speech: Normal Motor strength normal: LUE, RUE, LLE, RLE Sensory: Normal - Psychological Associated symptoms: Normal affect, Normal mood - Skin Skin Temperature: Warm Skin Moisture: Dry Skin Color: Normal, Other - Except as noted above Course - Re-evaluation Re-evalutation: 05/30/20 17:08 Patient presents with left arm swelling and pain after an infiltrated IV. She does have superficial thrombophlebitis by ultrasound but no deep vein thrombus. Patient is been educated about using heat. She cannot use anti-inflammatories. Patient's blood pressure is also significantly elevated and I have called and discussed this with her electronic equipment repairer at [place]. He recommended that we add hydralazine to her regimen until she follows up there on 22 June. Patient was educated about this and also given a prescription for the hydralazine. Patient labs are otherwise improved compared to when she left [place] 3 days ago. Her creatinine is actually better and her hemoglobin is also better. - Vital Signs Vital signs: Temp Pulse Resp BP Pulse Ox 98.1 F 72 18 174/104 H 96 05/30/20 16:57 05/30/20 16:57 05/30/20 16:57 05/30/20 16:57 05/30/20 16:57 - Laboratory Result Diagrams: 05/30/20 14:51 05/30/20 13:39 Laboratory results interpreted by me: 05/30/20 05/30/20 13:39 14:51 RBC 2.90 L Hgb 8.9 L Hct 25.5 L RDW 15.5 H Chloride 110 H Carbon Dioxide 18 L BUN 46 H Creatinine 4.03 H Est GFR ( Amer) 15 L Est GFR (MDRD) Non-Af 13 L AST 43 H Total Protein 8.8 H - Diagnostic Test Radiology reviewed: Image reviewed, Reports reviewed Discharge - Discharge Clinical Impression: Uncontrolled hypertension Superficial thrombophlebitis Qualifiers: Superficial thrombophlebitis-Involved body area: upper extremity Laterality: left Qualified Code(s): I80.8 - Phlebitis and thrombophlebitis of other sites Chronic renal disease Qualifiers: Chronic kidney disease stage: stage 4 (severe) Qualified Code(s): N18.4 - Chronic kidney disease, stage 4 (severe) Condition: Stable Disposition: HOME, SELF-CARE Instructions: High Blood Pressure, Requiring Treatment ([facility]), Superficial Phlebitis ([facility]) Additional Instructions: Please follow-up as scheduled Please take the hydralazine as prescribed Prescriptions: Hydralazine HCl [Apresoline 50 mg Tablet] 50 mg PO TID 30 Days #90 tablet
== END 2020-05-30 17:29 | disposition home or self-care (01) ==
LOC: ER 09:56
DX: I80.8 Phlebitis and thrombophlebitis of other sites (principal); N18.4 Chronic kidney disease, stage 4 (severe); I12.9 Hypertensive chronic kidney disease with stage 1 through stage 4 chronic kidney disease, or unspecified chronic kidney disease; R51.9 Headache, unspecified; F17.200 Nicotine dependence, unspecified, uncomplicated; Z88.0 Allergy status to penicillin
CPT/HCPCS: 36415; 80053; 81025; 83605; 85025; 93971; 99284